=== PATIENT | female | born 1985 | race Caucasian/White ===

== ENCOUNTER 2022-07-11 16:09 | Observation (INO) | payer OTHER, SELFPAY ==
[2022-07-11] VITALS (20 sets, daily range): BP systolic 118–159; BP diastolic 71–94; PULSE 98–117; RESP 17–30; TEMP 36.3–37.6; O2SAT 96–100
--- NOTE | 2022-07-11 16:15 | ECG_ITS ---
Measurements Intervals [place] Rate: 101 P: 23 LA: 150 QRS: 24 QRSD: 86 T: 11 QT: 348 QTc: 451 Interpretive Statements SINUS TACHYCARDIA LOW QRS VOLTAGE IN PRECORDIAL LEADS BORDERLINE ECG NO PREVIOUS ECG AVAILABLE FOR COMPARISON Electronically Signed On 07-11-2022 16:28:40 STAVE PLANER TENDER by Marco Powell D.O.
--- NOTE | 2022-07-11 16:24 | ED.SYNCOPE ---
HPI - Syncope General Chief Complaint: Syncope Stated Complaint: near syncopy Time Seen by Provider: 07/11/22 16:11 Source: patient and EMS Mode of arrival: EMS Limitations: no limitations History of Present Illness HPI narrative: Isabel Lozano is a 36 y/o female who presents today for a near syncope episode. She reports she has been having irregular vaginal bleeding since October. She has been trying to get in to see her OCCUPATIONAL PHYSICIAN and could not get in, she decided to follow up with the OBGYN here at [facility] today. She reports while she was there she had a pelvic exam completed and was going to get started on a different medication to help with her vaginal bleeding and when she got up after the exam she felt like she was going to pass out and her helped her lower and sit on the floor. She did not acutally pass out completely, she denies chest pain/shortness of breath. Related Data Home Medications Medication Instructions Recorded Confirmed drospirenone 3 mg-ethinyl tablet 07/11/22 estradiol 0.03 mg tablet ferrous sulfate 325 mg (65 mg mg 07/11/22 07/11/22 iron) tablet Allergies Allergy/AdvReac Type Severity Reaction Status Date / Time Sulfa (Sulfonamide Allergy Unknown Rash Verified 07/11/22 17:02 Antibiotics) sulfamethoxazole Allergy Unknown Rash Verified 07/11/22 17:02 trimethoprim Allergy Unknown Rash Verified 07/11/22 17:02 Review of Systems Review of Systems: CONSTITUTIONAL: Denies fever, chills, or sweats. EYES: Denies visual changes, redness, or discharge. ENT: Denies rhinorrhea, congestion, sore throat, or otalgia. CARDIOVASCULAR: Denies chest pain, palpitations, or edema. RESPIRATORY: Denies cough or dyspnea. GASTROINTESTINAL: Denies abdominal pain, nausea, vomiting, or diarrhea. GENITOURINARY: Denies dysuria or hematuria. SKIN: Denies rash or itching. MUSCULOSKELETAL: Denies back pain, joint pain, or myalgia. NEUROLOGIC: Denies headache, numbness, dizziness, or weakness. PSYCHIATRIC: Denies anxiety or depression. Exam Narrative: GENERAL: Well-appearing, well-nourished, and in no acute distress. HEAD: Normocephalic, atraumatic. EYES: PERRLA and EOMI. ENT: Nares clear, no rhinorrhea or epistaxis. Mucous membranes moist. Oropharynx without tonsillar hypertrophy exudate or other lesions. NECK: Supple. No adenopathy or masses. No carotid bruits or JVD CHEST: Clear to auscultation. No respiratory distress. No wheezes rales or rhonchi HEART: Regular rate and rhythm. No murmur heard. Normal peripheral pulses. ABDOMEN: Soft, nontender, nondistended, normal active bowel sounds. EXTREMITIES: Normal range of motion. No edema. SKIN: Warm, dry, no rash. NEURO: No focal deficits. Alert and oriented x3. PSYCH: Normal mood and affect. Findings, Course Vital Signs Vital signs: Vital Signs Temperature 36.3 C L 07/11/22 16:10 Pulse Rate 112 H 07/11/22 16:10 Respiratory Rate 18 07/11/22 16:10 Blood Pressure 138/88 07/11/22 16:10 Pulse Oximetry 100 07/11/22 16:10 Temperature 36.3 C L 07/11/22 16:10 Pulse Rate 108 H 07/11/22 18:07 Respiratory Rate 19 07/11/22 18:07 Blood Pressure 136/74 07/11/22 18:07 Pulse Oximetry 98 07/11/22 18:07 MDM - Syncope MDM Narrative Medical decision making narrative: Patient presents after a near syncope today while at the OBGYN office. She was getting checked out for irregular vaginal bleeding that she says has been present since October. She reports she stopped bleeding in March but then it returned in Novebmber. She feels like the bleeding since April has become heavier with clots. She denies LOC/hitting head. She denies chest pain/ shortness of breath/fever/chills/extremity swelling Plan to check: labs/EKG/ Concern for: Anemia/ irregular uterine bleeding/ Cardiac Ischemia/PE Patient is anemic at 7.0 and still having active vaginal bleeding. Talked with Dr. Anderson who would like pt admitted for a blood transfusion a
[2022-07-11 16:25] LABS: Basophils Percent Auto 0.2 % (0.2-1.2); Eosinophils Absolute Auto 0.2 K/mm3 (0-0.3); Eosinophils Percent Auto 1.8 % (0-4.4); Hematocrit 24.4 % (37.0-47.0); Immature Granulocyte Absolute 0.08 K/mm3 (0.00-0.031); Immature Granulocyte Percent A 0.8 % (0-0.5); Lymphocytes Absolute Auto 1.33 K/mm3 (0.9-3.2); Lymphocytes Percent Auto 13.9 % (18.3-44.2); Mean Corpuscular HGB Conc 28.7 g/dl (32-36); Mean Corpuscular Hemoglobin 25.9 pg (26-34); Mean Corpuscular Volume 90.4 fl (80-100); Mean Platelet Volume 10.5 fl (7.4-10.4); Monocytes Absolute Auto 0.6 K/mm3 (0.1-0.6); Monocytes Percent Auto 6.3 % (2.6-8.5); Neutrophils Absolute Auto 7.4 K/mm3 (1.3-6.7); Platelet Count Result 256 k/mm3 (150-375); Red Cell Distribution Width 19.8 % (11.5-14.5); White Blood Count 9.6 K/mm3 (4.5-10.0)
[2022-07-11 16:37] LABS: Alanine Aminotransferase 39 U/L (6-35); Alkaline Phosphatase 70 U/L (38-126); Anion Gap 5 mmol/L (8-16); Aspartate Amino Transferase 29 U/L (14-36); Bilirubin,Total 0.3 mg/dL (0.2-1.3); Blood Urea Nitrogen 11 mg/dL (7-17); Calcium 8.5 mg/dL (8.4-10.2); Carbon Dioxide 23 mmol/L (22-30); Chloride 102 mmol/L (98-107); Estimated CRCL calculation 114 ml/min; Estimated Glomerular Filt Rate > 60; Glucose 116 mg/dL (65-110); Magnesium 2.1 mg/dL (1.6-2.3); Potassium 3.9 mmol/L (3.4-5.0); Sodium 130 mmol/L (137-145)
[2022-07-11 16:49] LABS: Troponin I < 0.012 ng/mL (0.000-0.034)
[2022-07-11 16:55] LABS: Hypochromasia 1+ (NORMAL); Platelet Estimate Adequate (Adequate); Schistocytes None Seen (NORMAL)
[2022-07-11 16:56] LABS: Anisocytosis 3+ (NORMAL); Polychromasia 1+ (NORMAL)
[2022-07-11 17:07] LABS: D Dimer 0.49 ug/mL (<0.48)
[2022-07-11] MEDS: ESTROGENS, CONJUGATED 25 MG/5 ML VIAL IM (18:13)
[2022-07-11] MEDS: SODIUM CHLORIDE 0.9% IV 250 ML 30 ML IV CONT (18:54)
--- NOTE | 2022-07-11 20:10 | PC.NURSE ---
11 cc clot noted on pad upon patients arrival to the unit.
--- NOTE | 2022-07-11 20:19 | OBPPTRN ---
Patient transferred to room #290 via stretcher. Support persons present. Oriented to unit, room, information board, rooming in, and security measures.
[2022-07-12] VITALS (7 sets, daily range): BP systolic 106–138; BP diastolic 55–90; PULSE 85–101; RESP 16–20; TEMP 36.8–37.3; O2SAT 96–100
[2022-07-12] MEDS: ESTROGENS, CONJUGATED 25 MG/5 ML VIAL IV PUSH (11:47)
[2022-07-12 12:47] LABS: Basophils Percent Auto 0.3 % (0.2-1.2); Eosinophils Absolute Auto 0.2 K/mm3 (0-0.3); Eosinophils Percent Auto 1.3 % (0-4.4); Hematocrit 29.8 % (37.0-47.0); Hemoglobin 9.1 g/dL (12.0-15.0); Immature Granulocyte Absolute 0.06 K/mm3 (0.00-0.031); Immature Granulocyte Percent A 0.5 % (0-0.5); Lymphocytes Absolute Auto 1.63 K/mm3 (0.9-3.2); Lymphocytes Percent Auto 13.7 % (18.3-44.2); Mean Corpuscular HGB Conc 30.5 g/dl (32-36); Mean Corpuscular Volume 88.4 fl (80-100); Mean Platelet Volume 10.3 fl (7.4-10.4); Monocytes Absolute Auto 0.7 K/mm3 (0.1-0.6); Monocytes Percent Auto 5.6 % (2.6-8.5); Neutrophils Absolute Auto 9.4 K/mm3 (1.3-6.7); Neutrophils Percent Auto 78.6 % (45.5-73.1); Platelet Count Result 257 k/mm3 (150-375); Red Blood Count 3.37 M/mm3 (4.2-5.4); Red Cell Distribution Width 18.8 % (11.5-14.5); White Blood Count 11.9 K/mm3 (4.5-10.0)
--- NOTE | 2022-07-12 14:51 | PC.NURSE ---
0600 In report it was stated that she is a hard stick so Lab was called to come and draw it @ 0530. 0945 Called the Community Association Manager to see if she was still coming to draw pts labs? she stated she is the only one working to day and she id drawing the whole hospital. She will come when she gets a chance. 1215 she arrived to draw the labs.
--- NOTE | 2022-07-12 17:28 | PM.IMHP ---
H&P: HPI History of Present Illness Date/Time: 07/12/22 17:28 Chief Complaint: Vaginal bleeding Narrative: this patient is a 36-year-old female with heavy vaginal bleeding. She was seen in the office where she had a near syncopal episode. She has had intermittent severely heavy bleeding over the past several months. She has been evaluated and is considered surgical treatment. She was taken by EMS from the office to the emergency department. She got fluid resuscitation and the ambulance. She was stable on arrival in the emergency department. She was admitted from the emergency to the floor for blood and observation. Currently she is stable. She denies any shortness of breath or any syncope. She denies any chest pain or shortness of breath. She denies any nausea, vomiting, fever, chills Review of Systems Review of Systems: All systems reviewed & are unremarkable except as noted in HPI and below Constitutional: Constitutional: Denies chills, Denies fatigue, Denies fever(s) and Denies weakness Eyes: Eyes: Denies blurry vision, Denies change in vision, Denies loss of peripheral vision, Denies loss of vision, Denies other visual disturbances and Denies eye pain ENT: Denies vertigo, Denies dizziness, Denies hearing loss, Denies mouth pain, Denies nasal obstruction, Denies neck mass and Denies neck pain Cardiovascular: Cardiovascular: Denies chest pain, Denies diaphoresis, Denies syncope, Denies leg edema and Denies dyspnea Respiratory: Respiratory: Denies chest congestion, Denies cough, Denies hemoptysis, Denies dyspnea and Denies wheezing Gastrointestinal: Gastrointestinal: Denies abdominal pain, Denies constipation, Denies diarrhea, Denies nausea and Denies vomiting Genitourinary: Genitourinary: Denies hematuria, Denies change in libido, Denies nocturia, Denies genital lesions, Denies flank pain and Denies urinary urgency Musculoskeletal: Musculoskeletal: Denies abnormal gait, Denies back pain, Denies myalgias, Denies arthralgias, Denies joint swelling, Denies muscle weakness and Denies neck pain Integumentary/Breasts: Skin/Breast: Denies swelling, Denies breast pain, Denies breast mass, Denies dry skin, Denies nipple discharge, Denies unusual bruising and Denies jaundice Neurologic: Denies Neuro-related abnormal movements, Denies Abnormal speech present, Denies abnormal gait, Denies behavioral changes, Denies confusion, Denies vertigo, Denies dizziness, Denies syncope, Denies loss of vision, Denies memory loss, Denies convulsions and Denies weakness Psychiatric: Psychiatric: Denies abnormal sleep pattern, Denies behavioral changes, Denies change in libido, Denies confusion, Denies depression, Denies anhedonia and Denies memory loss Endocrine: Endocrine: Reports no additional endocrine complaints, Denies change in libido and Denies fatigue Hematologic/Lymphatic: Hematologic/Lymphatic: Reports no additional hematologic/lymphatic complaints Allergic/Immunologic: Allergic/Immunologic: Reports no additional allergic/immunologic complaints and Denies wheezing Meds Home Medications and Allergies Home Medications Medication Instructions Recorded Confirmed Type drospirenone 3 mg-ethinyl tablet 07/11/22 History estradiol 0.03 mg tablet ferrous sulfate 325 mg (65 mg mg 07/11/22 07/11/22 History iron) tablet Allergies Allergy/AdvReac Type Severity Reaction Status Date / Time Sulfa (Sulfonamide Allergy Unknown Rash Verified 07/11/22 17:02 Antibiotics) sulfamethoxazole Allergy Unknown Rash Verified 07/11/22 17:02 trimethoprim Allergy Unknown Rash Verified 07/11/22 17:02 Vital Signs Vital Signs - 24 hr 07/11/22 17:36 07/11/22 18:07 07/11/22 18:46 Temperature 98.4 F Pulse Rate 110 H 108 H 98 Respiratory Rate 21 H 19 20 Blood Pressure 136/74 130/75 Pulse Oximetry 98 100 Oxygen Delivery 07/11/22 18:15 07/11/22 18:32 07/11/22 18:45 Temperature Pulse Rate 101 H 102 H 114 H Respiratory Rate 2
--- NOTE | 2022-07-12 17:39 | P.DS_ITS ---
DS: Admitting Diagnosis Discharge Date July 12, 2022 Admitting Diagnosis menorrhagia DS: Summary Hospital Course Hospital Course: 36-year-old female who was admitted for syncope and vaginal bleeding. Her bladder bleeding was treated with IV Premarin. She came to the emergency department and was admitted for observation and received 2 units of blood. She was discharged hospital day 1. With oral Prometrium to take until she has her surgery. Time Spent with Patient Time attestation: Total time spent providing and/or coordinating discharge services: DS: Data Data Completed and Pending Labs on day of discharge: Labs from last 24 hours 07/12/22 07/11/22 12:34 16:19 WBC 11.9 H RBC 3.37 L Hgb 9.1 L Hct 29.8 L MCV 88.4 MCH 27.0 MCHC 30.5 L RDW 18.8 H Plt Count 257 MPV 10.3 Immature Gran % (Auto) 0.5 Neut % (Auto) 78.6 H Lymph % (Auto) 13.7 L [place] % (Auto) 5.6 Eos % (Auto) 1.3 Baso % (Auto) 0.3 Lymph # (Auto) 1.63 [place] # (Auto) 0.7 H Eos # (Auto) 0.2 Baso # (Auto) 0.0 Abs Immat Gran (auto) 0.06 H Absolute Neuts (auto) 9.4 H Absolute Nucleated RBC 0.0 Nucleated RBC % 0.0 Blood Type A Positive Antibody Screen Negative Crossmatch See Detail Discharge Plan Discharge Discharging Clinician: Chaz Anderson Patient Disposition: Home, Self-Care Activity: pelvic rest Diet: regular Patient Instructions: Antibiotic Form Stand Alone Forms: General Discharge Information Follow-up/Referrals: Chaz Anderson MD [Physician] - Discharge Medications: New progesterone micronized [Prometrium] 200 mg capsule 200 mg PO HS 60 Days Qty: 30 1RF Continued ferrous sulfate 325 mg (65 mg iron) tablet Discontinued drospirenone-ethinyl estradiol 3-0.03 mg tablet Date of admission: 07/11/22 18:34 Primary Care Provider: UNKNOWN,DOCTOR Admitting Provider: Chaz Anderson Attending physician on admission: Chaz Anderson Condition: Stable
--- NOTE | 2022-08-09 10:32 | P.PNOB_ITS ---
OB - Triage/Final Diagnosis Visit Information Comments/Additional reasons for admission: I have assessed the risk for this patient, Isabel Lozano, and determined that she would benefit from observation care. Evaluation Laboratory results: Laboratory Tests 07/11/22 07/11/22 07/11/22 16:19 16:19 16:19 WBC 9.6 RBC 2.70 L Hgb 7.0 L Hct 24.4 L MCV 90.4 MCH 25.9 L MCHC 28.7 L RDW 19.8 H Plt Count 256 MPV 10.5 H Immature Gran % (Auto) 0.8 H Neut % (Auto) 77.0 H Lymph % (Auto) 13.9 L [place] % (Auto) 6.3 Eos % (Auto) 1.8 Baso % (Auto) 0.2 Lymph # (Auto) 1.33 [place] # (Auto) 0.6 Eos # (Auto) 0.2 Baso # (Auto) 0.0 Abs Immat Gran (auto) 0.08 H Absolute Neuts (auto) 7.4 H Absolute Nucleated RBC 0.0 Nucleated RBC % 0.0 Platelet Estimate Adequate Polychromasia 1+ Hypochromasia 1+ Anisocytosis 3+ Schistocytes None seen D-Dimer Sodium 130 L Potassium 3.9 Chloride 102 Carbon Dioxide 23 Anion Gap 5 L BUN 11 Creatinine 0.90 Estim Creat Clear Calc 114 Estimated GFR > 60 Glucose 116 H Calcium 8.5 Magnesium 2.1 Total Bilirubin 0.3 AST 29 ALT 39 H Alkaline Phosphatase 70 Troponin I < 0.012 Total Protein 7.0 Albumin 4.0 Blood Type A Positive Antibody Screen Negative Crossmatch See Detail 07/11/22 07/12/22 16:19 12:34 WBC 11.9 H RBC 3.37 L Hgb 9.1 L Hct 29.8 L MCV 88.4 MCH 27.0 MCHC 30.5 L RDW 18.8 H Plt Count 257 MPV 10.3 Immature Gran % (Auto) 0.5 Neut % (Auto) 78.6 H Lymph % (Auto) 13.7 L [place] % (Auto) 5.6 Eos % (Auto) 1.3 Baso % (Auto) 0.3 Lymph # (Auto) 1.63 [place] # (Auto) 0.7 H Eos # (Auto) 0.2 Baso # (Auto) 0.0 Abs Immat Gran (auto) 0.06 H Absolute Neuts (auto) 9.4 H Absolute Nucleated RBC 0.0 Nucleated RBC % 0.0 Platelet Estimate Polychromasia Hypochromasia Anisocytosis Schistocytes D-Dimer 0.49 H Sodium Potassium Chloride Carbon Dioxide Anion Gap BUN Creatinine Estim Creat Clear Calc Estimated GFR Glucose Calcium Magnesium Total Bilirubin AST ALT Alkaline Phosphatase Troponin I Total Protein Albumin Blood Type Antibody Screen Crossmatch Final Diagnosis (1) Dysfunctional uterine bleeding: Code(s): N93.8 - Other specified abnormal uterine and vaginal bleeding Status: Acute
== END 2022-07-12 18:38 | disposition home or self-care (01) ==
LOC: ANHED 17:49 → ANHOB2 19:03
PROVIDERS: Emergency Medicine; Admitting Provider Obstetrics & Gynecology; Emergency Provider Nurse Practitioner Family; Visit Provider Obstetrics & Gynecology
DX: N92.0 Excessive and frequent menstruation with regular cycle (principal); R55 Syncope and collapse; R00.0 Tachycardia, unspecified; Z79.3 Long term (current) use of hormonal contraceptives; Z79.899 Other long term (current) drug therapy
CPT/HCPCS: 36415; 36430; 80053; 83735; 84484; 85025; 85380; 86850; 86900; 86901; 86923; 93005; 96372; 96374; 99285; G0378; J1410; J7050; P9016

== ENCOUNTER 2023-05-30 17:15 | Outpatient (CLI) | payer OTHER, SELFPAY ==
--- NOTE | ~2023-05-30 | XR_ITS ---
EXAMINATION: XR chest 2V DATE: 05/30/2023 17:57 INDICATION: Shortness of breath, cough, midsternal and left lateral rib pain TECHNIQUE: PA and lateral views of the chest were obtained. COMPARISON: None FINDINGS: The lungs are clear with no focal airspace opacities, pulmonary edema, pleural effusion or pneumothor ax. The cardiomediastinal silhouette is normal. Mild thoracic spondylosis. IMPRESSION: 1. No acute cardiopulmonary disease. Reviewed, dictated and finalized at location [facility] [employer]
== END 2023-05-30 17:16 | disposition home or self-care (01) ==
DX: R05.9 Cough, unspecified (principal)
CPT/HCPCS: 71046

== ENCOUNTER 2023-09-17 16:01 | Emergency (ER) | payer OTHER, SELFPAY ==
[2023-09-17 16:02] VITALS: BP 119/86; PULSE 92; RESP 20; TEMP 36.6; O2SAT 98
--- NOTE | 2023-09-17 16:09 | ED.GIBLEED ---
HPI - GI Bleed General Chief complaint: GI Bleed Stated complaint: RECTAL BLEEDING Time Seen by Provider: 09/17/23 16:09 Source: patient Mode of arrival: ambulatory Limitations: no limitations History of Present Illness HPI Narrative: 38-year-old female with endometriosis, dysfunctional uterine bleeding, hemorrhoids presents to the ER with -- bright red blood per rectum. Blood is also present on the wipes. Blood is separate from well-formed stool. The amount of bleeding per rectum was more than usual which prompted her to come to the ER. No abdominal pain. No nausea/ vomiting. MD complaint: blood on toilet paper and blood streaked stool Onset (ago): day(s) ( One day) Pain Consistency: intermittent Relieving factors: none Exacerbating factors: none Context: hemorrhoids Treatments Prior to Arrival: none Related Data Allergies Allergy/AdvReac Type Severity Reaction Status Date / Time Sulfa (Sulfonamide Allergy Unknown Rash Verified 09/17/23 16:24 Antibiotics) sulfamethoxazole Allergy Unknown Rash Verified 09/17/23 16:24 trimethoprim Allergy Unknown Rash Verified 09/17/23 16:24 Review of Systems Review of Systems: All systems reviewed & are unremarkable except as noted in HPI and below Constitutional: Constitutional: Reports as per HPI and Reports no additional constitutional complaints Eyes: Eyes: Reports as per HPI and Reports no additional eye complaints ENT: Reports system reviewed and no additional complaints, except as documented and Reports as per HPI Cardiovascular: Cardiovascular: Reports as per HPI and Reports no additional cardiovascular complaints Respiratory: Respiratory: Reports as per HPI and Reports no additional respiratory complaints Gastrointestinal: Gastrointestinal: Reports as per HPI and Reports no additional gastrointestinal complaints Comments: bright red blood per rectum Genitourinary: Genitourinary: Reports no additional female genitourinary complaints Comments: patient is on continuous progesterone for her dysfunctional uterine bleeding. Musculoskeletal: Musculoskeletal: Reports no additional musculoskeletal complaints and Reports as per HPI Integumentary/Breasts: Skin/Breast: Reports system reviewed and no additional complaints, except as docu and Reports as per HPI Neurologic: Reports system reviewed and no additional complaints, except as documented and Reports as per HPI Psychiatric: Psychiatric: Reports no additional psychiatric complaints and Reports as per HPI Endocrine: Endocrine: Reports no additional endocrine complaints and Reports as per HPI Hematologic/Lymphatic: Hematologic/Lymphatic: Reports no additional hematologic/lymphatic complaints and Reports as per HPI Allergic/Immunologic: Allergic/Immunologic: Reports no additional allergic/immunologic complaints and Reports as per HPI [facility] Past Medical History Medical History (Updated 09/17/23 @ 17:58 by Jabier Cuevas MD) Hemorrhoids Exam Const: General: no acute distress Nutritional Appearance: obese Orientation/consciousness: patient oriented x3 Limitations: no limitations HENMT: Head: normal to inspection Ears: external ears normal Face/Nose/Sinus: Normal external nose present Face and sinus: normal facial exam Mouth: Yes Normal oral and palatal mucosa present Throat: posterior oropharynx normal Eyes: Conjunctivae: conjunctivae normal Pupils: Equal, round and reactive pupils present EOM: EOMs intact bilaterally Direct Ophthalmoscopy: no photophobia Neck: Neck: normal visual inspection, no lymphadenopathy and no meningeal signs Chest: Chest palpation & inspection: normal inspection of the chest Resp: Effort & Inspection: normal respiratory effort Auscultation: clear to auscultation bilaterally Cardio: Rate: regular rate Rhythm: regular rhythm GI: GI Palp: Yes Soft to palpation Auscultation: normal bowel sounds Other: no tenderness/ rigidity /rebound. Rectal examinatio
[2023-09-17 16:50] LABS: Appearance Urine Clear (Clear); Bilirubin Urine Negative (Negative); Blood Urine Negative (Negative); Color Urine Yellow (Yellow); Glucose Urine UA Negative (Negative); Ketones Urine Negative (Negative); Leukocyte Esterase Ur Negative LEU/UL (Negative); Nitrate Urine Negative (Negative); Protein Urine Negative (Negative); Specific Grav Ur >= 1.030 (1.010-1.020); Urobilinogen Urine 0.2 mg/dL (0.2-1.0); pH Urine 5.5 (5.0-8.0)
[2023-09-17 16:57] LABS: Add Urine Microscopic? NO
[2023-09-17 16:58] LABS: Pregnancy On Board Control Positive; Urine Pregnancy Test Negative
[2023-09-17 17:03] LABS: Basophils Absolute Auto 0.02 K/mm3 (0.00-0.10); Basophils Percent Auto 0.3 % (0.0-1.0); Eosinophils Absolute Auto 0.19 K/mm3 (0.02-0.50); Eosinophils Percent Auto 2.4 % (1.0-6.0); Hematocrit 40.2 % (35.0-49.0); Hemoglobin 13.4 g/dL (12.0-15.0); Immature Granulocyte Absolute 0.02 K/mm3 (0.00-0.00); Immature Granulocyte Percent A 0.3 % (0.0-0.0); Lymphocytes Percent Auto 27.9 % (18.0-42.0); Mean Corpuscular HGB Conc 33.3 g/dL (32-36); Mean Corpuscular Hemoglobin 29.2 pg (27.0-31.0); Mean Corpuscular Volume 87.6 fL (78.0-102.0); Mean Platelet Volume 10.2 fl (9.2-11.8); Monocytes Absolute Auto 0.53 K/mm3 (0.10-0.90); Monocytes Percent Auto 6.7 % (2.0-11.0); Neutrophils Absolute Auto 4.93 K/mm3 (1.70-7.20); Neutrophils Percent Auto 62.4 % (50.0-70.0); Platelet Count Result 211 K/mm3 (150-420); Red Blood Count 4.59 M/mm3 (4.20-5.40); Red Cell Distribution Width 13.6 % (11.6-14.4); White Blood Count 7.9 K/mm3 (4.8-10.8)
[2023-09-17 17:18] LABS: Partial Thromboplastin Time 25.4 Sec (23.9-30.70); Prothrombin Time 11.2 Seconds (9.50-12.1)
[2023-09-17 17:21] LABS: Alanine Aminotransferase 51 U/L (14-59); Albumin Level 3.6 g/dL (3.4-5.0); Alkaline Phosphatase 87 U/L (46-116); Anion Gap 10 mmol/L (8-16); Aspartate Amino Transferase 34 U/L (15-37); Bilirubin,Total 0.5 mg/dL (0.00-1.00); Blood Urea Nitrogen 10 mg/dL (7-18); Carbon Dioxide 27 mmol/L (21-32); Chloride 104 mmol/L (98-108); Estimated CRCL calculation 127 ml/min; Estimated Glomerular Filt Rate > 60; Glucose 87 mg/dL (70-99); Osmolality Calculated 290 mOsm/kg (285-295); Potassium 3.8 mmol/L (3.5-5.1); Sodium 141 mmol/L (136-145); Total Protein 7.3 g/dL (6.4-8.2)
[2023-09-17 18:10] VITALS: BP 120/82; PULSE 88; RESP 20; O2SAT 98
== END 2023-09-17 18:10 | disposition home or self-care (01) ==
PROVIDERS: Emergency Provider Internal Medicine Critical Care Medicine
DX: K62.5 Hemorrhage of anus and rectum (principal); K64.9 Unspecified hemorrhoids
CPT/HCPCS: 36415; 80053; 81003; 81025; 85025; 85610; 85730; 99283

== ENCOUNTER 2024-01-10 14:44 | Emergency (ER) | payer OTHER, SELFPAY ==
--- NOTE | ~2024-01-10 | XR_ITS ---
Portable chest x-ray Comparison: 05/30/2023 Clinical History: Shortness of breath Findings: Right-sided central venous line in satisfactory addition. Lungs are clear, without focal c onsolidation or pleural effusion. Cardiomediastinal silhouette is stable. Bones and soft tissues are unremarkable. Impression: Clear lungs. Support line, as above. Reviewed, dictated and finalized at location . Impression: Clear lungs. Support line, as above.
[2024-01-10 14:45] VITALS: BP 149/79; PULSE 86; RESP 20; TEMP 36.4; O2SAT 96
--- NOTE | 2024-01-10 14:52 | ED.ALLEREA ---
HPI - Allergic Reaction General Chief complaint: Neck Pain/Injury Stated complaint: allergic reaction Time Seen by Provider: 01/10/24 14:49 Source: patient Mode of arrival: ambulatory Limitations: no limitations History of Present Illness HPI narrative: 38-year-old female with a history of constipation, hemorrhoids, colon cancer status post radiation( which finished in end of November and is waiting for chemo) is noted to have -- dysuria for which she was prescribed as AZO. dysuria has improved -- submandibular swelling/ Neck pain. no difficulty breathing. No stridor. patient thinks that this could be an allergic reaction. No throat pain. No odynophagia. -- Postradiation abdominal discomfort. No nausea / vomiting. No diarrhea. -- No fever or chills, No skin rash noted. No pruritus. patient is not taking any new medication. Onset (ago): day(s) ( One day) Exposure: unknown Symptoms: other ( Submandibular swelling) Severity: mild Treatment prior to arrival: none Previous Allergic Reaction History: none Related Data Allergies Allergy/AdvReac Type Severity Reaction Status Date / Time Sulfa (Sulfonamide Allergy Unknown Rash Verified 09/17/23 16:24 Antibiotics) sulfamethoxazole Allergy Unknown Rash Verified 09/17/23 16:24 trimethoprim Allergy Unknown Rash Verified 09/17/23 16:24 Review of Systems Review of Systems: All systems reviewed & are unremarkable except as noted in HPI and below Constitutional: Constitutional: Reports as per HPI and Reports no additional constitutional complaints Eyes: Eyes: Reports as per HPI and Reports no additional eye complaints ENT: Reports system reviewed and no additional complaints, except as documented and Reports as per HPI Cardiovascular: Cardiovascular: Reports as per HPI and Reports no additional cardiovascular complaints Respiratory: Respiratory: Reports as per HPI and Reports no additional respiratory complaints Gastrointestinal: Gastrointestinal: Reports as per HPI and Reports no additional gastrointestinal complaints Genitourinary: Genitourinary: Reports no additional female genitourinary complaints and Reports as per HPI Musculoskeletal: Musculoskeletal: Reports no additional musculoskeletal complaints, Reports as per HPI and Reports myalgias Integumentary/Breasts: Skin/Breast: Reports system reviewed and no additional complaints, except as docu and Reports as per HPI Neurologic: Reports system reviewed and no additional complaints, except as documented and Reports as per HPI Psychiatric: Psychiatric: Reports no additional psychiatric complaints and Reports as per HPI Endocrine: Endocrine: Reports no additional endocrine complaints and Reports as per HPI Hematologic/Lymphatic: Hematologic/Lymphatic: Reports no additional hematologic/lymphatic complaints and Reports as per HPI Allergic/Immunologic: Allergic/Immunologic: Reports no additional allergic/immunologic complaints and Reports as per HPI [facility] Past Medical History Medical History (Updated 01/10/24 @ 16:45 by Jabier Cuevas MD) Colon cancer Hemorrhoids Exam Narrative: afebrile Const: General: no acute distress Orientation/consciousness: patient oriented x3 Limitations: no limitations HENMT: Head: normal to inspection Ears: external ears normal Face/Nose/Sinus: Normal external nose present Face and sinus: normal facial exam Mouth: Yes Normal oral and palatal mucosa present Throat: posterior oropharynx normal Eyes: Conjunctivae: conjunctivae normal Pupils: Equal, round and reactive pupils present EOM: EOMs intact bilaterally Direct Ophthalmoscopy: no photophobia Neck: Neck: normal visual inspection, no lymphadenopathy and no meningeal signs Other: increase of soft tissue swelling in the submandibular region. No tenderness noted. No stridor noted. Chest: Chest palpation & inspection: normal inspection of the chest Resp: Effort & Inspection: normal respiratory effort Au
--- NOTE | 2024-01-10 15:31 | PC.NURSE ---
pt. swabbed for covid, sent to lab
[2024-01-10 15:44] LABS: Appearance Urine Clear (Clear); Bilirubin Urine Negative (Negative); Blood Urine Negative (Negative); Color Urine Yellow (Yellow); Glucose Urine UA Negative (Negative); Ketones Urine Negative (Negative); Leukocyte Esterase Ur Negative LEU/UL (Negative); Nitrate Urine Negative (Negative); Protein Urine Negative (Negative); Urobilinogen Urine 0.2 mg/dL (0.2-1.0)
[2024-01-10 15:46] LABS: Add Urine Microscopic? NO
[2024-01-10 16:11] LABS: Strep Group A RT-PCR NOT DETECTED (Negative)
[2024-01-10 16:15] LABS: Basophils Absolute Auto 0.02 K/mm3 (0.00-0.10); Basophils Percent Auto 0.3 % (0.0-1.0); Eosinophils Absolute Auto 0.27 K/mm3 (0.02-0.50); Eosinophils Percent Auto 3.4 % (1.0-6.0); Hematocrit 39.4 % (35.0-49.0); Hemoglobin 13.2 g/dL (12.0-15.0); Immature Granulocyte Absolute 0.04 K/mm3 (0.00-0.00); Immature Granulocyte Percent A 0.5 % (0.0-0.0); Lymphocytes Absolute Auto 0.79 K/mm3 (1.10-4.50); Lymphocytes Percent Auto 9.9 % (18.0-42.0); Mean Corpuscular HGB Conc 33.5 g/dL (32-36); Mean Corpuscular Hemoglobin 29.8 pg (27.0-31.0); Mean Corpuscular Volume 88.9 fL (78.0-102.0); Mean Platelet Volume 10.5 fl (9.2-11.8); Monocytes Absolute Auto 0.48 K/mm3 (0.10-0.90); Neutrophils Absolute Auto 6.34 K/mm3 (1.70-7.20); Neutrophils Percent Auto 79.9 % (50.0-70.0); Platelet Count Result 122 K/mm3 (150-420); Red Blood Count 4.43 M/mm3 (4.20-5.40); Red Cell Distribution Width 14.2 % (11.6-14.4); White Blood Count 7.9 K/mm3 (4.8-10.8)
[2024-01-10 16:17] LABS: SARS-CoV-2 RNA PCR Negative (Negative)
[2024-01-10 16:18] LABS: Influenza A QL RT-PCR Negative (Negative); Influenza B QL RT-PCR Negative (Negative); RSV RNA, RT-PCR Negative (Negative)
[2024-01-10 16:30] LABS: Lactic Acid Reflex 0.9 mmol/L (0.4-2.0)
[2024-01-10 16:38] LABS: Alanine Aminotransferase 79 U/L (14-59); Albumin Level 3.1 g/dL (3.4-5.0); Alkaline Phosphatase 77 U/L (46-116); Anion Gap 9 mmol/L (4-12); Aspartate Amino Transferase 46 U/L (15-37); Bilirubin,Total 0.8 mg/dL (0.00-1.00); Blood Urea Nitrogen 15 mg/dL (7-18); Calcium 8.3 mg/dL (8.5-10.1); Carbon Dioxide 27 mmol/L (21-32); Chloride 102 mmol/L (98-108); Estimated CRCL calculation 116 ml/min; Estimated Glomerular Filt Rate > 60; Glucose 97 mg/dL (70-99); Lipase 36 U/L (16-77); Osmolality Calculated 286 mOsm/kg (285-295); Potassium 3.5 mmol/L (3.5-5.1); Sodium 138 mmol/L (136-145); Total Protein 6.1 g/dL (6.4-8.2)
[2024-01-10 16:39] LABS: Thyroid Stimulating Hormone 2.82 uIU/mL (0.36-3.74)
[2024-01-10 17:03] VITALS: BP 128/68; PULSE 76; RESP 20; TEMP 36.7; O2SAT 95
== END 2024-01-10 16:59 | disposition home or self-care (01) ==
PROVIDERS: Emergency Provider Internal Medicine Critical Care Medicine
DX: R22.0 Localized swelling, mass and lump, head (principal); R10.84 Generalized abdominal pain; D69.6 Thrombocytopenia, unspecified; Z85.038 Personal history of other malignant neoplasm of large intestine; Z20.822 Contact with and (suspected) exposure to COVID-19
CPT/HCPCS: 36415; 71045; 80053; 81003; 83605; 83690; 84443; 85025; 85055; 87637; 87651; 99283

== ENCOUNTER 2024-08-15 22:54 | Emergency (ER) | payer OTHER, SELFPAY ==
--- OUTSIDE RECORDS SUMMARY | 2024-08-15 22:56 | XMS_ITS | Clinical Summary ---
Author Organization [facility] Address [facility] [place] [address] Care Team Providers Care Solutions Architect Name Role Phone Ayah Almodovar MD Primary Care Provider [phone] Maximiliano Arndt MD Unavailable [phone] Allergies Active Allergy Reactions Criticality Noted Date Comments Sulfa (Sulfonamide Antibiotics) Shortness of breath,Swelling,Rash High 05/27/2022 Trimethoprim Rash Medium 03/13/[address] (NexIUM) 40 mg capsule Take 1 capsule (40 mg total) by mouth every evening 09/23/19 24 Active progesterone (PROMETRIUM) 200 mg capsule Take 1 capsule (200 mg total) by mouth every evening 10/27/19 24 Active multivit-mineral- iron-lutein tablet Take 1 tablet/capsule by mouth every evening Active cholecalciferol (VITAMIN D-3) 5,000 unit tablet Take 1 tablet (5,000 Units total) by mouth every evening Active L. acidophilus-dig enz cmb 5 5-250 mg capsule Take 1 tablet/capsule by mouth every evening Active TRESIBA 100 unit/mL (3 mL) pen for injection Inject 0.4 mL (40 Units total) under the skin with evening meal 05/09/20 24 Active insulin lispro (HumaLOG, ADMELOG) 100 unit/mL vial for injection Inject under the skin 3 (three) times a day before meals Sliding scale 15 units base Active cetirizine (ZyrTEC) 10 mg tablet Take 1 tablet (10 mg total) by mouth every evening Active acetaminophen 500 mg capsuleIndication s:Pain Take 2 capsules (1,000 mg total) by mouth every 6 (six) hours as needed for pain 08/12/19 25 Active cyclobenzaprine (FLEXERIL) 10 mg tablet Take 1 tablet (10 mg total) by mouth 3 (three) times a day as needed for muscle spasms for up to 10 days 30 tablet 08/12/19 25 025 Active enoxaparin (LOVENOX) 40 mg/0.4 mL syringeIndication s:Deep Vein Thrombosis Prevention Inject 0.4 mL (40 mg total) under the skin every 12 (twelve) hours for 21 days 16.8 mL 08/12/19 25 025 Active oxyCODONE (ROXICODONE) 5 mg immediate release tabletIndications :Pain Take 1 tablet (5 mg total) by mouth every 4 (four) hours as needed for pain 15 tablet 08/12/19 25 Active ondansetron (ZOFRAN) 8 mg tabletIndications :Rectal cancer (CMS/HCC) (HCC) Take 1 tablet (8 mg total) by mouth every 8 (eight) hours as needed for nausea or vomiting 20 tablet 3 01/13/20 24 025 Discontin ued(Stop Taking at Discharge ) prochlorperazine (COMPAZINE) 10 mg tabletIndications :Rectal cancer (CMS/HCC) (HCC) Take 1 tablet (10 mg total) by mouth 3 (three) times a day as needed for nausea 60 tablet 3 01/13/20 24 025 Discontin ued(Stop Taking at Discharge ) polyethylene glycol (MIRALAX) 17 gram/dose bulk powder Take 238 g by mouth once for 1 dose The day before surgery mix 238 grams Miralax with 64 ounces clear liquid. 11 AM begin drinking Miralax 8 ounces every 15 minutes until finished for bowel evacuation. 238 g 06/11/20 24 025 Discontin ued(Stop Taking at Discharge ) bisacodyL 5 mg tablet The day before surgery take 2 tabs at 10 am with 8 oz of clear liquid. At 12 pm, take 2 more tabs with 8 oz of clear liquid. 4 tablet 06/11/20 24 025 Discontin ued(Stop Taking at Discharge ) ondansetron ODT (ZOFRAN-ODT) 8 mg disintegrating tablet The day before surgery take one tablet (8 mg) at 11:00 am to prevent nausea. 1 tablet 06/11/20 24 025 Discontin ued(Stop Taking at Discharge ) neomycin (MYCIFRADIN) 500 mg tablet The day before surgery take neomycin 1000 mg (2 tablets) by mouth at 1 PM, 2 PM, and 10 PM. 6 tablet 06/11/20 24 025 Discontin ued(Stop Taking at Discharge ) metroNIDAZOLE (FLAGYL) 500 mg tablet The day before surgery take metronidazole (Flagyl) 500 mg by mouth at 1 PM, 2 PM, and 10 PM. 3 tablet 06/11/20 24 025 Discontin ued(Stop Taking at Discharge ) polyethylene glycol (MIRALAX) 17 gram packetIndications :constipation Take 1 packet (17 g total) by mouth as needed for constipation 025 Discontin ued(Stop Taking at Discharge ) Active Problems Problem Noted Date Diagnosed Date Heartburn 02/26/2024 Rectal cancer (CMS/HCC) 10/31/2023 Cancer Staging:Clinical stage from 11/13/2023:Stage I(cT2, cN0, cM0) - Signed by Cezar Rosario MD on 12/02/2023 Encounters Date Type Department Care Team Description 08/13/2024 Telephone [facility] Surgery [address] [facility] Floor 5 [place] [phone] Ghazala Adams RN 2024 Telephone [facility] Oncology [address] [place] [address] 08/09/2024 7:30 AM LEAF STICKER - 08/09/2024 2:55 PM LEAF STICKER Surgery [facility] [address] [place] [address] Carmen Szymanski MD XI ABDOMINAL PERINEAL RESECTION - LAPAROSCOPIC ROBOTIC ASSISTED 08/09/2024 7:29 AM LEAF STICKER Anesthesia Event [facility] [address] [place] [address] Jovanna Vargas MD Hearn, Alexandra Marie, NP 08/09/2024 5:05 AM LEAF STICKER - 08/12/2024 4:10 PM LEAF STICKER Hospital Encounter [facility] 1 [place] [address] Carmen Szymanski MD Rectal cancer (CMS/HCC) (HCC) Discharge Disposition: Discharge to home or self care 08/03/2024 Telephone [facility] Oncology [address] [place] [phone] Luis Miller 07/28/2024 Telephone [facility] Oncology [address] [place] [phone] Kellee Sandoval RN 07/09/2024 Telephone [facility] Surgery [address] [place] [address] Medical Office Building [address] [place] [address] Bonnie Clay Surgery 07/06/2024 Telephone [facility] Surgery [address] [facility] 2nd Floor [address] [place] [phone] Liliane Earl, CHELSEA 07/02/2024 Telephone [facility] Oncology [address] [place] [phone] 06/24/2024 2:30 PM LEAF STICKER Pre-Admission Testing [facility] Pre Anesthesia Testing [address] [place] [phone] Preoperative testing (Primary Dx) 06/24/2024 2:05 PM LEAF STICKER Lab [facility] [address] [facility] [address] [place] [address] Preoperative testing; Rectal cancer (CMS/HCC) (HCC) 06/21/2024 11:59 PM LEAF STICKER Anesthesia Event [facility] [address] [place] [address] Melany Mendez NP 06/16/2024 11:30 AM LEAF STICKER Office Visit [facility] Oncology [address] [place] [phone] Kimberly Velasquez MD Rectal cancer (CMS/HCC) (HCC) (Primary Dx) 06/16/2024 11:00 AM LEAF STICKER Clinical Support [facility] [address] [place] [address] Rectal cancer (CMS/HCC) (HCC) 06/10/2024 10:30 AM LEAF STICKER Office Visit [facility] Surgery [address] [place] [address] Carmen Szymanski MD Rectal cancer (CMS/HCC) (HCC) (Primary Dx) 06/10/2024 Orders Only [facility] Surgery [address] [place] [address] Medical Office Building [address] [place] [phone] Hailey Crystal RN 06/07/2024 9:04 AM LEAF STICKER Anesthesia Event [facility] [address] [place] [address] Luis Burgos MD Hanselman, Christina M. [facility] 06/07/2024 9:00 AM LEAF STICKER - 06/07/2024 9:45 AM LEAF STICKER Surgery [facility] [address] [place] [address] Kemar Seay MD SIGMOIDOSCOPY 06/07/2024 8:24 AM LEAF STICKER - 06/07/2024 10:22 AM LEAF STICKER Hospital Encounter [facility] [address] [place] [address] Kemar Seay MD Discharge Disposition: Discharge to home or self care 06/07/2024 Documentation [facility] Surgeon [address] [place] [address] Carmen Szymanski MD 06/07/2024 Telephone [facility] Surgery [address] [place] [address] Medical Office Building 4 [address] [place] [phone] Bonnie Clay 06/03/2024 Telephone [facility] Surgery [address] [facility] 2nd Floor [address] [place] [address] Anna Marie Abdul, RMA Colonoscopy 06/01/2024 10:30 AM LEAF STICKER Office Visit [facility] [place] [address] [place] [address] Dyana Goodson NP Rectal cancer (CMS/HCC) (HCC) (Primary Dx) 05/19/[address] [facility] [place] [address] [place] [address] Candida Martinez RN from Last 3 Months Surgical History Surgery Date Site/Laterality Comments SECTION 07/07/2012 DILATION AND CURETTAGE OF UTERUS 06/30/2014 - 06/29/2015 DILATION AND CURETTAGE OF UTERUS 06/30/2015 - 06/29/2016 PORT PLACEMENT CHEST >5 YEARS 12/11/2023 N/A COLONOSCOPY UPPER GASTROINTESTINAL ENDOSCOPY Medical History Medical History Date Comments Endometriosis Fibromyalgia PCOS (polycystic ovarian syndrome) Rectal cancer (CMS/HCC) (HCC) Sleep apnea GERD (gastroesophageal reflux disease) Anemia DM II (diabetes mellitus, type II), controlled ( HCC) Family History Medical History Relation Name Comments Colon polyps Cousin Lung disease Maternal Grandfather Skin cancer Maternal Grandfather Colon cancer Maternal Grandmother Uterine cancer Maternal Grandmother Skin cancer Mother Colon cancer Mother's Brother Liver cancer Mother's Brother Colonic polyp Mother's Sister Diabetes Paternal Grandfather Heart disease Paternal Grandfather Breast cancer Paternal Grandmother Heart failure Paternal Grandmother Relation Name Status Comments Cousin Alive Maternal Grandfather Maternal Grandmother Mother Alive Mother's Brother Mother's Sister Alive Paternal Grandfather Paternal Grandmother Social History Tobacco Use Types Packs/Day Years Used Date Smoking Tobacco: Never Smokeless Tobacco: Never Tobacco Cessation:Counseling Given: Not Answered AUDIT-C Answer Date Recorded Q1: How often do you have a drink containing alcohol? Never 06/24/2024 Q2: How many drinks containi ng alcohol do you have on a typical day when you are drinking? Patient does not drink Q3: How often do you have si x or more drinks on one occasion? Never 06/24/2024 Personal Safety Answer Date Recorded Have you ever been in or are you currently in a harmful physical or emotional relationship or is someone making you feel afraid or unsafe? Denies 08/09/2024 Comments No Sex and Gender Information Value Date Recorded Sex Assigned at Not on file Legal Sex Female 3:03 PM CDT Gender Identity Not on file Sexual Orientation Not on file Obstetrics History Last Filed Vital Signs Vital Sign Reading Time Taken Comments Blood Pressure 106/52 08/12/2024 12:30 PM LEAF STICKER Pulse 98 08/12/2024 12:30 PM LEAF STICKER Temperature 36.9 C (98.4 F) 08/12/2024 12:30 PM LEAF STICKER Respiratory Rate 20 08/12/2024 12:30 PM LEAF STICKER Oxygen Saturation 96% 08/12/2024 12:30 PM LEAF STICKER Inhaled Oxygen Concentration - - Weight 142.4 kg (314 lb) 08/09/2024 5:57 AM LEAF STICKER Height 170.2 cm (5' 7 ) 08/09/2024 5:57 AM LEAF STICKER Body Mass Index 49.18 08/09/2024 5:57 AM LEAF STICKER Plan of Treatment Health Maintenance Due Date Last Done Comments Cervical Cancer Screening 1985 Depression Screening 1985 Hepatitis C Screening 1985 Varicella Vaccines (1 of 2 - 13+ 2-dose series) 1998 Hepatitis B Screening 2003 Regular Well Visit/Exam 18-64 2003 Pneumococcal vaccine <65 (1 of 2 - PCV) 2004 Zoster Vaccine (1 of 2) 2004 Covid-19 Vaccine (2 - Jansse n risk series) 03/27/2021 02/27/2021 DTaP/Tdap/Td Vaccine (2 - Td or Tdap) 07/10/2022 07/10/2012 Influenza Vaccine (#1) 2024 07/10/2012 HPV Vaccines Aged Out No longer eligi ble based on patient's age to complete this topic Procedures Procedure Name Priority Date/Time Associated Diagnosis Comments POCT GLUCOSE DEVICE Routine 08/12/2024 1 1:53 AM LEAF STICKER POCT GLUCOSE DEVICE Routine 08/12/2024 7 :52 AM LEAF STICKER CBC WITHOUT DIFFERENTIAL Timed 08/11/2024 9:50 PM LEAF STICKER POCT GLUCOSE DEVICE Routine 08/11/2024 7 :26 PM LEAF STICKER POCT GLUCOSE DEVICE Routine 08/11/2024 4 :53 PM LEAF STICKER POCT GLUCOSE DEVICE Routine 08/11/2024 1 1:02 AM LEAF STICKER POCT GLUCOSE DEVICE Routine 08/11/2024 7 :40 AM LEAF STICKER EGFR Timed 08/11/2024 1:37 AM LEAF STICKER BASIC METABOLIC PANEL Timed 08/11/2024 1:37 AM LEAF STICKER CBC WITHOUT DIFFERENTIAL Timed 08/11/2024 1:37 AM LEAF STICKER POCT GLUCOSE DEVICE Routine 2024 8 :48 PM LEAF STICKER POCT GLUCOSE DEVICE Routine 2024 1 2:56 PM LEAF STICKER POCT GLUCOSE DEVICE Routine 2024 7 :49 AM LEAF STICKER HEMOGLOBIN A1C Timed 08/09/2024 9:20 PM LEAF STICKER LIPID PANEL Timed 08/09/2024 9:20 PM LEAF STICKER EGFR Timed 08/09/2024 9:20 PM LEAF STICKER BASIC METABOLIC PANEL Timed 08/09/2024 9:20 PM LEAF STICKER CBC WITHOUT DIFFERENTIAL Timed 08/09/2024 9:20 PM LEAF STICKER POC BLOOD GAS AND CHEMISTRIES, ARTERIAL Routine 08/09/2024 3:23 PM LEAF STICKER POC BLOOD GAS AND CHEMISTRIES, ARTERIAL Routine 08/09/2024 1:23 PM LEAF STICKER POCT GLUCOSE DEVICE Routine 08/09/2024 1 0:59 AM LEAF STICKER SC AN PROCEDURE PLACEHOLDER Routine 08/09/2024 9:21 AM LEAF STICKER SC AN PROCEDURE PLACEHOLDER Routine 08/09/2024 9:20 AM LEAF STICKER SC AN PROCEDURE PLACEHOLDER Routine 08/09/2024 9:17 AM LEAF STICKER SC AN ELECTIVE ENDOTRACHEAL AIRWAY Routine 08/09/2024 9:17 AM LEAF STICKER POC BLOOD GAS AND CHEMISTRIES, ARTERIAL Routine 08/09/2024 8:43 AM LEAF STICKER SIGMOIDOSCOPY 08/09/2024 7:33 AM LEAF STICKER Rectal cancer (CMS/HCC) (HCC) XI ABDOMINAL PERINEAL RESECTION - LAPAROSCOPIC ROBOTIC ASSISTED 08/09/2024 7:33 AM LEAF STICKER Rectal cancer (CMS/HCC) (HCC) POCT GLUCOSE DEVICE Routine 08/09/2024 5 :55 AM LEAF STICKER TYPE AND SCREEN STAT 08/09/2024 5:55 AM LEAF STICKER POCT HCG, URINE Routine 08/09/2024 5:45 AM LEAF STICKER TYPE AND SCREEN 14 DAY Routine 4 3:30 PM LEAF STICKER Preoperative testing EGFR STAT 06/16/2024 11:00 AM LEAF STICKER Rectal cancer (CMS/HCC) (HCC) DIFFERENTIAL AUTO STAT 06/16/2024 11: 00 AM LEAF STICKER Rectal cancer (CMS/HCC) (HCC) CBC WITH AUTO DIFFERENTIAL STAT 06/16/2024 11:00 AM LEAF STICKER Rectal cancer (CMS/HCC) (HCC) CEA Routine 06/16/2024 11:00 AM LEAF STICKER Rectal cancer (CMS/HCC) (HCC) COMPREHENSIVE METABOLIC PANEL STAT 06/16/2024 11:00 AM LEAF STICKER Rectal cancer (CMS/HCC) (HCC) POCT GLUCOSE DEVICE Routine 06/07/2024 1 0:02 AM LEAF STICKER SIGMOIDOSCOPY 06/07/2024 9:04 AM LEAF STICKER Rectal cancer (CMS/HCC) (HCC) FLEXIBLE SIGMOIDOSCOPY 9:03 AM LEAF STICKER POCT GLUCOSE DEVICE Routine 06/07/2024 8 :51 AM LEAF STICKER POCT HCG, URINE Routine 06/07/2024 from Last 3 Months Results * POCT glucose (08/12/2024 11:53 AM LEAF STICKER) Glucose, POC 124 70 - 199 mg/dL Blood 08/12/2024 11:5 3 AM LEAF STICKER 08/12/2024 11:53 AM LEAF STICKER us Carmen Szymanski MD LAB POCT ORDERABLES - ÁNGELA CE Final Result Performing Organization Address [facility] Co de Phone Number [facility] Department [place] [address] * POCT glucose (08/12/2024 7:52 AM LEAF STICKER) [facility] Glucose, POC 129 70 - 199 mg/dL Blood 08/12/2024 7:52 AM LEAF STICKER 08/12/2024 7:52 AM LEAF STICKER Carmen Szymanski MD LAB POCT ORDERABLES - ÁNGELA CE Final Result Performing Organization Address City/[facility] Co de Phone Number [facility] Department [place] [address] * (ABNORMAL) CBC without differential (08/11/2024 9:50 PM LEAF STICKER) [facility] WBC 6.3 3.8 - 9.9 K/cumm Hgb 8.5(L) 11.9 - 15.5 g/dL [facility] Hct 26.5(L) 35.6 - 45.5 % [facility] Plt 82(L) 150 - 400 K/cumm [facility] MPV 10.9 9.1 - 12.3 fL [facility] RBC 2.89(L) 3.90 - 5.20 M/cumm [facility] MCV 91.7 81.3 - 96.4 fL [facility] MCH 29.4 27.1 - 33.3 pg [facility] MCHC 32.1(L) 32.3 - 35.7 g/dL [facility] RDW CV 15.6(H) 11.1 - 14.9 % [facility] RDW SD 51.8(H) 35.7 - 48.1 fL [facility] NRBC abs 0.00 0.00 - 0.01 K/cumm [facility] Blood 08/11/2024 9:50 PM LEAF STICKER 08/11/2024 11:11 PM LEAF STICKER Tasia Patel NP LAB BLOOD ORDERABLES Cecille l Result Performing Organization Address City/[facility]/ZIP Co de Phone Number [facility] Department [place] [address] * POCT glucose (08/11/2024 7:26 PM LEAF STICKER) Glucose, POC 143 70 - 199 mg/dL Blood 08/11/2024 7:26 PM LEAF STICKER 08/11/2024 7:26 PM LEAF STICKER Carmen Szymanski MD LAB POCT ORDERABLES - ÁNGELA CE Final Result [facility] [place] [address] * POCT glucose (08/11/2024 4:53 PM LEAF STICKER) Glucose, POC 129 70 - 199 mg/dL Blood 08/11/2024 4:53 PM LEAF STICKER 08/11/2024 4:53 PM LEAF STICKER us Carmen Szymanski MD LAB POCT ORDERABLES - ÁNGELA CE Final Result Performing Organization Address City/[facility]/ZIP Co de Phone Number [facility] [place] [address] * POCT glucose (08/11/2024 11:02 AM LEAF STICKER) Glucose, POC 157 70 - 199 mg/dL Blood 08/11/2024 11:0 2 AM LEAF STICKER 08/11/2024 11:02 AM LEAF STICKER us Carmen Szymanski MD LAB POCT ORDERABLES - ÁNGELA CE Final Result Performing Organization Address [facility] Co de Phone Number [facility] Department [place] [address] * POCT glucose (08/11/2024 7:40 AM LEAF STICKER) Glucose, POC 135 70 - 199 mg/dL Blood 08/11/2024 7:40 AM LEAF STICKER 08/11/2024 7:40 AM LEAF STICKER us Carmen Szymanski MD LAB POCT ORDERABLES - ÁNGELA CE Final Result Performing Organization Address [facility] Co de Phone Number [facility] Department [place] [address] * eGFR (08/11/2024 1:37 AM LEAF STICKER) eGFR >90 >=60 mL/min/1. 73 m2 Comment: Interpretive Data Reference Interval Normal >/= 90 mL/min/1.73m2 Mildly decreased* 60 - 89 mL/min/1.73m2 Mildly to moderately decreased 45 - 59 mL/min/1.73m2 Moderately to severely decreased 30 - 44 mL/min/1.73m2 Severely decreased 15 - 29 mL/min/1.73m2 Kidney Failure < 15 mL/min/1.73m2 *Relative to young adult level Estimated glomerular filtration rate is determined by the 2020 CKD-EPI equation recommended by the National Kidney Foundation (A Unifying Approach to GFR Estimation: Recommendations of the NKF-ASK Task Force on Reassessing the Inclusion of Race in Diagnosing Kidney Disease, JASN 202). The CKD-EPI equation should not be used for patients with unstable renal function and has not been validated in children and those over 70. Current interpretive data was last reviewed 2021. Blood 08/11/2024 1:37 AM LEAF STICKER 08/11/2024 2:36 AM LEAF STICKER us Carmen Szymanski MD LAB BLOOD ORDERABLES Final Result [facility] Department [place] [address] * (ABNORMAL) CBC without differential (08/11/2024 1:37 AM LEAF STICKER) WBC 7.2 3.8 - 9.9 K/cumm Hgb 8.0(L) 11.9 - 15.5 g/dL [facility] Hct 24.4(L) 35.6 - 45.5 % [facility] Plt 80(L) 150 - 400 K/cumm [facility] MPV 10.8 9.1 - 12.3 fL [facility] RBC 2.70(L) 3.90 - 5.20 M/cumm [facility] MCV 90.4 81.3 - 96.4 fL [facility] MCH 29.6 27.1 - 33.3 pg [facility] MCHC 32.8 32.3 - 35.7 g/dL [facility] RDW CV 15.6(H) 11.1 - 14.9 % [facility] RDW SD 50.5(H) 35.7 - 48.1 fL [facility] NRBC abs 0.00 0.00 - 0.01 K/cumm [facility] Blood 08/11/2024 1:37 AM LEAF STICKER 08/11/2024 2:37 AM LEAF STICKER Narrative [facility] - 08/11/2024 2:49 AM LEAF STICKER Obtain POD 1 at 2200. us Carmen Szymanski MD LAB BLOOD ORDERABLES Final Result [facility] Department [place] [address] * (ABNORMAL) Basic metabolic panel (08/11/2024 1:37 AM LEAF STICKER) Pathologist [facility] Sodium 141 135 - 145 mmol/L Potassium, pl 3.3 3.3 - 4.9 mmol/L [facility] Chloride 104 97 - 110 mmol/L [facility] CO2 28 22 - 32 mmol/L [facility] Anion gap 9 2 - 15 mmol/L [facility] BUN 7 6 - 25 mg/dL [facility] Creatinine 0.83 0.60 - 1.10 mg/dL [facility] Glucose 117 70 - 199 mg/dL [facility] Comment: Interpretive Data Fasting glucose >/= 126 mg/dl is diagnostic for diabetes. Fasting is defined as no caloric intake for at least 8 hours. Fasting glucose between 100 mg/dl to 125 mg/dl is diagnostic of prediabetes. In a patient with classic symptoms of hyperglycemia or hyperglycemic crisis, a random glucose >/= 200 mg/dl is diagnostic for diabetes. In the absence of unequivocal hyperglycemia, results should be confirmed by repeat testing. The classification and Diagnosis of Diabetes Diabetes Care 2021; 46: S19-S40. Current interpretive data was last revised 2022. Calcium 8.0(L) 8.5 - 10.3 mg/dL [facility] Blood 08/11/2024 1:37 AM LEAF STICKER 08/11/2024 2:36 AM LEAF STICKER Narrative [facility] - 08/11/2024 3:06 AM LEAF STICKER Obtain POD 1 at 2200. Carmen Szymanski MD LAB BLOOD ORDERABLES Final Result Performing Organization Address City/[facility]/ZIP Co de Phone Number [facility] Department [place] [address] * POCT glucose (2024 8:48 PM LEAF STICKER) Glucose, POC 139 70 - 199 mg/dL Blood 2024 8:48 PM LEAF STICKER 2024 8:48 PM LEAF STICKER Carmen Szymanski MD LAB POCT ORDERABLES - ÁNGELA CE Final Result Performing Organization Address [facility] de Phone Number [facility] [place] [address] * POCT glucose (2024 12:56 PM LEAF STICKER) [facility] Glucose, POC 199 70 - 199 mg/dL Blood 2024 12:5 6 PM LEAF STICKER 2024 12:56 PM LEAF STICKER Carmen Szymanski MD LAB POCT ORDERABLES - ÁNGELA CE Final Result Performing Organization Address [facility] de Phone Number [facility] Department [place] [employer] [place] [address] * POCT glucose (2024 7:49 AM LEAF STICKER) [facility] Glucose, POC 139 70 - 199 mg/dL Blood 2024 7:49 AM LEAF STICKER 2024 7:49 AM LEAF STICKER Carmen Szymanski MD LAB POCT ORDERABLES - ÁNGELA CE Final Result Performing Organization Address [facility] de Phone Number [facility] [employer] [place] [address] * eGFR (08/09/2024 9:20 PM LEAF STICKER) [facility] eGFR >90 >=60 mL/min/1. 73 m2 Comment: Interpretive Data Reference Interval Normal >/= 90 mL/min/1.73m2 Mildly decreased* 60 - 89 mL/min/1.73m2 Mildly to moderately decreased 45 - 59 mL/min/1.73m2 Moderately to severely decreased 30 - 44 mL/min/1.73m2 Severely decreased 15 - 29 mL/min/1.73m2 Kidney Failure < 15 mL/min/1.73m2 *Relative to young adult level Estimated glomerular filtration rate is determined by the 2020 CKD-EPI equation recommended by the National Kidney Foundation (A Unifying Approach to GFR Estimation: Recommendations of the NKF-ASK Task Force on Reassessing the Inclusion of Race in Diagnosing Kidney Disease, JASN 202). The CKD-EPI equation should not be used for patients with unstable renal function and has not been validated in children and those over 70. Current interpretive data was last reviewed 2021. Blood 08/09/2024 9:20 PM LEAF STICKER 08/09/2024 10:19 PM LEAF STICKER us Carmen Szymanski MD LAB BLOOD ORDERABLES Final Result [facility] Department [place] [address] * (ABNORMAL) CBC without differential (08/09/2024 9:20 PM LEAF STICKER) WBC 6.4 3.8 - 9.9 K/cumm Hgb 9.1(L) 11.9 - 15.5 g/dL [facility] Hct 27.6(L) 35.6 - 45.5 % [facility] Plt 97(L) 150 - 400 K/cumm [facility] MPV 11.0 9.1 - 12.3 fL [facility] RBC 3.07(L) 3.90 - 5.20 M/cumm [facility] MCV 89.9 81.3 - 96.4 fL [facility] MCH 29.6 27.1 - 33.3 pg [facility] MCHC 33.0 32.3 - 35.7 g/dL [facility] RDW CV 15.1(H) 11.1 - 14.9 % [facility] RDW SD 49.6(H) 35.7 - 48.1 fL [facility] NRBC abs 0.00 0.00 - 0.01 K/cumm [facility] Blood 08/09/2024 9:20 PM LEAF STICKER 08/09/2024 10:19 PM LEAF STICKER Narrative [facility] - 08/09/2024 10:30 PM LEAF STICKER Obtain POD 0 at 2200. Carmen Szymanski MD LAB BLOOD ORDERABLES Final Result Performing Organization Address [facility] de Phone Number [facility] [place] [address] * Hemoglobin A1c (08/09/2024 9:20 PM LEAF STICKER) Hgb A1C 4.9 4.0 - 5.6 % Estimated Average Glucose 94 mg/dL [facility] Comment: The ADA recommends reporting an estimated Average Glucose (eAG) with all Hemoglobin A1c results using the equation derived from a study of 507 normal and diabetic adults. Minority populations were underrepresented and children were not included. (Diabetes Care 2020; 43(S1): S66-S76). The eAG is not equivalent to a fasting glucose. Blood 08/09/2024 9:20 PM LEAF STICKER 08/09/2024 10:24 PM LEAF STICKER Carmen Szymanski MD LAB BLOOD ORDERABLES Final Result Performing Organization Address City/[facility] Co de Phone Number [facility] [place] [address] * (ABNORMAL) Lipid panel (08/09/2024 9:20 PM LEAF STICKER) Cholesterol 104 30 - 199 mg/dL Comment: Interpretive Data Ages < or = 19 years Acceptable: <170 mg/dL Borderline high: 170-199 mg/dL High: >or= 200 mg/dL Ages > or = 20 years Desirable: <200 mg/dL Borderline high: 200-239 mg/dL High: >or= 240 mg/dL Literature References: 1. Expert Panel on Integrated Guidelines for Cardiovascular Health and Risk Reduction in Children and Adolescents. Pediatrics 2011;128:S213 2. NCEP Expert Panel. Circulation 2004;110:227 Current Interpretive Data was last revised on 2018. Triglycerides 72 <=149 mg/dL [facility] Comment: Interpretive Data Ages < or = 9 years Acceptable: <75 mg/dL Borderline high: 75-99 mg/dL High: >or= 100 mg/dL Ages 10 to 20 years Acceptable: <90 mg/dL Borderline high: 90-129 mg/dL High: >or= 130 mg/dL Ages > or = 20 years Desirable: <150 mg/dL Borderline high: 150-199 mg/dL High: 200-499 mg/dL Very high: >or= 499 mg/dL Literature References: 1. Expert Panel on Integrated Guidelines for Cardiovascular Health and Risk Reduction in Children and Adolescents. Pediatrics 2011;128:S213 2. NCEP Expert Panel. Circulation 2004;110:227 Current Interpretive Data was last revised on 2018. HDL 31(L) >=40 mg/dL [facility] Comment: Interpretive Data Ages < or = 19 years Acceptable: >45 mg/dL Borderline low: 40-45 mg/dL Low: <40 mg/dL Ages > or = 20 years Desirable: >or= 60 mg/dL Low: <40 mg/dL Literature References: 1. Expert Panel on Integrated Guidelines for Cardiovascular Health and Risk Reduction in Children and Adolescents. Pediatrics 2011;128:S213 2. NCEP Expert Panel. Circulation 2004;110:227 Current Interpretive Data was last revised on 2018. LDL, calculated 58 <=129 mg/dL [facility] Comment: Interpretive Data Ages < or = 19 years Acceptable: <110 mg/dL Borderline high: 110-129 mg/dL High: >or= 130 mg/dL Ages > or = 20 years Optimal: <100 mg/dL Near optimal: 100-129 mg/dL Borderline high: 130-159 mg/dL High: >160 mg/dL Calculated using the Jovon LDL-C estimating equation. This equation was implemented on 2024. Prior to this date LDL-C was estimated using the Friedewald equation. Literature References: 1. Expert Panel on Integrated Guidelines for Cardiovascular Health and Risk Reduction in Children and Adolescents. Pediatrics 2011;128:S213 2. NCEP Expert Panel. Circulation 2004;110:227 3. Jovon Hampton et al. TATO Cardiol. 2020 October 28;5(5):540-548. doi: 10.1001/[email or web address] Current Interpretive Data was last revised on 2024. Non-HDL Cholesterol 73 mg/dL [facility] Comment: Interpretive Data Ages < or = 19 years Acceptable: <120 mg/dL Borderline high: 120-144 mg/dL High: >145 mg/dL Ages > or = 20 years When triglycerides are >200 mg/dL, Non-HDL cholesterol is a secondary target of therapy with treatment goals that are 30 mg/dL greater than the LDL cholesterol target. Literature References: 1. Expert Panel on Integrated Guidelines for Cardiovascular Health and Risk Reduction in Children and Adolescents. Pediatrics 2011;128:S213 2. NCEP Expert Panel. Circulation 2004;110:227 Current Interpretive Data was last revised on 2018. Chol/HDL ratio 3 [facility] Blood 08/09/2024 9:20 PM LEAF STICKER 08/09/2024 10:19 PM LEAF STICKER Carmen Szymanski MD LAB BLOOD ORDERABLES Final Result [facility] Department [place] [address] * (ABNORMAL) Basic metabolic panel (08/09/2024 9:20 PM LEAF STICKER) Sodium 141 135 - 145 mmol/L Potassium, pl 4.0 3.3 - 4.9 mmol/L [facility] Chloride 107 97 - 110 mmol/L [facility] CO2 25 22 - 32 mmol/L [facility] Anion gap 9 2 - 15 mmol/L [facility] BUN 8 6 - 25 mg/dL [facility] Creatinine 0.84 0.60 - 1.10 mg/dL [facility] Glucose 158 70 - 199 mg/dL [facility] Comment: Interpretive Data Fasting glucose >/= 126 mg/dl is diagnostic for diabetes. Fasting is defined as no caloric intake for at least 8 hours. Fasting glucose between 100 mg/dl to 125 mg/dl is diagnostic of prediabetes. In a patient with classic symptoms of hyperglycemia or hyperglycemic crisis, a random glucose >/= 200 mg/dl is diagnostic for diabetes. In the absence of unequivocal hyperglycemia, results should be confirmed by repeat testing. The classification and Diagnosis of Diabetes Diabetes Care 2021; 46: S19-S40. Current interpretive data was last revised 2022. Calcium 8.3(L) 8.5 - 10.3 mg/dL [facility] Blood 08/09/2024 9:20 PM LEAF STICKER 08/09/2024 10:19 PM LEAF STICKER Narrative [facility] - 08/09/2024 10:53 PM LEAF STICKER Obtain POD 0 at 2200. us Carmen Szymanski MD LAB BLOOD ORDERABLES Final Result [facility] Department [place] [address] * (ABNORMAL) POC Blood Gas and Chemistries, Arterial - (08/09/2024 3:23 PM LEAF STICKER) pH, Art POC 7.33(L) 7.35 - 7.45 pCO2, Art POC 48(H) 35 - 45 mmHg [facility] pO2, Art POC 105 83 - 108 mmHg [facility] Na, POC 138 135 - 145 mmol/L [facility] K POC 4.5 3.3 - 4.9 mmol/L [facility] Comment: Interpretive Data Not all point of care methods assess for hemolysis. Confirm with instrument and retest K+ if not consistent with clinical signs and symptoms. Current Interpretive Data was last revised on 2023. Cl, POC 110 97 - 110 mmol/L [facility] Ionized Ca, POC 4.91 4.50 - 5.10 mg/dL [facility] Glucose, POC 155 70 - 199 mg/dL [facility] Lactate, POC 1.8 0.7 - 2.0 mmol/L [facility] SO2 (sheri) arterial 97(H) 90 - 95 % [facility] Base excess, POC -0.9 mmol/L [facility] HCO3, Art POC 25 20 - 30 mmol/L [facility] Hct, POC 31.0(L) 36.3 - 45.3 % [facility] Total Hb, POC 10.3(L) 11.9 - 15.5 g/dL [facility] Blood 08/09/2024 3:23 PM LEAF STICKER 08/09/2024 3:23 PM LEAF STICKER us Carmen Szymanski MD LAB POCT ORDERABLES - ÁNGELA CE Final Result [facility] Department [place] [address] * (ABNORMAL) POC Blood Gas and Chemistries, Arterial - (08/09/2024 1:23 PM LEAF STICKER) pH, Art POC 7.43 7.35 - 7.45 pCO2, Art POC 38 35 - 45 mmHg [facility] pO2, Art POC 99 83 - 108 mmHg [facility] Na, POC 137 135 - 145 mmol/L [facility] K POC 4.4 3.3 - 4.9 mmol/L [facility] Comment: Interpretive Data Not all point of care methods assess for hemolysis. Confirm with instrument and retest K+ if not consistent with clinical signs and symptoms. Current Interpretive Data was last revised on 2023. Cl, POC 109 97 - 110 mmol/L [facility] Ionized Ca, POC 4.49(L) 4.50 - 5.10 mg/dL [facility] Glucose, POC 175 70 - 199 mg/dL [facility] Lactate, POC 1.4 0.7 - 2.0 mmol/L [facility] SO2 (sheri) arterial 97(H) 90 - 95 % [facility] Base excess, POC 0.9 mmol/L [facility] HCO3, Art POC 25 20 - 30 mmol/L [facility] Hct, POC 35.0(L) 36.3 - 45.3 % [facility] Total Hb, POC 11.5(L) 11.9 - 15.5 g/dL [facility] Blood 08/09/2024 1:23 PM LEAF STICKER 08/09/2024 1:23 PM LEAF STICKER Carmen Szymanski MD LAB POCT ORDERABLES - ÁNGELA CE Final Result Performing Organization Address City/[facility] Co de Phone Number [facility] [place] [address] * POCT glucose (08/09/2024 10:59 AM LEAF STICKER) Glucose, POC 159 70 - 199 mg/dL Blood 08/09/2024 10:5 9 AM LEAF STICKER 08/09/2024 10:59 AM LEAF STICKER us Carmen Szymanski MD LAB POCT ORDERABLES - ÁNGELA CE Final Result Performing Organization Address [facility] de Phone Number [facility] [place] [address] * SC AN PROCEDURE PLACEHOLDER (08/09/2024 9:21 AM LEAF STICKER) Raghavendra Lawler CRNA - 08/09/2024 9:21 AM LEAF STICKER Raghavendra Pena CRNA 08/09/2024 9:21 AM Arterial Line Patient location: OR Indication: continuous blood pressure monitoring Staff: Placed by: Anesthesiologist: Jovanna Vargas MD Procedure prep: Prep solution: chlorhexadine/alcohol Prep: provider hat/mask and sterile gloves Arterial line: Catheter size: 20 gauge Catheter length: 1 and 3/4 inch Catheter type: wire-guided catheter Seldinger technique: no Laterality: right Site: radial artery Line secured: Tegaderm Results: good waveform and good blood return Number of attempts: 1 Assessment: Events: patient tolerated procedure well with no complications us Jovanna Vargas MD ANESTHESIA ORDERABLES Final Result * SC AN PROCEDURE PLACEHOLDER (08/09/2024 9:20 AM LEAF STICKER) Raghavendra Lawler CRNA - 08/09/2024 9:20 AM LEAF STICKER Raghavendra Pena CRNA 08/09/2024 9:21 AM Peripheral IV Catheter Patient location: OR Staff: Placed by: Anesthesiologist: Jovanna Vargas MD Preprocedure prep: Prep solution: chlorhexadine PPE: gloves and provider hat/mask PIV line: Laterality: right Site: hand Catheter size: 18 g Technique: direct visualization and palpatation Procedure details: good blood return and occlusive dressing applied Number of attempts: 1 Assessment: Events: patient tolerated procedure well with no complications Jovanna Vargas MD ANESTHESIA ORDERABLES Final Result * SC AN ELECTIVE ENDOTRACHEAL AIRWAY, SC AN PROCEDURE PLACEHOLDER (08/09/2024 9:17 AM LEAF STICKER) Narrative Raghavendra Pena CRNA - 08/09/2024 9:17 AM LEAF STICKER Raghavendra Pena CRNA 08/09/2024 9:20 AM Airway Patient location: OR Urgency: elective Indications for airway management: anesthesia Difficult airway: no Staff: Supervising provider: Jovanna Vargas MD Placed by: NATURAL RESOURCE TECHNICIAN: Raghavendra Pena CRNA Emergent airway documentation: Risks and benefits discussed: yes Consent obtained: yes Consent given by: patient Airway prep: Preoxygenated: yes Patient position: sniffing Mask difficulty assessment: 0 - not attempted Spontaneous ventilation during airway: absent Sedation level during airway: GA Final airway details: Final airway type: endotracheal airway Tube type: ETT ETT size: 7.0 mm Cuffed: yes Technique used for successful ETT placement: video laryngoscopy Devices/Methods used in placement: stylet Insertion site: oral Blade type: Alexys Video blade type: Luna Blade size: 3 Cormack-Lehane (video): grade I - full view of glottis Cuff volume: 7 mL Cuff inflated with: air ETT to teeth: 22 cm Placement verified by: auscultation and CO2 detection Airway secured with: silk tape Number of attempts: 1no Jovanna Vargas MD ANESTHESIA ORDERABLES Final Result * (ABNORMAL) POC Blood Gas and Chemistries, Arterial - (08/09/2024 8:43 AM LEAF STICKER) pH, Art POC 7.37 7.35 - 7.45 pCO2, Art POC 47(H) 35 - 45 mmHg [facility] pO2, Art POC 93 83 - 108 mmHg [facility] Na, POC 140 135 - 145 mmol/L [facility] K POC 3.6 3.3 - 4.9 mmol/L [facility] Comment: Interpretive Data Not all point of care methods assess for hemolysis. Confirm with instrument and retest K+ if not consistent with clinical signs and symptoms. Current Interpretive Data was last revised on 2023. Cl, POC 109 97 - 110 mmol/L [facility] Ionized Ca, POC 4.74 4.50 - 5.10 mg/dL [facility] Glucose, POC 115 70 - 199 mg/dL [facility] Lactate, POC 1.2 0.7 - 2.0 mmol/L [facility] SO2 (sheri) arterial 99(H) 90 - 95 % [facility] Base excess, POC 1.4 mmol/L [facility] HCO3, Art POC 27 20 - 30 mmol/L [facility] Hct, POC 33.0(L) 36.3 - 45.3 % [facility] Total Hb, POC 11.0(L) 11.9 - 15.5 g/dL [facility] Blood 08/09/2024 8:4 3 AM LEAF STICKER 08/09/2024 8:43 AM LEAF STICKER us Carmen Szymanski MD LAB POCT ORDERABLES - ÁNGELA CE Final Result Performing Organization Address City/[facility] Co de Phone Number [facility] Department [place] [employer] [place] [address] * POCT glucose (08/09/2024 5:55 AM LEAF STICKER) Glucose, POC 88 70 - 199 mg/dL Blood 08/09/2024 5:55 AM LEAF STICKER 08/09/2024 5:55 AM LEAF STICKER us Carmen Szymanski MD LAB POCT ORDERABLES - ÁNGELA CE Final Result Performing Organization Address [facility] Co de Phone Number [facility] [place] [address] * Type and screen (08/09/2024 5:55 AM LEAF STICKER) ABO Rh A Positive Thompson, indirect Negative [facility] Blood 08/09/2024 5:55 AM LEAF STICKER 08/09/2024 6:00 AM LEAF STICKER Narrative [facility] - 08/09/2024 6:44 AM LEAF STICKER Has the patient had Daratumumab or Isatuximab in the past 6 months?->Unknown Melany Mendez NP LAB BLOOD BANK TEST ORDER BRIANNA Final Result Performing Organization Address City/[facility]/ZIP Co de Phone Number [facility] Department [place] [address] * POCT hCG, urine (08/09/2024 5:45 AM LEAF STICKER) HCG, ur, POC Negative Negative Lot Number [id number] QC Backgroud Clear Acceptable QC Control Line Acceptable Urine 08/09/2024 5:45 AM LEAF STICKER Melany Mendez NP POINT OF CARE TEST ORDERA BLES Final Result * TYPE AND SCREEN 14 DAY (06/24/2024 3:30 PM LEAF STICKER) Thompson, indirect Negative ABO Rh A Positive [facility] Blood 06/24/2024 3:30 PM LEAF STICKER 06/24/2024 6:19 PM LEAF STICKER Narrative [facility] - 06/24/2024 7:12 PM LEAF STICKER Has the patient had Daratumumab or Isatuximab in the past 6 months?->Unknown Is this test being ordered in advance for a procedure?->Yes Expected date of procedure:->07/01/24 Has the patient been transfused in the past 3 months?->No Has the patient been in the past 3 months?->No Melany Mendez NP LAB BLOOD BANK TEST ORDER BRIANNA Final Result Performing Organization Address City/[facility]/ZIP Co de Phone Number [facility] Department [place] [address] * eGFR (06/16/2024 11:00 AM LEAF STICKER) Pathologist [facility] eGFR >90 >=60 mL/min/1. 73 m2 Comment: Interpretive Data Reference Interval Normal >/= 90 mL/min/1.73m2 Mildly decreased* 60 - 89 mL/min/1.73m2 Mildly to moderately decreased 45 - 59 mL/min/1.73m2 Moderately to severely decreased 30 - 44 mL/min/1.73m2 Severely decreased 15 - 29 mL/min/1.73m2 Kidney Failure < 15 mL/min/1.73m2 *Relative to young adult level Estimated glomerular filtration rate is determined by the 2020 CKD-EPI equation recommended by the National Kidney Foundation (A Unifying Approach to GFR Estimation: Recommendations of the NKF-ASK Task Force on Reassessing the Inclusion of Race in Diagnosing Kidney Disease, JASN 2020). The CKD-EPI equation should not be used for patients with unstable renal function and has not been validated in children and those over 70. Current interpretive data was last reviewed 2021. Blood 06/16/2024 11:0 0 AM LEAF STICKER 06/16/2024 11:03 AM LEAF STICKER us Kimberly Velasquez MD LAB BLOOD ORDERABLES Final Resul t [facility] Department [place] [address] * (ABNORMAL) Differential, auto (06/16/2024 11:00 AM LEAF STICKER) Pathologist [facility] Neutrophil abs 3.0 1.5 - 6.5 K/cumm Comment:Testing performed by : [facility], [address] [place] [id number] Imm gran abs 0.0 0.0 - 0.1 K/cumm [facility] Lymphocyte abs 0.6(L) 0.8 - 3.3 K/cumm [facility] Monocyte abs 0.3 0.2 - 0.8 K/cumm [facility] Eosinophil abs 0.1 0.0 - 0.5 K/cumm [facility] Basophil abs 0.0 0.0 - 0.1 K/cumm [facility] Neutrophil pct 74.2 % [facility] Comment: Interpretive Data Percent cell count reference ranges are not reported, since discordance with absolute values may lead to misinterpretation of CBC data. Current Interpretive Data was last revised on 2017. Imm gran pct 0.5 % [facility] Comment: Interpretive Data Percent cell count reference ranges are not reported, since discordance with absolute values may lead to misinterpretation of CBC data. Current Interpretive Data was last revised on 2017. Lymphocyte pct 13.9 % [facility] Comment: Interpretive Data Percent cell count reference ranges are not reported, since discordance with absolute values may lead to misinterpretation of CBC data. Current Interpretive Data was last revised on 2017. Monocyte pct 8.3 % [facility] Comment: Interpretive Data Percent cell count reference ranges are not reported, since discordance with absolute values may lead to misinterpretation of CBC data. Current Interpretive Data was last revised on 2017. Eosinophil pct 2.8 % [facility] Comment: Interpretive Data Percent cell count reference ranges are not reported, since discordance with absolute values may lead to misinterpretation of CBC data. Current Interpretive Data was last revised on 2017. Basophil pct 0.3 % [facility] Comment: Interpretive Data Percent cell count reference ranges are not reported, since discordance with absolute values may lead to misinterpretation of CBC data. Current Interpretive Data was last revised on 2017. Blood 06/16/2024 11:0 0 AM LEAF STICKER 06/16/2024 11:03 AM LEAF STICKER us Kimberly Velasquez MD LAB BLOOD ORDERABLES Final Resul t [facility] Department [place] [address] * (ABNORMAL) CBC with auto differential (06/16/2024 11:00 AM LEAF STICKER) WBC 4.0 3.8 - 9.9 K/cumm Comment:Testing performed by : [facility], [address] [place] [id number] Hgb 11.5(L) 11.9 - 15.5 g/dL [facility] Comment:Testing performed by : [facility], [address] [place] [address] Hct 34.6(L) 35.6 - 45.5 % [facility] Comment:Testing performed by : [facility], [address] [place] [id number] Plt 93(L) 150 - 400 K/cumm [facility] Comment:Testing performed by : [facility], [address] [place] [id number] MPV 9.9 9.1 - 12.3 fL [facility] RBC 3.70(L) 3.90 - 5.20 M/cumm [facility] MCV 93.5 81.3 - 96.4 fL [facility] MCH 31.1 27.1 - 33.3 pg [facility] MCHC 33.2 32.3 - 35.7 g/dL [facility] RDW CV 14.6 11.1 - 14.9 % [facility] RDW SD 49.0(H) 35.7 - 48.1 fL [facility] NRBC abs 0.00 0.00 - 0.01 K/cumm [facility] Blood 06/16/2024 11:0 0 AM LEAF STICKER 06/16/2024 11:03 AM LEAF STICKER us Kimberly Velasquez MD LAB BLOOD ORDERABLES Final Resul t [facility] Department [place] [address] * CEA (06/16/2024 11:00 AM LEAF STICKER) Pathologist [facility] CEA 1.0 <=5.0 ng/mL Comment: Interpretive Data: Reference Range: Non-Smokers: 0.0 5.0 ng/mL Smokers: 0.0 6.5 ng/mL The Just[employer] CEA assay procedure was used. Results from different manufacturers or methods may not be comparable. Serial testing should be performed using the same method. Current interpretive data was last revised 2021. Blood 06/16/2024 11:0 0 AM LEAF STICKER 06/16/2024 1:22 PM LEAF STICKER us Kimberly Velasquez MD LAB BLOOD ORDERABLES Final Resul t [facility] Department [place] [address] * Comprehensive metabolic panel (06/16/2024 11:00 AM LEAF STICKER) Pathologist [facility] Sodium 141 135 - 145 mmol/L Comment:Testing performed by : [facility], [address] [place] [id number] Potassium, pl 3.8 3.3 - 4.9 mmol/L [facility] Chloride 108 97 - 110 mmol/L [facility] CO2 26 22 - 32 mmol/L [facility] Anion gap 7 2 - 15 mmol/L [facility] BUN 7 6 - 25 mg/dL [facility] Creatinine 0.69 0.60 - 1.10 mg/dL [facility] Glucose 107 70 - 199 mg/dL [facility] Comment: Interpretive Data Fasting glucose >/= 126 mg/dl is diagnostic for diabetes. Fasting is defined as no caloric intake for at least 8 hours. Fasting glucose between 100 mg/dl to 125 mg/dl is diagnostic of prediabetes. In a patient with classic symptoms of hyperglycemia or hyperglycemic crisis, a random glucose >/= 200 mg/dl is diagnostic for diabetes. In the absence of unequivocal hyperglycemia, results should be confirmed by repeat testing. The classification and Diagnosis of Diabetes Diabetes Care 2021; 46: S19-S40. Current interpretive data was last revised 2022. Calcium 9.2 8.5 - 10.3 mg/dL [facility] Bilirubin, total 0.5 0.1 - 1.2 mg/dL [facility] Protein, pl 6.5 6.5 - 8.5 g/dL [facility] Albumin 3.9 3.5 - 5.0 g/dL [facility] Alk phos 107 40 - 130 Units/L [facility] ALT 30 7 - 45 Units/L [facility] AST 40 10 - 45 Units/L [facility] Blood 06/16/2024 11:0 0 AM LEAF STICKER 06/16/2024 11:03 AM LEAF STICKER us Kimberly Velasquez MD LAB BLOOD ORDERABLES Final Resul t Performing Organization Address [facility] Co de Phone Number [facility] Department [place] [address] * POCT glucose (06/07/2024 10:02 AM LEAF STICKER) Glucose, POC 104 70 - 199 mg/dL Comment: Interpretive Data Glucose is assumed to be non-fasting. Fasting Glucose reference ranges are: 0 - 150 years: 70 mg/dL - 99 mg/dL Current interpretive data was last revised on 2014. POC Performer [id number] [facility] P[facility] Device Number [id number] [facility] Blood 06/07/2024 10:0 2 AM LEAF STICKER 06/07/2024 10:02 AM LEAF STICKER us Kemar Seay MD LAB POCT ORDERABLES - D EVICE Final Result Performing Organization Address [facility] Co de Phone Number [facility] [address] [facility] Department [place] [address] * Flexible Sigmoidoscopy (06/07/2024 9:03 AM LEAF STICKER) Anatomical Region Laterality Modality Other Narrative Procedure Note Kemar Seay MD - 06/07/2024 9:03 AM CST ENDOSCOPY LAB Patient Name: Isabel Lozano Procedure Date: 06/07/2024 9:03 AM Date of : 1985 Admit Type: Outpatient Age: 38 Gender: Female Attending MD: Kemar Seay M.D. Room: [facility] ENDOSCOPY ROOM 02 Note Status: Finalized Procedure: Flexible Sigmoidoscopy Indications: High risk colon cancer surveillance: Personalhistory of distal rectal cancer s/p ELVIS (COT 03/2024). Evaluate response to therapy. Providers: Kemar Seay M.D., Carmen Szymanski M.D. Referring MD: Ayah Almodovar MD Medicines: Monitored Anesthesia Care Complications: No immediate complications. Estimated Blood Loss: Estimated blood loss: none. Procedure: Pre-Anesthesia Assessment: - Immediately prior to administration ofmedications, the patient was re-assessed for adequacy to receive sedatives. The benefits, risks, and alternatives to theprocedure and sedation were discussed and informed consentwas obtained. The scope was passed under direct vision. The [id number] was introduced through theanus and advanced to the sigmoid colon. The flexible sigmoidoscopy was accomplished without difficulty.The patient tolerated the procedure well. The qualityof the bowel preparation was good. Findings: The digital rectal exam revealed a residual mobile distal rectalmass. The mass was non-circumferential and located predominantly at the left-posterolateral bowel wall at the top of the anorectal ring. A residual polypoid lesion/mass was found in the distal rectum. The lesion was infiltrative and concerning for residual tumor. Impression: - Rectal mass. - Likely residual malignant polypoid lesion/mass in the distal rectum. - No specimens collected. Recommendation: - f/u in office with Dr. Szymanski to discuss surgical resection. Kemar Seay MD Kemar Seay M.D. 06/07/2024 9:27:18 AM Carmen Szymanski M.D. Number of Addenda: 0 Note Initiated On: 06/07/2024 9:03 AM Kemar Seay MD ENDOSCOPY PROCEDURES Fi nal Result * POCT glucose (06/07/2024 8:51 AM LEAF STICKER) Pathologist [facility] Glucose, POC 94 70 - 199 mg/dL Comment: Interpretive Data Glucose is assumed to be non-fasting. Fasting Glucose reference ranges are: 0 - 150 years: 70 mg/dL - 99 mg/dL Current interpretive data was last revised on 2014. POC Performer [id number] [facility] P[facility] Device Number [id number] [facility] Blood 06/07/2024 8:51 AM LEAF STICKER 06/07/2024 8:51 AM LEAF STICKER Kemar Seay MD LAB POCT ORDERABLES - D EVICE Final Result [facility] [address] [facility] Department [place] [address] * POCT hCG, urine (06/07/2024) HCG, ur, POC Negative Negative Lot Number [id number] QC Backgroud Clear Acceptable QC Control Line Acceptable Urine 06/07/2024 Historical Provider POINT OF CARE TEST ORDERA BLES Final Result from Last 3 Months Insurance Advance Directives For more information, please contact: [phone] * Full Code (Latest Code Status on File) Date Activated Date Inactivated Comments 08/09/2024 7:51 PM 08/12/2024 10:02 PM * Full Code Date Activated Date Inactivated Comments 06/07/2024 8:28 AM 06/07/2024 2:22 PM * Full Code Date Activated Date Inactivated Comments 11/13/2023 3:31 PM 11/13/2023 8:15 PM * Full Code Date Activated Date Inactivated Comments 11/13/2023 12:40 PM 11/13/2023 3:31 PM Care Teams Solutions Architect Relationship Specialty Start Date End Date Ayah Almodovar MD [address] [place] [address] PCP - General Family Medicine 10/22/23 Maximiliano Arndt MD [address] [place] [address] Referring Physician Gastroenterology 10/22/23
--- OUTSIDE RECORDS SUMMARY | 2024-08-15 22:56 | XMS_ITS | Encounter Summary ---
Author Organization [facility] Healthcare Address [address] [place] [address] Care Team Providers Care Lead Refiner Name Role Phone Ayah Almodovar MD Primary Care Provider [phone] Maximiliano Arndt MD Unavailable [phone] Encounter Details Date Type Department Care Team (Late st Contact Info) Description 12/26/2023 Completion of Therapy [facility] Advanced Medicine Radiation Oncology Formerly [facility] [place] [address] Cezar Rosario MD [address] [facility] [id number] [place] [address] Social History Tobacco Use Types Packs/Day Years Used Date Smoking Tobacco: Never Smokeless Tobacco: Never AUDIT-C Answer Date Recorded Frequency of Alcohol Consumption Not on file 12/02/2023 Q2: How many drinks containi ng alcohol do you have on a typical day when you are drinking? Patient does not drink Frequency of Binge Drinking Not on file 09/2023 Personal Safety Answer Date Recorded Getting School Help Needed Not on file 10/19 Comments No Sex and Gender Information Value Date Recorded Sex Assigned at Not on file Legal Sex Female 3:03 PM CDT Gender Identity Not on file Sexual Orientation Not on file documented as of this encounter Plan of Treatment Not on file documented as of this encounter Visit Diagnoses Not on filedocumented in this encounter Care Teams Lead Refiner Relationship Specialty [place] [address] [place] [address] [place] [address] PCP - General Family Medicine 10/22/23 [place] [address] [place] [address] [place] [address] Referring Physician Gastroenterology 10/22/23 documented as of this encounter
--- OUTSIDE RECORDS SUMMARY | 2024-08-15 22:57 | XMS_ITS ---
Author Organization [facility] Address [address] [place] [address] Care Team Providers Care Hris Specialist Name Role Phone Ayah Almodovar MD Primary Care Provider [phone] Maximiliano Arndt MD Unavailable [phone] Active Problems Problem Noted Date Diagnosed Date Heartburn 02/26/2024 Rectal cancer (CMS/HCC) 10/31/2023 Cancer Staging:Clinical stage from 11/13/2023:Stage I(cT2, cN0, cM0) - Signed by Cezar Rosario MD on 12/02/2023 Current Treatment and Therapy Plans IV Maintenance Therapy Plan* Plan Start Date:01/29/2024 Plan Provider:Kimberly Velasquez MD Linked Problems Rectal cancer (CMS/HCC) (HCC ) Treatment Medications No medications scheduled. mFOLFOX6: (Fluorouracil / Leucovorin / Oxaliplatin) 14 Day Cycles - GI* Plan Start Date:01/05/2024 Plan Provider:Kimberly Velasquez MD Linked Problems Rectal cancer (CMS/HCC) (HCC )Heartburn Treatment Medications Current Day (Day 1 , Cycle 9 - Planned for 05/13/2024) Next Day (Day 1, Cycle 10 - Planned for 05/26/2024) dexAMETHasone (DECADRON)fluorouracil (ADRUCIL)fluorouracil (ADRUCIL) infusion - for home infusion (ADRUCIL)leucovorinleuco vorin IVPB in 250 mLoxaliplatin (ELOXATIN)oxaliplatin (ELOXATIN) IVPB fluorouraciL (ADRUCIL) 6,500 mg in cadd cassette 130 mL infusion - for home infusionfluorouracil (ADRUCIL) IV syringe 1,075 mg 21.5 mLleucovorin 1,075 mg in dextrose 5% 250 mL IVPBoxaliplatin (ELOXATIN) 230 mg in dextrose 5% 250 mL IVPB fluorouraciL (ADRUCIL) 6,500 mg in cadd cassette 130 mL infusion - for home infusionfluorouracil (ADRUCIL) IV syringe 1,075 mg 21.5 mLleucovorin 1,075 mg in dextrose 5% 250 mL IVPBoxaliplatin (ELOXATIN) 230 mg in dextrose 5% 250 mL IVPB Past Treatment and Therapy Plans No past plan information found. Radiation Treatments * Course C1_Rectum_202312/22/2023 - 12/26/2023 Treatment Period Energy Fraction Dose Fractions Total Dose Plans Planned RECTUM 12/22/2023 - 12/26/2023 500 5 / 2,500 Reference Points Delivered [id number]_2500 12/22/2023 - 12/26/2023 2,500 Lifetime Dose Tracking * Chemical Lifetime Dose Automatic Entry Manual Entr y Fluoro Time 0.3 minutes 0.3 minutes 0 minutes Air kerma at the reference point (Ka,r) 3 mGy 3 mGy 0 mGy
--- OUTSIDE RECORDS SUMMARY | 2024-08-15 22:57 | XMS_ITS | Clinical Summary ---
Author Organization [facility] Address [address] [place] [address] Care Team Providers Care Shoemaker Custom Name Role Phone Ayah Almodovar MD Primary Care Provider [phone] Allergies Active Allergy Reactions Criticality Noted Date Comments Sulfa Antibiotics Rash Medium 05/27/2022 Swelling and can't breath Medications medroxyPROGESTER one (PROVERA) 10 MG tablet Take 10 mg by mouth daily. 05/21/2022 Active Pediatric Multiple Vitamins (CHILDREN'S MULTIVITAMIN) chewable tablet Acti ve Esomeprazole Magnesium (NEXIUM) 2.5 MG Pack Active Vitamin D3 125 mcg Tab Active cetirizine (ZYRTEC) 10 MG tablet Take 1 tablet (10 mg total) by mouth daily. Active filgrastim-sndz (ZARXIO) 480 MCG/0.8ML injection Inject 0.8 mLs (480 mcg total) into the skin daily. 03/29/2024 Active ondansetron (ZOFRAN) 8 MG tablet Take 1 tablet (8 mg total) by mouth. 01/13/2024 Active Active Problems Problem Noted Date Diagnosed Date Rectal cancer ([facility]/HCC [facility]) 04/01/2024 Social History Tobacco Use Types Packs/Day Years Used Date Smoking Tobacco: Never Smokeless Tobacco: Never Tobacco Cessation:Counseling Given: Not Answered Alcohol Use Standard Drinks/Week Comments Never 0 (1 standard drink = 0.6 oz pur e alcohol) Comments No Sex and Gender Information Value Date Recorded Sex Assigned at Not on file Legal Sex Female 4:36 PM CDT Gender Identity Not on file Sexual Orientation Not on file Last Filed Vital Signs Vital Sign Reading Time Taken Comments Blood Pressure 139/82 04/21/2024 3:57 PM CDT Pulse 110 04/21/2024 3:57 PM CDT Temperature 36.3 C (97.3 F) 04/21/2024 3:57 PM CDT Respiratory Rate 18 04/21/2024 3:57 PM CDT Oxygen Saturation 96% 04/21/2024 3:57 PM CDT Inhaled Oxygen Concentration - - Weight 152.7 kg (336 lb 9.6 oz) 04/21/2024 3:57 PM CDT Height 170.2 cm (5' 7 ) 05/27/2022 2:42 PM 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 Body Mass Index 52.72 05/27/2022 2:42 PM 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 Plan of Treatment Health Maintenance Due Date Last Done Comments Annual Physical 1988 Hepatitis C 2003 Hepatitis B Vaccines (1 of 3 - 19+ 3-dose series) 2004 Cervical Cancer Screening Pa p with HPV Testing (Age 30 to 64) Every 5 Years 2015 DTaP, Tdap and Td Vaccines ( 2 - Td or Tdap) 07/10/2022 07/10/2012 COVID-19 Vaccine ( - 2023-2 5 season) 2024 Influenza Adult (#1) 2024 07/10/2012 Cervical Cancer Screening Pa p Smear (Age 30 to 64) Every 3 Years 10/26/2026 10/27/2023 Cervical Cancer Screening with HPV 10/26/2026 HPV Vaccines Aged Out No longer eligi ble based on patient's age to complete this topic Meningococcal B Vaccine Aged Out No l onger eligible based on patient's age to complete this topic Meningococcal Vaccine Aged Out No makenzie trevor eligible based on patient's age to complete this topic Pneumococcal Vaccine: Pediat rics (0 to 5 Years) and At-Risk Patients (6 to 64 Years) Aged Out No longer eligi ble based on patient's age to complete this topic RSV Immunizations Under 20 Months Aged Out No longer eligible based on patient's age to complete this topic Insurance [employer] Care Teams Shoemaker Custom Relationship Specialty Start Date End Date Ayah Almodovar MD [address] [place] [address] PCP - General FAMILY PRACTICE 05/02/21
--- OUTSIDE RECORDS SUMMARY | 2024-08-15 22:57 | XMS_ITS | Referral Summary ---
Author Organization [facility] Address [address] [place] [address] Care Team Providers Care Appeals Representative Name Role Phone Ayah Almodovar MD Primary Care Provider Maximiliano Arndt MD Unavailable Encounters Date Type Department Care Team Description 08/13/2024 Telephone [facility] Surgery [facility]0 [facility] 5 [place] [phone] Ghazala Adams RN 08/09/2024 5:05 AM LEAD POURER - 08/12/2024 4:10 PM LEAD POURER Hospital Encounter [address] [phone] Carmen Szymanski MD Rectal cancer (CMS/HCC) (HCC) Discharge Disposition: Discharge to home or self care 2024 Telephone [facility] Oncology [address] [place] [phone] 08/09/2024 7:30 AM LEAD POURER - 08/09/2024 2:55 PM LEAD POURER Surgery [facility] Operating Room 1 [place] [phone] Carmen Szymanski MD XI ABDOMINAL PERINEAL RESECTION - LAPAROSCOPIC ROBOTIC ASSISTED 08/09/2024 7:29 AM LEAD POURER Anesthesia Event [facility] Operating Room 1 [place] [address] Jovanna Vargas MD Hearn, Alexandra Marie, NP 08/03/2024 Telephone [facility] [address] [place] [address] Luis Miller 07/28/2024 Telephone [facility] [address] [place] [phone] Kellee Sandoval, CHELSEA 06/21/2024 11:59 PM LEAD POURER Anesthesia Event [facility] Operating Room 1 [place] [address] Melany Mendez NP 07/09/2024 Telephone [facility] Surgery [address] [facility] Medical Office Building 4 [address] [place] [address] Bonnie Clay Surgery 07/06/2024 Telephone [facility] Surgery [address] [facility] 2nd Floor [address] [place] [address] Liliane Earl RN 07/02/2024 Telephone [facility] [address] [place] [phone] 06/24/2024 2:05 PM LEAD POURER Lab [facility] [address] [facility] [address] [place] [address] Preoperative testing; Rectal cancer (CMS/HCC) (HCC) 06/24/2024 2:30 PM LEAD POURER Pre-Admission Testing [facility] CAM Pre Anesthesia Testing [address] [place] [address] Preoperative testing (Primary Dx) 06/16/2024 11:00 AM LEAD POURER Clinical Support [facility] [address] [place] [address] Rectal cancer (CMS/HCC) (HCC) 06/16/2024 11:30 AM LEAD POURER Office Visit [facility] [address] [place] [phone] Kimberly Velasquez MD Rectal cancer (CMS/HCC) (HCC) (Primary Dx) 06/10/2024 Orders Only [facility] Surgery [address] [facility] Medical Office Building [address] [place] [address] Hailey Crystal, CHELSEA 06/10/2024 10:30 AM LEAD POURER Office Visit [facility] Surgery [address] [place] [address] Carmen Szymanski MD Rectal cancer (CMS/HCC) (HCC) (Primary Dx) 06/07/[address] [facility] Surgeon 1 [place] [address] Carmen Szymanski MD 06/07/2024 Telephone [facility] Surgery [facility]4 [facility] Medical Office Building 4 [address] [place] [phone] Scottie Claybrayan 06/07/2024 9:04 AM LEAD POURER Anesthesia Event [facility] Endoscopy [address] [place] [address] Luis Burgos MD Hanselman, Christina M., [facility] 06/07/2024 9:00 AM LEAD POURER - 06/07/2024 9:45 AM LEAD POURER Surgery [facility] Endoscopy [address] [place] [address] Kemar Seay MD SIGMOIDOSCOPY 06/07/2024 8:24 AM LEAD POURER - 06/07/2024 10:22 AM LEAD POURER Hospital Encounter [facility] Endoscopy [address] [place] [address] Kemar Seay MD Discharge Disposition: Discharge to home or self care 06/03/2024 Telephone [facility] Surgery [address] [facility] 2nd Floor [address] [place] [address] Anna Marie Abdul RMA Colonoscopy 06/01/2024 10:30 AM LEAD POURER Office Visit [facility] Radiation Oncology at [facility] Cancer [facility] [address] [place] [address] Dyana Goodson NP Rectal cancer (CMS/HCC) (HCC) (Primary Dx) 05/19/2024 Telephone [facility] Radiation Oncology at [facility] [address] [place] [address] Candida Martinez RN from Last 3 Months Allergies Active Allergy Reactions Criticality Noted Date [...] Signed by Cezar Rosario MD on 12/02/2023 Social History Tobacco Use Types Packs/Day Years [...] Comments Blood Pressure 106/52 08/12/2024 12:30 PM LEAD POURER Pulse 98 08/12/2024 12:30 PM LEAD POURER Temperature 36.9 C (98.4 F) 08/12/2024 12:30 PM LEAD POURER Respiratory Rate 20 08/12/2024 12:30 PM LEAD POURER Oxygen Saturation 96% 08/12/2024 12:30 PM LEAD POURER Inhaled Oxygen Concentration - - Weight 142.4 kg (314 lb) 08/09/2024 5:57 AM LEAD POURER Height 170.2 cm (5' 7 ) 08/09/2024 5:57 AM LEAD POURER Body Mass Index 49.18 08/09/2024 5:57 AM LEAD POURER Plan of Treatment Not on file Procedures Procedure Name Priority Date/Time Associated Diagnosis Comments POCT GLUCOSE DEVICE Routine 08/12/2024 1 1:53 AM LEAD POURER POCT GLUCOSE DEVICE Routine 08/12/2024 7 :52 AM LEAD POURER CBC WITHOUT DIFFERENTIAL Timed 08/11/2024 9:50 PM LEAD POURER POCT GLUCOSE DEVICE Routine 08/11/2024 7 :26 PM LEAD POURER POCT GLUCOSE DEVICE Routine 08/11/2024 4 :53 PM LEAD POURER POCT GLUCOSE DEVICE Routine 08/11/2024 1 1:02 AM LEAD POURER POCT GLUCOSE DEVICE Routine 08/11/2024 7 :40 AM LEAD POURER EGFR Timed 08/11/2024 1:37 AM LEAD POURER BASIC METABOLIC PANEL Timed 08/11/2024 1:37 AM LEAD POURER CBC WITHOUT DIFFERENTIAL Timed 08/11/2024 1:37 AM LEAD POURER POCT GLUCOSE DEVICE Routine 2024 8 :48 PM LEAD POURER POCT GLUCOSE DEVICE Routine 2024 1 2:56 PM LEAD POURER POCT GLUCOSE DEVICE Routine 2024 7 :49 AM LEAD POURER HEMOGLOBIN A1C Timed 08/09/2024 9:20 PM LEAD POURER LIPID PANEL Timed 08/09/2024 9:20 PM LEAD POURER EGFR Timed 08/09/2024 9:20 PM LEAD POURER BASIC METABOLIC PANEL Timed 08/09/2024 9:20 PM LEAD POURER CBC WITHOUT DIFFERENTIAL Timed 08/09/2024 9:20 PM LEAD POURER POC BLOOD GAS AND CHEMISTRIES, ARTERIAL Routine 08/09/2024 3:23 PM LEAD POURER POC BLOOD GAS AND CHEMISTRIES, ARTERIAL Routine 08/09/2024 1:23 PM LEAD POURER POCT GLUCOSE DEVICE Routine 08/09/2024 1 0:[address] AN PROCEDURE PLACEHOLDER Routine 08/09/2024 9:[address] AN PROCEDURE PLACEHOLDER Routine 08/09/2024 9:[address] AN PROCEDURE PLACEHOLDER Routine 08/09/2024 9:[address] AN ELECTIVE ENDOTRACHEAL AIRWAY Routine 08/09/2024 9:17 AM LEAD POURER POC BLOOD GAS AND CHEMISTRIES, ARTERIAL Routine 08/09/2024 8:43 AM LEAD POURER SIGMOIDOSCOPY 08/09/2024 7:33 AM LEAD POURER Rectal cancer (CMS/HCC) (HCC) XI ABDOMINAL PERINEAL RESECTION - LAPAROSCOPIC ROBOTIC ASSISTED 08/09/2024 7:33 AM LEAD POURER Rectal cancer (CMS/HCC) (HCC) POCT GLUCOSE DEVICE Routine 08/09/2024 5 :55 AM LEAD POURER TYPE AND SCREEN STAT 08/09/2024 5:55 AM LEAD POURER POCT HCG, URINE Routine 08/09/2024 5:45 AM LEAD POURER TYPE AND SCREEN 14 DAY Routine 3:30 PM LEAD POURER Preoperative testing EGFR STAT 06/16/2024 11:00 AM LEAD POURER Rectal cancer (CMS/HCC) (HCC) DIFFERENTIAL AUTO STAT 06/16/2024 11: 00 AM LEAD POURER Rectal cancer (CMS/HCC) (HCC) CBC WITH AUTO DIFFERENTIAL STAT 06/16/2024 11:00 AM LEAD POURER Rectal cancer (CMS/HCC) (HCC) CEA Routine 06/16/2024 11:00 AM LEAD POURER Rectal cancer (CMS/HCC) (HCC) COMPREHENSIVE METABOLIC PANEL STAT 06/16/2024 11:00 AM LEAD POURER Rectal cancer (CMS/HCC) (HCC) POCT GLUCOSE DEVICE Routine 06/07/2024 1 0:02 AM LEAD POURER SIGMOIDOSCOPY 06/07/2024 9:04 AM LEAD POURER Rectal cancer (CMS/HCC) (HCC) FLEXIBLE SIGMOIDOSCOPY 9:03 AM LEAD POURER POCT GLUCOSE DEVICE Routine 06/07/2024 8 :51 AM LEAD POURER POCT HCG, URINE Routine 06/07/2024 from Last 3 Months Results * POCT glucose (08/12/2024 11:53 AM LEAD POURER) Glucose, POC 124 70 - 199 mg/dL Blood 08/12/2024 11:5 3 AM LEAD POURER 08/12/2024 11:53 AM LEAD POURER us Carmen Szymanski MD LAB POCT ORDERABLES - ÁNGELA CE Final Result Performing Organization Address City/[facility] Co de Phone Number [facility] Department [place] [address] * POCT glucose (08/12/2024 7:52 AM LEAD POURER) Glucose, POC 129 70 - 199 mg/dL Blood 08/12/2024 7:52 AM LEAD POURER 08/12/2024 7:52 AM LEAD POURER us Carmen Szymanski MD LAB POCT ORDERABLES - ÁNGELA CE Final Result Performing Organization Address [facility] Co de Phone Number [facility] Department [place] [address] * (ABNORMAL) CBC without differential (08/11/2024 9:50 PM LEAD POURER) [facility] WBC 6.3 3.8 - 9.9 K/cumm Hgb 8.5(L) 11.9 - 15.5 g/dL [facility] Hct 26.5(L) 35.6 - 45.5 % [facility] Plt 82(L) 150 - 400 K/cumm [facility] MPV 10.9 9.1 - 12.3 fL [facility] RBC 2.89(L) 3.90 - 5.20 M/cumm [facility] MCV 91.7 81.3 - 96.4 fL [facility] MCH 29.4 27.1 - 33.3 pg [facility] MCHC 32.1(L) 32.3 - 35.7 g/dL [facility] RDW CV 15.6(H) 11.1 - 14.9 % [facility] RDW SD 51.8(H) 35.7 - 48.1 fL [facility] NRBC abs 0.00 0.00 - 0.01 K/cumm [facility] Blood 08/11/2024 9:50 PM LEAD POURER 08/11/2024 11:11 PM LEAD POURER us Tasia Patel NP LAB BLOOD ORDERABLES Cecille l Result [facility] Department [place] [address] * POCT glucose (08/11/2024 7:26 PM LEAD POURER) [facility] Glucose, POC 143 70 - 199 mg/dL Blood 08/11/2024 7:26 PM LEAD POURER 08/11/2024 7:26 PM LEAD POURER us Carmen Szymanski MD LAB POCT ORDERABLES - ÁNGELA CE Final Result Performing Organization Address [facility]/ZIP Co de Phone Number [facility] Department [place] [address] * POCT glucose (08/11/2024 4:53 PM LEAD POURER) Glucose, POC 129 70 - 199 mg/dL Blood 08/11/2024 4:53 PM LEAD POURER 08/11/2024 4:53 PM LEAD POURER Carmen Szymanski MD LAB POCT ORDERABLES - ÁNGELA CE Final Result Performing Organization Address [facility] Co de Phone Number [facility] [place] [address] * POCT glucose (08/11/2024 11:02 AM LEAD POURER) Glucose, POC 157 70 - 199 mg/dL Blood 08/11/2024 11:0 2 AM LEAD POURER 08/11/2024 11:02 AM LEAD POURER us Carmen Szymanski MD LAB POCT ORDERABLES - ÁNGELA CE Final Result Performing Organization Address [facility] de Phone Number [facility] [place] [address] * POCT glucose (08/11/2024 7:40 AM LEAD POURER) Pathologist [facility] Glucose, POC 135 70 - 199 mg/dL Blood 08/11/2024 7:40 AM LEAD POURER 08/11/2024 7:40 AM LEAD POURER Carmen Szymanski MD LAB POCT ORDERABLES - ÁNGELA CE Final Result Performing Organization Address [facility] de Phone Number [facility] [place] [address] * eGFR (08/11/2024 1:37 AM LEAD POURER) [facility] eGFR >90 >=60 mL/min/1. 73 m2 Comment: [...] last reviewed 2021. Blood 08/11/2024 1:37 AM LEAD POURER 08/11/2024 2:36 AM LEAD POURER us Carmen Szymanski MD LAB BLOOD ORDERABLES Final Result [facility] Department [place] [address] * (ABNORMAL) CBC without differential (08/11/2024 1:37 AM LEAD POURER) WBC 7.2 3.8 - 9.9 K/cumm Hgb 8.0(L) 11.9 - 15.5 g/dL [facility] Hct 24.4(L) 35.6 - 45.5 % [facility] Plt 80(L) 150 - 400 K/cumm [facility] MPV 10.8 9.1 - 12.3 fL [facility] RBC 2.70(L) 3.90 - 5.20 M/cumm [facility] MCV 90.4 81.3 - 96.4 fL [facility] MCH 29.6 27.1 - 33.3 pg [facility] MCHC 32.8 32.3 - 35.7 g/dL [facility] RDW CV 15.6(H) 11.1 - 14.9 % [facility] RDW SD 50.5(H) 35.7 - 48.1 fL [facility] NRBC abs 0.00 0.00 - 0.01 K/cumm [facility] Blood 08/11/2024 1:37 AM LEAD POURER 08/11/2024 2:37 AM LEAD POURER Narrative [facility] - 08/11/2024 2:49 AM LEAD POURER Obtain POD 1 at 2200. us Carmen Szymanski MD LAB BLOOD ORDERABLES Final Result [facility] Department [place] [address] * (ABNORMAL) Basic metabolic panel (08/11/2024 1:37 AM LEAD POURER) Sodium 141 135 - 145 mmol/L Potassium, pl 3.3 3.3 - 4.9 mmol/L [facility] Chloride 104 97 - 110 mmol/L [facility] CO2 28 22 - 32 mmol/L [facility] Anion gap 9 2 - 15 mmol/L [facility] BUN 7 6 - 25 mg/dL [facility] Creatinine 0.83 0.60 - 1.10 mg/dL [facility] Glucose 117 70 - 199 mg/dL [facility] Comment: Interpretive Data Fasting glucose >/= 126 [...] 2022. Calcium 8.0(L) 8.5 - 10.3 mg/dL [facility] Blood 08/11/2024 1:37 AM LEAD POURER 08/11/2024 2:36 AM LEAD POURER Narrative [facility] - 08/11/2024 3:06 AM LEAD POURER Obtain POD 1 at 2200. Carmen Szymanski MD LAB BLOOD ORDERABLES Final Result [facility] [place] [address] * POCT glucose (2024 8:48 PM LEAD POURER) Glucose, POC 139 70 - 199 mg/dL Blood 2024 8:48 PM LEAD POURER 2024 8:48 PM LEAD POURER us Carmen Szymanski MD LAB POCT ORDERABLES - ÁNGELA CE Final Result Performing Organization Address City/[facility]/ZIP Co de Phone Number [facility] [place] [address] * POCT glucose (2024 12:56 PM LEAD POURER) Glucose, POC 199 70 - 199 mg/dL Blood 2024 12:5 6 PM LEAD POURER 2024 12:56 PM LEAD POURER us Carmen Szymanski MD LAB POCT ORDERABLES - ÁNGELA CE Final Result Performing Organization Address City/[facility]/ZIP Co de Phone Number [facility] Department [place] [address] * POCT glucose (2024 7:49 AM LEAD POURER) Glucose, POC 139 70 - 199 mg/dL Blood 2024 7:49 AM LEAD POURER 2024 7:49 AM LEAD POURER us Carmen Szymanski MD LAB POCT ORDERABLES - ÁNGELA CE Final Result [facility] Department [place] [address] * eGFR (08/09/2024 9:20 PM LEAD POURER) eGFR >90 >=60 mL/min/1. 73 m2 Comment: [...] last reviewed 2021. Blood 08/09/2024 9:20 PM LEAD POURER 08/09/2024 10:19 PM LEAD POURER us Carmen Szymanski MD LAB BLOOD ORDERABLES Final Result [facility] Department [place] [address] * (ABNORMAL) CBC without differential (08/09/2024 9:20 PM LEAD POURER) [facility] WBC 6.4 3.8 - 9.9 K/cumm Hgb 9.1(L) 11.9 - 15.5 g/dL [facility] Hct 27.6(L) 35.6 - 45.5 % [facility] Plt 97(L) 150 - 400 K/cumm [facility] MPV 11.0 9.1 - 12.3 fL [facility] RBC 3.07(L) 3.90 - 5.20 M/cumm [facility] MCV 89.9 81.3 - 96.4 fL [facility] MCH 29.6 27.1 - 33.3 pg [facility] MCHC 33.0 32.3 - 35.7 g/dL [facility] RDW CV 15.1(H) 11.1 - 14.9 % [facility] RDW SD 49.6(H) 35.7 - 48.1 fL [facility] NRBC abs 0.00 0.00 - 0.01 K/cumm [facility] Blood 08/09/2024 9:20 PM LEAD POURER 08/09/2024 10:19 PM LEAD POURER Narrative [facility] - 08/09/2024 10:30 PM LEAD POURER Obtain POD 0 at 2200. Carmen Szymanski MD LAB BLOOD ORDERABLES Final Result Performing Organization Address [facility] de Phone Number [facility] Department [place] [address] * Hemoglobin A1c (08/09/2024 9:20 PM LEAD POURER) Pathologist [facility] Hgb A1C 4.9 4.0 - 5.6 % Estimated Average Glucose 94 mg/dL [facility] Comment: The ADA recommends reporting an estimated Average Glucose (eAG) with all Hemoglobin A1c results using the equation derived from a study of 507 normal and diabetic adults. Minority populations were underrepresented and children were not included. (Diabetes Care 2020; 43(S1): S66-S76). The eAG is not equivalent to a fasting glucose. Blood 08/09/2024 9:20 PM LEAD POURER 08/09/2024 10:24 PM LEAD POURER Carmen Szymanski MD LAB BLOOD ORDERABLES Final Result Performing Organization Address [facility] Co de Phone Number [facility] Department [place] [address] * (ABNORMAL) Lipid panel (08/09/2024 9:20 PM LEAD POURER) Pathologist [facility] Cholesterol 104 30 - 199 mg/dL Comment: [...] revised on 2018. Triglycerides 72 <=149 mg/dL [facility] Comment: Interpretive Data Ages < or = [...] revised on 2018. HDL 31(L) >=40 mg/dL [facility] Comment: Interpretive Data Ages < or = [...] on 2018. LDL, calculated 58 <=129 mg/dL [facility] Comment: Interpretive Data Ages < or = 19 years Acceptable: <110 mg/dL Borderline high: 110-129 mg/dL High: >or= 130 mg/dL Ages > or = 20 years Optimal: <100 mg/dL Near optimal: 100-129 mg/dL Borderline high: 130-159 mg/dL High: >160 mg/dL Calculated using the Sigala LDL-C estimating equation. This equation was implemented [...] revised on 2024. Non-HDL Cholesterol 73 mg/dL [facility] Comment: Interpretive Data Ages < or = [...] last revised on 2018. Chol/HDL ratio 3 [facility] Blood 08/09/2024 9:20 PM LEAD POURER 08/09/2024 10:19 PM LEAD POURER us Carmen Szymanski MD LAB BLOOD ORDERABLES Final Result [facility] Department [place] [address] * (ABNORMAL) Basic metabolic panel (08/09/2024 9:20 PM LEAD POURER) Sodium 141 135 - 145 mmol/L Potassium, pl 4.0 3.3 - 4.9 mmol/L [facility] Chloride 107 97 - 110 mmol/L [facility] CO2 25 22 - 32 mmol/L [facility] Anion gap 9 2 - 15 mmol/L [facility] BUN 8 6 - 25 mg/dL [facility] Creatinine 0.84 0.60 - 1.10 mg/dL [facility] Glucose 158 70 - 199 mg/dL [facility] Comment: Interpretive Data Fasting glucose >/= 126 [...] 2022. Calcium 8.3(L) 8.5 - 10.3 mg/dL [facility] Blood 08/09/2024 9:20 PM LEAD POURER 08/09/2024 10:19 PM LEAD POURER Narrative [facility] - 08/09/2024 10:53 PM LEAD POURER Obtain POD 0 at 2200. us Carmen Szymanski MD LAB BLOOD ORDERABLES Final Result [facility] Department [place] [address] * (ABNORMAL) POC Blood Gas and Chemistries, Arterial - (08/09/2024 3:23 PM LEAD POURER) pH, Art POC 7.33(L) 7.35 - 7.45 pCO2, Art POC 48(H) 35 - 45 mmHg [facility] pO2, Art POC 105 83 - 108 mmHg [facility] Na, POC 138 135 - 145 mmol/L [facility] K POC 4.5 3.3 - 4.9 mmol/L [facility] Comment: Interpretive Data Not all point of care methods assess for hemolysis. Confirm with instrument and retest K+ if not consistent with clinical signs and symptoms. Current Interpretive Data was last revised on 2023. Cl, POC 110 97 - 110 mmol/L [facility] Ionized Ca, POC 4.91 4.50 - 5.10 mg/dL [facility] Glucose, POC 155 70 - 199 mg/dL [facility] Lactate, POC 1.8 0.7 - 2.0 mmol/L [facility] SO2 (sheri) arterial 97(H) 90 - 95 % [facility] Base excess, POC -0.9 mmol/L [facility] HCO3, Art POC 25 20 - 30 mmol/L [facility] Hct, POC 31.0(L) 36.3 - 45.3 % [facility] Total Hb, POC 10.3(L) 11.9 - 15.5 g/dL [facility] Blood 08/09/2024 3:2 3 PM LEAD POURER 08/09/2024 3:23 PM LEAD POURER us Carmen Szymanski MD LAB POCT ORDERABLES - ÁNGELA CE Final Result [facility] Department [place] [address] * (ABNORMAL) POC Blood Gas and Chemistries, Arterial - (08/09/2024 1:23 PM LEAD POURER) pH, Art POC 7.43 7.35 - 7.45 pCO2, Art POC 38 35 - 45 mmHg [facility] pO2, Art POC 99 83 - [address] [facility] Na, POC 137 135 - 145 mmol/L [facility] K POC 4.4 3.3 - 4.9 mmol/L [facility] Comment: Interpretive Data Not all point of care methods assess for hemolysis. Confirm with instrument and retest K+ if not consistent with clinical signs and symptoms. Current Interpretive Data was last revised on 2023. Cl, POC 109 97 - 110 mmol/L [facility] Ionized Ca, POC 4.49(L) 4.50 - 5.10 mg/dL [facility] Glucose, POC 175 70 - 199 mg/dL [facility] Lactate, POC 1.4 0.7 - 2.0 mmol/L [facility] SO2 (sheri) arterial 97(H) 90 - 95 % [facility] Base excess, POC 0.9 mmol/L [facility] HCO3, Art POC 25 20 - 30 mmol/L [facility] Hct, POC 35.0(L) 36.3 - 45.3 % [facility] Total Hb, POC 11.5(L) 11.9 - 15.5 g/dL [facility] Blood 08/09/2024 1:23 PM LEAD POURER 08/09/2024 1:23 PM LEAD POURER Carmen Szymanski MD LAB POCT ORDERABLES - ÁNGELA CE Final Result Performing Organization Address [facility] Co de Phone Number [facility] Department [place] [address] * POCT glucose (08/09/2024 10:59 AM LEAD POURER) [facility] Glucose, POC 159 70 - 199 mg/dL Blood 08/09/2024 10:5 9 AM LEAD POURER 08/09/2024 10:59 AM LEAD POURER Carmen Szymanski MD LAB POCT ORDERABLES - ÁNGELA CE Final Result Performing Organization Address [facility] de Phone Number [facility] [place] [address] * CT AN PROCEDURE PLACEHOLDER (08/09/2024 9:21 AM LEAD POURER) Raghavendra Lawler CRNA - 08/09/2024 9:21 AM LEAD POURER Raghavendra Pena CRNA 08/09/2024 9:21 AM Arterial [...] Vargas MD ANESTHESIA ORDERABLES Final Result * CT AN PROCEDURE PLACEHOLDER (08/09/2024 9:20 AM LEAD POURER) Raghavendra Lawler CRNA - 08/09/2024 9:20 AM LEAD POURER Raghavendra Pena CRNA 08/09/2024 9:21 AM Peripheral [...] Vargas MD ANESTHESIA ORDERABLES Final Result * CT AN ELECTIVE ENDOTRACHEAL AIRWAY, CT AN PROCEDURE PLACEHOLDER (08/09/2024 9:17 AM LEAD POURER) Narrative Raghavendra Pena CRNA - 08/09/2024 9:17 AM LEAD POURER Raghavendra Pena CRNA 08/09/2024 9:20 AM Airway Patient location: OR Urgency: elective Indications for airway management: anesthesia Difficult airway: no Staff: Supervising provider: Jovanna Vargas MD Placed by: UNDER CUTTING MACHINE OPERATOR: Raghavendra Pena CRNA Emergent airway documentation: Risks [...] with: silk tape Number of attempts: 1no us Jovanna Vargas MD ANESTHESIA ORDERABLES Final Result * (ABNORMAL) POC Blood Gas and Chemistries, Arterial - (08/09/2024 8:43 AM LEAD POURER) pH, Art POC 7.37 7.35 - 7.45 pCO2, Art POC 47(H) 35 - 45 mmHg [facility] pO2, Art POC 93 83 - 108 mmHg [facility] Na, POC 140 135 - 145 mmol/L [facility] K POC 3.6 3.3 - 4.9 mmol/L [facility] Comment: Interpretive Data Not all point of care methods assess for hemolysis. Confirm with instrument and retest K+ if not consistent with clinical signs and symptoms. Current Interpretive Data was last revised on 2023. Cl, POC 109 97 - 110 mmol/L [facility] Ionized Ca, POC 4.74 4.50 - 5.10 mg/dL [facility] [facility] [place] Glucose, POC 115 70 - 199 mg/dL [facility] Lactate, POC 1.2 0.7 - 2.0 mmol/L [facility] SO2 (sheri) arterial 99(H) 90 - 95 % [facility] Base excess, POC 1.4 mmol/L [facility] HCO3, Art POC 27 20 - 30 mmol/L [facility] Hct, POC 33.0(L) 36.3 - 45.3 % [facility] Total Hb, POC 11.0(L) 11.9 - 15.5 g/dL [facility] Blood 08/09/2024 8:43 AM LEAD POURER 08/09/2024 8:43 AM LEAD POURER us Carmen Szymanski MD LAB POCT ORDERABLES - ÁNGELA CE Final Result [facility] Department [place] [address] * POCT glucose (08/09/2024 5:55 AM LEAD POURER) Glucose, POC 88 70 - 199 mg/dL Blood 08/09/2024 5:55 AM LEAD POURER 08/09/2024 5:55 AM LEAD POURER us Carmen Szymanski MD LAB POCT ORDERABLES - ÁNGLEA CE Final Result [facility] [place] [address] * Type and screen (08/09/2024 5:55 AM LEAD POURER) ABO Rh A Positive Thompson, indirect Negative [facility] Blood 08/09/2024 5:55 AM LEAD POURER 08/09/2024 6:00 AM LEAD POURER Narrative [facility] - 08/09/2024 6:44 AM LEAD POURER Has the patient had Daratumumab or Isatuximab in the past 6 months?->Unknown us Melany Mendez NP LAB BLOOD BANK TEST ORDER BRIANNA Final Result Performing Organization Address [facility] de Phone Number [facility] [place] [address] * POCT hCG, urine (08/09/2024 5:45 AM LEAD POURER) HCG, ur, POC Negative Negative Lot Number [id number] QC Backgroud Clear Acceptable QC Control Line Acceptable Urine 08/09/2024 5:45 AM LEAD POURER us Melany Mendez NP POINT OF CARE TEST ORDERA BLES Final Result * TYPE AND SCREEN 14 DAY (06/24/2024 3:30 PM LEAD POURER) Thompson, indirect Negative ABO Rh A Positive [facility] Blood 06/24/2024 3:30 PM LEAD POURER 06/24/2024 6:19 PM LEAD POURER Narrative [facility] - 06/24/2024 7:12 PM LEAD POURER Has the patient had Daratumumab or Isatuximab in the past 6 months?->Unknown Is this test being ordered in advance for a procedure?->Yes Expected date of procedure:->07/01/24 Has the patient been transfused in the past 3 months?->No Has the patient been in the past 3 months?->No us Melany Mendez NP LAB BLOOD BANK TEST ORDER BRIANNA Final Result Performing Organization Address City/[facility] Co de Phone Number [facility] [place] [address] * eGFR (06/16/2024 11:00 AM LEAD POURER) Pathologist [facility] eGFR >90 >=60 mL/min/1. 73 m2 Comment: [...] reviewed 2021. Blood 06/16/2024 11:0 0 AM LEAD POURER 06/16/2024 11:03 AM LEAD POURER us Kimberly Velasquez MD LAB BLOOD ORDERABLES Final Resul t Performing Organization Address City/[facility]/ZIP Co de Phone Number [facility] Department [place] [address] * (ABNORMAL) Differential, auto (06/16/2024 11:00 AM LEAD POURER) Neutrophil abs 3.0 1.5 - 6.5 K/cumm Comment:Testing performed by : [facility], [address] [place] [address] Imm gran abs 0.0 0.0 - 0.1 K/cumm [facility] Lymphocyte abs 0.6(L) 0.8 - 3.3 K/cumm [facility] Monocyte abs 0.3 0.2 - 0.8 K/cumm [facility] Eosinophil abs 0.1 0.0 - 0.5 K/cumm [facility] Basophil abs 0.0 0.0 - 0.1 K/cumm [facility] Neutrophil pct 74.2 % [facility] Comment: Interpretive Data Percent cell count reference ranges are not reported, since discordance with absolute values may lead to misinterpretation of CBC data. Current Interpretive Data was last revised on 2017. Imm gran pct 0.5 % [facility] Comment: Interpretive Data Percent cell count reference ranges are not reported, since discordance with absolute values may lead to misinterpretation of CBC data. Current Interpretive Data was last revised on 2017. Lymphocyte pct 13.9 % [facility] Comment: Interpretive Data Percent cell count reference ranges are not reported, since discordance with absolute values may lead to misinterpretation of CBC data. Current Interpretive Data was last revised on 2017. Monocyte pct 8.3 % [facility] Comment: Interpretive Data Percent cell count reference ranges are not reported, since discordance with absolute values may lead to misinterpretation of CBC data. Current Interpretive Data was last revised on 2017. Eosinophil pct 2.8 % [facility] Comment: Interpretive Data Percent cell count reference ranges are not reported, since discordance with absolute values may lead to misinterpretation of CBC data. Current Interpretive Data was last revised on 2017. Basophil pct 0.3 % [facility] Comment: Interpretive Data Percent cell count reference ranges are not reported, since discordance with absolute values may lead to misinterpretation of CBC data. Current Interpretive Data was last revised on 2017. Blood 06/16/2024 11:0 0 AM LEAD POURER 06/16/2024 11:03 AM LEAD POURER us Kimberly Velasquez MD LAB BLOOD ORDERABLES Final Resul t [facility] Department [place] [address] * (ABNORMAL) CBC with auto differential (06/16/2024 11:00 AM LEAD POURER) [facility] WBC 4.0 3.8 - 9.9 K/cumm Comment:Testing performed by : [facility], [address] [place] [address] Hgb 11.5(L) 11.9 - 15.5 g/dL [facility] Comment:Testing performed by : [facility], [address] [place] [address] Hct 34.6(L) 35.6 - 45.5 % [facility] Comment:Testing performed by : [address] [address] Plt 93(L) 150 - 400 K/cumm [facility] Comment:Testing performed by : [facility], [address] [place] [address] MPV 9.9 9.1 - 12.3 fL [facility] RBC 3.70(L) 3.90 - 5.20 M/cumm [facility] MCV 93.5 81.3 - 96.4 fL [facility] MCH 31.1 27.1 - 33.3 pg [facility] MCHC 33.2 32.3 - 35.7 g/dL [facility] RDW CV 14.6 11.1 - 14.9 % [facility] RDW SD 49.0(H) 35.7 - 48.1 fL [facility] NRBC abs 0.00 0.00 - 0.01 K/cumm [facility] Blood 06/16/2024 11:0 0 AM LEAD POURER 06/16/2024 11:03 AM LEAD POURER us Kimberly Velasquez MD LAB BLOOD ORDERABLES Final Resul t [facility] Department [place] [address] * CEA (06/16/2024 11:00 AM LEAD POURER) [facility] CEA 1.0 <=5.0 ng/mL Comment: Interpretive Data: Reference Range: Non-Smokers: 0.0 5.0 ng/mL Smokers: 0.0 6.5 ng/mL The Justina CEA assay procedure was used. Results from different manufacturers or methods may not be comparable. Serial testing should be performed using the same method. Current interpretive data was last revised 2021. Blood 06/16/2024 11:0 0 AM LEAD POURER 06/16/2024 1:22 PM LEAD POURER us Kimberly Velasquez MD LAB BLOOD ORDERABLES Final Resul t [facility] Department [place] [address] * Comprehensive metabolic panel (06/16/2024 11:00 AM LEAD POURER) Sodium 141 135 - 145 mmol/L Comment:Testing performed by : [facility], [address] [place] [address] Potassium, pl 3.8 3.3 - 4.9 mmol/L [facility] Chloride 108 97 - 110 mmol/L [facility] CO2 26 22 - 32 mmol/L [facility] Anion gap 7 2 - 15 mmol/L [facility] BUN 7 6 - 25 mg/dL [facility] Creatinine 0.69 0.60 - 1.10 mg/dL [facility] Glucose 107 70 - 199 mg/dL [facility] Comment: Interpretive Data Fasting glucose >/= 126 [...] classification and Diagnosis of Diabetes Diabetes Care 202; 46: S19-S40. Current interpretive data was last revised 2022. Calcium 9.2 8.5 - 10.3 mg/dL [facility] Bilirubin, total 0.5 0.1 - 1.2 mg/dL [facility] Protein, pl 6.5 6.5 - 8.5 g/dL [facility] Albumin 3.9 3.5 - 5.0 g/dL [facility] Alk phos 107 40 - 130 Units/L [facility] ALT 30 7 - 45 Units/L [facility] AST 40 10 - 45 Units/L [facility] Blood 06/16/2024 11:0 0 AM LEAD POURER 06/16/2024 11:03 AM LEAD POURER us Kimberly Velasquez MD LAB BLOOD ORDERABLES Final Resul t Performing Organization Address City/[facility]/ZIP Co de Phone Number [facility] Department [place] [address] * POCT glucose (06/07/2024 10:02 AM LEAD POURER) [facility] Glucose, POC 104 70 - 199 mg/dL Comment: Interpretive Data Glucose is assumed to be non-fasting. Fasting Glucose reference ranges are: 0 - 150 years: 70 mg/dL - 99 mg/dL Current interpretive data was last revised on 2014. POC Performer [id number] [facility] POC Device Number [id number] [facility] Blood 06/07/2024 10:0 2 AM LEAD POURER 06/07/2024 10:02 AM LEAD POURER us Kemar Seay MD LAB POCT ORDERABLES - D EVICE Final Result Performing Organization Address City/[facility]/ZIP Co de Phone Number [facility] [address] [facility] Department [place] [address] * Flexible Sigmoidoscopy (06/07/2024 9:03 AM LEAD POURER) Anatomical Region Laterality Modality Other Narrative Procedure Note Kemar Seay MD - 06/07/2024 9:03 AM CST ENDOSCOPY LAB Patient Name: Isabel Lozano Procedure Date: 06/07/2024 9:03 AM Date of : 1985 Admit Type: Outpatient Age: 38 Gender: Female Attending MD: Kemar Seay M.D. Room: [facility] ENDOSCOPY ROOM 02 Note Status: Finalized [...] scope was passed under direct vision. The [id number] was introduced through theanus and advanced to [...] Result * POCT glucose (06/07/2024 8:51 AM LEAD POURER) Pathologist [facility] Glucose, POC 94 70 - 199 mg/dL Comment: Interpretive Data Glucose is assumed to be non-fasting. Fasting Glucose reference ranges are: 0 - 150 years: 70 mg/dL - 99 mg/dL Current interpretive data was last revised on 2014. POC Performer [id number] [facility] POC Device Number [id number] [facility] Blood 06/07/2024 8:51 AM LEAD POURER 06/07/2024 8:51 AM LEAD POURER Kemar Seay MD LAB POCT ORDERABLES - D EVICE Final Result [facility] [address] [facility] Department [place] [address] * POCT hCG, urine (06/07/2024) Pathologist [facility] HCG, ur, POC Negative Negative Lot Number [id number] QC Backgroud Clear Acceptable QC Control Line Acceptable Urine 06/07/2024 Historical Provider POINT OF CARE TEST ORDERA BLES Final Result from Last 3 Months Insurance Advance Directives For more information, please contact: [phone] * Full Code (Latest Code Status on File) Date Activated Date Inactivated Comments 08/09/2024 7:51 PM 08/12/2024 10:02 PM * Full Code Date Activated Date Inactivated Comments 06/07/2024 8:28 AM 06/07/2024 2:22 PM * Full Code Date Activated Date Inactivated Comments 11/13/2023 3:31 PM 11/13/2023 8:15 PM * Full Code Date Activated Date Inactivated Comments 11/13/2023 12:40 PM 11/13/2023 3:31 PM Care Teams Appeals Representative Relationship Specialty Start Date End Date Ayah Almodovar MD [address] [place] [address] PCP - General Family Medicine 10/22/23 Maximiliano Arndt MD [address] [place] [address] [address] Referring Physician Gastroenterology 10/22/23
--- OUTSIDE RECORDS SUMMARY | 2024-08-15 22:57 | XMS_ITS | Clinical Summary ---
Author Organization [facility] Address [address] [place] [address] Phone Care Team Providers Care Basket Braider Name Role Phone Ayah Almodovar MD Primary Care Provider [phone] Encounters Date Type Department Care Team Description 08/15[facility] [address] [place], [place] [id number] Madison Schumacher RN CASE COMMUNICATION from Last 3 Months Social History Tobacco Use Types Packs/Day Years Used Date Smoking Tobacco: Never Assessed Comments Unknown Sex and Gender Information Value Date Recorded Sex Assigned at Not on file Legal Sex Female 10:15 PM CDT Gender Identity Not on file Sexual Orientation Not on file Plan of Treatment Health Maintenance Due Date Last Done Comments Hepatitis C Virus (HCV) Screening 1985 Hepatitis B Immunization (1 of 3 - 19+ 3-dose series) 2004 Pap Smear 2006 Cervical Cancer Screening (CCS) 2015 HPV/Cotest 2015 Influenza Immunization (#1) 2024 SARS-COV-2 Immunization ( season) 2024 02/27/2021 Respiratory Syncytial Virus (RSV) Immunization (Adult) (1 - 1-dose 75+ series) 2060 TdaP Immunization Completed 07/10/2012 Meningococcal Immunization (ACWY) Aged Out No longer eligible based on patient's age to complete this topic Pneumococcal Immunization Combined Aged Out No longer eligible based on patient's age to complete this topic Rotavirus Immunization Aged Out No lo nger eligible based on patient's age to complete this topic Care Teams Basket Braider Relationship Specialty Start Date End Date Ayah Almodovar MD [address] [facility] [place] [address] PCP - General Family Medicine 08/10/24
--- OUTSIDE RECORDS SUMMARY | 2024-08-15 22:57 | XMS_ITS | Encounter Summary ---
Author Organization [facility] Address [address] [place] [address] Phone Care Team Providers Care Animal Shelter Worker Name Role Phone Ayah Almodovar MD Primary Care Provider [phone] Encounter Details Date Type Department Care Team (Late st Contact Info) Description 08/15/2024 Home Care Visit [facility] [address] [place] [address] Madison Schumacher RN [place] CASE COMMUNICATION Social History Tobacco Use Types Packs/Day Years [...] on filedocumented in this encounter Care Teams Animal Shelter Worker Relationship Specialty Start Date End Date Ayah Almodovar MD [address] [place] [address] PCP - General Family Medicine 08/10/24 documented as of this encounter
--- OUTSIDE RECORDS SUMMARY | 2024-08-15 22:57 | XMS_ITS ---
Author Organization [facility] Address [address] [place] [address] Care Team Providers Care Education Professional Name Role Phone Ayah Almodovar MD Primary Care Provider [phone] Active Problems Problem Noted Date Diagnosed Date Rectal cancer ([facility]) 04/01/2024 Current Oncology Plans injection friday thru friday after chemo treatment-13 inj approved* Plan Start Date:04/01/2024 Plan Provider:Ayah Almodovar MD Linked Problems Rectal cancer ([facility] HHS/H CC) Treatment Medications Current Day (Day 1 , Cycle 7 - Planned for 04/23/2024) Next Day (Day 1, Cycle 8 - Planned for 04/24/2024) No medications scheduled. No medications schedul ed. No medications scheduled. Past Plans No past plan information found. Radiation Treatments * No radiation treatments are documented for this patient in [facility]. Treatments may have been administered in another system.
--- OUTSIDE RECORDS SUMMARY | 2024-08-15 22:57 | XMS_ITS | Encounter Summary ---
Author Organization [facility] Address [address] [place] [address] Phone Care Team Providers Care Warehouse Shipping Receiving Clerk Name Role Phone Ayah Almodovar MD Primary Care Provider Maximiliano Arndt MD Unavailable [phone] Encounter Details Date Type Department Care Team (Late st Contact Info) Description 11/12/2023 Telephone [facility] 7th Floor, [place] [phone] Do Chun Social History Tobacco Use Types Packs/Day Years Used Date Smoking Tobacco: Never AUDIT-C Answer Date Recorded Frequency of Alcohol Consumption Not on file 11/13/2023 Q2: How many drinks containi ng alcohol do you have on a typical day when you are drinking? Patient does not drink Frequency of Binge Drinking Not on file 10/28 Personal Safety Answer Date Recorded Getting School Help Needed Not on file 10/19 Comments Unknown Sex and Gender Information Value Date Recorded Sex Assigned at Not on file Legal Sex Female 3:03 PM CDT Gender Identity Not on file Sexual Orientation Not on file documented as of this encounter Functional Status documented as of this encounter Plan of Treatment Not on file documented as of this encounter Visit Diagnoses Not on filedocumented in this encounter Care Teams Warehouse Shipping Receiving Clerk Relationship Specialty Start Date End Date Ayah Almodovar MD [address] [place] [address] PCP - General Family Medicine 10/22/23 Maximiliano Arndt MD [address] [place] [address] Referring Physician Gastroenterology 10/22/23 documented as of this encounter
--- OUTSIDE RECORDS SUMMARY | 2024-08-15 22:57 | XMS_ITS | Encounter Summary ---
Author Organization [facility] Address [address] [place] [address] Phone Care Team Providers Care Tax Senior Associate Name Role Phone Ayah Almodovar MD Primary Care Provider Maximiliano Arndt MD Unavailable [phone] Encounter Details Date Type Department Care Team (Late st Contact Info) Description 11/27/2023 Telephone [facility] On[facility] [address]th [place] [address] [place] [phone] Adelso Heard Social History Tobacco Use Types Packs/Day Years [...] on filedocumented in this encounter Care Teams Tax Senior Associate Relationship Specialty Start Date End Date Ayah Almodovar MD [address] [place] [address] PCP - General Family Medicine 10/22/23 Maximiliano Arndt MD [address] [place] [address] Referring Physician Gastroenterology 10/22/23 documented as of this encounter
[2024-08-15 23:00] VITALS: BP 113/86; PULSE 116; RESP 21; TEMP 36.4; O2SAT 97
--- NOTE | 2024-08-15 23:08 | ED_ITS ---
HPI - General Adult General Chief complaint: Urogenital-Female Stated complaint: urogenital female Time Seen by Provider: 08/15/24 23:07 Source: patient and family Mode of arrival: ambulatory Limitations: no limitations History of Present Illness HPI narrative: 39 years old white female came from home with her family by private car complaining of no urine output for the last 9 hours. Patient is status post colorectal surgery patient was discharged home 4 days ago. Patient short course of oxycodone, currently Lovenox and a muscle relaxant and extra-strength Tylenol. Patient denies any fever or chills or nausea or vomiting. Related Data Home Medications ?Medication ?Instructions ?Recorded ?Confirmed ?Last Taken ?Type bisacodyl 5 mg tablet,delayed 5 mg PO .COMPLEX 08/16/24 08/16/24 Unknown History release cyclobenzaprine 10 mg tablet 10 mg PO DAILY 08/16/24 08/16/24 Unknown History enoxaparin 40 mg/0.4 mL 40 mg subcut DAILY 08/16/24 08/16/24 Unknown History subcutaneous syringe Allergies Allergy/AdvReac Type Severity Reaction Status Date / Time Sulfa (Sulfonamide Allergy Unknown Rash Verified 08/16/24 00:01 Antibiotics) sulfamethoxazole Allergy Unknown Rash Verified 08/16/24 00:01 trimethoprim Allergy Unknown Rash Verified 08/16/24 00:01 Review of Systems Review of Systems: All systems reviewed & are unremarkable except as noted in HPI and below PMFSH Past Medical History Medical History Colon cancer Hemorrhoids Exam Narrative: General appearance: Well-developed, well-nourished Skin: Normal color Head: Normocephalic, nontraumatic Eyes: Clear conjunctiva ENT: Oropharynx normal, ears normal, nose normal Neck: Supple, nontender Chest and respiratory: Airway patent, no respiratory distress, no accessory muscle use Heart: Tachycardia, regular heart rate Abdomen: Soft, diffuse tenderness, colostomy bag in place, drain tube and drain bagin place Vascular: Normal peripheral pulses, normal capillary refill. Neurologic: Alert and oriented ?3, ENVELOPE PATTERNMAKER is normal as tested, no gross motor deficit Course Vital Signs Vital signs: Vital Signs Temperature 36.4 C 08/15/24 23:00 Pulse Rate 116 H 08/15/24 23:00 Respiratory Rate 21 H 08/15/24 23:00 Blood Pressure 113/86 08/15/24 23:00 Pulse Oximetry 97 08/15/24 23:00 Oxygen Delivery Room Air 08/15/24 23:00 Temperature 36.4 C 08/15/24 23:00 Pulse Rate 116 H 08/15/24 23:00 Respiratory Rate 21 H 08/15/24 23:00 Blood Pressure 113/86 08/15/24 23:00 Pulse Oximetry 97 08/15/24 23:00 Oxygen Delivery Room Air 08/15/24 23:00 Medical Decision Making MDM Narrative Medical decision making narrative: differential diagnosis include acute urinary tract infection secondary to recent colorectal surgery Urinary tract infection Persaud catheter placed, yield 1100 cc urine, Urinalysis showed no evidence of infection. Patient was advised to call her surgeon tomorrow morning for appointment to remove the Persaud catheter in 3-5 days Vital Signs Vital Signs: Vital Signs Temperature 36.4 C 08/15/24 23:00 Pulse Rate 116 H 08/15/24 23:00 Respiratory Rate 21 H 08/15/24 23:00 Blood Pressure 113/86 08/15/24 23:00 Pulse Oximetry 97 08/15/24 23:00 Oxygen Delivery Room Air 08/15/24 23:00 Temperature 36.4 C 08/15/24 23:00 Pulse Rate 116 H 08/15/24 23:00 Respiratory Rate 21 H 08/15/24 23:00 Blood Pressure 113/86 08/15/24 23:00 Pulse Oximetry 97 08/15/24 23:00 Oxygen Delivery Room Air 08/15/24 23:00 Critical Care Time Critical Care Time Critical Care Time: No Discharge Plan Discharge Clinical Impression: Acute urinary retention Patient Disposition: Home, Self-Care Condition: Improved Instructions: Persaud Catheter Placement and Care (ED), Acute Urinary Retention in Women (ED), How to Change a Catheter Drainage Bag (DC) Additional Instructions: Return if symptoms are worsening , call your surgeon tomorrow for appointment to remove the Persaud catheter in 3-5 days, take Tylenol as as needed for aches and pain, continue home medications. Patient Language: Indonesian Prescriptions: New clonazepam 0.25 mg tablet,disintegrating 0.25 mg PO BID Qty: 10 0RF No Action polyethylene glycol 3350 [Miralax] 17 gram/dose powder 17 g PO DAILY Qty: 238 0RF Hemorrhoidal(PE-min oil-hemal) 0.25-14-74.9 % ointment 1 applic RECTAL QAM AND QHS MDD 3 doses PRN (Reason: hemorrhoids) Qty: 56 0RF cyclobenzaprine 10 mg tablet 10 mg PO DAILY bisacodyl 5 mg tablet,delayed release (DR/EC) 5 mg PO .COMPLEX Rx Instructions: 5 mg orally; TAKE 2 TABLETS BY MOUTH AT 10 AM WITH 8 OZ OF CLEAR LIQUID AND AT 12 PM enoxaparin 40 mg/0.4 mL syringe 40 mg subcut DAILY progesterone micronized [Prometrium] 200 mg capsule 200 mg PO HS 60 Days Qty: 30 1RF Follow-up/Referrals: UNKNOWN,DOCTOR [Primary Care Provider] -
--- OUTSIDE RECORDS SUMMARY | 2024-08-15 23:32 | XMS_ITS | Encounter Summary ---
Author Organization [facility] Address [address] [place] [address] Care Team Providers Care Cognos Report Developer Name Role Phone Ayah Almodovar MD Primary Care Provider [phone] Maximiliano Arndt MD Unavailable [phone] Encounter Details Date Type Department Care Team (Late st Contact Info) Description 12/26/2023 Completion of Therapy [facility] Advanced Medicine Radiation Oncology [facility] [place] [address] Cezar Rosario MD [address] [facility] [phone] [place] [address] Social History Tobacco Use Types Packs/Day Years [...] on filedocumented in this encounter Care Teams Cognos Report Developer Relationship Specialty [place] [address] [place] [address] [place] [address] PCP - General Family Medicine 10/22/23 [place] [address] [place] [address] [place] [address] Referring Physician Gastroenterology 10/22/23 documented as of this encounter
--- OUTSIDE RECORDS SUMMARY | 2024-08-15 23:33 | XMS_ITS | Encounter Summary ---
Author Organization [facility] Address [address] [place] [address] Phone Care Team Providers Care Dredge Master Name Role Phone Ayah Almodovar MD Primary Care Provider [phone] Encounter Details Date Type Department Care Team (Late st Contact Info) Description 08/15/2024 Home Care Visit [facility] [address] [place] [address] [place] Schumacher RN [place] CASE COMMUNICATION Social [...] on filedocumented in this encounter Care Teams Dredge Master Relationship Specialty Start Date End Date Ayah Almodovar MD [address] [place] [address] PCP - General Family Medicine 08/10/24 documented as of this encounter
--- OUTSIDE RECORDS SUMMARY | 2024-08-15 23:33 | XMS_ITS | Encounter Summary ---
Author Organization [facility] Address [address] [place] [address] Phone Care Team Providers Care Power Sewing Machine Operator Name Role Phone Ayah Almodovar MD Primary Care Provider Maximiliano Arndt MD Unavailable [phone] Encounter Details Date Type Department Care Team (Late st Contact Info) Description 11/27/2023 Telephone [facility] On[facility] 7th [place] [address] [place] [id number] Adelso Heard Social History Tobacco Use Types [...] on filedocumented in this encounter Care Teams Power Sewing Machine Operator Relationship Specialty Start Date End Date Ayah Almodovar MD [address] [place] [address] PCP - General Family Medicine 10/22/23 Maximiliano Arndt MD [address] [place] [address] Referring Physician Gastroenterology 10/22/23 documented as of this encounter
--- OUTSIDE RECORDS SUMMARY | 2024-08-15 23:33 | XMS_ITS | Clinical Summary ---
Author Organization [facility] Address [address] [place] [address] Phone Care Team Providers Care Drying Machine Back Tender Name Role Phone Ayah Almodovar MD Primary Care Provider [phone] Encounters Date Type Department Care Team Description 08/15/2024 [facility] Visit [facility] [address] [place], [place] [id number] [place] Schumacher RN CASE COMMUNICATION from Last [...] age to complete this topic Care Teams Drying Machine Back Tender Relationship Specialty Start Date End Date Ayah Almodovar MD [address] [place] [place] [address] PCP - General Family Medicine 08/10/24
--- OUTSIDE RECORDS SUMMARY | 2024-08-15 23:33 | XMS_ITS | Encounter Summary ---
Author Organization [facility] Address [address] [place] [address] Phone Care Team Providers Care Canal Tender Name Role Phone Ayah Almodovar MD Primary Care Provider Maximiliano Arndt MD Unavailable [phone] Encounter Details Date Type Department Care Team (Late st Contact Info) Description 11/12/2023 Telephone [facility] On[facility] [address]th [address], [place] [id number] Do Chun Social History Tobacco Use Types [...] on filedocumented in this encounter Care Teams Canal Tender Relationship Specialty Start Date End Date Ayah Almodovar MD [address] [place] [address] PCP - General Family Medicine 10/22/23 Maximiliano Arndt MD [address] [facility] [address] [address] Referring Physician Gastroenterology 10/22/23 documented as of this encounter
--- OUTSIDE RECORDS SUMMARY | 2024-08-15 23:33 | XMS_ITS | Referral Summary ---
Author Organization [facility] Address [address] [place] [address] Care Team Providers Care Telephone Advice Nurse Name Role Phone Ayah Almodovar MD Primary Care Provider Maximiliano Arndt MD Unavailable [phone] Encounters Date Type Department Care Team Description 08/13/2024 Telephone [facility] Surgery [facility]0 [facility] [address] [place] [phone] Ghazala Adams RN 08/09/2024 5:05 AM CLUB WAITER/WAITRESS - 08/12/2024 4:10 PM CLUB WAITER/WAITRESS Hospital Encounter [address] [address] Carmen Szymanski MD Rectal cancer (CMS/HCC) (HCC) Discharge Disposition: Discharge to home or self care 2024 Telephone [facility] Oncology [address] [place] [phone] 08/09/2024 7:30 AM CLUB WAITER/WAITRESS - 08/09/2024 2:55 PM CLUB WAITER/WAITRESS Surgery [facility] Operating Room 1 [place] [id number] Carmen Szymanski MD XI ABDOMINAL PERINEAL RESECTION - LAPAROSCOPIC ROBOTIC ASSISTED 08/09/2024 7:29 AM CLUB WAITER/WAITRESS Anesthesia Event [facility] Operating Room 1 [place] [address] Jovanna Vargas MD Hearn, Alexandra Marie, NP 08/03/2024 Telephone [facility] Oncology [address] [place] [address] Luis Miller 07/28/2024 Telephone [facility] Oncology [address] [place] [phone] Kellee Sandoval, [place] 06/21/2024 11:59 PM CLUB WAITER/WAITRESS Anesthesia Event [facility] Operating Room 1 [place] [address] Melany Mendez NP 07/09/2024 Telephone [facility] Surgery [address] [facility] Medical Office Building 4 [address] [place] [address] Bonnie Clay Surgery 07/06/2024 Telephone [facility] Surgery [address] [facility] 2nd Floor [address] [place] [address] Liliane Earl RN 07/02/2024 Telephone [facility] Oncology [address] [place] [phone] 06/24/2024 2:05 PM CLUB WAITER/WAITRESS Lab [facility] [address] [facility] [address] [place] [address] Preoperative testing; Rectal cancer (CMS/HCC) (HCC) 06/24/2024 2:30 PM CLUB WAITER/WAITRESS Pre-Admission Testing [facility] CAM Pre Anesthesia Testing [address] [place] [address] Preoperative testing (Primary Dx) 06/16/2024 11:00 AM CLUB WAITER/WAITRESS Clinical Support [facility] [address] [place] [address] Rectal cancer (CMS/HCC) (HCC) 06/16/2024 11:30 AM CLUB WAITER/WAITRESS Office Visit [facility] Oncology [address] [place] [phone] Kimberly Velasquez MD Rectal cancer (CMS/HCC) (HCC) (Primary Dx) 06/10/2024 Orders Only [facility] Surgery [address] [facility] Medical Office Building 4 [address] [place] [address] Hailey Crystal, [place] 06/10/2024 10:30 AM CLUB WAITER/WAITRESS Office Visit [facility] Surgery [address] [place] [address] Carmen Szymanski MD Rectal cancer (CMS/HCC) (HCC) (Primary Dx) 06/07/2024 Documentation [facility] Surgeon [address] [place] [address] Carmen Szymanski MD 06/07/2024 Telephone [facility] Surgery [facility]4 [facility] Medical Office Building 4 [address] [place] [address] Scottie Claybrayan 06/07/2024 9:04 AM CLUB WAITER/WAITRESS Anesthesia Event [facility] Endoscopy [address] [place] [address] Luis Burgos MD Hanselman, Christina M., [facility] 06/07/2024 9:00 AM CLUB WAITER/WAITRESS - 06/07/2024 9:45 AM CLUB WAITER/WAITRESS Surgery [facility] Endoscopy [address] [place] [address] Kemar Seay MD SIGMOIDOSCOPY 06/07/2024 8:24 AM CLUB WAITER/WAITRESS - 06/07/2024 10:22 AM CLUB WAITER/WAITRESS Hospital Encounter [facility] Endoscopy [address] [place] [address] Kemar Seay MD Discharge Disposition: Discharge to home or self care 06/03/2024 Telephone [facility] Surgery [address] [facility] 2nd Floor [address] [place] [address] Anna Marie Abdul RMA Colonoscopy 06/01/2024 10:30 AM CLUB WAITER/WAITRESS Office Visit [facility] Radiation Oncology at [facility] Cancer [facility] [address] [place] [address] Dyana Goodson NP Rectal cancer (CMS/HCC) (HCC) (Primary Dx) 05/19/2024 Telephone [facility] Radiation Oncology at [facility] [address] [place] [address] Candida Martinez RN from Last 3 Months [...] Comments Blood Pressure 106/52 08/12/2024 12:30 PM CLUB WAITER/WAITRESS Pulse 98 08/12/2024 12:30 PM CLUB WAITER/WAITRESS Temperature 36.9 C (98.4 F) 08/12/2024 12:30 PM CLUB WAITER/WAITRESS Respiratory Rate 20 08/12/2024 12:30 PM CLUB WAITER/WAITRESS Oxygen Saturation 96% 08/12/2024 12:30 PM CLUB WAITER/WAITRESS Inhaled Oxygen Concentration - - Weight 142.4 kg (314 lb) 08/09/2024 5:57 AM CLUB WAITER/WAITRESS Height 170.2 cm (5' 7 ) 08/09/2024 5:57 AM CLUB WAITER/WAITRESS Body Mass Index 49.18 08/09/2024 5:57 AM CLUB WAITER/WAITRESS Plan of Treatment Not on file Procedures Procedure Name Priority Date/Time Associated Diagnosis Comments POCT GLUCOSE DEVICE Routine 08/12/2024 1 1:53 AM CLUB WAITER/WAITRESS POCT GLUCOSE DEVICE Routine 08/12/2024 7 :52 AM CLUB WAITER/WAITRESS CBC WITHOUT DIFFERENTIAL Timed 08/11/2024 9:50 PM CLUB WAITER/WAITRESS POCT GLUCOSE DEVICE Routine 08/11/2024 7 :26 PM CLUB WAITER/WAITRESS POCT GLUCOSE DEVICE Routine 08/11/2024 4 :53 PM CLUB WAITER/WAITRESS POCT GLUCOSE DEVICE Routine 08/11/2024 1 1:02 AM CLUB WAITER/WAITRESS POCT GLUCOSE DEVICE Routine 08/11/2024 7 :40 AM CLUB WAITER/WAITRESS EGFR Timed 08/11/2024 1:37 AM CLUB WAITER/WAITRESS BASIC METABOLIC PANEL Timed 08/11/2024 1:37 AM CLUB WAITER/WAITRESS CBC WITHOUT DIFFERENTIAL Timed 08/11/2024 1:37 AM CLUB WAITER/WAITRESS POCT GLUCOSE DEVICE Routine 2024 8 :48 PM CLUB WAITER/WAITRESS POCT GLUCOSE DEVICE Routine 2024 1 2:56 PM CLUB WAITER/WAITRESS POCT GLUCOSE DEVICE Routine 2024 7 :49 AM CLUB WAITER/WAITRESS HEMOGLOBIN A1C Timed 08/09/2024 9:20 PM CLUB WAITER/WAITRESS LIPID PANEL Timed 08/09/2024 9:20 PM CLUB WAITER/WAITRESS EGFR Timed 08/09/2024 9:20 PM CLUB WAITER/WAITRESS BASIC METABOLIC PANEL Timed 08/09/2024 9:20 PM CLUB WAITER/WAITRESS CBC WITHOUT DIFFERENTIAL Timed 08/09/2024 9:20 PM CLUB WAITER/WAITRESS POC BLOOD GAS AND CHEMISTRIES, ARTERIAL Routine 08/09/2024 3:23 PM CLUB WAITER/WAITRESS POC BLOOD GAS AND CHEMISTRIES, ARTERIAL Routine 08/09/2024 1:23 PM CLUB WAITER/WAITRESS POCT GLUCOSE DEVICE Routine 08/09/2024 1 0:59 AM CLUB WAITER/WAITRESS SD AN PROCEDURE PLACEHOLDER Routine 08/09/2024 9:21 AM CLUB WAITER/WAITRESS SD AN PROCEDURE PLACEHOLDER Routine 08/09/2024 9:20 AM CLUB WAITER/WAITRESS SD AN PROCEDURE PLACEHOLDER Routine 08/09/2024 9:17 AM CLUB WAITER/WAITRESS SD AN ELECTIVE ENDOTRACHEAL AIRWAY Routine 08/09/2024 9:17 AM CLUB WAITER/WAITRESS POC BLOOD GAS AND CHEMISTRIES, ARTERIAL Routine 08/09/2024 8:43 AM CLUB WAITER/WAITRESS SIGMOIDOSCOPY 08/09/2024 7:33 AM CLUB WAITER/WAITRESS Rectal cancer (CMS/HCC) (HCC) XI ABDOMINAL PERINEAL RESECTION - LAPAROSCOPIC ROBOTIC ASSISTED 08/09/2024 7:33 AM CLUB WAITER/WAITRESS Rectal cancer (CMS/HCC) (HCC) POCT GLUCOSE DEVICE Routine 08/09/2024 5 :55 AM CLUB WAITER/WAITRESS TYPE AND SCREEN STAT 08/09/2024 5:55 AM CLUB WAITER/WAITRESS POCT HCG, URINE Routine 08/09/2024 5:45 AM CLUB WAITER/WAITRESS TYPE AND SCREEN 14 DAY Routine 3:30 PM CLUB WAITER/WAITRESS Preoperative testing EGFR STAT 06/16/2024 11:00 AM CLUB WAITER/WAITRESS Rectal cancer (CMS/HCC) (HCC) DIFFERENTIAL AUTO STAT 06/16/2024 11: 00 AM CLUB WAITER/WAITRESS Rectal cancer (CMS/HCC) (HCC) CBC WITH AUTO DIFFERENTIAL STAT 06/16/2024 11:00 AM CLUB WAITER/WAITRESS Rectal cancer (CMS/HCC) (HCC) CEA Routine 06/16/2024 11:00 AM CLUB WAITER/WAITRESS Rectal cancer (CMS/HCC) (HCC) COMPREHENSIVE METABOLIC PANEL STAT 06/16/2024 11:00 AM CLUB WAITER/WAITRESS Rectal cancer (CMS/HCC) (HCC) POCT GLUCOSE DEVICE Routine 06/07/2024 1 0:02 AM CLUB WAITER/WAITRESS SIGMOIDOSCOPY 06/07/2024 9:04 AM CLUB WAITER/WAITRESS Rectal cancer (CMS/HCC) (HCC) FLEXIBLE SIGMOIDOSCOPY 9:03 AM CLUB WAITER/WAITRESS POCT GLUCOSE DEVICE Routine 06/07/2024 8 :51 AM CLUB WAITER/WAITRESS POCT HCG, URINE Routine 06/07/2024 from Last 3 Months Results * POCT glucose (08/12/2024 11:53 AM CLUB WAITER/WAITRESS) Glucose, POC 124 70 - 199 mg/dL Blood 08/12/2024 11:5 3 AM CLUB WAITER/WAITRESS 08/12/2024 11:53 AM CLUB WAITER/WAITRESS us Carmen Szymanski MD LAB POCT ORDERABLES - ÁNGELA CE Final Result Performing Organization Address City/[facility] Co de Phone Number [facility] Department [place] [address] * POCT glucose (08/12/2024 7:52 AM CLUB WAITER/WAITRESS) Glucose, POC 129 70 - 199 mg/dL Blood 08/12/2024 7:52 AM CLUB WAITER/WAITRESS 08/12/2024 7:52 AM CLUB WAITER/WAITRESS us Carmen Szymanski MD LAB POCT ORDERABLES - ÁNGELA CE Final Result Performing Organization Address [facility] Co de Phone Number [facility] Department [place] [address] * (ABNORMAL) CBC without differential (08/11/2024 9:50 PM CLUB WAITER/WAITRESS) [facility] WBC 6.3 3.8 - 9.9 K/cumm Hgb 8.5(L) 11.9 - 15.5 g/dL [facility] Hct 26.5(L) 35.6 - 45.5 % [facility] Plt 82(L) 150 - 400 K/cumm [facility] MPV 10.9 9.1 - 12.3 fL [facility] RBC 2.89(L) 3.90 - 5.20 M/cumm [facility] MCV 91.7 81.3 - 96.4 fL [facility] MCH 29.4 27.1 - 33.3 pg [facility] MCHC 32.1(L) 32.3 - 35.7 g/dL [facility] RDW CV 15.6(H) 11.1 - 14.9 % [facility] RDW SD 51.8(H) 35.7 - 48.1 fL [facility] NRBC abs 0.00 0.00 - 0.01 K/cumm [facility] Blood 08/11/2024 9:50 PM CLUB WAITER/WAITRESS 08/11/2024 11:11 PM CLUB WAITER/WAITRESS us Tasia Patel NP LAB BLOOD ORDERABLES Cecille l Result [facility] Department [place] [address] * POCT glucose (08/11/2024 7:26 PM CLUB WAITER/WAITRESS) [facility] Glucose, POC 143 70 - 199 mg/dL Blood 08/11/2024 7:26 PM CLUB WAITER/WAITRESS 08/11/2024 7:26 PM CLUB WAITER/WAITRESS us Carmen Szymanski MD LAB POCT ORDERABLES - ÁNGELA CE Final Result Performing Organization Address [facility]/ZIP Co de Phone Number [facility] Department [place] [address] * POCT glucose (08/11/2024 4:53 PM CLUB WAITER/WAITRESS) Glucose, POC 129 70 - 199 mg/dL Blood 08/11/2024 4:53 PM CLUB WAITER/WAITRESS 08/11/2024 4:53 PM CLUB WAITER/WAITRESS Carmen Szymanski MD LAB POCT ORDERABLES - ÁNGELA CE Final Result Performing Organization Address [facility] Co de Phone Number [facility] [place] [address] * POCT glucose (08/11/2024 11:02 AM CLUB WAITER/WAITRESS) Glucose, POC 157 70 - 199 mg/dL Blood 08/11/2024 11:0 2 AM CLUB WAITER/WAITRESS 08/11/2024 11:02 AM CLUB WAITER/WAITRESS us Carmen Szymanski MD LAB POCT ORDERABLES - ÁNGELA CE Final Result Performing Organization Address [facility] de Phone Number [facility] [place] [address] * POCT glucose (08/11/2024 7:40 AM CLUB WAITER/WAITRESS) Pathologist [facility] Glucose, POC 135 70 - 199 mg/dL Blood 08/11/2024 7:40 AM CLUB WAITER/WAITRESS 08/11/2024 7:40 AM CLUB WAITER/WAITRESS Carmen Szymanski MD LAB POCT ORDERABLES - ÁNGELA CE Final Result Performing Organization Address [facility] de Phone Number [facility] [place] [address] * eGFR (08/11/2024 1:37 AM CLUB WAITER/WAITRESS) [facility] eGFR >90 >=60 mL/min/1. 73 m2 Comment: [...] last reviewed 2021. Blood 08/11/2024 1:37 AM CLUB WAITER/WAITRESS 08/11/2024 2:36 AM CLUB WAITER/WAITRESS us Carmen Szymanski MD LAB BLOOD ORDERABLES Final Result [facility] [address] [facility] Department [place] [address] * (ABNORMAL) CBC without differential (08/11/2024 1:37 AM CLUB WAITER/WAITRESS) WBC 7.2 3.8 - 9.9 K/cumm Hgb 8.0(L) 11.9 - 15.5 g/dL [facility] Hct 24.4(L) 35.6 - 45.5 % [facility] Plt 80(L) 150 - 400 K/cumm [facility] MPV 10.8 9.1 - 12.3 fL [facility] RBC 2.70(L) 3.90 - 5.20 M/cumm [facility] MCV 90.4 81.3 - 96.4 fL [facility] MCH 29.6 27.1 - 33.3 pg [facility] MCHC 32.8 32.3 - 35.7 g/dL [facility] RDW CV 15.6(H) 11.1 - 14.9 % [facility] RDW SD 50.5(H) 35.7 - 48.1 fL [facility] NRBC abs 0.00 0.00 - 0.01 K/cumm [facility] Blood 08/11/2024 1:37 AM CLUB WAITER/WAITRESS 08/11/2024 2:37 AM CLUB WAITER/WAITRESS Narrative [facility] - 08/11/2024 2:49 AM CLUB WAITER/WAITRESS Obtain POD 1 at 2200. us Carmen Szymanski MD LAB BLOOD ORDERABLES Final Result [facility] [address] [facility] Department [place] [address] * (ABNORMAL) Basic metabolic panel (08/11/2024 1:37 AM CLUB WAITER/WAITRESS) Sodium 141 135 - 145 mmol/L Potassium, pl 3.3 3.3 - 4.9 mmol/L [facility] Chloride 104 97 - 110 mmol/L [facility] CO2 28 22 - 32 mmol/L [facility] Anion gap 9 2 - 15 mmol/L [facility] BUN 7 6 - 25 mg/dL [facility] Creatinine 0.83 0.60 - 1.10 mg/dL [facility] Glucose 117 70 - 199 mg/dL [facility] Comment: Interpretive Data Fasting glucose >/= [...] 2022. Calcium 8.0(L) 8.5 - 10.3 mg/dL [facility] Blood 08/11/2024 1:37 AM CLUB WAITER/WAITRESS 08/11/2024 2:36 AM CLUB WAITER/WAITRESS Narrative [facility] - 08/11/2024 3:06 AM CLUB WAITER/WAITRESS Obtain POD 1 at 2200. Carmen Szymanski MD LAB BLOOD ORDERABLES Final Result [facility] [place] [address] * POCT glucose (2024 8:48 PM CLUB WAITER/WAITRESS) Glucose, POC 139 70 - 199 mg/dL Blood 2024 8:48 PM CLUB WAITER/WAITRESS 2024 8:48 PM CLUB WAITER/WAITRESS us Carmen Szymanski MD LAB POCT ORDERABLES - ÁNGELA CE Final Result Performing Organization Address City/[facility]/ZIP Co de Phone Number [facility] [place] [address] * POCT glucose (2024 12:56 PM CLUB WAITER/WAITRESS) Glucose, POC 199 70 - 199 mg/dL Blood 2024 12:5 6 PM CLUB WAITER/WAITRESS 2024 12:56 PM CLUB WAITER/WAITRESS us Carmen Szymanski MD LAB POCT ORDERABLES - ÁNGELA CE Final Result Performing Organization Address City/[facility]/ZIP Co de Phone Number [facility] Department [place] [address] * POCT glucose (2024 7:49 AM CLUB WAITER/WAITRESS) Glucose, POC 139 70 - 199 mg/dL Blood 2024 7:49 AM CLUB WAITER/WAITRESS 2024 7:49 AM CLUB WAITER/WAITRESS us Carmen Szymanski MD LAB POCT ORDERABLES - ÁNGELA CE Final Result [facility] Department [place] [address] * eGFR (08/09/2024 9:20 PM CLUB WAITER/WAITRESS) eGFR >90 >=60 mL/min/1. 73 m2 Comment: [...] last reviewed 2021. Blood 08/09/2024 9:20 PM CLUB WAITER/WAITRESS 08/09/2024 10:19 PM CLUB WAITER/WAITRESS us Carmen Szymanski MD LAB BLOOD ORDERABLES Final Result [facility] [address] [facility] Department [place] [address] * (ABNORMAL) CBC without differential (08/09/2024 9:20 PM CLUB WAITER/WAITRESS) [facility] WBC 6.4 3.8 - 9.9 K/cumm Hgb 9.1(L) 11.9 - 15.5 g/dL [facility] Hct 27.6(L) 35.6 - 45.5 % [facility] Plt 97(L) 150 - 400 K/cumm [facility] MPV 11.0 9.1 - 12.3 fL [facility] RBC 3.07(L) 3.90 - 5.20 M/cumm [facility] MCV 89.9 81.3 - 96.4 fL [facility] MCH 29.6 27.1 - 33.3 pg [facility] MCHC 33.0 32.3 - 35.7 g/dL [facility] RDW CV 15.1(H) 11.1 - 14.9 % [facility] RDW SD 49.6(H) 35.7 - 48.1 fL [facility] NRBC abs 0.00 0.00 - 0.01 K/cumm [facility] Blood 08/09/2024 9:20 PM CLUB WAITER/WAITRESS 08/09/2024 10:19 PM CLUB WAITER/WAITRESS Narrative [facility] - 08/09/2024 10:30 PM CLUB WAITER/WAITRESS Obtain POD 0 at 2200. Carmen Szymanski MD LAB BLOOD ORDERABLES Final Result Performing Organization Address [facility] de Phone Number [facility] Department [place] [address] * Hemoglobin A1c (08/09/2024 9:20 PM CLUB WAITER/WAITRESS) Pathologist [facility] Hgb A1C 4.9 4.0 - 5.6 % Estimated Average Glucose 94 mg/dL [facility] Comment: The ADA recommends reporting an estimated Average Glucose (eAG) with all Hemoglobin A1c results using the equation derived from a study of 507 normal and diabetic adults. Minority populations were underrepresented and children were not included. (Diabetes Care 2020; 43(S1): S66-S76). The eAG is not equivalent to a fasting glucose. Blood 08/09/2024 9:20 PM CLUB WAITER/WAITRESS 08/09/2024 10:24 PM CLUB WAITER/WAITRESS Carmen Szymanski MD LAB BLOOD ORDERABLES Final Result Performing Organization Address [facility] Co de Phone Number [facility] Department [place] [address] * (ABNORMAL) Lipid panel (08/09/2024 9:20 PM CLUB WAITER/WAITRESS) Pathologist [facility] Cholesterol 104 30 - 199 mg/dL Comment: [...] revised on 2018. Triglycerides 72 <=149 mg/dL [facility] Comment: Interpretive Data Ages < or [...] revised on 2018. HDL 31(L) >=40 mg/dL [facility] Comment: Interpretive Data Ages < or [...] on 2018. LDL, calculated 58 <=129 mg/dL [facility] Comment: Interpretive Data Ages < or [...] revised on 2024. Non-HDL Cholesterol 73 mg/dL [facility] Comment: Interpretive Data Ages < or [...] last revised on 2018. Chol/HDL ratio 3 [facility] Blood 08/09/2024 9:20 PM CLUB WAITER/WAITRESS 08/09/2024 10:19 PM CLUB WAITER/WAITRESS us Carmen Szymanski MD LAB BLOOD ORDERABLES Final Result [facility] Department [place] [address] * (ABNORMAL) Basic metabolic panel (08/09/2024 9:20 PM CLUB WAITER/WAITRESS) Sodium 141 135 - 145 mmol/L Potassium, pl 4.0 3.3 - 4.9 mmol/L [facility] Chloride 107 97 - 110 mmol/L [facility] CO2 25 22 - 32 mmol/L [facility] Anion gap 9 2 - 15 mmol/L [facility] BUN 8 6 - 25 mg/dL [facility] Creatinine 0.84 0.60 - 1.10 mg/dL [facility] Glucose 158 70 - 199 mg/dL [facility] Comment: Interpretive Data Fasting glucose >/= [...] 2022. Calcium 8.3(L) 8.5 - 10.3 mg/dL [facility] Blood 08/09/2024 9:20 PM CLUB WAITER/WAITRESS 08/09/2024 10:19 PM CLUB WAITER/WAITRESS Narrative [facility] - 08/09/2024 10:53 PM CLUB WAITER/WAITRESS Obtain POD 0 at 2200. us Carmen Szymanski MD LAB BLOOD ORDERABLES Final Result [facility] Department [place] [address] * (ABNORMAL) POC Blood Gas and Chemistries, Arterial - (08/09/2024 3:23 PM CLUB WAITER/WAITRESS) pH, Art POC 7.33(L) 7.35 - 7.45 pCO2, Art POC 48(H) 35 - 45 mmHg [facility] pO2, Art POC 105 83 - 108 mmHg [facility] Na, POC 138 135 - 145 mmol/L [facility] K POC 4.5 3.3 - 4.9 mmol/L [facility] Comment: Interpretive Data Not all point of care methods assess for hemolysis. Confirm with instrument and retest K+ if not consistent with clinical signs and symptoms. Current Interpretive Data was last revised on 2023. Cl, POC 110 97 - 110 mmol/L [facility] Ionized Ca, POC 4.91 4.50 - 5.10 mg/dL [facility] Glucose, POC 155 70 - 199 mg/dL [facility] Lactate, POC 1.8 0.7 - 2.0 mmol/L [facility] SO2 (sheri) arterial 97(H) 90 - 95 % [facility] Base excess, POC -0.9 mmol/L [facility] HCO3, Art POC 25 20 - 30 mmol/L [facility] Hct, POC 31.0(L) 36.3 - 45.3 % [facility] Total Hb, POC 10.3(L) 11.9 - 15.5 g/dL [facility] Blood 08/09/2024 3:2 3 PM CLUB WAITER/WAITRESS 08/09/2024 3:23 PM CLUB WAITER/WAITRESS us Carmen Szymanski MD LAB POCT ORDERABLES - ÁNGELA CE Final Result [facility] Department [place] [address] * (ABNORMAL) POC Blood Gas and Chemistries, Arterial - (08/09/2024 1:23 PM CLUB WAITER/WAITRESS) pH, Art POC 7.43 7.35 - 7.45 pCO2, Art POC 38 35 - 45 mmHg [facility] pO2, Art POC 99 83 - 108 mmHg [facility] Na, POC 137 135 - 145 mmol/L [facility] K POC 4.4 3.3 - 4.9 mmol/L [facility] Comment: Interpretive Data Not all point of care methods assess for hemolysis. Confirm with instrument and retest K+ if not consistent with clinical signs and symptoms. Current Interpretive Data was last revised on 2023. Cl, POC 109 97 - 110 mmol/L [facility] Ionized Ca, POC 4.49(L) 4.50 - 5.10 mg/dL [facility] Glucose, POC 175 70 - 199 mg/dL [facility] Lactate, POC 1.4 0.7 - 2.0 mmol/L [facility] SO2 (sheri) arterial 97(H) 90 - 95 % [facility] Base excess, POC 0.9 mmol/L [facility] HCO3, Art POC 25 20 - 30 mmol/L [facility] Hct, POC 35.0(L) 36.3 - 45.3 % [facility] Total Hb, POC 11.5(L) 11.9 - 15.5 g/dL [facility] Blood 08/09/2024 1:23 PM CLUB WAITER/WAITRESS 08/09/2024 1:23 PM CLUB WAITER/WAITRESS Carmen Szymanski MD LAB POCT ORDERABLES - ÁNGELA CE Final Result Performing Organization Address [facility] Co de Phone Number [facility] Department [place] [address] * POCT glucose (08/09/2024 10:59 AM CLUB WAITER/WAITRESS) [facility] Glucose, POC 159 70 - 199 mg/dL Blood 08/09/2024 10:5 9 AM CLUB WAITER/WAITRESS 08/09/2024 10:59 AM CLUB WAITER/WAITRESS Carmen Szymanski MD LAB POCT ORDERABLES - ÁNGELA CE Final Result Performing Organization Address [facility] de Phone Number [facility] [place] [address] * SD AN PROCEDURE PLACEHOLDER (08/09/2024 9:21 AM CLUB WAITER/WAITRESS) Raghavendra Lawler CRNA - 08/09/2024 9:21 AM CLUB WAITER/WAITRESS Raghavendra Pena CRNA 08/09/2024 9:21 AM Arterial [...] Vargas MD ANESTHESIA ORDERABLES Final Result * SD AN PROCEDURE PLACEHOLDER (08/09/2024 9:20 AM CLUB WAITER/WAITRESS) Raghavendra Lawler CRNA - 08/09/2024 9:20 AM CLUB WAITER/WAITRESS Raghavendra Pena CRNA 08/09/2024 9:21 AM Peripheral [...] Vargas MD ANESTHESIA ORDERABLES Final Result * SD AN ELECTIVE ENDOTRACHEAL AIRWAY, SD AN PROCEDURE PLACEHOLDER (08/09/2024 9:17 AM CLUB WAITER/WAITRESS) Narrative Raghavendra Pena CRNA - 08/09/2024 9:17 AM CLUB WAITER/WAITRESS Raghavendra Pena CRNA 08/09/2024 9:20 AM Airway Patient location: OR Urgency: elective Indications for airway management: anesthesia Difficult airway: no Staff: Supervising provider: Jovanna Vargas MD Placed by: INTERFACE DESIGNER: Raghavendra Pena CRNA Emergent airway documentation: Risks [...] and Chemistries, Arterial - (08/09/2024 8:43 AM CLUB WAITER/WAITRESS) pH, Art POC 7.37 7.35 - 7.45 pCO2, Art POC 47(H) 35 - 45 mmHg [facility] pO2, Art POC 93 83 - 108 mmHg [facility] Na, POC 140 135 - 145 mmol/L [facility] K POC 3.6 3.3 - 4.9 mmol/L [facility] Comment: Interpretive Data Not all point of care methods assess for hemolysis. Confirm with instrument and retest K+ if not consistent with clinical signs and symptoms. Current Interpretive Data was last revised on 2023. Cl, POC 109 97 - 110 mmol/L [facility] Ionized Ca, POC 4.74 4.50 - 5.10 mg/dL [facility] Glucose, POC 115 70 - 199 mg/dL [facility] Lactate, POC 1.2 0.7 - 2.0 mmol/L [facility] SO2 (sheri) arterial 99(H) 90 - 95 % [facility] Base excess, POC 1.4 mmol/L [facility] HCO3, Art POC 27 20 - 30 mmol/L [facility] Hct, POC 33.0(L) 36.3 - 45.3 % [facility] Total Hb, POC 11.0(L) 11.9 - 15.5 g/dL [facility] Blood 08/09/2024 8:43 AM CLUB WAITER/WAITRESS 08/09/2024 8:43 AM CLUB WAITER/WAITRESS us Carmen Szymanski MD LAB POCT ORDERABLES - ÁNGELA CE Final Result [facility] Department [place] [address] * POCT glucose (08/09/2024 5:55 AM CLUB WAITER/WAITRESS) Glucose, POC 88 70 - 199 mg/dL Blood 08/09/2024 5:55 AM CLUB WAITER/WAITRESS 08/09/2024 5:55 AM CLUB WAITER/WAITRESS us Carmen Szymanski MD LAB POCT ORDERABLES - ÁNGELA CE Final Result [facility] [place] [address] * Type and screen (08/09/2024 5:55 AM CLUB WAITER/WAITRESS) ABO Rh A Positive Thompson, indirect Negative [facility] Blood 08/09/2024 5:55 AM CLUB WAITER/WAITRESS 08/09/2024 6:00 AM CLUB WAITER/WAITRESS Narrative [facility] - 08/09/2024 6:44 AM CLUB WAITER/WAITRESS Has the patient had Daratumumab or Isatuximab in the past 6 months?->Unknown us Melany Mendez NP LAB BLOOD BANK TEST ORDER BRIANNA Final Result Performing Organization Address [facility] de Phone Number [facility] [place] [address] * POCT hCG, urine (08/09/2024 5:45 AM CLUB WAITER/WAITRESS) HCG, ur, POC Negative Negative Lot Number [id number] QC Backgroud Clear Acceptable QC Control Line Acceptable Urine 08/09/2024 5:45 AM CLUB WAITER/WAITRESS us Melany Mendez NP POINT OF CARE TEST ORDERA BLES Final Result * TYPE AND SCREEN 14 DAY (06/24/2024 3:30 PM CLUB WAITER/WAITRESS) Thompson, indirect Negative ABO Rh A Positive [facility] Blood 06/24/2024 3:30 PM CLUB WAITER/WAITRESS 06/24/2024 6:19 PM CLUB WAITER/WAITRESS Narrative [facility] - 06/24/2024 7:12 PM CLUB WAITER/WAITRESS Has the patient had Daratumumab or Isatuximab in the past 6 months?->Unknown Is this test being ordered in advance for a procedure?->Yes Expected date of procedure:->07/01/24 Has the patient been transfused in the past 3 months?->No Has the patient been in the past 3 months?->No us Melany Mendez NP LAB BLOOD BANK TEST ORDER BRIANNA Final Result Performing Organization Address City/[facility] Co de Phone Number [facility] [place] [address] * eGFR (06/16/2024 11:00 AM CLUB WAITER/WAITRESS) Pathologist [facility] eGFR >90 >=60 mL/min/1. 73 m2 Comment: [...] reviewed 2021. Blood 06/16/2024 11:0 0 AM CLUB WAITER/WAITRESS 06/16/2024 11:03 AM CLUB WAITER/WAITRESS us Kimberly Velasquez MD LAB BLOOD ORDERABLES Final Resul t Performing Organization Address City/[facility]/ZIP Co de Phone Number [facility] Department [place] [address] * (ABNORMAL) Differential, auto (06/16/2024 11:00 AM CLUB WAITER/WAITRESS) Neutrophil abs 3.0 1.5 - 6.5 K/cumm Comment:Testing performed by : [facility], [address] [place] [id number] Imm gran abs 0.0 0.0 - 0.1 K/cumm [facility] Lymphocyte abs 0.6(L) 0.8 - 3.3 K/cumm [facility] Monocyte abs 0.3 0.2 - 0.8 K/cumm [facility] Eosinophil abs 0.1 0.0 - 0.5 K/cumm [facility] Basophil abs 0.0 0.0 - 0.1 K/cumm [facility] Neutrophil pct 74.2 % [facility] Comment: Interpretive Data Percent cell count reference ranges are not reported, since discordance with absolute values may lead to misinterpretation of CBC data. Current Interpretive Data was last revised on 2017. Imm gran pct 0.5 % [facility] Comment: Interpretive Data Percent cell count reference ranges are not reported, since discordance with absolute values may lead to misinterpretation of CBC data. Current Interpretive Data was last revised on 2017. Lymphocyte pct 13.9 % [facility] Comment: Interpretive Data Percent cell count reference ranges are not reported, since discordance with absolute values may lead to misinterpretation of CBC data. Current Interpretive Data was last revised on 2017. Monocyte pct 8.3 % [facility] Comment: Interpretive Data Percent cell count reference ranges are not reported, since discordance with absolute values may lead to misinterpretation of CBC data. Current Interpretive Data was last revised on 2017. Eosinophil pct 2.8 % [facility] Comment: Interpretive Data Percent cell count reference ranges are not reported, since discordance with absolute values may lead to misinterpretation of CBC data. Current Interpretive Data was last revised on 2017. Basophil pct 0.3 % [facility] Comment: Interpretive Data Percent cell count reference ranges are not reported, since discordance with absolute values may lead to misinterpretation of CBC data. Current Interpretive Data was last revised on 2017. Blood 06/16/2024 11:0 0 AM CLUB WAITER/WAITRESS 06/16/2024 11:03 AM CLUB WAITER/WAITRESS us Kimberly Velasquez MD LAB BLOOD ORDERABLES Final Resul t [facility] Department [place] [address] * (ABNORMAL) CBC with auto differential (06/16/2024 11:00 AM CLUB WAITER/WAITRESS) [facility] WBC 4.0 3.8 - 9.9 K/cumm Comment:Testing performed by : [facility], [address] [place] [address] Hgb 11.5(L) 11.9 - 15.5 g/dL [facility] Comment:Testing performed by : [facility], [address] [place] [address] Hct 34.6(L) 35.6 - 45.5 % [facility] Comment:Testing performed by : [address] [address] Plt 93(L) 150 - 400 K/cumm [facility] Comment:Testing performed by : [facility], [address] [place] [address] MPV 9.9 9.1 - 12.3 fL [facility] RBC 3.70(L) 3.90 - 5.20 M/cumm [facility] MCV 93.5 81.3 - 96.4 fL [facility] MCH 31.1 27.1 - 33.3 pg [facility] MCHC 33.2 32.3 - 35.7 g/dL [facility] RDW CV 14.6 11.1 - 14.9 % [facility] RDW SD 49.0(H) 35.7 - 48.1 fL [facility] NRBC abs 0.00 0.00 - 0.01 K/cumm [facility] Blood 06/16/2024 11:0 0 AM CLUB WAITER/WAITRESS 06/16/2024 11:03 AM CLUB WAITER/WAITRESS us Kimberly Velasquez MD LAB BLOOD ORDERABLES Final Resul t [facility] Department [place] [address] * CEA (06/16/2024 11:00 AM CLUB WAITER/WAITRESS) [facility] CEA 1.0 <=5.0 ng/mL Comment: Interpretive Data: Reference Range: Non-Smokers: 0.0 5.0 ng/mL Smokers: 0.0 6.5 ng/mL The [employer] CEA assay procedure was used. Results from different manufacturers or methods may not be comparable. Serial testing should be performed using the same method. Current interpretive data was last revised 2021. Blood 06/16/2024 11:0 0 AM CLUB WAITER/WAITRESS 06/16/2024 1:22 PM CLUB WAITER/WAITRESS us Kimberly Velasquez MD LAB BLOOD ORDERABLES Final Resul t [facility] Department [place] [address] * Comprehensive metabolic panel (06/16/2024 11:00 AM CLUB WAITER/WAITRESS) Sodium 141 135 - 145 mmol/L Comment:Testing performed by : [facility], [address] [place] [address] Potassium, pl 3.8 3.3 - 4.9 mmol/L [facility] Chloride 108 97 - 110 mmol/L [facility] CO2 26 22 - 32 mmol/L [facility] Anion gap 7 2 - 15 mmol/L [facility] BUN 7 6 - 25 mg/dL [facility] Creatinine 0.69 0.60 - 1.10 mg/dL [facility] Glucose 107 70 - 199 mg/dL [facility] Comment: Interpretive Data Fasting glucose >/= [...] 2022. Calcium 9.2 8.5 - 10.3 mg/dL [facility] Bilirubin, total 0.5 0.1 - 1.2 mg/dL [facility] Protein, pl 6.5 6.5 - 8.5 g/dL [facility] Albumin 3.9 3.5 - 5.0 g/dL [facility] Alk phos 107 40 - 130 Units/L [facility] ALT 30 7 - 45 Units/L [facility] AST 40 10 - 45 Units/L [facility] Blood 06/16/2024 11:0 0 AM CLUB WAITER/WAITRESS 06/16/2024 11:03 AM CLUB WAITER/WAITRESS us Kimberly Velasquez MD LAB BLOOD ORDERABLES Final Resul t Performing Organization Address City/[facility]/ZIP Co de Phone Number [facility] Department [place] [address] * POCT glucose (06/07/2024 10:02 AM CLUB WAITER/WAITRESS) [facility] Glucose, POC 104 70 - 199 mg/dL Comment: Interpretive Data Glucose is assumed to be non-fasting. Fasting Glucose reference ranges are: 0 - 150 years: 70 mg/dL - 99 mg/dL Current interpretive data was last revised on 2014. POC Performer [id number] [facility] POC Device Number [id number] [facility] Blood 06/07/2024 10:0 2 AM CLUB WAITER/WAITRESS 06/07/2024 10:02 AM CLUB WAITER/WAITRESS us Kemar Seay MD LAB POCT ORDERABLES - D EVICE Final Result Performing Organization Address City/[facility]/ZIP Co de Phone Number [facility] [address] [facility] Department [place] [address] * Flexible Sigmoidoscopy (06/07/2024 9:03 AM CLUB WAITER/WAITRESS) Anatomical Region Laterality Modality Other Narrative Procedure Note Kemar Seay MD - 06/07/2024 9:03 AM CST ENDOSCOPY LAB Patient Name: Isabel Lozano Procedure Date: 06/07/2024 9:03 AM Date of : 1985 Admit Type: Outpatient Age: 38 Gender: Female Attending MD: Kemar Seay M.D. Room: [facility] ENDOSCOPY ROOM 02 Note Status: Finalized [...] scope was passed under direct vision. The [id number] was introduced through theanus and advanced to [...] Result * POCT glucose (06/07/2024 8:51 AM CLUB WAITER/WAITRESS) Pathologist [facility] Glucose, POC 94 70 - 199 mg/dL Comment: Interpretive Data Glucose is assumed to be non-fasting. Fasting Glucose reference ranges are: 0 - 150 years: 70 mg/dL - 99 mg/dL Current interpretive data was last revised on 2014. POC Performer [id number] [facility] POC Device Number [id number] [facility] Blood 06/07/2024 8:51 AM CLUB WAITER/WAITRESS 06/07/2024 8:51 AM CLUB WAITER/WAITRESS Kemar Seay MD LAB POCT ORDERABLES - D EVICE Final Result [facility] [address] [facility] Department [place] [address] * POCT hCG, urine (06/07/2024) Pathologist [facility] HCG, ur, POC Negative Negative Lot Number [id number] QC Backgroud Clear Acceptable QC Control Line Acceptable Urine 06/07/2024 Historical Provider POINT OF CARE TEST ORDERA BLES Final Result from Last 3 Months Insurance Advance Directives For more information, please contact: [phone] * Full Code (Latest Code Status on File) Date Activated Date Inactivated Comments 08/09/2024 7:51 PM 08/12/2024 10:02 PM * Full Code Date Activated Date Inactivated Comments 06/07/2024 8:28 AM 06/07/2024 2:22 PM * Full Code Date Activated Date Inactivated Comments 11/13/2023 3:31 PM 11/13/2023 8:15 PM * Full Code Date Activated Date Inactivated Comments 11/13/2023 12:40 PM 11/13/2023 3:31 PM Care Teams Telephone Advice Nurse Relationship Specialty Start Date End Date Ayah Almodovar MD [address] [place] [address] PCP - General Family Medicine 10/22/23 Maximiliano Arndt MD [address] [place] [address] Referring Physician Gastroenterology 10/22/23
--- OUTSIDE RECORDS SUMMARY | 2024-08-15 23:33 | XMS_ITS ---
Author Organization [facility] Address [address] [place] [address] Care Team Providers Care Inventory Control Manager Name Role Phone Ayah Almodovar MD Primary Care Provider [phone] Active Problems Problem Noted Date Diagnosed Date Rectal cancer ([facility]) 04/01/2024 Current Oncology Plans injection friday thru friday after chemo treatment-13 inj approved* Plan Start Date:04/01/2024 Plan Provider:Ayah Almodovar MD Linked Problems Rectal cancer ([facility]/H [facility]) Treatment Medications Current Day (Day 1 , Cycle 7 - Planned for 04/23/2024) Next Day (Day 1, Cycle 8 - Planned for 04/24/2024) No medications scheduled. No medications schedul ed. No medications scheduled. Past Plans No past plan information found. Radiation Treatments * No radiation treatments are documented for this patient in [facility]. Treatments may have been administered in another system.
--- OUTSIDE RECORDS SUMMARY | 2024-08-15 23:33 | XMS_ITS | Clinical Summary ---
Author Organization [facility] Address [address] [place] [address] Care Team Providers Care [employer] Ax Consultant Name Role Phone Ayah Almodovar MD Primary Care Provider [phone] Allergies Active Allergy Reactions Criticality Noted Date [...] Problem Noted Date Diagnosed Date Rectal cancer ([facility]) 04/01/2024 Social History Tobacco Use Types Packs/Day [...] cm (5' 7 ) 05/27/2022 2:42 PM LEAN CONSULTANT Body Mass Index 52.72 05/27/2022 2:42 PM LEAN CONSULTANT Plan of Treatment Health Maintenance Due Date [...] complete this topic Insurance [employer] Care Teams [employer] Ax Consultant Relationship Specialty Start Date End Date Ayah Almodovar MD [address] [place] [address] PCP - General FAMILY PRACTICE 05/02/21
--- OUTSIDE RECORDS SUMMARY | 2024-08-15 23:33 | XMS_ITS ---
Author Organization [facility] Address [address] [place] [address] Care Team Providers Care Dry Cell Tester Name Role Phone Ayah Almodovar MD Primary Care Provider Maximiliano Arndt MD Unavailable [phone] Active Problems Problem Noted Date Diagnosed Date [...]
--- OUTSIDE RECORDS SUMMARY | 2024-08-15 23:33 | XMS_ITS | Clinical Summary ---
Author Organization [facility] Address [facility] [place] [address] Care Team Providers Care Professional Skateboarder Name Role Phone Ayah Almodovar MD Primary Care Provider Maximiliano Arndt MD Unavailable [phone] Allergies Active Allergy Reactions Criticality Noted Date [...] Type Department Care Team Description 08/13/2024 Telephone [facility] Surgery [address] [facility] Floor 5 [place] [phone] Ghazala Adams RN 2024 Telephone [facility] Oncology [address] [place] [address] 08/09/2024 7:30 AM VENEER PULLER - 08/09/2024 2:55 PM VENEER PULLER Surgery [facility] Operating Room 1 [place] [address] Carmen Szymanski MD XI ABDOMINAL PERINEAL RESECTION - LAPAROSCOPIC ROBOTIC ASSISTED 08/09/2024 7:29 AM VENEER PULLER Anesthesia Event [facility] Operating Room 1 [place] [address] Jovanna Vargas MD Hearn, Alexandra Marie, NP 08/09/2024 5:05 AM VENEER PULLER - 08/12/2024 4:10 PM VENEER PULLER Hospital Encounter [facility] 1 [place] [address] Carmen Szymanski MD Rectal cancer (CMS/HCC) (HCC) Discharge Disposition: Discharge to home or self care 08/03/2024 Telephone [facility] Oncology [address] [place] [phone] Luis Miller 07/28/2024 Telephone [facility] Oncology [address] [place] [phone] Kellee Sandoval RN 07/09/2024 Telephone [facility] Surgery [address] [place] [address] Medical Office Building 4 [address] [place] [address] Bonnie Clay Surgery 07/06/2024 Telephone [facility] Surgery [address] [facility] 2nd Floor [address] [place] [phone] Liliane Earl, CHELSEA 07/02/2024 Telephone [facility] Oncology [address] [place] [phone] 06/24/2024 2:30 PM VENEER PULLER Pre-Admission Testing [facility] CAM Pre Anesthesia Testing [address] [place] [phone] Preoperative testing (Primary Dx) 06/24/2024 2:05 PM VENEER PULLER Lab [facility] [address] [facility] [address] [place] [address] Preoperative testing; Rectal cancer (CMS/HCC) (HCC) 06/21/2024 11:59 PM VENEER PULLER Anesthesia Event [facility] Operating Room 1 [place] [address] Melany Mendez NP 06/16/2024 11:30 AM VENEER PULLER Office Visit [facility] Oncology [address] [place] [phone] Kimberly Velasquez MD Rectal cancer (CMS/HCC) (HCC) (Primary Dx) 06/16/2024 11:00 AM VENEER PULLER Clinical Support [facility] [address] [place] [address] Rectal cancer (CMS/HCC) (HCC) 06/10/2024 10:30 AM VENEER PULLER Office Visit [facility] Surgery [address] [place] [address] Carmen Szymanski MD Rectal cancer (CMS/HCC) (HCC) (Primary Dx) 06/10/2024 Orders Only [facility] Surgery [address] [place] [address] Medical Office Building 4 [address] [place] [phone] Hailey Crystal RN 06/07/2024 9:04 AM VENEER PULLER Anesthesia Event [facility] Endoscopy [address] [place] [address] Luis Burgos MD Hanselman, Christina M. [facility] 06/07/2024 9:00 AM VENEER PULLER - 06/07/2024 9:45 AM VENEER PULLER Surgery [facility] Endoscopy [address] [place] [address] Kemar Seay MD SIGMOIDOSCOPY 06/07/2024 8:24 AM VENEER PULLER - 06/07/2024 10:22 AM VENEER PULLER Hospital Encounter [facility] Endoscopy [address] [place] [address] Kemar Seay MD Discharge Disposition: Discharge to home or self care 06/07/2024 Documentation [facility] Surgeon [address] [place] [address] Carmen Szymanski MD 06/07/2024 Telephone [facility] Surgery [address] [place] [address] Medical Office Building 4 [address] [place] [phone] Bonnie Clay 06/03/2024 Telephone [facility] Surgery [address] [facility] 2nd Floor [address] [place] [address] Anna Marie Abdul, RMA Colonoscopy 06/01/2024 10:30 AM VENEER PULLER Office Visit [facility] Radiation Oncology at [facility] [place] [address] [place] [address] Dyana Goodson NP Rectal cancer (CMS/HCC) (HCC) (Primary Dx) 05/19/2024 Telephone [facility] Radiation Oncology at [facility] [place] [address] [place] [address] Candida Martinez RN from Last 3 Months [...] Comments Blood Pressure 106/52 08/12/2024 12:30 PM VENEER PULLER Pulse 98 08/12/2024 12:30 PM VENEER PULLER Temperature 36.9 C (98.4 F) 08/12/2024 12:30 PM VENEER PULLER Respiratory Rate 20 08/12/2024 12:30 PM VENEER PULLER Oxygen Saturation 96% 08/12/2024 12:30 PM VENEER PULLER Inhaled Oxygen Concentration - - Weight 142.4 kg (314 lb) 08/09/2024 5:57 AM VENEER PULLER Height 170.2 cm (5' 7 ) 08/09/2024 5:57 AM VENEER PULLER Body Mass Index 49.18 08/09/2024 5:57 AM VENEER PULLER Plan of Treatment Health Maintenance Due Date [...] GLUCOSE DEVICE Routine 08/12/2024 1 1:53 AM VENEER PULLER POCT GLUCOSE DEVICE Routine 08/12/2024 7 :52 AM VENEER PULLER CBC WITHOUT DIFFERENTIAL Timed 08/11/2024 9:50 PM VENEER PULLER POCT GLUCOSE DEVICE Routine 08/11/2024 7 :26 PM VENEER PULLER POCT GLUCOSE DEVICE Routine 08/11/2024 4 :53 PM VENEER PULLER POCT GLUCOSE DEVICE Routine 08/11/2024 1 1:02 AM VENEER PULLER POCT GLUCOSE DEVICE Routine 08/11/2024 7 :40 AM VENEER PULLER EGFR Timed 08/11/2024 1:37 AM VENEER PULLER BASIC METABOLIC PANEL Timed 08/11/2024 1:37 AM VENEER PULLER CBC WITHOUT DIFFERENTIAL Timed 08/11/2024 1:37 AM VENEER PULLER POCT GLUCOSE DEVICE Routine 2024 8 :48 PM VENEER PULLER POCT GLUCOSE DEVICE Routine 2024 1 2:56 PM VENEER PULLER POCT GLUCOSE DEVICE Routine 2024 7 :49 AM VENEER PULLER HEMOGLOBIN A1C Timed 08/09/2024 9:20 PM VENEER PULLER LIPID PANEL Timed 08/09/2024 9:20 PM VENEER PULLER EGFR Timed 08/09/2024 9:20 PM VENEER PULLER BASIC METABOLIC PANEL Timed 08/09/2024 9:20 PM VENEER PULLER CBC WITHOUT DIFFERENTIAL Timed 08/09/2024 9:20 PM VENEER PULLER POC BLOOD GAS AND CHEMISTRIES, ARTERIAL Routine 08/09/2024 3:23 PM VENEER PULLER POC BLOOD GAS AND CHEMISTRIES, ARTERIAL Routine 08/09/2024 1:23 PM VENEER PULLER POCT GLUCOSE DEVICE Routine 08/09/2024 1 0:59 AM VENEER PULLER IL AN PROCEDURE PLACEHOLDER Routine 08/09/2024 9:21 AM VENEER PULLER IL AN PROCEDURE PLACEHOLDER Routine 08/09/2024 9:20 AM VENEER PULLER IL AN PROCEDURE PLACEHOLDER Routine 08/09/2024 9:17 AM VENEER PULLER IL AN ELECTIVE ENDOTRACHEAL AIRWAY Routine 08/09/2024 9:17 AM VENEER PULLER POC BLOOD GAS AND CHEMISTRIES, ARTERIAL Routine 08/09/2024 8:43 AM VENEER PULLER SIGMOIDOSCOPY 08/09/2024 7:33 AM VENEER PULLER Rectal cancer (CMS/HCC) (HCC) XI ABDOMINAL PERINEAL RESECTION - LAPAROSCOPIC ROBOTIC ASSISTED 08/09/2024 7:33 AM VENEER PULLER Rectal cancer (CMS/HCC) (HCC) POCT GLUCOSE DEVICE Routine 08/09/2024 5 :55 AM VENEER PULLER TYPE AND SCREEN STAT 08/09/2024 5:55 AM VENEER PULLER POCT HCG, URINE Routine 08/09/2024 5:45 AM VENEER PULLER TYPE AND SCREEN 14 DAY Routine 4 3:30 PM VENEER PULLER Preoperative testing EGFR STAT 06/16/2024 11:00 AM VENEER PULLER Rectal cancer (CMS/HCC) (HCC) DIFFERENTIAL AUTO STAT 06/16/2024 11: 00 AM VENEER PULLER Rectal cancer (CMS/HCC) (HCC) CBC WITH AUTO DIFFERENTIAL STAT 06/16/2024 11:00 AM VENEER PULLER Rectal cancer (CMS/HCC) (HCC) CEA Routine 06/16/2024 11:00 AM VENEER PULLER Rectal cancer (CMS/HCC) (HCC) COMPREHENSIVE METABOLIC PANEL STAT 06/16/2024 11:00 AM VENEER PULLER Rectal cancer (CMS/HCC) (HCC) POCT GLUCOSE DEVICE Routine 06/07/2024 1 0:02 AM VENEER PULLER SIGMOIDOSCOPY 06/07/2024 9:04 AM VENEER PULLER Rectal cancer (CMS/HCC) (HCC) FLEXIBLE SIGMOIDOSCOPY 9:03 AM VENEER PULLER POCT GLUCOSE DEVICE Routine 06/07/2024 8 :51 AM VENEER PULLER POCT HCG, URINE Routine 06/07/2024 from Last 3 Months Results * POCT glucose (08/12/2024 11:53 AM VENEER PULLER) Glucose, POC 124 70 - 199 mg/dL Blood 08/12/2024 11:5 3 AM VENEER PULLER 08/12/2024 11:53 AM VENEER PULLER us Carmen Szymanski MD LAB POCT ORDERABLES - ÁNGELA CE Final Result Performing Organization Address [facility] Co de Phone Number [facility] Department [place] [address] * POCT glucose (08/12/2024 7:52 AM VENEER PULLER) [facility] Glucose, POC 129 70 - 199 mg/dL Blood 08/12/2024 7:52 AM VENEER PULLER 08/12/2024 7:52 AM VENEER PULLER Carmen Szymanski MD LAB POCT ORDERABLES - ÁNGELA CE Final Result Performing Organization Address City/[facility] Co de Phone Number [facility] Department [place] [address] * (ABNORMAL) CBC without differential (08/11/2024 9:50 PM VENEER PULLER) [facility] WBC 6.3 3.8 - 9.9 K/cumm Hgb 8.5(L) 11.9 - 15.5 g/dL [facility] Hct 26.5(L) 35.6 - 45.5 % [facility] Plt 82(L) 150 - 400 K/cumm [facility] MPV 10.9 9.1 - 12.3 fL [facility] RBC 2.89(L) 3.90 - 5.20 M/cumm [facility] MCV 91.7 81.3 - 96.4 fL [facility] MCH 29.4 27.1 - 33.3 pg [facility] MCHC 32.1(L) 32.3 - 35.7 g/dL [facility] RDW CV 15.6(H) 11.1 - 14.9 % [facility] RDW SD 51.8(H) 35.7 - 48.1 fL [facility] NRBC abs 0.00 0.00 - 0.01 K/cumm [facility] Blood 08/11/2024 9:50 PM VENEER PULLER 08/11/2024 11:11 PM VENEER PULLER Tasia Patel NP LAB BLOOD ORDERABLES Cecille l Result Performing Organization Address City/[facility]/ZIP Co de Phone Number [facility] Department [place] [address] * POCT glucose (08/11/2024 7:26 PM VENEER PULLER) Glucose, POC 143 70 - 199 mg/dL Blood 08/11/2024 7:26 PM VENEER PULLER 08/11/2024 7:26 PM VENEER PULLER Carmen Szymanski MD LAB POCT ORDERABLES - ÁNGELA CE Final Result [facility] [place] [address] * POCT glucose (08/11/2024 4:53 PM VENEER PULLER) Glucose, POC 129 70 - 199 mg/dL Blood 08/11/2024 4:53 PM VENEER PULLER 08/11/2024 4:53 PM VENEER PULLER us Carmen Szymanski MD LAB POCT ORDERABLES - ÁNGELA CE Final Result Performing Organization Address City/[facility]/ZIP Co de Phone Number [facility] [place] [address] * POCT glucose (08/11/2024 11:02 AM VENEER PULLER) Glucose, POC 157 70 - 199 mg/dL Blood 08/11/2024 11:0 2 AM VENEER PULLER 08/11/2024 11:02 AM VENEER PULLER us Carmen Szymanski MD LAB POCT ORDERABLES - ÁNGELA CE Final Result Performing Organization Address [facility] Co de Phone Number [facility] [place] [address] * POCT glucose (08/11/2024 7:40 AM VENEER PULLER) Glucose, POC 135 70 - 199 mg/dL Blood 08/11/2024 7:40 AM VENEER PULLER 08/11/2024 7:40 AM VENEER PULLER us Carmen Szymanski MD LAB POCT ORDERABLES - ÁNGELA CE Final Result Performing Organization Address [facility] Co de Phone Number [facility] [place] [address] * eGFR (08/11/2024 1:37 AM VENEER PULLER) eGFR >90 >=60 mL/min/1. 73 m2 Comment: [...] last reviewed 2021. Blood 08/11/2024 1:37 AM VENEER PULLER 08/11/2024 2:36 AM VENEER PULLER us Carmen Szymanski MD LAB BLOOD ORDERABLES Final Result [facility] [address] [facility] Department [place] [address] * (ABNORMAL) CBC without differential (08/11/2024 1:37 AM VENEER PULLER) WBC 7.2 3.8 - 9.9 K/cumm Hgb 8.0(L) 11.9 - 15.5 g/dL [facility] Hct 24.4(L) 35.6 - 45.5 % [facility] Plt 80(L) 150 - 400 K/cumm [facility] MPV 10.8 9.1 - 12.3 fL [facility] RBC 2.70(L) 3.90 - 5.20 M/cumm [facility] MCV 90.4 81.3 - 96.4 fL [facility] MCH 29.6 27.1 - 33.3 pg [facility] MCHC 32.8 32.3 - 35.7 g/dL [facility] RDW CV 15.6(H) 11.1 - 14.9 % [facility] RDW SD 50.5(H) 35.7 - 48.1 fL [facility] NRBC abs 0.00 0.00 - 0.01 K/cumm [facility] Blood 08/11/2024 1:37 AM VENEER PULLER 08/11/2024 2:37 AM VENEER PULLER Narrative [facility] - 08/11/2024 2:49 AM VENEER PULLER Obtain POD 1 at 2200. us Carmen Szymanski MD LAB BLOOD ORDERABLES Final Result [facility] [place] [address] * (ABNORMAL) Basic metabolic panel (08/11/2024 1:37 AM VENEER PULLER) Pathologist [facility] Sodium 141 135 - 145 mmol/L Potassium, pl 3.3 3.3 - 4.9 mmol/L [facility] Chloride 104 97 - 110 mmol/L [facility] CO2 28 22 - 32 mmol/L [facility] Anion gap 9 2 - 15 mmol/L [facility] BUN 7 6 - 25 mg/dL [facility] Creatinine 0.83 0.60 - 1.10 mg/dL [facility] Glucose 117 70 - 199 mg/dL [facility] Comment: Interpretive Data Fasting glucose >/= 126 [...] 2022. Calcium 8.0(L) 8.5 - 10.3 mg/dL [facility] Blood 08/11/2024 1:37 AM VENEER PULLER 08/11/2024 2:36 AM VENEER PULLER Narrative [facility] - 08/11/2024 3:06 AM VENEER PULLER Obtain POD 1 at 2200. Carmen Szymanski MD LAB BLOOD ORDERABLES Final Result Performing Organization Address City/[facility]/ZIP Co de Phone Number [facility] One [facility] [place] [address] * POCT glucose (2024 8:48 PM VENEER PULLER) Glucose, POC 139 70 - 199 mg/dL Blood 2024 8:48 PM VENEER PULLER 2024 8:48 PM VENEER PULLER Carmen Szymanski MD LAB POCT ORDERABLES - ÁNGELA CE Final Result Performing Organization Address [facility] de Phone Number [facility] [place] [address] * POCT glucose (2024 12:56 PM VENEER PULLER) [facility] Glucose, POC 199 70 - 199 mg/dL Blood 2024 12:5 6 PM VENEER PULLER 2024 12:56 PM VENEER PULLER Carmen Szymanski MD LAB POCT ORDERABLES - ÁNGELA CE Final Result Performing Organization Address [facility] de Phone Number [facility] Department of [employer] [place] [address] * POCT glucose (2024 7:49 AM VENEER PULLER) [facility] Glucose, POC 139 70 - 199 mg/dL Blood 2024 7:49 AM VENEER PULLER 2024 7:49 AM VENEER PULLER Carmen Szymanski MD LAB POCT ORDERABLES - ÁNGELA CE Final Result Performing Organization Address [facility] de Phone Number [facility] [employer] [place] [address] * eGFR (08/09/2024 9:20 PM VENEER PULLER) [facility] eGFR >90 >=60 mL/min/1. 73 m2 [...] last reviewed 2021. Blood 08/09/2024 9:20 PM VENEER PULLER 08/09/2024 10:19 PM VENEER PULLER us Carmen Szymanski MD LAB BLOOD ORDERABLES Final Result [facility] One [facility] Department [place] [address] * (ABNORMAL) CBC without differential (08/09/2024 9:20 PM VENEER PULLER) WBC 6.4 3.8 - 9.9 K/cumm Hgb 9.1(L) 11.9 - 15.5 g/dL [facility] Hct 27.6(L) 35.6 - 45.5 % [facility] Plt 97(L) 150 - 400 K/cumm [facility] MPV 11.0 9.1 - 12.3 fL [facility] RBC 3.07(L) 3.90 - 5.20 M/cumm [facility] MCV 89.9 81.3 - 96.4 fL [facility] MCH 29.6 27.1 - 33.3 pg [facility] MCHC 33.0 32.3 - 35.7 g/dL [facility] RDW CV 15.1(H) 11.1 - 14.9 % [facility] RDW SD 49.6(H) 35.7 - 48.1 fL [facility] NRBC abs 0.00 0.00 - 0.01 K/cumm [facility] Blood 08/09/2024 9:20 PM VENEER PULLER 08/09/2024 10:19 PM VENEER PULLER Narrative [facility] - 08/09/2024 10:30 PM VENEER PULLER Obtain POD 0 at 2200. Carmen Szymanski MD LAB BLOOD ORDERABLES Final Result Performing Organization Address [facility] de Phone Number [facility] [place] [address] * Hemoglobin A1c (08/09/2024 9:20 PM VENEER PULLER) Hgb A1C 4.9 4.0 - 5.6 % Estimated Average Glucose 94 mg/dL [facility] Comment: The ADA recommends reporting an estimated Average Glucose (eAG) with all Hemoglobin A1c results using the equation derived from a study of 507 normal and diabetic adults. Minority populations were underrepresented and children were not included. (Diabetes Care 2020; 43(S1): S66-S76). The eAG is not equivalent to a fasting glucose. Blood 08/09/2024 9:20 PM VENEER PULLER 08/09/2024 10:24 PM VENEER PULLER Carmen Szymanski MD LAB BLOOD ORDERABLES Final Result Performing Organization Address City/[facility] Co de Phone Number [facility] [place] [address] * (ABNORMAL) Lipid panel (08/09/2024 9:20 PM VENEER PULLER) Cholesterol 104 30 - 199 mg/dL Comment: [...] revised on 2018. Triglycerides 72 <=149 mg/dL [facility] Comment: Interpretive Data Ages < or = [...] revised on 2018. HDL 31(L) >=40 mg/dL [facility] Comment: Interpretive Data Ages < or = [...] on 2018. LDL, calculated 58 <=129 mg/dL [facility] Comment: Interpretive Data Ages < or = [...] revised on 2024. Non-HDL Cholesterol 73 mg/dL [facility] Comment: Interpretive Data Ages < or = [...] last revised on 2018. Chol/HDL ratio 3 [facility] Blood 08/09/2024 9:20 PM VENEER PULLER 08/09/2024 10:19 PM VENEER PULLER Carmen Szymanski MD LAB BLOOD ORDERABLES Final Result [facility] One [facility] Department [place] [address] * (ABNORMAL) Basic metabolic panel (08/09/2024 9:20 PM VENEER PULLER) Sodium 141 135 - 145 mmol/L Potassium, pl 4.0 3.3 - 4.9 mmol/L [facility] Chloride 107 97 - 110 mmol/L [facility] CO2 25 22 - 32 mmol/L [facility] Anion gap 9 2 - 15 mmol/L [facility] BUN 8 6 - 25 mg/dL [facility] Creatinine 0.84 0.60 - 1.10 mg/dL [facility] Glucose 158 70 - 199 mg/dL [facility] Comment: Interpretive Data Fasting glucose >/= 126 [...] 2022. Calcium 8.3(L) 8.5 - 10.3 mg/dL [facility] Blood 08/09/2024 9:20 PM VENEER PULLER 08/09/2024 10:19 PM VENEER PULLER Narrative [facility] - 08/09/2024 10:53 PM VENEER PULLER Obtain POD 0 at 2200. us Carmen Szymanski MD LAB BLOOD ORDERABLES Final Result [facility] One [facility] [place] [address] * (ABNORMAL) POC Blood Gas and Chemistries, Arterial - (08/09/2024 3:23 PM VENEER PULLER) pH, Art POC 7.33(L) 7.35 - 7.45 pCO2, Art POC 48(H) 35 - 45 mmHg [facility] pO2, Art POC 105 83 - 108 mmHg [facility] Na, POC 138 135 - 145 mmol/L [facility] K POC 4.5 3.3 - 4.9 mmol/L [facility] Comment: Interpretive Data Not all point of care methods assess for hemolysis. Confirm with instrument and retest K+ if not consistent with clinical signs and symptoms. Current Interpretive Data was last revised on 2023. Cl, POC 110 97 - 110 mmol/L [facility] Ionized Ca, POC 4.91 4.50 - 5.10 mg/dL [facility] Glucose, POC 155 70 - 199 mg/dL [facility] Lactate, POC 1.8 0.7 - 2.0 mmol/L [facility] SO2 (sheri) arterial 97(H) 90 - 95 % [facility] Base excess, POC -0.9 mmol/L [facility] HCO3, Art POC 25 20 - 30 mmol/L [facility] Hct, POC 31.0(L) 36.3 - 45.3 % [facility] Total Hb, POC 10.3(L) 11.9 - 15.5 g/dL [facility] Blood 08/09/2024 3:23 PM VENEER PULLER 08/09/2024 3:23 PM VENEER PULLER us Carmen Szymanski MD LAB POCT ORDERABLES - ÁNGELA CE Final Result [facility] One [facility] Department [place] [address] * (ABNORMAL) POC Blood Gas and Chemistries, Arterial - (08/09/2024 1:23 PM VENEER PULLER) pH, Art POC 7.43 7.35 - 7.45 pCO2, Art POC 38 35 - 45 mmHg [facility] pO2, Art POC 99 83 - 108 mmHg [facility] Na, POC 137 135 - 145 mmol/L [facility] K POC 4.4 3.3 - 4.9 mmol/L [facility] Comment: Interpretive Data Not all point of care methods assess for hemolysis. Confirm with instrument and retest K+ if not consistent with clinical signs and symptoms. Current Interpretive Data was last revised on 2023. Cl, POC 109 97 - 110 mmol/L [facility] Ionized Ca, POC 4.49(L) 4.50 - 5.10 mg/dL [facility] Glucose, POC 175 70 - 199 mg/dL [facility] Lactate, POC 1.4 0.7 - 2.0 mmol/L [facility] SO2 (sheri) arterial 97(H) 90 - 95 % [facility] Base excess, POC 0.9 mmol/L [facility] HCO3, Art POC 25 20 - 30 mmol/L [facility] Hct, POC 35.0(L) 36.3 - 45.3 % [facility] Total Hb, POC 11.5(L) 11.9 - 15.5 g/dL [facility] Blood 08/09/2024 1:23 PM VENEER PULLER 08/09/2024 1:23 PM VENEER PULLER Carmen Szymanski MD LAB POCT ORDERABLES - ÁNGELA CE Final Result Performing Organization Address City/[facility] Co de Phone Number [facility] [place] [address] * POCT glucose (08/09/2024 10:59 AM VENEER PULLER) Glucose, POC 159 70 - 199 mg/dL Blood 08/09/2024 10:5 9 AM VENEER PULLER 08/09/2024 10:59 AM VENEER PULLER us Carmen Szymanski MD LAB POCT ORDERABLES - ÁNGELA CE Final Result Performing Organization Address [facility] de Phone Number [facility] [place] [address] * [place] AN PROCEDURE PLACEHOLDER (08/09/2024 9:21 AM VENEER PULLER) Raghavendra Lawler CRNA - 08/09/2024 9:21 AM VENEER PULLER Raghavendra Pena CRNA 08/09/2024 9:21 AM Arterial [...] Vargas MD ANESTHESIA ORDERABLES Final Result * [place] AN PROCEDURE PLACEHOLDER (08/09/2024 9:20 AM VENEER PULLER) Raghavendra Lawler CRNA - 08/09/2024 9:20 AM VENEER PULLER Raghvaendra Pena CRNA 08/09/2024 9:21 AM Peripheral IV [...] Vargas MD ANESTHESIA ORDERABLES Final Result * IL AN ELECTIVE ENDOTRACHEAL AIRWAY, [place] AN PROCEDURE PLACEHOLDER (08/09/2024 9:17 AM VENEER PULLER) Narrative Raghavendra Pena CRNA - 08/09/2024 9:17 AM VENEER PULLER Raghavendra Pena CRNA 08/09/2024 9:20 AM Airway Patient location: OR Urgency: elective Indications for airway management: anesthesia Difficult airway: no Staff: Supervising provider: Jovanna Vargas MD Placed by: OYSTER HARVESTER: Raghavendra Pena CRNA Emergent airway documentation: Risks [...] and Chemistries, Arterial - (08/09/2024 8:43 AM VENEER PULLER) pH, Art POC 7.37 7.35 - 7.45 pCO2, Art POC 47(H) 35 - 45 mmHg [facility] pO2, Art POC 93 83 - 108 mmHg [facility] Na, POC 140 135 - 145 mmol/L [facility] K POC 3.6 3.3 - 4.9 mmol/L [facility] Comment: Interpretive Data Not all point of care methods assess for hemolysis. Confirm with instrument and retest K+ if not consistent with clinical signs and symptoms. Current Interpretive Data was last revised on 2023. Cl, POC 109 97 - 110 mmol/L [facility] Ionized Ca, POC 4.74 4.50 - 5.10 mg/dL [facility] Glucose, POC 115 70 - 199 mg/dL [facility] Lactate, POC 1.2 0.7 - 2.0 mmol/L [facility] SO2 (sheri) arterial 99(H) 90 - 95 % [facility] Base excess, POC 1.4 mmol/L [facility] HCO3, Art POC 27 20 - 30 mmol/L [facility] Hct, POC 33.0(L) 36.3 - 45.3 % [facility] Total Hb, POC 11.0(L) 11.9 - 15.5 g/dL [facility] Blood 08/09/2024 8:4 3 AM VENEER PULLER 08/09/2024 8:43 AM VENEER PULLER us Carmen Szymanski MD LAB POCT ORDERABLES - ÁNGELA CE Final Result Performing Organization Address City/[facility] Co de Phone Number [facility] Department of [employer] [place] [address] * POCT glucose (08/09/2024 5:55 AM VENEER PULLER) Glucose, POC 88 70 - 199 mg/dL Blood 08/09/2024 5:55 AM VENEER PULLER 08/09/2024 5:55 AM VENEER PULLER us Carmen Szymanski MD LAB POCT ORDERABLES - ÁNGELA CE Final Result Performing Organization Address [facility] Co de Phone Number [facility] [place] [address] * Type and screen (08/09/2024 5:55 AM VENEER PULLER) ABO Rh A Positive Thompson, indirect Negative [facility] Blood 08/09/2024 5:55 AM VENEER PULLER 08/09/2024 6:00 AM VENEER PULLER Narrative [facility] - 08/09/2024 6:44 AM VENEER PULLER Has the patient had Daratumumab or Isatuximab in the past 6 months?->Unknown Melany Mendez NP LAB BLOOD BANK TEST ORDER BRIANNA Final Result Performing Organization Address City/[facility]/ZIP Co de Phone Number [facility] Department [place] [address] * POCT hCG, urine (08/09/2024 5:45 AM VENEER PULLER) HCG, ur, POC Negative Negative Lot Number [id number] QC Backgroud Clear Acceptable QC Control Line Acceptable Urine 08/09/2024 5:45 AM VENEER PULLER Melany Mendez NP POINT OF CARE TEST ORDERA BLES Final Result * TYPE AND SCREEN 14 DAY (06/24/2024 3:30 PM VENEER PULLER) Thompson, indirect Negative ABO Rh A Positive [facility] Blood 06/24/2024 3:30 PM VENEER PULLER 06/24/2024 6:19 PM VENEER PULLER Narrative [facility] - 06/24/2024 7:12 PM VENEER PULLER Has the patient had Daratumumab or Isatuximab in the past 6 months?->Unknown Is this test being ordered in advance for a procedure?->Yes Expected date of procedure:->07/01/24 Has the patient been transfused in the past 3 months?->No Has the patient been in the past 3 months?->No Melany Mendez NP LAB BLOOD BANK TEST ORDER BRIANNA Final Result Performing Organization Address City/[facility]/ZIP Co de Phone Number [facility] Department [place] [address] * eGFR (06/16/2024 11:00 AM VENEER PULLER) Pathologist [facility] [place] eGFR >90 >=60 mL/min/1. 73 m2 Comment: [...] reviewed 2021. Blood 06/16/2024 11:0 0 AM VENEER PULLER 06/16/2024 11:03 AM VENEER PULLER us Kimberly Velasquez MD LAB BLOOD ORDERABLES Final Resul t [facility] Department [place] [address] * (ABNORMAL) Differential, auto (06/16/2024 11:00 AM VENEER PULLER) Pathologist [facility] [place] Neutrophil abs 3.0 1.5 - 6.5 K/cumm Comment:Testing performed by : [facility], [address] [place] [id number] Imm gran abs 0.0 0.0 - 0.1 K/cumm [facility] Lymphocyte abs 0.6(L) 0.8 - 3.3 K/cumm [facility] Monocyte abs 0.3 0.2 - 0.8 K/cumm [facility] Eosinophil abs 0.1 0.0 - 0.5 K/cumm [facility] Basophil abs 0.0 0.0 - 0.1 K/cumm [facility] Neutrophil pct 74.2 % [facility] Comment: Interpretive Data Percent cell count reference ranges are not reported, since discordance with absolute values may lead to misinterpretation of CBC data. Current Interpretive Data was last revised on 2017. Imm gran pct 0.5 % [facility] Comment: Interpretive Data Percent cell count reference ranges are not reported, since discordance with absolute values may lead to misinterpretation of CBC data. Current Interpretive Data was last revised on 2017. Lymphocyte pct 13.9 % [facility] Comment: Interpretive Data Percent cell count reference ranges are not reported, since discordance with absolute values may lead to misinterpretation of CBC data. Current Interpretive Data was last revised on 2017. Monocyte pct 8.3 % [facility] Comment: Interpretive Data Percent cell count reference ranges are not reported, since discordance with absolute values may lead to misinterpretation of CBC data. Current Interpretive Data was last revised on 2017. Eosinophil pct 2.8 % [facility] Comment: Interpretive Data Percent cell count reference ranges are not reported, since discordance with absolute values may lead to misinterpretation of CBC data. Current Interpretive Data was last revised on 2017. Basophil pct 0.3 % [facility] Comment: Interpretive Data Percent cell count reference ranges are not reported, since discordance with absolute values may lead to misinterpretation of CBC data. Current Interpretive Data was last revised on 2017. Blood 06/16/2024 11:0 0 AM VENEER PULLER 06/16/2024 11:03 AM VENEER PULLER us Kimberly Velasquez MD LAB BLOOD ORDERABLES Final Resul t [facility] Department [place] [address] * (ABNORMAL) CBC with auto differential (06/16/2024 11:00 AM VENEER PULLER) WBC 4.0 3.8 - 9.9 K/cumm Comment:Testing performed by : [facility], [address] [place] [id number] Hgb 11.5(L) 11.9 - 15.5 g/dL [facility] Comment:Testing performed by : [facility], [address] [place] [address] Hct 34.6(L) 35.6 - 45.5 % [facility] Comment:Testing performed by : [facility], [address] [place] [address] Plt 93(L) 150 - 400 K/cumm [facility] Comment:Testing performed by : [facility], [address] [place] [address] MPV 9.9 9.1 - 12.3 fL [facility] RBC 3.70(L) 3.90 - 5.20 M/cumm [facility] MCV 93.5 81.3 - 96.4 fL [facility] MCH 31.1 27.1 - 33.3 pg [facility] MCHC 33.2 32.3 - 35.7 g/dL [facility] RDW CV 14.6 11.1 - 14.9 % [facility] RDW SD 49.0(H) 35.7 - 48.1 fL [facility] NRBC abs 0.00 0.00 - 0.01 K/cumm [facility] Blood 06/16/2024 11:0 0 AM VENEER PULLER 06/16/2024 11:03 AM VENEER PULLER us Kimberly Velasquez MD LAB BLOOD ORDERABLES Final Resul t [facility] [place] [address] * CEA (06/16/2024 11:00 AM VENEER PULLER) Pathologist [facility] [place] CEA 1.0 <=5.0 ng/mL Comment: Interpretive Data: Reference Range: Non-Smokers: 0.0 5.0 ng/mL Smokers: 0.0 6.5 ng/mL The Just[employer] CEA assay procedure was used. Results from different manufacturers or methods may not be comparable. Serial testing should be performed using the same method. Current interpretive data was last revised 2021. Blood 06/16/2024 11:0 0 AM VENEER PULLER 06/16/2024 1:22 PM VENEER PULLER us Kimberly Velasquez MD LAB BLOOD ORDERABLES Final Resul t [facility] Department [place] [address] * Comprehensive metabolic panel (06/16/2024 11:00 AM VENEER PULLER) Pathologist [facility] [place] Sodium 141 135 - 145 mmol/L Comment:Testing performed by : [facility], [address] [place] [phone] Potassium, pl 3.8 3.3 - 4.9 mmol/L [facility] Chloride 108 97 - 110 mmol/L [facility] CO2 26 22 - 32 mmol/L [facility] Anion gap 7 2 - 15 mmol/L [facility] BUN 7 6 - 25 mg/dL [facility] Creatinine 0.69 0.60 - 1.10 mg/dL [facility] Glucose 107 70 - 199 mg/dL [facility] Comment: Interpretive Data Fasting glucose >/= 126 [...] 2022. Calcium 9.2 8.5 - 10.3 mg/dL [facility] Bilirubin, total 0.5 0.1 - 1.2 mg/dL [facility] Protein, pl 6.5 6.5 - 8.5 g/dL [facility] Albumin 3.9 3.5 - 5.0 g/dL [facility] Alk phos 107 40 - 130 Units/L [facility] ALT 30 7 - 45 Units/L [facility] AST 40 10 - 45 Units/L [facility] Blood 06/16/2024 11:0 0 AM VENEER PULLER 06/16/2024 11:03 AM VENEER PULLER us Kimberly Velasquez MD LAB BLOOD ORDERABLES Final Resul t Performing Organization Address [facility] Co de Phone Number [facility] [place] [address] * POCT glucose (06/07/2024 10:02 AM VENEER PULLER) Glucose, POC 104 70 - 199 mg/dL Comment: Interpretive Data Glucose is assumed to be non-fasting. Fasting Glucose reference ranges are: 0 - 150 years: 70 mg/dL - 99 mg/dL Current interpretive data was last revised on 2014. POC Performer [id number] [facility] POC Device Number [id number] [facility] Blood 06/07/2024 10:0 2 AM VENEER PULLER 06/07/2024 10:02 AM VENEER PULLER us Kemar Seay MD LAB POCT ORDERABLES - D EVICE Final Result Performing Organization Address [facility] Co de Phone Number [facility] [address] [facility] Department [place] [address] * Flexible Sigmoidoscopy (06/07/2024 9:03 AM VENEER PULLER) Anatomical Region Laterality Modality Other Narrative Procedure Note Kemar Seay MD - 06/07/2024 9:03 AM CST ENDOSCOPY LAB Patient Name: Isabel Lozano Procedure Date: 06/07/2024 9:03 AM Date of : 1985 Admit Type: Outpatient Age: 38 Gender: Female Attending MD: Kemar Seay M.D. Room: [facility] ENDOSCOPY ROOM 02 Note Status: Finalized [...] scope was passed under direct vision. The [id number] was introduced through theanus and advanced to [...] Result * POCT glucose (06/07/2024 8:51 AM VENEER PULLER) Pathologist [facility] [place] Glucose, POC 94 70 - 199 mg/dL Comment: Interpretive Data Glucose is assumed to be non-fasting. Fasting Glucose reference ranges are: 0 - 150 years: 70 mg/dL - 99 mg/dL Current interpretive data was last revised on 2014. POC Performer [id number] [facility] P[facility] Device Number [id number] [facility] Blood 06/07/2024 8:51 AM VENEER PULLER 06/07/2024 8:51 AM VENEER PULLER Kemar Seay MD LAB POCT ORDERABLES - D EVICE Final Result [facility] [address] [facility] [place] [address] * POCT hCG, urine (06/07/2024) HCG, ur, POC Negative Negative Lot Number [id number] QC Backgroud Clear Acceptable QC Control Line Acceptable Urine 06/07/2024 Historical Provider POINT OF CARE TEST ORDERA BLES Final Result from Last 3 Months Insurance Advance Directives For more information, please contact: [phone] * Full Code (Latest Code Status on File) Date Activated Date Inactivated Comments 08/09/2024 7:51 PM 08/12/2024 10:02 PM * Full Code Date Activated Date Inactivated Comments 06/07/2024 8:28 AM 06/07/2024 2:22 PM * Full Code Date Activated Date Inactivated Comments 11/13/2023 3:31 PM 11/13/2023 8:15 PM * Full Code Date Activated Date Inactivated Comments 11/13/2023 12:40 PM 11/13/2023 3:31 PM Care Teams Professional Skateboarder Relationship Specialty Start Date End Date Ayah Almodovar MD [address] [place] [address] PCP - General Family Medicine 10/22/23 Maximiliano Arndt MD [address] [place] [address] Referring Physician Gastroenterology 10/22/23
[2024-08-15] MEDS: HYDROmorphone HCL INJ (*CRX) 2 MG/ML VIAL 1 MG IM (23:35)
[2024-08-15 23:37] LABS: Add Urine Microscopic? NO; Appearance Urine Clear (Clear); Bilirubin Urine Negative (Negative); Blood Urine Negative (Negative); Color Urine Light Yellow (Yellow); Glucose Urine UA Negative (Negative); Ketones Urine Negative (Negative); Leukocyte Esterase Ur Negative LEU/UL (Negative); Nitrate Urine Negative (Negative); Protein Urine Negative (Negative); Urobilinogen Urine 0.2 mg/dL (0.2-1.0)
[2024-08-15] MEDS: ONDANSETRON HCL ODT 4 MG TABLET 8 MG PO (23:37)
[2024-08-15 23:43] VITALS: PULSE 109; RESP 20; O2SAT 98
[2024-08-15 23:45] VITALS: PULSE 109; RESP 21
[2024-08-15 23:48] VITALS: BP 130/51; PULSE 107; RESP 25; O2SAT 97
[2024-08-15 23:49] VITALS: PULSE 107; RESP 21; O2SAT 95
[2024-08-16 00:01] VITALS: BP 136/63; PULSE 105; RESP 17; O2SAT 97
[2024-08-16 00:15] VITALS: PULSE 108; RESP 21; O2SAT 85
[2024-08-16 00:30] VITALS: PULSE 105; RESP 21; O2SAT 97
[2024-08-16 00:45] VITALS: PULSE 107; RESP 24; O2SAT 100
== END 2024-08-16 01:05 | disposition home or self-care (01) ==
PROVIDERS: Emergency Provider Emergency Medicine
DX: R33.9 Retention of urine, unspecified (principal); Z79.891 Long term (current) use of opiate analgesic; Z79.899 Other long term (current) drug therapy; Z85.038 Personal history of other malignant neoplasm of large intestine
CPT/HCPCS: 81003; 96372; 99283; A9270; J1171

== ENCOUNTER 2024-10-26 12:40 | Inpatient (IN) | payer OTHER, SELFPAY ==
--- NOTE | 2024-10-26 12:50 | ADMGEN ---
This patient, Isabel Lozano, was admitted to 2nd Floor Room 208-2 as skilled swing bed. Patient/family oriented to hospital policies and general routines including ID bracelet, bed and alarms, visiting hours, pain management, procedures, bathroom and other care routines, personal items, smoking policy, room service/diet, and visiting hours. Information on how to activate the Rapid Response Team has been discussed. Patient/Family are encouraged to report perceived risks to care and to ask questions if they do not understand what they are told or what they should do.
[2024-10-26 13:00] VITALS: BMI 47.0
[2024-10-26 13:05] VITALS: O2SAT 96
--- OUTSIDE RECORDS SUMMARY | 2024-10-26 13:40 | XMS_ITS | Encounter Summary ---
Author Organization [facility] Healthcare Address [address] [place] [address] Care Team Providers Care Fish Checker Name Role Phone Ayah Almodovar MD Primary Care Provider [phone] Maximiliano Arndt MD Unavailable [phone] Liliana Culver MD Unavailable Encounter Details Date Type Department Care Team (Late st Contact Info) Description 12/26/2023 Completion of Therapy [facility] Radiation Oncology [address] [facility] [place] [address] Cezar Rosario MD [address] [facility] [id number] [place] [address] Social History Tobacco Use Types Packs/Day Years [...] on filedocumented in this encounter Care Teams Fish Checker Relationship Specialty Start Date End Date Ayah Almodovar MD [address] [place] [address] PCP - General Family Medicine 10/22/23 Maximiliano Arndt MD [address] [place] [address] Referring Physician Gastroenterology 10/22/23 Liliana Culver MD [address] [phone] [place] [address] Consulting Physician Plastic Surgery 10/08/24 documented as of this encounter
--- OUTSIDE RECORDS SUMMARY | 2024-10-26 13:40 | XMS_ITS | Clinical Summary ---
Author Organization [facility] Address [address] [place] [address] Phone Care Team Providers Care Chute Builder Name Role Phone Ayah Almodovar MD Primary Care Provider [phone] Allergies Active Allergy Reactions Criticality Noted Date Comments Sulfa Antibiotics Anaphylaxis 08/20/2024 Medications Cetirizine HCl (ZYRTEC ALLERGY PO)Indications: Allergy Take 10 mg by mouth if needed for Other. Indications: Allergy Active Cholecalciferol 35237 UNIT CapsuleIndicati ons:Vitamin D Deficiency Take 5,000 Units by mouth daily. Indications: Vitamin D Deficiency Active CYCLOBENZAPRINE HCL POIndications:P ain Take 10 mg by mouth daily. Indications: Pain Active enoxaparin (Lovenox) 40 MG/0.4ML Solution Prefilled SyringeIndicati ons:Deep Vein Thrombosis 40 mg by Subcutaneous route daily. Indications: Blood Clot in a Deep Vein 5 Active esomeprazole (NexIUM) 40 MG PackIndications :Stress Ulcer Prophylaxis Take 40 mg by mouth daily. Indications: Treatment to Prevent Stress Ulcers 5 Active OXYBUTYNIN CHLORIDE POIndications:U rinary Retention Take 5 mg by mouth 3 times daily. Indications: Urinary Retention 5 Active OXYCODONE ER POIndications:P ain Take 5 mg by mouth if needed for Other. Indications: Pain 5 Active Progesterone 200 MG CapsuleIndicati ons:Secondary Amenorrhea Take 200 mg by mouth daily. Indications: Absence of Menstrual Periods in Woman who has had Them 5 Active Prenat-Methylfo l-Chol-Fish Oil ( + COMPLETE MULTI PO)Indications: Supplementary factors related to causes of morbidity classified elsewhere Take 1 Tablet by mouth daily. Indications: Supplementary factors related to causes of morbidity classified elsewhere 5 Active PROBIOTIC, LACTOBACILLUS, POIndications:S tress Ulcer Prophylaxis Take 1 Capsule by mouth daily. Indications: Treatment to Prevent Stress Ulcers 5 Active Encounters Date Type Department Care Team Description 10/19/2024 Home Care Visit [address] [address] Chata Pritchett, OT OT - DISCHARGE SUMMARY 10/12/2024 Home Care Visit [address] [address] Ada Lee, PT PT - DISCHARGE SUMMARY 08/31/2024 Home Care Visit [address] [address] Ayah Valencia, RN SN - OASIS TRANSFER W/OUT DC 08/25/2024 1:45 PM ASSISTANT ENGINEER Home Care Visit [address] [address] Chata Pritchett, OT OT - HOME VISIT 08/25/2024 9:45 AM ASSISTANT ENGINEER Home Care Visit [address] [address] Ada Lee, PT PT - HOME VISIT 08/24/2024 11:45 AM ASSISTANT ENGINEER Home Care Visit [address] [address] Chata Pritchett, OT OT - HOME VISIT 08/23/2024 12:00 PM ASSISTANT ENGINEER Home Care Visit [address] [address] Ada Lee, PT PT - INITIAL EVALUATION 08/22/2024 Plan of Care Documentation [address] [address] 08/20/2024 2:45 PM ASSISTANT ENGINEER Home Care Visit [address] [address] Chata Pritchett OT OT - INITIAL EVALUATION 08/20/2024 2:00 PM ASSISTANT ENGINEER Home Care Visit [address] [address] Jacquelin Dean, [place]SEA SN - OASIS START OF CARE 08/19/[address] [address] Ayah Montez, [place] Appointment 08/15/2024 Home Care Visit [address] [address] Madison Schumacher RN CASE COMMUNICATION 08/14/2024 1:00 PM ASSISTANT ENGINEER Home Care Visit [address] [address] Madison Schumacher, [place] [facility] NON-ADMIT from Last 3 Months Social History Tobacco Use Types Packs/Day Years Used Date Smoking Tobacco: Never Assessed Comments Unknown Sex and Gender Information Value Date Recorded Sex Assigned at Not on file Legal Sex Female 10:15 PM CDT Gender Identity Not on file Sexual Orientation Not on file Last Filed Vital Signs Vital Sign Reading Time Taken Comments Blood Pressure 110/70 08/25/2024 2:20 PM ASSISTANT ENGINEER Pulse 94 08/25/2024 2:20 PM ASSISTANT ENGINEER Temperature 36.3 C (97.3 F) 08/25/2024 2:20 PM ASSISTANT ENGINEER Respiratory Rate 18 08/25/2024 2:20 PM ASSISTANT ENGINEER Oxygen Saturation 94% 08/25/2024 2:20 PM ASSISTANT ENGINEER Inhaled Oxygen Concentration - - Weight 142.4 kg (314 lb) 08/20/2024 3:47 PM ASSISTANT ENGINEER Height 170.2 cm (5' 7 ) 08/20/2024 3:01 PM ASSISTANT ENGINEER Body Mass Index 49.18 08/20/2024 3:01 PM ASSISTANT ENGINEER Plan of Treatment Health Maintenance Due Date Last Done Comments Hepatitis C Virus (HCV) Screening 1985 Hepatitis B Immunization (1 of 3 - 19+ 3-dose series) 2004 Pap Smear 2006 Cervical Cancer Screening (CCS) 2015 HPV/Cotest 2015 SARS-COV-2 Immunization ( season) 2024 02/27/2021 Influenza Immunization (Seas on Ended) 2025 07/10/2012 Respiratory Syncytial Virus (RSV) Immunization (Adult) (1 [...] patient's age to complete this topic Insurance [employer] [facility] Advance Directives * Full Code (Latest Code Status on File) Date Activated Date Inactivated Comments 09/17/2024 5:19 PM Care Teams Chute Builder Relationship Specialty Start Date End Date Ayah Almodovar MD [address] [facility] [place] [address] PCP - General Family Medicine 08/10/24
--- OUTSIDE RECORDS SUMMARY | 2024-10-26 13:40 | XMS_ITS | Encounter Summary ---
Author Organization [facility] Address [address] [place] [address] Phone Care Team Providers Care Silverware Buffer Name Role Phone Ayah Almodovar MD Primary Care Provider [phone] Maximiliano Arndt MD Unavailable [phone] Liliana Culver MD Unavailable Encounter Details Date Type Department Care Team (Late st Contact Info) Description 11/27/2023 Telephone [facility] Oncology [address] [facility] Advanced Medicine 7th [place] [address] [place] [address] Adelso Heard Social History Tobacco Use Types [...] on filedocumented in this encounter Care Teams Silverware Buffer Relationship Specialty Start Date End Date Ayah Almodovar MD [address] [place] [address] PCP - General Family Medicine 10/22/23 Maximiliano Arndt MD [address] [place] [address] Referring Physician Gastroenterology 10/22/23 Liliana Culver MD [address] [phone] [place] [address] Consulting Physician Plastic Surgery 10/08/24 documented as of this encounter
--- OUTSIDE RECORDS SUMMARY | 2024-10-26 13:40 | XMS_ITS | Encounter Summary ---
Author Organization [facility] Address [address] [place] [address] Phone Care Team Providers Care Baseball Player Name Role Phone Ayah Almodovar MD Primary Care Provider [phone] Maximiliano Arndt MD Unavailable [phone] Liliana Culver MD Unavailable Encounter Details Date Type Department Care Team (Late st Contact Info) Description 11/12/2023 Telephone [facility] Oncology [address] [facility] Advanced Medicine 7th [address], [place] [address] Do Chun Social History Tobacco Use Types [...] on filedocumented in this encounter Care Teams Baseball Player Relationship Specialty Start Date End Date Ayah Almodovar MD [address] [place] [address] PCP - General Family Medicine 10/22/23 Maximiliano Arndt MD [address] [place] [address] Referring Physician Gastroenterology 10/22/23 Liliana Culver MD [address] [phone] [place] [address] Consulting Physician Plastic Surgery 10/08/24 documented as of this encounter
--- OUTSIDE RECORDS SUMMARY | 2024-10-26 13:41 | XMS_ITS | Clinical Summary ---
Author Organization [facility] Address [address] [place] [address] Care Team Providers Care Theatre Arts Professor Name Role Phone Ayah Almodovar MD Primary Care Provider Maximiliano Arndt MD Unavailable Liliana Culver MD Unavailable Allergies Active Allergy Reactions Criticality Noted Date Comments Sulfa (Sulfonamide Antibiotics) Shortness of breath,Swelling,Rash High 05/27/2022 Trimethoprim Rash Medium 03/13/2016 Medications * This document contains information received from the source organization and may not represent a complete record from that organization. progesterone (PROMETRIUM) 200 mg capsule Take 1 capsule (200 mg total) by mouth every evening 10/27/19 24 Active multivit-hide examiner wr-sero-ubgrgt tablet Take 1 tablet/capsule by mouth every evening Active cholecalcifero l (VITAMIN D-3) 5,000 unit tablet Take 1 tablet (5,000 Units total) by mouth every evening Active L. acidophilus-di g enz cmb 5 5-250 mg capsule Take 1 tablet/capsule by mouth every evening Active TRESIBA 100 unit/mL (3 mL) pen for injection Inject 0.4 mL (40 Units total) under the skin with evening meal 05/09/20 24 Active insulin lispro (HumaLOG, ADMELOG) 100 unit/mL vial for injection Inject under the skin 3 (three) times a day before meals Sliding scale 15 units base Active acetaminophen 500 mg capsuleIndicat ions:Pain Take 2 capsules (1,000 mg total) by mouth every 6 (six) hours as needed for pain 08/12/19 25 Active tamsulosin (FLOMAX) 0.4 mg extended release capsule Take 1 capsule (0.4 mg total) by mouth daily for 14 days 14 capsule 08/17/19 25 Active oxyBUTYnin (DITROPAN) 5 mg tablet Take 1 tablet (5 mg total) by mouth 3 (three) times a day for 14 days Bladder spasm 42 tablet 08/17/19 25 Active aluminum-magne sium hydroxide-marci thicone (MAALOX) suspension 200-200-20 mg/5 mL Take 30 mL by mouth 4 (four) times a day as needed for indigestion 10/09/19 25 Active benzocaine-men thoL (CHLORASEPTIC) 6-10 mg lozenge Take 1 lozenge by mouth every 3 (three) hours as needed for sore throat 10/09/19 25 Active calcium carbonate (TUMS) 500 mg (200 mg elemental calcium) chewable tablet Take 2 tablet/chew tab (1,000 mg total) by mouth 4 (four) times a day as needed for indigestion or heartburn 10/09/19 25 026 Active gabapentin (NEURONTIN) 300 mg capsuleIndicat ions:Postopera tive Acute Pain Take 1 capsule (300 mg total) by mouth 3 (three) times a day as needed (Pain) 10/09/19 25 026 Active ibuprofen (ADVIL,MOTRIN) 600 mg tablet Take 1 tablet (600 mg total) by mouth every 8 (eight) hours 10/09/19 25 Active loratadine (CLARITIN) 10 mg tablet Take 1 tablet (10 mg total) by mouth daily 10/10/19 25 026 Active methocarbamoL (ROBAXIN) 750 mg tablet Take 1 tablet (750 mg total) by mouth 3 (three) times a day as needed for muscle spasms 10/09/19 25 Active mirabegron ER (MYRBETRIQ) 25 mg tablet extended release 24 hr Take 1 tablet (25 mg total) by mouth nightly as needed (bladder spasms while having the monk) 10/09/19 25 Active ondansetron (ZOFRAN) 4 mg/2 mL injection Infuse 2 mL (4 mg total) into a venous catheter every 4 (four) hours as needed for vomiting or nausea for 2 minutes 10/09/19 25 Active oxyCODONE (ROXICODONE) 5 mg immediate release tabletIndicati ons:Pain Take 1 tablet (5 mg total) by mouth every 4 (four) hours as needed for pain 10/09/[address] (PROTONIX) 40 mg EC tabletIndicati ons:Treatment of Non-Bleeding Gastric Disorder Take 1 tablet (40 mg total) by mouth 2 (two) times a day 10/09/19 25 026 Active polyethylene glycol (MIRALAX) 17 gram packet Take 1 packet (17 g total) by mouth 2 (two) times a day 10/09/19 25 Active polyvinyl alcohol-povido ne (REFRESH CLASSIC) 1.4-0.6 % dropperette Administer 2 drops into both eyes 4 (four) times a day as needed for dry eyes 10/09/19 25 Active pregabalin (LYRICA) 75 mg capsule Take 1 capsule (75 mg total) by mouth 2 (two) times a day 10/09/19 25 025 Active enoxaparin (LOVENOX) 40 mg/0.4 mL syringeIndicat ions:Deep Vein Thrombosis Prevention Inject 0.4 mL (40 mg total) under the skin every 12 (twelve) hours for 21 days 10/09/19 [address] (NexIUM) 40 mg capsule Take 1 capsule (40 mg total) by mouth every evening 09/23/19 24 025 Discontinued(S top Taking at Discharge) cetirizine (ZyrTEC) 10 mg tablet Take 1 tablet (10 mg total) by mouth every evening 025 Discontinued(S top Taking at Discharge) cyclobenzaprin e (FLEXERIL) 10 mg tablet Take 1 tablet (10 mg total) by mouth 3 (three) times a day as needed for muscle spasms for up to 10 days 30 tablet 08/12/19 25 025 Discontinued(S top Taking at Discharge) enoxaparin (LOVENOX) 40 mg/0.4 mL syringeIndicat ions:Deep Vein Thrombosis Prevention Inject 0.4 mL (40 mg total) under the skin every 12 (twelve) hours for 21 days 16.8 mL 02/13/20 25 025 Discontinued oxyCODONE (ROXICODONE) 5 mg immediate release tabletIndicati ons:Pain Take 1 tablet (5 mg total) by mouth every 4 (four) hours as needed for pain 15 tablet 08/18/19 25 025 Discontinued(S top Taking at Discharge) enoxaparin (LOVENOX) 40 mg/0.4 mL syringeIndicat ions:Deep Vein Thrombosis Prevention Inject 0.4 mL (40 mg total) under the skin every 12 (twelve) hours for 21 days 16.8 mL 10/09/19 25 025 Discontinued Active Problems Problem Noted Date Diagnosed Date Severe malnutrition 09/27/2024 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 History of rectal cancer 09/15/2024 Dehiscence of wound of perineum 09/15/2024 Moderate protein-calorie malnutrition 08/30/2024 Wound dehiscence, surgical, initial encounter Urinary retention 08/20/2024 Heartburn 02/26/2024 Rectal cancer 10/31/2023 Cancer Staging:Clinical stage from 11/13/2023:Stage I(cT2, cN0, cM0) - Signed by Cezar Rosario MD on 12/02/2023 Obesity with body mass index 30 or greater 10/10 Overview (09/13/2024): Body mass index (BMI) 45.0-49.9, adult;Recorded Elsewhere: No Location: [facility] Source: EHR Chronic: N Practice ID: [id number] Billable Time: 03:30:00 PM Pelvic and perineal pain 12/18/2016 Overview (09/13/2024): Pelvic and perineal pain;Practice ID: [id number] Hirsutism 03/20/2016 Overview (09/13/2024): Hirsutism;Practice ID: [id number] Encounters * This document contains information received from the source organization and may not represent a complete record from that organization. Date Type Department Care Team Description 10/21/2024 12:23 PM CDT - 10/21/2024 11:59 PM CDT Hospital Encounter [facility] [address] [place] [address] Dehiscence of wound of perineum; Wound dehiscence, surgical, initial encounter Discharge Disposition: Discharge to home or self care 10/21/2024 8:45 AM CDT Office Visit [facility] [address] [facility] 6th [place] [address] Isabel Menchaca NP Dehiscence of wound of perineum (Primary Dx); Wound dehiscence, surgical, initial encounter 10/20/2024 Documentation [facility] [address] [facility] 6th [place] [address] Aleyda Castellano RN 10/19/2024 Telephone [facility] [address] [place] [phone] Luis Miller 10/04/2024 1:35 PM CDT Ancillary Procedure [facility] [address] [place] [phone] 10/04/2024 1:30 PM CDT Ancillary Procedure [facility] [address] [address] 09/24/2024 12:17 PM CDT - 09/24/2024 11:59 PM CDT Hospital Encounter [address] [address] General medical exam Discharge Disposition: Discharge to home or self care 09/24/2024 7:30 AM CDT - 09/24/2024 3:55 PM CDT Surgery [facility] [address] [place] [address] Liliana Culver MD DEBRIDEMENT WOUND - Wound preparation and debridement, trunk 09/24/2024 7:30 AM CDT Anesthesia Event [facility] [address] [place] [address] Suki Ponce MD Montgomery, Andrea J., NP 09/15/2024 Orders Only [facility] [address] [place] [phone] Luis Miller Rectal cancer (HCC) (Primary Dx) 09/13/2024 3:49 PM CDT Anesthesia Event [facility] [address] [place] [address] Dar Sharma MD Fernandez, Gabrielle Maria, MD 09/13/2024 3:32 PM CDT - 09/13/2024 4:47 PM CDT Surgery [facility] [address] [place] [address] Stefani Szymanski MD EXAM UNDER ANESTHESIA, wound washout and debridement 09/10/2024 Telephone [facility] at [address] [address] Candida Martinez, CHELSEA 08/31/2024 Telephone [facility] [address] [address] Candida Martinez, CHELSEA 08/26/2024 4:37 PM FOOD SERVICES DIRECTOR - 10/11/2024 7:10 PM CDT Hospital Encounter [address] [phone] Dung Rushing MD Stickles, Sean Patrick, MD Cowan, Michelle Lee, MD Wound dehiscence, surgical, initial encounter (Primary Dx); Rectal cancer (HCC) Discharge Disposition: Discharge to an Rehab facility 08/26/2024 11:30 AM FOOD SERVICES DIRECTOR Office Visit [facility] [address] [place] [phone] Stefani Szymanski MD Rectal cancer (HCC) (Primary Dx) 08/26/2024 Telephone [facility] [address] [place] [address] Medical Office Building [address] [place] [phone] Bonnie Clay CMA 08/26/2024 Telephone [facility] [address] [place] [address] Medical Office Building [address] [place] [address] Hailey Crystal, CHELSEA 08/26/2024 Telephone [facility] [address] [place] [address] Medical Office Building [address] [place] [address] Bonnie Clay CMA patient placement 08/20/2024 9:00 AM FOOD SERVICES DIRECTOR Office Visit [facility] [address] [facility] Medical Office Building 4 [address] [place] [phone] Bjorn Sin MD Urinary retention 08/20/2024 Results Follow-Up [facility] [address] [place] [address] Stefani Szyamnski MD 08/18/2024 Orders Only [facility] [place] [address] [place] [address] Stefani Szymanski MD Rectal cancer (HCC) (Primary Dx) 08/18/2024 Telephone [facility] [place] [address] [place] [address] Stefani Szymanski MD Medical Question/Miscellane ous 08/17/2024 Telephone [facility] [place] [address] [place] [address] Ghazala Adams, CHELESA 08/16/2024 Orders Only [facility] [place] [address] [place] [address] Stefani Szymanski MD 08/16/2024 Telephone [facility] Floor [address] [place] [address] Ghazala Adams, CHELSEA 08/13/2024 Telephone [facility] Floor [address] [place] [address] Ghazala Adams, CHELSEA 2024 Telephone [facility] [address] [place] [address] 08/09/2024 7:30 AM FOOD SERVICES DIRECTOR - 08/09/2024 2:55 PM FOOD SERVICES DIRECTOR [facility] [address] [place] [address] Stefani Szymanski MD XI ABDOMINAL PERINEAL RESECTION - LAPAROSCOPIC ROBOTIC ASSISTED 08/09/2024 7:29 AM FOOD SERVICES DIRECTOR Anesthesia Event [facility] [address] [place] [address] Jovanna Vargas MD Hearn, Alexandra Marie, DAR 08/09/2024 5:05 AM FOOD SERVICES DIRECTOR - 08/12/2024 4:10 PM FOOD SERVICES DIRECTOR Hospital Encounter [address] [address] Stefani Szymanski MD Rectal cancer (HCC) Discharge Disposition: Discharge to home, home health skilled care 08/03/2024 Telephone [facility] [address] [place] [phone] Luis Miller 07/28/2024 Telephone [facility] [address] [place] [phone] Kellee perez RN from Last 3 Months Surgical History Surgery Date Site/Laterality Comments SECTION 07/07/2012 DILATION AND CURETTAGE OF UTERUS 06/30/2014 - 06/29/2015 DILATION AND CURETTAGE OF UTERUS 06/30/2015 - 06/29/2016 PORT PLACEMENT CHEST >5 YEARS 12/11/2023 N/A COLONOSCOPY UPPER GASTROINTESTINAL ENDOSCOPY Medical History Medical History Date Comments Endometriosis Fibromyalgia PCOS (polycystic ovarian syndrome) Rectal cancer (HCC) Sleep apnea GERD (gastroesophageal reflux disease) [...] drink = 0.6 oz pur e alcohol) [facility] Utilities Answer Date Recorded In the past 12 months has th e electric, gas, oil, or water company threatened to shut off services in your home? Yes 08/27/2024 Social Connection and Isolat ion Panel [NHANES] Answer Date Recorded In a typical week, how many times do you talk on the phone with family, friends, or neighbors? More than three times a week 08/27/2024 How often do you get togethe r with friends or relatives? Twice a week 08/27/2024 How often do you attend chur ch or jewish services? More than 4 times per year 08/27/2024 Do you belong to any clubs o r organizations such as synagogue groups, unions, fraternal or athletic groups, or school groups? No 08/27/2024 How often do you attend meet ings of the clubs or organizations you belong to? Never 08/27/2024 Are you , , di vorced, , never , or living with a partner? 08/27/2024 AUDIT-C Answer Date Recorded Q1: How often do you have a drink containing alcohol? Never 09/24/2024 Q2: How many drinks containi ng alcohol do you have on a typical day when you are drinking? Patient does not drink Q3: How often do you have si x or more drinks on one occasion? Never 09/24/2024 Overall Financial Resource Strain (CARDIA) Answe r Date Recorded How hard is it for you to pa y for the very basics like food, housing, medical care, and heating? Not very hard 08/27/2024 PHQ-2 Answer Date Recorded PHQ-2 Total Score 0 08/27/2024 Hunger Vital Sign Answer Date Recorded Within the past 12 months, y ou worried that your food would run out before you got the money to buy more. Never true 08/27/19 25 Within the past 12 months, t he food you bought just didn't last and you didn't have money to get more. Never true 08/27/2024 PRAPARE - Transportation Answer Date Re corded In the past 12 months, has l ack of transportation kept you from medical appointments or from getting medications? No 08/01 In the past 12 months, has l ack of transportation kept you from meetings, work, or from getting things needed for daily living? No 08/27/2024 Housing Stability Vital Sign Answer Davis e Recorded In the last 12 months, was t here a time when you were not able to pay the mortgage or rent on time? No 08/27/2024 In the past 12 months, how m any times have you moved where you were living? 0 08/27/2024 At any time in the past 12 m [facility], were you homeless or living in a fdc (including now)? No 08/27/2024 Personal Safety Answer Date Recorded Have you ever been in or are you currently in a harmful physical or emotional relationship or is someone making you feel afraid or unsafe? Denies 09/24/2024 Comments No Sex and Gender Information Value Date Recorded Sex Assigned at Not on file Legal Sex Female 3:03 PM CDT Gender Identity Not on file Sexual Orientation Not on file Obstetrics History Last Filed Vital Signs Vital Sign Reading Time Taken Comments Blood Pressure 115/71 10/11/2024 3:40 PM CDT Pulse 89 10/11/2024 3:40 PM CDT Temperature 36.9 C (98.4 F) 10/11/2024 3:40 PM CDT Respiratory Rate 20 10/11/2024 3:40 PM CDT Oxygen Saturation 97% 10/11/2024 3:40 PM CDT Inhaled Oxygen Concentration - - Weight 133.2 kg (293 lb 9.6 oz) 09/24/2024 5:55 AM CDT Height 170.2 cm (5' 7.01 ) 08/26/2024 1 0:25 PM FOOD SERVICES DIRECTOR Body Mass Index 45.97 08/26/2024 10:25 PM FOOD SERVICES DIRECTOR Plan of Treatment Health Maintenance Due Date Last Done Comments Cervical Cancer Screening 1985 Varicella Vaccines (1 of 2 - 13+ 2-dose series) 1998 Hepatitis B Screening 2003 Regular Well Visit/Exam 18-64 2003 Pneumococcal vaccine <65 (1 of 2 - PCV) 2004 Zoster Vaccine (1 of 2) 2004 Covid-19 Vaccine (2 - Jansse n risk series) 03/27/2021 02/27/2021 DTaP/Tdap/Td Vaccine (2 - Td or Tdap) 07/10/2022 07/10/2012 Influenza Vaccine (Season Ended) 2025 07/10/19 13 Depression Screening 08/26/2025 08/26/2024 Hepatitis C Screening Completed 09/24/2024 HPV Vaccines Aged Out No longer eligi ble based on patient's age to complete this topic Procedures Procedure Name Priority Date/Time Associated Diagnosis Comments AEROBIC AND ANAEROBIC CULTURE AND GRAM STAIN Routine 10/21/2024 5:54 PM CDT Dehiscence of wound of perineum Wound dehiscence, surgical, initial encounter AEROBIC AND ANAEROBIC CULTURE AND GRAM STAIN Routine 10/21/2024 5:54 PM CDT Dehiscence of wound of perineum Wound dehiscence, surgical, initial encounter MYCOLOGY (FUNGAL) CULTURE Routine 10/21/2024 5:54 PM CDT Dehiscence of wound of perineum Wound dehiscence, surgical, initial encounter CT ABDOMEN PELVIS W WO CONTRAST ED Urgent/IP Urgent 10/11/2024 9:18 AM CDT EGFR Timed 10/11/2024 8:19 AM CDT PREALBUMIN Timed 10/11/2024 8:19 AM CDT COMPREHENSIVE METABOLIC PANEL Timed 10/11/2024 8:19 AM CDT CBC WITHOUT DIFFERENTIAL Timed 10/11/2024 8:19 AM CDT ALBUMIN Timed 10/10/2024 11:36 AM CDT PROTEIN, TOTAL Timed 10/10/2024 11:36 AM CDT DIFFERENTIAL AUTO STAT 10/08/2024 10:17 AM CDT CBC WITH AUTO DIFFERENTIAL STAT 10/08/2024 10:17 AM CDT CBC WITHOUT DIFFERENTIAL Timed 10/06/2024 9:36 PM CDT MAGNESIUM Timed 10/05/2024 9:19 PM CDT POCT GLUCOSE DEVICE Routine 10/05/2024 11:44 AM CDT PHOSPHORUS Timed 10/05/2024 9:59 AM CDT CALCIUM LEVEL Timed 10/05/2024 9:59 AM CDT CBC WITHOUT DIFFERENTIAL Timed 10/05/2024 9:59 AM CDT TRANSFUSE RED BLOOD CELLS Timed 10/05/2024 4:35 AM CDT TYPE AND SCREEN Timed 10/05/2024 1:57 AM CDT PREPARE RBC Timed 10/05/2024 1:39 AM CDT CBC WITHOUT DIFFERENTIAL Timed 10/04/2024 11:12 PM CDT US VEIN DUPLEX UPPER EXTREMITY BILATERAL COMPLETE ED Urgent/IP Urgent 10/04/2024 4:40 PM CDT US VEIN DUPLEX LOWER EXTREMITY BILATERAL COMPLETE IP Routine 10/04/2024 4:39 PM CDT TROPONIN I HIGH-SENSITIVITY Routine 10/04/2024 8:01 AM CDT IRON PROFILE W/ IBC Timed 10/03/2024 10:32 PM CDT PREALBUMIN Timed 10/03/2024 10:32 PM CDT XR CHEST 1 VIEW ED Urgent/IP Urgent 10/03/2024 7:40 PM CDT ECG 12-LEAD STAT 10/03/2024 7:40 PM CDT ECG 12-LEAD STAT 10/03/2024 6:58 PM CDT EGFR STAT 10/03/2024 6:50 PM CDT BASIC METABOLIC PANEL STAT 10/03/2024 6:50 PM CDT CBC WITHOUT DIFFERENTIAL STAT 10/03/2024 6:50 PM CDT LACTATE STAT 10/03/2024 6:50 PM CDT ALBUMIN Timed 10/03/2024 12:46 PM CDT PROTEIN, TOTAL Timed 10/03/2024 12:46 PM CDT EGFR Timed 10/03/2024 1:14 AM CDT DIFFERENTIAL AUTO Timed 10/03/2024 1:1 4 AM CDT BASIC METABOLIC PANEL Timed 10/03/2024 1:14 AM CDT CBC WITH AUTO DIFFERENTIAL Timed 10/03/2024 1:14 AM CDT URINALYSIS AND REFLEX TO MICROSCOPIC AND CULTURE Routine 10/02/2024 6:21 PM CDT EGFR Timed 10/01/2024 11:45 PM CDT BASIC METABOLIC PANEL Timed 10/01/2024 11:45 PM CDT CBC WITHOUT DIFFERENTIAL Timed 10/01/2024 11:45 PM CDT ECG 12-LEAD Routine 09/29/2024 3:04 PM CDT IRON PROFILE W/ IBC Timed 09/26/2024 2 :08 PM CDT PREALBUMIN Routine 09/26/2024 2:08 PM CDT ALBUMIN Timed 09/26/2024 2:08 PM CDT PROTEIN, TOTAL Timed 09/26/2024 2:08 PM CDT EGFR Timed 09/24/2024 10:13 PM CDT BASIC METABOLIC PANEL Timed 09/24/2024 10:13 PM CDT CBC WITHOUT DIFFERENTIAL Timed 09/24/2024 10:13 PM CDT XR ABDOMEN AP 1 VIEW IP Routine 09/24/2024 12:46 PM CDT HEPATITIS B SURFACE ANTIGEN Routine 09/24/2024 12:17 PM CDT HEPATITIS C ANTIBODY Routine 09/24/2024 12:17 PM CDT HIV 1/2 ANTIBODY PLUS P24 ANTIGEN Routine 09/24/2024 12:17 PM CDT POC BLOOD GAS AND CHEMISTRIES, ARTERIAL Routine 09/24/2024 10:21 AM CDT TRANSFUSE RED BLOOD CELLS Timed 09/24/2024 9:52 AM CDT MA AN PROCEDURE PLACEHOLDER Routine 09/24/2024 9:41 AM CDT TRANSFUSE RED BLOOD CELLS Timed 09/24/2024 9:26 AM CDT PREPARE RBC STAT 09/24/2024 8:57 AM CDT MA AN PROCEDURE PLACEHOLDER Routine 09/24/2024 8:21 AM CDT MA AN PROCEDURE PLACEHOLDER Routine 09/24/2024 8:21 AM CDT MA AN ELECTIVE ENDOTRACHEAL AIRWAY Routine 09/24/2024 8:21 AM CDT PLACEMENT WOUND VACUUM 09/24/2024 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 Dehiscence of wound of perineum Case Notes 09/15- Missing dpc email sent to Regi GAMBOA) Special Needs Tissue Cultures, 1% Lidocaine, Epinephrine 1:100 000, LOCAL FLAP 09/24/2024 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 Dehiscence of wound of perineum Case Notes 09/15- Missing dpc email sent to Regi (ROSALVA) Special Needs Tissue Cultures, 1% Lidocaine, Epinephrine 1:100 000, DEBRIDEMENT WOUND 09/24/2024 7:3 4 AM CDT Brito syndrome History of rectal cancer Dehiscence of wound of perineum Case Notes 09/15- Missing dpc email sent to Regi (ROSALVA) Special Needs Tissue Cultures, 1% Lidocaine, Epinephrine 1:100 000, POCT GLUCOSE DEVICE Routine 09/24/2024 7 :02 AM CDT EGFR Timed 09/23/2024 11:14 PM CDT TYPE AND SCREEN Timed 09/23/2024 11:14 PM CDT CBC WITHOUT DIFFERENTIAL Timed 09/23/2024 11:14 PM CDT PROTIME-INR Timed 09/23/2024 11:14 PM CDT BASIC METABOLIC PANEL Timed 09/23/2024 11:14 PM CDT ALBUMIN Timed 09/23/2024 10:27 AM CDT PREALBUMIN Routine 09/23/2024 10:27 AM CDT URINALYSIS, MICROSCOPIC ONLY Routine 09/21/2024 12:36 PM CDT URINE CULTURE Routine 09/21/2024 12:36 PM CDT URINALYSIS AND REFLEX TO MICROSCOPIC AND CULTURE Routine 09/21/2024 12:36 PM CDT PREALBUMIN Timed 09/20/2024 9:04 PM CDT URINALYSIS, MICROSCOPIC ONLY Routine 09/18/2024 10:54 PM CDT URINALYSIS AND REFLEX TO MICROSCOPIC Routine 09/18/2024 10:54 PM CDT ZINC Timed 09/16/2024 9:17 AM CDT VITAMIN C Timed 09/16/2024 9:[address] ABDOMEN PELVIS W CONTRAST ED Urgent/IP Urgent 09/14/2024 10:56 AM CDT ECG 12-LEAD STAT 09/13/2024 11:31 PM CDT EGFR Timed 09/13/2024 11:30 PM CDT LACTATE Timed 09/13/2024 11:30 PM CDT TROPONIN I HIGH-SENSITIVITY Timed 09/13/2024 11:30 PM CDT PREALBUMIN Timed 09/13/2024 11:30 PM CDT COMPREHENSIVE METABOLIC PANEL Timed 09/13/2024 11:30 PM CDT CBC WITHOUT DIFFERENTIAL Timed 09/13/2024 11:30 PM CDT POCT GLUCOSE DEVICE Routine 09/13/2024 5 :28 PM CDT POCT GLUCOSE DEVICE Routine 09/13/2024 4 :51 PM CDT PERIPHERAL LINE Routine 09/13/2024 4:30 PM CDT ANESTHESIA INTUBATION Routine 09/13/2024 4:29 PM CDT PLACEMENT WOUND VACUUM 09/13/2024 3:31 PM CDT Wound dehiscence, surgical, initial encounter EXAM UNDER ANESTHESIA 09/13/2024 3:31 PM CDT Wound dehiscence, surgical, initial encounter POCT GLUCOSE DEVICE Routine 09/13/2024 2 :13 PM CDT EGFR STAT 09/13/2024 9:37 AM CDT APTT STAT 09/13/2024 9:37 AM CDT PROTIME-INR STAT 09/13/2024 9:37 AM CDT TYPE AND SCREEN STAT 09/13/2024 9:37 AM CDT BASIC METABOLIC PANEL STAT 09/13/2024 9:37 AM CDT CBC WITHOUT DIFFERENTIAL STAT 09/13/2024 9:37 AM CDT XR CHEST 1 VIEW IP Routine 09/03/2024 1:05 AM FOOD SERVICES DIRECTOR EGFR Routine 09/03/2024 12:42 AM FOOD SERVICES DIRECTOR BASIC METABOLIC PANEL Routine 09/03/2024 12:42 AM FOOD SERVICES DIRECTOR CBC WITHOUT DIFFERENTIAL Routine 09/03/2024 12:42 AM FOOD SERVICES DIRECTOR EGFR Routine 08/28/2024 10:33 PM FOOD SERVICES DIRECTOR BASIC METABOLIC PANEL Routine 08/28/2024 10:33 PM FOOD SERVICES DIRECTOR CBC WITHOUT DIFFERENTIAL Routine 08/28/2024 10:33 PM FOOD SERVICES DIRECTOR MAGNESIUM Routine 08/28/2024 10:33 PM FOOD SERVICES DIRECTOR PHOSPHORUS Routine 08/28/2024 10:33 PM FOOD SERVICES DIRECTOR EGFR Routine 08/27/2024 10:33 PM FOOD SERVICES DIRECTOR BASIC METABOLIC PANEL Routine 08/27/2024 10:33 PM FOOD SERVICES DIRECTOR CBC WITHOUT DIFFERENTIAL Routine 08/27/2024 10:33 PM FOOD SERVICES DIRECTOR MAGNESIUM Routine 08/27/2024 10:33 PM FOOD SERVICES DIRECTOR PHOSPHORUS Routine 08/27/2024 10:33 PM FOOD SERVICES DIRECTOR POCT LACTATE - DEVICE Routine 08/26/2024 7:18 PM FO[address] SERVICES DIRECTOR CT ABDOMEN PELVIS W CONTRAST ED 08/26/2024 6:03 PM FOOD SERVICES DIRECTOR EGFR STAT 08/26/2024 5:36 PM FOOD SERVICES DIRECTOR DIFFERENTIAL AUTO STAT 08/26/2024 5:3 6 PM FOOD SERVICES DIRECTOR COMPREHENSIVE METABOLIC PANEL STAT 08/26/2024 5:36 PM FOOD SERVICES DIRECTOR CBC WITH AUTO DIFFERENTIAL STAT 08/26/2024 5:36 PM FOOD SERVICES DIRECTOR XR CHEST PA LATERAL 2 VIEWS ED 08/26/2024 2:32 PM FOOD SERVICES DIRECTOR POCT GLUCOSE DEVICE Routine 08/12/2024 11:53 AM FOOD SERVICES DIRECTOR POCT GLUCOSE DEVICE Routine 08/12/2024 7 :52 AM FOOD SERVICES DIRECTOR CBC WITHOUT DIFFERENTIAL Timed 08/11/2024 9:50 PM FOOD SERVICES DIRECTOR POCT GLUCOSE DEVICE Routine 08/11/2024 7 :26 PM FOOD SERVICES DIRECTOR POCT GLUCOSE DEVICE Routine 08/11/2024 4 :53 PM FOOD SERVICES DIRECTOR POCT GLUCOSE DEVICE Routine 08/11/2024 11:02 AM FOOD SERVICES DIRECTOR POCT GLUCOSE DEVICE Routine 08/11/2024 7 :40 AM FOOD SERVICES DIRECTOR EGFR Timed 08/11/2024 1:37 AM FOOD SERVICES DIRECTOR BASIC METABOLIC PANEL Timed 08/11/2024 1:37 AM FOOD SERVICES DIRECTOR CBC WITHOUT DIFFERENTIAL Timed 08/11/2024 1:37 AM FOOD SERVICES DIRECTOR POCT GLUCOSE DEVICE Routine 2024 8 :48 PM FOOD SERVICES DIRECTOR POCT GLUCOSE DEVICE Routine 2024 12:56 PM FOOD SERVICES DIRECTOR POCT GLUCOSE DEVICE Routine 2024 7 :49 AM FOOD SERVICES DIRECTOR HEMOGLOBIN A1C Timed 08/09/2024 9:20 PM FOOD SERVICES DIRECTOR LIPID PANEL Timed 08/09/2024 9:20 PM FOOD SERVICES DIRECTOR EGFR Timed 08/09/2024 9:20 PM FOOD SERVICES DIRECTOR BASIC METABOLIC PANEL Timed 08/09/2024 9:20 PM FOOD SERVICES DIRECTOR CBC WITHOUT DIFFERENTIAL Timed 08/09/2024 9:20 PM FOOD SERVICES DIRECTOR POC BLOOD GAS AND CHEMISTRIES, ARTERIAL Routine 08/09/2024 3:23 PM FOOD SERVICES DIRECTOR SURGICAL PATHOLOGY Routine 08/09/2024 2: 26 PM FOOD SERVICES DIRECTOR Rectal cancer (HCC) POC BLOOD GAS AND CHEMISTRIES, ARTERIAL Routine 08/09/2024 1:23 PM FOOD SERVICES DIRECTOR POCT GLUCOSE DEVICE Routine 08/09/2024 10:59 AM FOOD SERVICES DIRECTOR MA AN PROCEDURE PLACEHOLDER Routine 08/09/2024 9:21 AM FOOD SERVICES DIRECTOR MA AN PROCEDURE PLACEHOLDER Routine 08/09/2024 9:20 AM FOOD SERVICES DIRECTOR MA AN PROCEDURE PLACEHOLDER Routine 08/09/2024 9:17 AM FOOD SERVICES DIRECTOR MA AN ELECTIVE ENDOTRACHEAL AIRWAY Routine 08/09/2024 9:17 AM FOOD SERVICES DIRECTOR POC BLOOD GAS AND CHEMISTRIES, ARTERIAL Routine 08/09/2024 8:43 AM FOOD SERVICES DIRECTOR SIGMOIDOSCOPY 08/09/2024 7:33 AM FOOD SERVICES DIRECTOR Rectal cancer (HCC) XI ABDOMINAL PERINEAL RESECTION - LAPAROSCOPIC ROBOTIC ASSISTED 08/09/2024 7:33 AM FOOD SERVICES DIRECTOR Rectal cancer (HCC) POCT GLUCOSE DEVICE Routine 08/09/2024 5 :55 AM FOOD SERVICES DIRECTOR TYPE AND SCREEN STAT 08/09/2024 5:55 AM FOOD SERVICES DIRECTOR POCT HCG, URINE Routine 08/09/2024 5:45 AM FOOD SERVICES DIRECTOR from Last 3 Months Results * CT Abdomen Pelvis W WO Contrast (10/11/2024 9:18 AM CDT) Anatomical Region Laterality Modality Body N/A Computed Tomogra phy 10/11/2024 9:45 AM CDT Impressions 10/11/2024 9:45 AM CDT Small and incompletely organized fluid collection within the perineum along the gluteal cleft, likely representing phlegmon/developing abscess. Electronically signed by: Bjorn Polanco M.D. Narrative 10/11/2024 9:45 AM CDT EXAMINATION: Computed tomography of the abdomen and pelvis with and without intravenous contrast HISTORY: Abdominal pain, postoperative TECHNIQUE: Transaxial computed tomographic images of the abdomen and pelvis were obtained with and without intravenous contrast according to the ischemic bowel/GI bleeding protocol after the uneventful administration of 94 mL Opti-Ray 350 intravenous contrast. COMPARISON: 09/14/2024 FINDINGS: Partially imaged central venous catheter terminating in the right atrium. Imaged lung bases are clear. Heart size is normal. No pericardial or pleural effusion. No focal hepatic lesion. No biliary duct dilatation. The gallbladder appears normal. The spleen is enlarged, similar to prior examination. The pancreas and adrenal glands appear normal. Unchanged stranding in the central mesentery. No focal renal lesion. No hydronephrosis. Urinary bladder is decompressed by Monk catheter and contains a amount of gas. There is persistent periventricular fat stranding. The uterus appears normal. No suspicious adnexal masses. 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 There is improved but persistent fat stranding within the fat containing parastomal hernia. The bowel is normal in caliber. There is presacral thickening and/or trace free fluid, similar to minimally increased from prior examination. Interval placement of 2 surgical drains, one of which terminates in the perineum just right of midline and the other terminates posterior to the uterus. Previously noted gas and fluid collection is improved. There is a small amount of fluid along the gluteal cleft with incomplete rim enhancement (series 7, image 276 and series 9, image 84). This measures approximately 3.0 x 1.8 cm. This is not definitively drained by either of the surgical drains. There is subcutaneous inflammatory stranding in the proximal right thigh along the surgical drain, possibly related to recent placement. Saphenous gas and soft tissue nodularity in the ventral abdominal wall is likely related to subcutaneous injections. No acute fracture or suspicious osseous lesion. Procedure Note Bjorn Polanco MD - 10/11/2024 EXAMINATION: Computed tomography of the abdomen and pelvis with and without intravenous contrast HISTORY: Abdominal pain, postoperative TECHNIQUE: Transaxial computed tomographic images of the abdomen and pelvis were obtained with and without intravenous contrast according to the ischemic bowel/GI bleeding protocol after the uneventful administration of 94 mL Opti-Ray 350 intravenous contrast. COMPARISON: 09/14/2024 FINDINGS: Partially imaged central venous catheter terminating in the right atrium. Imaged lung bases are clear. Heart size is normal. No pericardial or pleural effusion. No focal hepatic lesion. No biliary duct dilatation. The gallbladder appears normal. The spleen is enlarged, similar to prior examination. The pancreas and adrenal glands appear normal. Unchanged stranding in the central mesentery. No focal renal lesion. No hydronephrosis. Urinary bladder is decompressed by Monk catheter and contains a amount of gas. There is persistent periventricular fat stranding. The uterus appears normal. No suspicious adnexal masses. 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 There is improved but persistent fat stranding within the fat containing parastomal hernia. The bowel is normal in caliber. There is presacral thickening and/or trace free fluid, similar to minimally increased from prior examination. Interval placement of 2 surgical drains, one of which terminates in the perineum just right of midline and the other terminates posterior to the uterus. Previously noted gas and fluid collection is improved. There is a small amount of fluid along the gluteal cleft with incomplete rim enhancement (series 7, image 276 and series 9, image 84). This measures approximately 3.0 x 1.8 cm. This is not definitively drained by either of the surgical drains. There is subcutaneous inflammatory stranding in the proximal right thigh along the surgical drain, possibly related to recent placement. Saphenous gas and soft tissue nodularity in the ventral abdominal wall is likely related to subcutaneous injections. No acute fracture or suspicious osseous lesion. IMPRESSION: Small and incompletely organized fluid collection within the perineum along the gluteal cleft, likely representing phlegmon/developing abscess. Electronically signed by: Bjorn Polanco M.D. us Stefani Szymanski MD IMG CT PROCEDURES Final Re sult * eGFR (10/11/2024 8:19 AM CDT) eGFR >90 >=60 mL/min/1. 73 m2 Comment: [...] interpretive data was last reviewed 2021. Blood 10/11/2024 8:19 AM CDT 10/11/2024 8:57 AM CDT us Stefani Szymanski MD LAB BLOOD ORDERABLES Final Result [facility] Department [place] [address] * (ABNORMAL) CBC without differential (10/11/2024 8:19 AM CDT) WBC 4.62 3.80 - 9.90 K/cumm Hgb 7.8(L) 11.9 - 15.5 g/dL [facility] Hct 25.9(L) 35.6 - 45.5 % [facility] Plt 177 150 - 400 K/cumm [facility] MPV 10.0 9.1 - 12.3 fL [facility] RBC 3.03(L) 3.90 - 5.20 M/cumm [facility] MCV 85.5 81.3 - 96.4 fL [facility] MCH 25.7(L) 27.1 - 33.3 pg [facility] MCHC 30.1(L) 32.3 - 35.7 g/dL [facility] RDW CV 15.6(H) 11.1 - 14.9 % [facility] RDW SD 48.5(H) 35.7 - 48.1 fL [facility] NRBC abs 0.00 0.00 - 0.01 K/cumm [facility] Blood 10/11/2024 8:19 AM CDT 10/11/2024 8:56 AM CDT us Stefani Szymanski MD LAB BLOOD ORDERABLES Final Result Performing Organization Address City/[facility]/ZIP Co de Phone Number [facility] Department [place] [address] * (ABNORMAL) Prealbumin (10/11/2024 8:19 AM CDT) Pathologist [facility] [place] Prealbumin 17.0(L) 20.0 - 40.0 mg/dL Blood 10/11/2024 8:19 AM CDT 10/11/2024 8:57 AM CDT Stefani Szymanski MD LAB BLOOD ORDERABLES Final Result [facility] Department [place] [address] * (ABNORMAL) Comprehensive metabolic panel (10/11/2024 8:19 AM CDT) Sodium 139 135 - 145 mmol/L Potassium, pl 4.0 3.3 - 4.9 mmol/L [facility] Chloride 103 97 - 110 mmol/L [facility] CO2 27 22 - 32 mmol/L [facility] Anion gap 9 2 - 15 mmol/L [facility] BUN 16 6 - 25 mg/dL [facility] Creatinine 0.62 0.60 - 1.10 mg/dL [facility] Glucose 102 70 - 199 mg/dL [facility] Comment: Interpretive Data Fasting glucose >/= [...] interpretive data was last revised 2022. Calcium 8.9 8.5 - 10.3 mg/dL [facility] Bilirubin, total 0.4 0.1 - 1.2 mg/dL [facility] Protein, pl 6.6 6.5 - 8.5 g/dL [facility] Albumin 3.3(L) 3.5 - 5.0 g/dL [facility] Alk phos 170(H) 40 - 130 Units/L [facility] ALT 25 7 - 45 Units/L [facility] AST 22 10 - 45 Units/L [facility] Blood 10/11/2024 8:19 AM CDT 10/11/2024 8:57 AM CDT us Stefani Szymanski MD LAB BLOOD ORDERABLES Final Result [facility] [place] [place] [address] * Protein, total (10/10/2024 11:36 AM CDT) [facility] Protein, pl 6.5 6.5 - 8.5 g/dL Blood 10/10/2024 11:3 6 AM CDT 10/10/2024 12:23 PM CDT Stefani Szymanski MD LAB BLOOD ORDERABLES Final Result [facility] [place] [address] * (ABNORMAL) Albumin (10/10/2024 11:36 AM CDT) [facility] Albumin 3.4(L) 3.5 - 5.0 g/dL Blood 10/10/2024 11:3 6 AM CDT 10/10/2024 12:23 PM CDT Stefani Szymanski MD LAB BLOOD ORDERABLES Final Result Performing Organization Address City/[facility] Co de Phone Number [facility] [place] [address] * (ABNORMAL) Differential, auto (10/08/2024 10:17 AM CDT) [facility] Neutrophil abs 3.53 1.50 - 6.50 K/cumm Imm gran abs 0.02 0.00 - 0.10 K/cumm [facility] Lymphocyte abs 0.51(L) 0.80 - 3.30 K/cumm [facility] Monocyte abs 0.21 0.20 - 0.80 K/cumm [facility] Eosinophil abs 0.14 0.00 - 0.50 K/cumm [facility] Basophil abs 0.01 0.00 - 0.10 K/cumm [facility] Neutrophil pct 79.8 % [facility] Comment: Interpretive Data Percent cell count reference ranges are not reported, since discordance with absolute values may lead to misinterpretation of CBC data. Current Interpretive Data was last revised on 2017. Imm gran pct 0.5 % [facility] Comment: Interpretive Data Percent cell count reference ranges are not reported, since discordance with absolute values may lead to misinterpretation of CBC data. Current Interpretive Data was last revised on 2017. Lymphocyte pct 11.5 % [facility] Comment: Interpretive Data Percent cell count reference ranges are not reported, since discordance with absolute values may lead to misinterpretation of CBC data. Current Interpretive Data was last revised on 2017. Monocyte pct 4.8 % [facility] Comment: Interpretive Data Percent cell count reference ranges are not reported, since discordance with absolute values may lead to misinterpretation of CBC data. Current Interpretive Data was last revised on 2017. Eosinophil pct 3.2 % [facility] Comment: Interpretive Data Percent cell count reference ranges are not reported, since discordance with absolute values may lead to misinterpretation of CBC data. Current Interpretive Data was last revised on 2017. Basophil pct 0.2 % [facility] Comment: Interpretive Data Percent cell count reference ranges are not reported, since discordance with absolute values may lead to misinterpretation of CBC data. Current Interpretive Data was last revised on 2017. Blood 10/08/2024 10:1 7 AM CDT 10/08/2024 10:54 AM CDT us Stefani Szymanski MD LAB BLOOD ORDERABLES Final Result [facility] Department [place] [address] * (ABNORMAL) CBC with auto differential (10/08/2024 10:17 AM CDT) WBC 4.42 3.80 - 9.90 K/cumm Hgb 7.6(L) 11.9 - 15.5 g/dL [facility] Hct 25.4(L) 35.6 - 45.5 % [facility] Plt 164 150 - 400 K/cumm [facility] MPV 10.4 9.1 - 12.3 fL [facility] RBC 2.91(L) 3.90 - 5.20 M/cumm [facility] MCV 87.3 81.3 - 96.4 fL [facility] MCH 26.1(L) 27.1 - 33.3 pg [facility] MCHC 29.9(L) 32.3 - 35.7 g/dL [facility] RDW CV 15.8(H) 11.1 - 14.9 % [facility] RDW SD 50.3(H) 35.7 - 48.1 fL [facility] NRBC abs 0.00 0.00 - 0.01 K/cumm [facility] Blood 10/08/2024 10:1 7 AM CDT 10/08/2024 10:54 AM CDT us Stefani Szymanski MD LAB BLOOD ORDERABLES Final Result [facility] Department [place] [address] * (ABNORMAL) CBC without differential (10/06/2024 9:36 PM CDT) WBC 6.48 3.80 - 9.90 K/cumm Hgb 7.7(L) 11.9 - 15.5 g/dL [facility] Hct 24.8(L) 35.6 - 45.5 % [facility] Plt 165 150 - 400 K/cumm [facility] MPV 10.7 9.1 - 12.3 fL [facility] RBC 2.92(L) 3.90 - 5.20 M/cumm [facility] MCV 84.9 81.3 - 96.4 fL [facility] MCH 26.4(L) 27.1 - 33.3 pg [facility] MCHC 31.0(L) 32.3 - 35.7 g/dL [facility] RDW CV 15.4(H) 11.1 - 14.9 % [facility] RDW SD 47.1 35.7 - 48.1 fL [facility] NRBC abs 0.00 0.00 - 0.01 K/cumm [facility] Blood 10/06/2024 9:36 PM CDT 10/06/2024 10:26 PM CDT Tasia Patel WAREHOUSE ANALYST LAB BLOOD ORDERABLES Cecille l Result Performing Organization Address City/[facility] Co de Phone Number [facility] [place] [place] [address] * Magnesium (10/05/2024 9:19 PM CDT) [facility] Magnesium 2.0 1.4 - 2.5 mg/dL Blood 10/05/2024 9:19 PM CDT 10/05/2024 10:17 PM CDT us Isabel Huerta WAREHOUSE ANALYST LAB BLOOD ORDERABLES Final Res ult Performing Organization Address [facility] de Phone Number [facility] [place] [place] [address] * POCT glucose (10/05/2024 11:44 AM CDT) [facility] Glucose, POC 149 70 - 199 mg/dL Blood 10/05/2024 11:4 4 AM CDT 10/05/2024 11:44 AM CDT us Stefani Szymanski MD LAB POCT ORDERABLES - ÁNGELA CE Final Result Performing Organization Address [facility] de Phone Number [facility] [place] [place] [address] * (ABNORMAL) CBC without differential (10/05/2024 9:59 AM CDT) [facility] WBC 6.28 3.80 - 9.90 K/cumm Hgb 7.9(L) 11.9 - 15.5 g/dL [facility] Hct 25.7(L) 35.6 - 45.5 % [facility] Plt 173 150 - 400 K/cumm [facility] MPV 10.4 9.1 - 12.3 fL [facility] RBC 3.00(L) 3.90 - 5.20 M/cumm [facility] MCV 85.7 81.3 - 96.4 fL [facility] MCH 26.3(L) 27.1 - 33.3 pg [facility] MCHC 30.7(L) 32.3 - 35.7 g/dL [facility] RDW CV 15.4(H) 11.1 - 14.9 % [facility] RDW SD 47.7 35.7 - 48.1 fL [facility] NRBC abs 0.00 0.00 - 0.01 K/cumm [facility] Blood 10/05/2024 9:59 AM CDT 10/05/2024 10:16 AM CDT Narrative [facility] - 10/05/2024 10:25 AM CDT 1 hour after transfusion of Red Blood Cells is complete. Stefani Szymanski MD LAB BLOOD ORDERABLES Final Result [facility] Department of Laboratories [place], [place] [id number] * Phosphorus (10/05/2024 9:59 AM CDT) Pathologist [facility] [place] Phosphorus, pl 4.1 2.3 - 4.5 mg/dL Blood 10/05/2024 9:59 AM CDT 10/05/2024 10:16 AM CDT Isabel Huerta NP LAB BLOOD ORDERABLES Final Res ult [facility] [place] [address] * Calcium level (10/05/2024 9:59 AM CDT) Calcium 8.7 8.5 - 10.3 mg/dL Blood 10/05/2024 9:59 AM CDT 10/05/2024 10:16 AM CDT us Isabel Huerta WAREHOUSE ANALYST LAB BLOOD ORDERABLES Final Res ult Performing Organization Address [facility] Co de Phone Number [facility] [place] [place] [address] * Transfuse RBC (10/05/2024 8:01 AM CDT) Blood us Stefani Szymanski MD BLOOD TRANSFUSION ORDERABL ES Final Result Performing Organization Address [facility] [place] [address] * Type and screen (10/05/2024 1:57 AM CDT) Thompson, indirect Negative ABO Rh A Positive [facility] Blood 10/05/2024 1:57 AM CDT 10/05/2024 2:45 AM CDT Narrative [facility] - 10/05/2024 3:43 AM CDT Has the patient had Daratumumab or Isatuximab in the past 6 months?->Unknown us Stefani Szymanski MD LAB BLOOD BANK TEST ORDERA BLES Final Result Performing Organization Address [facility] Co de Phone Number [facility] [place] [place] [address] * Prepare RBC: 1 Units (10/05/2024 1:39 AM CDT) Product code [id number] Unit Number [id number] [facility] Product Blood Type APOS [facility] Dispense Status PRESUMED TRANSFUSED [facility] Blood 10/05/2024 1:39 AM CDT 10/05/2024 1:38 AM CDT Narrative [facility] - 10/05/2024 4:00 PM CDT Are special requirements needed? (All products are leukoreduced and CMV- safe)- >No Date required:-[id number] LRRBC # of [id number] Reasons:-Hgb <7 g/dL} us Stefani Szymanski MD BLOOD BANK PRODUCT ORDERAB LES Final Result Performing Organization Address [facility]/ZIP Co de Phone Number [facility] Department [place] [address] * (ABNORMAL) CBC without differential (10/04/2024 11:12 PM CDT) [facility] WBC 5.72 3.80 - 9.90 K/cumm Hgb 6.6(L) 11.9 - 15.5 g/dL [facility] Hct 21.7(L) 35.6 - 45.5 % [facility] Plt 159 150 - 400 K/cumm [facility] MPV 10.3 9.1 - 12.3 fL [facility] RBC 2.56(L) 3.90 - 5.20 M/cumm [facility] MCV 84.8 81.3 - 96.4 fL [facility] MCH 25.8(L) 27.1 - 33.3 pg [facility] MCHC 30.4(L) 32.3 - 35.7 g/dL [facility] RDW CV 15.6(H) 11.1 - 14.9 % [facility] RDW SD 47.8 35.7 - 48.1 fL [facility] NRBC abs 0.00 0.00 - 0.01 K/cumm [facility] Blood 10/04/2024 11:1 2 PM CDT 10/04/2024 11:49 PM CDT Tasia Patel NP LAB BLOOD ORDERABLES Cecille l Result Performing Organization Address City/[facility]/ZIP Co de Phone Number [facility] Department [place] [address] * US Vein Duplex Upper Extremity Bilateral Complete (10/04/2024 4:40 PM CDT) Anatomical Region Laterality Modality Vascular Bilateral Ultrasound 10/04/2024 2:54 PM CDT Narrative 10/05/2024 12:31 AM CDT [facility] - Department of Vascular Surgery, Vascular Laboratory [address] [place] [id number] Upper Extremity Venous Ultrasound Report Patient Name: ISABEL CAR : 1985 (39y 1m) Study Date: 10/04/2024 2:54:15 PM Gender: F Tech: Berta ALVARADO Location: [id number] Ref Provider: STEFANI SZYMANSKI Quality: Adequate Order Provider: STEFANI SZYMANSKI PROCEDURES: Vascular Report: Venous Duplex imaging was performed bilaterally in the upper extremities. The internal jugular, subclavian and axillary veins were evaluated for patency, spontaneity and phasicity with Doppler, compression and augmentation maneuvers. The brachial, basilic and cephalic veins were also evaluated with compression maneuvers. INDICATIONS: Chest pain. FINDINGS: Performing Parts Salvager: Nia Alvarado RVT. Bilateral: Venous Doppler signals in the bilateral upper extremities are within normal limits for spontaneity and phasicity; normal response to compression maneuvers. No evidence of superficial vein thrombus in the right upper extremity. CONCLUSIONS: 1. No evidence of acute deep vein thrombosis bilaterally in the upper extremities. 2. No evidence of superficial vein thrombus in the right upper extremity. HISTORY: DM, Cacer. PREVIOUS STUDIES: No previous studies for comparison. DISCLAIMER: The study images and the final report will be retained in the patient chart by the Vascular Laboratory for the legally required time period. This chart constitutes the legal record of any testing performed. ATTESTATION: I have reviewed and interpreted the pertinent images and measurements of this study. I attest to the conclusions in the final report that is provided above. Electronically Signed By: Silver Hook MD FACS 10/05/2024 12:31:24 AM CDT Procedure Note Silver Hook MD - 10/05/2024 [facility] - Department of Vascular Surgery,Vascular Laboratory [address] [place] [address] Upper Extremity Venous Ultrasound Report Patient Name: ISABEL CAR : 1985 (39y 1m) Study Date: 10/04/2024 2:54:15 PM Gender: F Tech: Berta ALVARADO Location: [id number] Ref Provider: STEFANI SZYMANSKI Quality: Adequate Order Provider: STEFANI SZYMANSKI PROCEDURES: Vascular Report: Venous Duplex imaging was performed bilaterally in the upper extremities.The internal jugular, subclavian and axillary veins were evaluated for patency,spontaneity and phasicity with Doppler, compression and augmentation maneuvers. Thebrachial, basilic and cephalic veins were also evaluated with compression maneuvers. INDICATIONS: Chest pain. FINDINGS: Performing Parts Salvager: Nia Alvarado RVT. Bilateral: Venous Doppler signals in the bilateral upper extremities are withinnormal limits for spontaneity and phasicity; normal response to compression maneuvers. No evidence of superficial vein thrombus in the right upper extremity. CONCLUSIONS: 1. No evidence of acute deep vein thrombosis bilaterally in the upperextremities. 2. No evidence of superficial vein thrombus in the right upperextremity. HISTORY: DM, Cacer. PREVIOUS STUDIES: No previous studies for comparison. DISCLAIMER: The study images and the final report will be retained in the patientchart by the Vascular Laboratory for the legally required time period. This chartconstitutes the legal record of any testing performed. ATTESTATION: I have reviewed and interpreted the pertinent images and measurements ofthis study. I attest to the conclusions in the final report that is provided above. Electronically Signed By: Silver Hook MD FACS 10/05/2024 12:31:24 AM CDT us Stefani Szymanski MD IMG US PROCEDURES Final Re sult * US Vein Duplex Lower Extremity Bilateral Complete (10/04/2024 4:39 PM CDT) Anatomical Region Laterality Modality Vascular Bilateral Ultrasound 10/04/2024 2:54 PM CDT Narrative 10/05/2024 12:29 AM CDT [employer] - Department of Vascular Surgery, Vascular Laboratory [address] [place] [id number] Lower Extremity Venous Ultrasound Report Patient Name: ISABEL CAR : 1985 (39y 1m) Study Date: 10/04/2024 2:54:15 PM Gender: F Tech: Berta ALVARADO Location: [id number] Ref Provider: STEFANI SZYMANSKI Quality: Adequate Order Provider: STEFANI SZYMANSKI PROCEDURES: Vascular Report: Venous Duplex imaging was performed bilaterally in the lower extremities. The common femoral, femoral, popliteal, posterior tibial, peroneal veins were evaluated for patency, spontaneity and phasicity with Doppler, compression and augmentation maneuvers. Great saphenous vein proximal at the junction was evaluated with compression maneuvers. INDICATIONS: Tachy, febrile, extended period of sedentary lifestyle. FINDINGS: Performing Parts Salvager: Nia Alvarado RVT. Bilateral: Venous Doppler signals in the bilateral lower extremity are within normal limits for spontaneity and phasicity and respond normally to augmentation maneuvers. No evidence of deep vein thrombus by duplex, proximal to the calf. CONCLUSIONS: 1. There is no evidence of acute deep vein thrombosis in the lower extremities bilaterally. Noninvasive venous studies cannot rule out isolated calf vein obstruction. HISTORY: DM, Cancer. PREVIOUS STUDIES: No previous studies for comparison. DISCLAIMER: The study images and the final report will be retained in the patient chart by the Vascular Laboratory for the legally required time period. This chart constitutes the legal record of any testing performed. ATTESTATION: I have reviewed and interpreted the pertinent images and measurements of this study. I attest to the conclusions in the final report that is provided above. Electronically Signed By: Silver Hook MD FACS 10/05/2024 12:29:09 AM CDT Procedure Note Silver Hook MD - 10/05/2024 [facility] - Department of Vascular Surgery,Vascular Laboratory [address] [place] [id number] Lower Extremity Venous Ultrasound Report Patient Name: ISABEL CAR : 1985 (39y 1m) Study Date: 10/04/2024 2:54:15 PM Gender: F Tech: Berta HERNANDEZPITER Location: [id number] Ref Provider: STEFANI SZYMANSKI Quality: Adequate Order Provider: STEFANI SZYMANSKI PROCEDURES: Vascular Report: Venous Duplex imaging was performed bilaterally in the lower extremities.The common femoral, femoral, popliteal, posterior tibial, peroneal veins wereevaluated for patency, spontaneity and phasicity with Doppler, compression and augmentationmaneuvers. Great saphenous vein proximal at the junction was evaluated with compressionmaneuvers. INDICATIONS: Tachy, febrile, extended period of sedentary lifestyle. FINDINGS: Performing Parts Salvager: Nia Alvarado RVT. Bilateral: Venous Doppler signals in the bilateral lower extremity are within normallimits for spontaneity and phasicity and respond normally to augmentation maneuvers.No evidence of deep vein thrombus by duplex, proximal to the calf. CONCLUSIONS: 1. There is no evidence of acute deep vein thrombosis in the lowerextremities bilaterally. Noninvasive venous studies cannot rule out isolated calf veinobstruction. HISTORY: DM, Cancer. PREVIOUS STUDIES: No previous studies for comparison. DISCLAIMER: The study images and the final report will be retained in the patientchart by the Vascular Laboratory for the legally required time period. This chartconstitutes the legal record of any testing performed. ATTESTATION: I have reviewed and interpreted the pertinent images and measurements ofthis study. I attest to the conclusions in the final report that is provided above. Electronically Signed By: Silver Hook MD FACS 10/05/2024 12:29:09 AM CDT Stefani Szymanski MD IMG US PROCEDURES Final Re sult * Troponin I high-sensitivity (10/04/2024 8:01 AM CDT) Trop I hs <4 <=17 ng/L Comment: Interpretive Data For further hscTnI resources including the diagnostic algorithm and an aid in interpretation, copy and paste this link: [email or web address].testcatalog.org/show/[email or web address] Current Interpretive Data last revised 2020. Blood 10/04/2024 8:01 AM CDT 10/04/2024 8:29 AM CDT Result [facility] Stefani Szymanski MD LAB BLOOD ORDERABLES Final Result [facility] Department [place] [address] * (ABNORMAL) Iron profile w/ IBC (10/03/2024 10:32 PM CDT) Iron 17(L) 35 - 145 mcg/dL TIBC 209(L) 250 - 400 mcg/dL [facility] Transferrin saturation 8(L) 20 - 50 % [facility] Blood 10/03/2024 10:3 2 PM CDT 10/03/2024 11:11 PM CDT Tasia Staley Amanda WAREHOUSE ANALYST LAB BLOOD ORDERABLES Cecille l [facility] Department [place] [address] * (ABNORMAL) Prealbumin (10/03/2024 10:32 PM CDT) Prealbumin 12.0(L) 20.0 - 40.0 mg/dL Blood 10/03/2024 10:3 2 PM CDT 10/03/2024 11:11 PM CDT Tasia Muhammado WAREHOUSE ANALYST LAB BLOOD ORDERABLES Cecille l Result Performing Organization Address [facility] Co de Phone Number [facility] Department [place] [address] * XR Chest 1 View (10/03/2024 7:40 PM CDT) Anatomical Region Laterality Modality Body, Chest N/A Computed Radiogr aphy 10/04/2024 6:56 AM CDT Impressions 10/04/2024 6:56 AM CDT Comparison with 09/03/2024. In the interval, there is been no development of focal pneumonic consolidation pneumothorax or pleural effusion. The heart and mediastinum normal. Electronically signed by: Sampson Nassar M.D., MPH Narrative 10/04/2024 6:56 AM CDT EXAMINATION: 1 view chest radiograph Procedure Note Sampson Nassar MD - 10/04/2024 EXAMINATION: 1 view chest radiograph IMPRESSION: Comparison with 09/03/2024. In the interval, there is been no development of focal pneumonic consolidation pneumothorax or pleural effusion. The heart and mediastinum normal. Electronically signed by: Sampson Nassar M.D., MPH us Stefani Szymanski MD IMG XR PROCEDURES Final Re sult * ECG 12 lead (10/03/2024 7:40 PM CDT) Ventricular Rate EKG/Min 114 BPM [facility] Atrial Rate 114 BPM [facility] MA-Interval (MSEC) 144 ms [facility] QRS-Interval (MSEC) 76 ms [facility] QT-Interval (MSEC) 348 ms [facility] QTc 479 ms [facility] P Omro 28 degrees [facility] R [place]ro 27 degrees [facility] T Omro 13 degrees [facility] Diagnosis Sinus tachycardia Long QT interval Abnormal ECG When compared with ECG of 03-OCT-2024 18:58, (unconfirmed) Aberrant conduction is no longer Present QT is longer Confirmed by GINETTE GLASS M.D ([id number]) on 10/04/2024 10:26:13 AM [facility] 10/03/2024 7:40 PM CDT 10/04/2024 10:26 AM CDT us Stefani Szymanski MD ECG ORDERABLES Final Resu lt [facility] * ECG 12 lead (10/03/2024 6:58 PM CDT) Ventricular Rate EKG/Min 113 BPM [facility] Atrial Rate 113 BPM [facility] MA-Interval (MSEC) 190 ms [facility] QRS-Interval (MSEC) 76 ms [facility] QT-Interval (MSEC) 326 ms [facility] QTc 447 ms [facility] P Omro 39 degrees [facility] R Omro 36 degrees [facility] T Omro 20 degrees [facility] Diagnosis Age and gender specific ECG analysis Sinus tachycardia Otherwise normal ECG When compared with ECG of 29-SEP-2024 15:04, QTc has shortened Confirmed by GINETTE GLASS M.D ([id number]) on 10/05/2024 9:53:23 AM [facility] 10/03/2024 6:58 PM CDT 10/05/2024 9:53 AM CDT us Stefani Szymanski MD ECG ORDERABLES Final Resu lt [facility] * Lactate (10/03/2024 6:50 PM CDT) Lactate 1.3 0.7 - 2.0 mmol/L Blood 10/03/2024 6:50 PM CDT 10/03/2024 7:07 PM CDT us Stefani Szymanski MD LAB BLOOD ORDERABLES Final Result Performing Organization Address City/[facility]/ZIP Co de Phone Number [facility] [place] [address] * eGFR (10/03/2024 6:50 PM CDT) eGFR >90 >=60 mL/min/1. 73 m2 Comment: [...] interpretive data was last reviewed 2021. Blood 10/03/2024 6:50 PM CDT 10/03/2024 7:09 PM CDT us Stefani Szymanski MD LAB BLOOD ORDERABLES Final Result Performing Organization Address City/[facility]/ZIP Co de Phone Number [facility] [place] [address] * (ABNORMAL) CBC without differential (10/03/2024 6:50 PM CDT) [facility] WBC 6.43 3.80 - 9.90 K/cumm Hgb 7.1(L) 11.9 - 15.5 g/dL [facility] Hct 23.4(L) 35.6 - 45.5 % [facility] Plt 150 150 - 400 K/cumm [facility] MPV 10.6 9.1 - 12.3 fL [facility] RBC 2.71(L) 3.90 - 5.20 M/cumm [facility] MCV 86.3 81.3 - 96.4 fL [facility] MCH 26.2(L) 27.1 - 33.3 pg [facility] MCHC 30.3(L) 32.3 - 35.7 g/dL [facility] RDW CV 15.5(H) 11.1 - 14.9 % [facility] RDW SD 48.6(H) 35.7 - 48.1 fL [facility] NRBC abs 0.00 0.00 - 0.01 K/cumm [facility] Blood 10/03/2024 6:50 PM CDT 10/03/2024 7:07 PM CDT us Stefani Szymanski MD LAB BLOOD ORDERABLES Final Result [facility] Department [place] [address] * (ABNORMAL) Basic metabolic panel (10/03/2024 6:50 PM CDT) [facility] Sodium 137 135 - 145 mmol/L Potassium, pl 3.8 3.3 - 4.9 mmol/L [facility] Chloride 104 97 - 110 mmol/L [facility] CO2 24 22 - 32 mmol/L [facility] Anion gap 9 2 - 15 mmol/L [facility] BUN 19 6 - 25 mg/dL [facility] Creatinine 0.60 0.60 - 1.10 mg/dL [facility] Glucose 113 70 - 199 mg/dL [facility] Comment: Interpretive Data Fasting glucose >/= [...] interpretive data was last revised 2022. Calcium 8.4(L) 8.5 - 10.3 mg/dL [facility] Blood 10/03/2024 6:50 PM CDT 10/03/2024 7:07 PM CDT Stefani Szymanski MD LAB BLOOD ORDERABLES Final Result Performing Organization Address City/[facility]/ZIP Co de Phone Number [facility] Department [place] [address] * Protein, total (10/03/2024 12:46 PM CDT) Pathologist [facility] [place] Protein, pl 6.5 6.5 - 8.5 g/dL Blood 10/03/2024 12:4 6 PM CDT 10/03/2024 1:20 PM CDT Stefani Szymanski MD LAB BLOOD ORDERABLES Final Result [facility] Department [place] [address] * (ABNORMAL) Albumin (10/03/2024 12:46 PM CDT) Albumin 3.3(L) 3.5 - 5.0 g/dL Blood 10/03/2024 12:4 6 PM CDT 10/03/2024 1:20 PM CDT us Stefani Szymanski MD LAB BLOOD ORDERABLES Final Result Performing Organization Address City/[facility] Co de Phone Number [facility] Department [place] [address] * eGFR (10/03/2024 1:14 AM CDT) eGFR >90 >=60 mL/min/1. 73 m2 Comment: [...] interpretive data was last reviewed 2021. Blood 10/03/2024 1:14 AM CDT 10/03/2024 1:46 AM CDT Stefani Szymanski MD LAB BLOOD ORDERABLES Final Result Performing Organization Address City/[facility] Co de Phone Number [facility] Department [place] [address] * Differential, auto (10/03/2024 1:14 AM CDT) Neutrophil abs 6.28 1.50 - 6.50 K/cumm Imm gran abs 0.06 0.00 - 0.10 K/cumm [facility] Lymphocyte abs 0.85 0.80 - 3.30 K/cumm [facility] Monocyte abs 0.59 0.20 - 0.80 K/cumm [facility] Eosinophil abs 0.11 0.00 - 0.50 K/cumm [facility] Basophil abs 0.02 0.00 - 0.10 K/cumm [facility] Neutrophil pct 79.3 % [facility] Comment: Interpretive Data Percent cell count reference ranges are not reported, since discordance with absolute values may lead to misinterpretation of CBC data. Current Interpretive Data was last revised on 2017. Imm gran pct 0.8 % [facility] Comment: Interpretive Data Percent cell count reference ranges are not reported, since discordance with absolute values may lead to misinterpretation of CBC data. Current Interpretive Data was last revised on 2017. Lymphocyte pct 10.7 % [facility] Comment: Interpretive Data Percent cell count reference ranges are not reported, since discordance with absolute values may lead to misinterpretation of CBC data. Current Interpretive Data was last revised on 2017. Monocyte pct 7.5 % [facility] Comment: Interpretive Data Percent cell count reference ranges are not reported, since discordance with absolute values may lead to misinterpretation of CBC data. Current Interpretive Data was last revised on 2017. Eosinophil pct 1.4 % [facility] Comment: Interpretive Data Percent cell count reference ranges are not reported, since discordance with absolute values may lead to misinterpretation of CBC data. Current Interpretive Data was last revised on 2017. Basophil pct 0.3 % [facility] Comment: Interpretive Data Percent cell count reference ranges are not reported, since discordance with absolute values may lead to misinterpretation of CBC data. Current Interpretive Data was last revised on 2017. Blood 10/03/2024 1:14 AM CDT 10/03/2024 1:46 AM CDT us Stefani Szymanski MD LAB BLOOD ORDERABLES Final Result [facility] Department [place] [address] * (ABNORMAL) CBC with auto differential (10/03/2024 1:14 AM CDT) WBC 7.91 3.80 - 9.90 K/cumm Hgb 7.1(L) 11.9 - 15.5 g/dL [facility] Hct 24.1(L) 35.6 - 45.5 % [facility] Plt 146(L) 150 - 400 K/cumm [facility] MPV 10.7 9.1 - 12.3 fL [facility] RBC 2.80(L) 3.90 - 5.20 M/cumm [facility] MCV 86.1 81.3 - 96.4 fL [facility] MCH 25.4(L) 27.1 - 33.3 pg [facility] MCHC 29.5(L) 32.3 - 35.7 g/dL [facility] RDW CV 15.8(H) 11.1 - 14.9 % [facility] RDW SD 49.6(H) 35.7 - 48.1 fL [facility] NRBC abs 0.00 0.00 - 0.01 K/cumm [facility] Blood 10/03/2024 1:14 AM CDT 10/03/2024 1:46 AM CDT Stefani Szymanski MD LAB BLOOD ORDERABLES Final Result [facility] Department [place] [address] * Basic metabolic panel (10/03/2024 1:14 AM CDT) [facility] Sodium 139 135 - 145 mmol/L Potassium, pl 3.3 3.3 - 4.9 mmol/L [facility] Chloride 106 97 - 110 mmol/L [facility] CO2 26 22 - 32 mmol/L [facility] Anion gap 7 2 - 15 mmol/L [facility] BUN 13 6 - 25 mg/dL [facility] Creatinine 0.63 0.60 - 1.10 mg/dL [facility] Glucose 131 70 - 199 mg/dL [facility] Comment: Interpretive Data Fasting glucose >/= [...] interpretive data was last revised 2022. Calcium 8.6 8.5 - 10.3 mg/dL [facility] Blood 10/03/2024 1:14 AM CDT 10/03/2024 1:46 AM CDT us Stefani Szymanski MD LAB BLOOD ORDERABLES Final Result [facility] Department [place] [address] * Urinalysis reflex to microscopic and culture Urine, indwelling catheter (10/02/2024 6:21 PM CDT) Color, ur Yellow Yellow Clarity, ur Clear Clear [facility] Specific gravity, ur 1.026 1.003 - 1.030 [facility] pH, urine 7.0 [facility] Comment: Interpretive Data U rine pH is affected by diet, medications, systemic acid-base disturbances, and renal tubular function. pH may affect urinary stone formation. For example, urine pH below 6.0 may help reduce the tendency for calcium phosphate stones and pH greater than 6.0 may reduce the tendency for uric acid stone formation. Source: [facility] [employer] Current Interpretive Data was last revised on 2017 Protein, ur ql Trace Negative [facility] Glucose, ur ql Negative Negative [facility] Ketones, ur Negative Negative [facility] Bilirubin, ur Negative Negative [facility] Blood, ur Negative Negative [facility] Urobilinogen, ur <2.0 <2.0 mg/dL [facility] Nitrite, ur Negative Negative [facility] Leukocyte esterase, ur Negative Negative [facility] UA reflex comment Reflex conditions for microscopic UA and culture not met. [facility] Urine, indwelling catheter 10/02/2024 6:21 PM CDT 10/02/2024 6:46 PM CDT Stefani Szymanski MD LAB MICROBIOLOGY - GENERAL ORDERABLES Final Result Performing Organization Address [facility] Co de Phone Number [facility] Department [place] [address] * eGFR (10/01/2024 11:45 PM CDT) eGFR >90 >=60 mL/min/1. 73 m2 Comment: [...] interpretive data was last reviewed 2021. Blood 10/01/2024 11:4 5 PM CDT 10/02/2024 2:47 AM CDT us Tasia Patel NP LAB BLOOD ORDERABLES Cecille l Result Performing Organization Address City/[facility]/ZIP Co de Phone Number [facility] Department [place] [address] * (ABNORMAL) CBC without differential (10/01/2024 11:45 PM CDT) WBC 7.82 3.80 - 9.90 K/cumm Hgb 7.4(L) 11.9 - 15.5 g/dL [facility] Hct 24.9(L) 35.6 - 45.5 % [facility] Plt 145(L) 150 - 400 K/cumm [facility] MPV 10.8 9.1 - 12.3 fL [facility] RBC 2.85(L) 3.90 - 5.20 M/cumm [facility] MCV 87.4 81.3 - 96.4 fL [facility] MCH 26.0(L) 27.1 - 33.3 pg [facility] MCHC 29.7(L) 32.3 - 35.7 g/dL [facility] RDW CV 15.6(H) 11.1 - 14.9 % [facility] RDW SD 49.5(H) 35.7 - 48.1 fL [facility] NRBC abs 0.00 0.00 - 0.01 K/cumm [facility] Blood 10/01/2024 11:4 5 PM CDT 10/02/2024 2:47 AM CDT us Tasia Patel NP LAB BLOOD ORDERABLES Cecille oviedo Result [facility] Department [place] [address] * Basic metabolic panel (10/01/2024 11:45 PM CDT) [facility] Sodium 139 135 - 145 mmol/L Potassium, pl 3.7 3.3 - 4.9 mmol/L [facility] Chloride 104 97 - 110 mmol/L [facility] CO2 25 22 - 32 mmol/L [facility] Anion gap 10 2 - 15 mmol/L [facility] BUN 13 6 - 25 mg/dL [facility] Creatinine 0.68 0.60 - 1.10 mg/dL [facility] Glucose 109 70 - 199 mg/dL [facility] Comment: Interpretive Data Fasting glucose >/= [...] interpretive data was last revised 2022. Calcium 8.6 8.5 - 10.3 mg/dL [facility] Blood 10/01/2024 11:4 5 PM CDT 10/02/2024 2:47 AM CDT us Tasia Patel NP LAB BLOOD ORDERABLES Cecille l Result [facility] Department [place] [address] * ECG 12 lead (09/29/2024 3:04 PM CDT) Pathologist [facility] [place] Ventricular Rate EKG/Min 96 BPM [facility] Atrial Rate 96 BPM [facility] MA-Interval (MSEC) 142 ms [facility] QRS-Interval (MSEC) 80 ms [facility] QT-Interval (MSEC) 380 ms [facility] QTc 480 ms [facility] P Omro 35 degrees [facility] R Omro 28 degrees [facility] T Omro 24 degrees [facility] Diagnosis Normal sinus rhythm Prolonged QT Abnormal ECG When compared with ECG of 13-SEP-2024 23:31, No significant change was found Confirmed by GINETTE GLASS M.D ([id number]) on 09/30/2024 11:59:04 AM [facility] 09/29/2024 3:04 PM CDT 09/30/2024 11:59 AM CDT us Stefani Szymanski MD ECG ORDERABLES Final Resu lt [facility] * (ABNORMAL) Iron profile w/ IBC (09/26/2024 2:08 PM CDT) [facility] Iron 15(L) 35 - 145 mcg/dL TIBC 138(L) 250 - 400 mcg/dL [facility] Transferrin saturation 11(L) 20 - 50 % [facility] Blood 09/26/2024 2:08 PM CDT 09/26/2024 3:25 PM CDT Stefani Szymanski MD LAB BLOOD ORDERABLES Final Result Performing Organization Address City/[facility] Co de Phone Number [facility] [place] [place] [address] * (ABNORMAL) Protein, total (09/26/2024 2:08 PM CDT) [facility] Protein, pl 5.9(L) 6.5 - 8.5 g/dL Blood 09/26/2024 2:08 PM CDT 09/26/2024 3:25 PM CDT Stefani Szymanski MD LAB BLOOD ORDERABLES Final Result Performing Organization Address [facility] Co de Phone Number [facility] [place] [address] * (ABNORMAL) Prealbumin (09/26/2024 2:08 PM CDT) [facility] Prealbumin 14.0(L) 20.0 - 40.0 mg/dL Blood 09/26/2024 2:08 PM CDT 09/26/2024 3:27 PM CDT Stefani Szymanski MD LAB BLOOD ORDERABLES Final Result Performing Organization Address [facility] Co de Phone Number [facility] [place] [place] [address] * (ABNORMAL) Albumin (09/26/2024 2:08 PM CDT) [facility] Albumin 2.9(L) 3.5 - 5.0 g/dL Blood 09/26/2024 2:08 PM CDT 09/26/2024 3:25 PM CDT us Stefani Szymanski MD LAB BLOOD ORDERABLES Final Result Performing Organization Address [facility] Co de Phone Number [facility] [place] [address] * eGFR (09/24/2024 10:13 PM CDT) eGFR >90 >=60 mL/min/1. 73 m2 Comment: [...] interpretive data was last reviewed 2021. Blood 09/24/2024 10:1 3 PM CDT 09/24/2024 10:47 PM CDT us Tasia Patel NP LAB BLOOD ORDERABLES Cecille l Result Performing Organization Address City/[facility]/ZIP Co de Phone Number [facility] Department [place] [address] * (ABNORMAL) CBC without differential (09/24/2024 10:13 PM CDT) WBC 9.2 3.8 - 9.9 K/cumm Hgb 8.4(L) 11.9 - 15.5 g/dL [facility] Hct 27.8(L) 35.6 - 45.5 % [facility] Plt 141(L) 150 - 400 K/cumm [facility] MPV 10.2 9.1 - 12.3 fL [facility] RBC 3.13(L) 3.90 - 5.20 M/cumm [facility] MCV 88.8 81.3 - 96.4 fL [facility] MCH 26.8(L) 27.1 - 33.3 pg [facility] MCHC 30.2(L) 32.3 - 35.7 g/dL [facility] RDW CV 15.0(H) 11.1 - 14.9 % [facility] RDW SD 48.5(H) 35.7 - 48.1 fL [facility] NRBC abs 0.00 0.00 - 0.01 K/cumm [facility] Blood 09/24/2024 10:1 3 PM CDT 09/24/2024 10:48 PM CDT Tasia Patel NP LAB BLOOD ORDERABLES Cecille oviedo Result [facility] Department [place] [address] * (ABNORMAL) Basic metabolic panel (09/24/2024 10:13 PM CDT) Pathologist [facility] [place] Sodium 141 135 - 145 mmol/L Potassium, pl 4.3 3.3 - 4.9 mmol/L [facility] Chloride 105 97 - 110 mmol/L [facility] CO2 26 22 - 32 mmol/L [facility] Anion gap 10 2 - 15 mmol/L [facility] BUN 15 6 - 25 mg/dL [facility] Creatinine 0.77 0.60 - 1.10 mg/dL [facility] Glucose 151 70 - 199 mg/dL [facility] Comment: Interpretive Data Fasting glucose >/= [...] 2022. Calcium 8.3(L) 8.5 - 10.3 mg/dL [facility] Blood 09/24/2024 10:1 3 PM CDT 09/24/2024 10:47 PM CDT us Tasia Patel NP LAB BLOOD ORDERABLES Cecille oviedo Result [facility] Department [place] [address] * XR Abdomen Ap 1 Vw (09/24/2024 12:46 PM CDT) Anatomical Region Laterality Modality Body, Abdomen N/A Computed Radiogr aphy 09/24/2024 1:14 PM CDT Impressions 09/24/2024 1:14 PM CDT 5 exposures were obtained to include the abdomen. The left most abdomen soft tissues laterally are not included however this was discussed with the operating room and they confirmed there were satisfied with images obtained. No retained foreign items are identified. Catheter overlies the bladder. Nasogastric tube overlies the stomach. Electronically signed by: Paulina Moreno M.D. Narrative 09/24/2024 1:14 PM CDT EXAMINATION: Abdomen, one view. HISTORY: Wound closure COMPARISON: None Procedure Note Paulina Moreno MD - 09/24/2024 EXAMINATION: Abdomen, one view. HISTORY: Wound closure COMPARISON: None IMPRESSION: 5 exposures were obtained to include the abdomen. The left most abdomen soft tissues laterally are not included however this was discussed with the operating room and they confirmed there were satisfied with images obtained. No retained foreign items are identified. Catheter overlies the bladder. Nasogastric tube overlies the stomach. Electronically signed by: Paulina Moreno M.D. Liliana Culver MD IMG XR PROCEDURES Final Result * HIV 1/2 Antibody plus p24 Antigen Blood (09/24/2024 12:17 PM CDT) Pathologist [facility] [place] HIV 1/2 ab + p24 ag Nonreactive Nonreactive Comment:Nonreactive for HIV- 1 antigen and HIV-1/HIV-2 antibodies. No laboratory evidence of HIV infection. If acute HIV infection is suspected, consider testing for HIV-1 RNA. Current interpretive data was last revised on 22. Blood 09/24/2024 12:1 7 PM CDT 09/24/2024 12:18 PM CDT Ruddy Sheffield MD LAB MICROBIOLOGY - GE NERAL ORDERABLES Final Result Performing Organization Address [facility] Co de Phone Number [facility] Department [place] [address] * Hepatitis C antibody Blood (09/24/2024 12:17 PM CDT) [facility] Hep C Ab Nonreactive Nonreactive Comment:Antibodies to HCV no t detected. Does NOT exclude the possibility of recent exposure to HCV. Current interpretive data was last revised on 22 Blood 09/24/2024 12:1 7 PM CDT 09/24/2024 12:18 PM CDT Ruddy Sheffield MD LAB MICROBIOLOGY - GE NERAL ORDERABLES Final Result [facility] [place] [address] * Hepatitis B Surface Antigen Blood (09/24/2024 12:17 PM CDT) Pathologist [facility] [place] HepBsAg Nonreactive Nonreactive Blood 09/24/2024 12:1 7 PM CDT 09/24/2024 12:18 PM CDT us Ruddy Sheffield MD LAB MICROBIOLOGY - GRETEL CHERRY ORDERABLES Final Result [facility] Department [place] [address] * (ABNORMAL) POC Blood Gas and Chemistries, Arterial - (09/24/2024 10:21 AM CDT) pH, Art POC 7.42 7.35 - 7.45 pCO2, Art POC 37 35 - 45 mmHg [facility] pO2, Art POC 140(H) 83 - 108 mmHg [facility] Na, POC 138 135 - 145 mmol/L [facility] K POC 4.9 3.3 - 4.9 mmol/L [facility] Comment: Interpretive Data Not all point of care methods assess for hemolysis. Confirm with instrument and retest K+ if not consistent with clinical signs and symptoms. Current Interpretive Data was last revised on 2023. Cl, POC 112(H) 97 - 110 mmol/L [facility] Ionized Ca, POC 4.86 4.50 - 5.10 mg/dL [facility] Glucose, POC 168 70 - 199 mg/dL [facility] Lactate, POC 2.6(H) 0.7 - 2.0 mmol/L [facility] SO2 (sheri) arterial 100(H) 90 - 95 % [facility] Base excess, POC -0.3 mmol/L [facility] HCO3, Art POC 24 20 - 30 mmol/L [facility] Hct, POC 32.0(L) 36.3 - 45.3 % [facility] Total Hb, POC 10.6(L) 11.9 - 15.5 g/dL [facility] Blood 09/24/2024 10:2 1 AM CDT 09/24/2024 10:21 AM CDT us Stefani Szymanski MD LAB POCT ORDERABLES - ÁNGELA CE Final Result [place] [address] * Transfuse RBC (09/24/2024 9:52 AM CDT) Blood Suki Ponce MD BLOOD TRANSFUSION ORDERABLE S Final Result Performing Organization Address City/[facility]/ZIP Co de Phone Number [facility] [place] [address] * MA AN PROCEDURE PLACEHOLDER (09/24/2024 9:41 AM CDT) Narrative Roula Bowen CRNA - 09/24/2024 9:41 AM CDT Roula Bowen CRNA 09/24/2024 9:41 AM Arterial Line Patient location: OR Indication: continuous blood pressure monitoring Staff: Placed by: [employer]: Roula Bowen CRNA Procedure prep: Prep solution: povidone-iodine Prep: provider hat/mask and sterile gloves Arterial line: Catheter size: 20 gauge Catheter length: 1 and 3/4 inch Catheter type: wire-guided catheter Seldinger technique: yes Laterality: left Site: radial artery Line secured: tape and Tegaderm Results: good waveform and good blood return Number of attempts: 1 Assessment: Events: patient tolerated procedure well with no complications Suki Ponce MD ANESTHESIA ORDERABLES Final Result * Transfuse RBC (09/24/2024 9:26 AM CDT) Blood Suki Ponce MD BLOOD TRANSFUSION ORDERABLE [place] [address] * Prepare RBC: 2 Units (09/24/2024 8:57 AM CDT) Product code [id number] [facility] Unit Number [id number]- S [facility] Product Blood Type APOS [facility] Dispense Status PRESUMED TRANSFUSED [facility] Product code [id number] Unit Number [id number]- V [facility] Product Blood Type APOS [facility] Dispense Status PRESUMED TRANSFUSED [facility] Blood 09/24/2024 8:57 AM CDT 09/24/2024 8:57 AM CDT Narrative [facility] - 09/25/2024 12:57 AM CDT Are special requirements needed? (All products are leukoreduced and CMV- safe)- >No Date required:-[id number] LRRBC # of [id number] Reasons:-Intra-op transfusion} Suki Ponce MD BLOOD BANK PRODUCT ORDERABL ES Final Result [facility] Department [place] [address] * MA AN PROCEDURE PLACEHOLDER (09/24/2024 8:21 AM CDT) Roula Keith CRNA - 09/24/2024 8:21 AM CDT Roula Bowen CRNA 09/24/2024 8:21 AM Peripheral IV Catheter Patient location: OR Staff: Placed by: BRYSON: Roula Bowen CRNA Preprocedure prep: Prep solution: chlorhexadine PPE: gloves and provider hat/mask PIV line: Laterality: right Site: forearm Catheter size: 18 g Technique: anatomical landmarks and direct visualization Procedure details: good blood return and occlusive dressing applied Number of attempts: 1 Assessment: Events: patient tolerated procedure well with no complications us Suki Ponce MD ANESTHESIA ORDERABLES Final Result * MA AN ELECTIVE ENDOTRACHEAL AIRWAY, MA AN PROCEDURE PLACEHOLDER (09/24/2024 8:21 AM CDT) Roula Keith CRNA - 09/24/2024 8:21 AM CDT Roula Bowen CRNA 09/24/2024 8:21 AM Airway Patient location: OR Urgency: elective Indications for airway management: anesthesia Difficult airway: no Staff: Supervising provider: Suki Ponce MD Placed by: [employer]: Roula Bowen CRNA Emergent airway documentation: Risks and benefits discussed: yes Consent obtained: yes Consent given by: patient Airway prep: Preoxygenated: yes Patient position: sniffing Mask difficulty assessment: 0 - not attempted Spontaneous ventilation during airway: absent Sedation level during airway: GA Final airway details: Final airway type: endotracheal airway Tube type: ETT ETT size: 8.0 mm Cuffed: yes Technique used for successful ETT placement: direct laryngoscopy Devices/Methods used in placement: stylet Insertion site: oral Blade type: Alexys Blade size: 4 Cormack-Lehane (direct): grade I - full view of glottis Cuff inflated with: air ETT to gums: 21 cm Placement verified by: auscultation and CO2 detection Airway secured with: silk tape Number of attempts: 1 Planned trial extubation: yes us Suki Ponce MD ANESTHESIA ORDERABLES Final Result * POCT glucose (09/24/2024 7:02 AM CDT) Pathologist [facility] [place] Glucose, POC 111 70 - 199 mg/dL Blood 09/24/2024 7:02 AM CDT 09/24/2024 7:02 AM CDT us Stefani Szymanski MD LAB POCT ORDERABLES - ÁNGELA CE Final Result [facility] Department [place] [address] * eGFR (09/23/2024 11:14 PM CDT) eGFR 85 >=60 mL/min/1. 73 m2 Comment: Interpretive Data [...] interpretive data was last reviewed 2021. Blood 09/23/2024 11:1 4 PM CDT 09/24/2024 12:05 AM CDT Tasia Patel LAB BLOOD ORDERABLES Cecille l Result Performing Organization Address [facility] Co de Phone Number [facility] [place] [address] * Protime-INR (09/23/2024 11:14 PM CDT) PT 12.0 9.7 - 13.0 sec INR 1.11 0.90 - 1.20 [facility] Comment: Interpretive data Oral anticoagulant therapeutic ranges: Venous thromboembolism prophylaxis or treatment: 2.0-3.0 CARDIOLOGY Standard range: 2.0-3.0 High-intensity range: 2.5-3.5 Refer to indication-specific guidelines for appropriate target ranges for prosthetic heart valve replacement. Current interpretive data was last revised on 2019. Blood 09/23/2024 11:1 4 PM CDT 09/24/2024 12:13 AM CDT Tasia Patel WAREHOUSE ANALYST LAB BLOOD ORDERABLES Cecille l Result Performing Organization Address [facility] Co de Phone Number [facility] [place] [address] * (ABNORMAL) CBC without differential (09/23/2024 11:14 PM CDT) WBC 3.6(L) 3.8 - 9.9 K/cumm Hgb 7.7(L) 11.9 - 15.5 g/dL [facility] Hct 25.9(L) 35.6 - 45.5 % [facility] Plt 140(L) 150 - 400 K/cumm [facility] MPV 10.7 9.1 - 12.3 fL [facility] RBC 2.95(L) 3.90 - 5.20 M/cumm [facility] MCV 87.8 81.3 - 96.4 fL [facility] MCH 26.1(L) 27.1 - 33.3 pg [facility] MCHC 29.7(L) 32.3 - 35.7 g/dL [facility] RDW CV 15.1(H) 11.1 - 14.9 % [facility] RDW SD 48.6(H) 35.7 - 48.1 fL [facility] NRBC abs 0.00 0.00 - 0.01 K/cumm [facility] Blood 09/23/2024 11:1 4 PM CDT 09/24/2024 12:06 AM CDT Tasia Patel WAREHOUSE ANALYST LAB BLOOD ORDERABLES Cecille l Result Performing Organization Address City/[facility]/ZIP Co de Phone Number [facility] [place] [address] * Type and screen (09/23/2024 11:14 PM CDT) Thompson, indirect Negative ABO Rh A Positive [facility] Blood 09/23/2024 11:1 4 PM CDT 09/24/2024 12:44 AM CDT Narrative [facility] - 09/24/2024 2:00 AM CDT Has the patient had Daratumumab or Isatuximab in the past 6 months?->Unknown Tasia Patel WAREHOUSE ANALYST LAB BLOOD BANK TEST ORDER BRIANNA Final Result Performing Organization Address City/[facility]/ZIP Co de Phone Number [facility] [place] [address] * Basic metabolic panel (09/23/2024 11:14 PM CDT) Sodium 141 135 - 145 mmol/L Potassium, pl 3.8 3.3 - 4.9 mmol/L [facility] Chloride 106 97 - 110 mmol/L [facility] CO2 26 22 - 32 mmol/L [facility] Anion gap 9 2 - 15 mmol/L [facility] BUN 19 6 - 25 mg/dL [facility] Creatinine 0.89 0.60 - 1.10 mg/dL [facility] Glucose 121 70 - 199 mg/dL [facility] Comment: Interpretive Data Fasting glucose >/= [...] interpretive data was last revised 2022. Calcium 8.6 8.5 - 10.3 mg/dL [facility] Blood 09/23/2024 11:1 4 PM CDT 09/24/2024 12:05 AM CDT us Tasia Patel WAREHOUSE ANALYST LAB BLOOD ORDERABLES Cecille oviedo Result [facility] Department [place] [address] * (ABNORMAL) Prealbumin (09/23/2024 10:27 AM CDT) Prealbumin 19.0(L) 20.0 - 40.0 mg/dL Blood 09/23/2024 10:2 7 AM CDT 09/23/2024 10:56 AM CDT us Celi Hoskins WAREHOUSE ANALYST LAB BLOOD ORDERABLES Final Res ult Performing Organization Address City/[facility]/ZIP Co de Phone Number [facility] [place] [address] * Albumin (09/23/2024 10:27 AM CDT) Albumin 3.6 3.5 - 5.0 g/dL Blood 09/23/2024 10:2 7 AM CDT 09/23/2024 10:56 AM CDT Celi Ricco Hoskins WAREHOUSE ANALYST LAB BLOOD ORDERABLES Final Res ult Performing Organization Address [facility] [place] [address] * (ABNORMAL) Urinalysis reflex to microscopic and culture Urine, clean voided (09/21/2024 12:36 PM CDT) Color, ur Yellow Yellow Clarity, ur Clear Clear [facility] Specific gravity, ur 1.031(H) 1.003 - 1.030 [facility] pH, urine 6.0 [facility] Comment: Interpretive Data U rine pH is affected by diet, medications, systemic acid-base disturbances, and renal tubular function. pH may affect urinary stone formation. For example, urine pH below 6.0 may help reduce the tendency for calcium phosphate stones and pH greater than 6.0 may reduce the tendency for uric acid stone formation. Source: [facility] [employer] Current Interpretive Data was last revised on 2017 Protein, ur ql 1+(A) Negative [facility] Glucose, ur ql Negative Negative [facility] Ketones, ur Negative Negative [facility] Bilirubin, ur Negative Negative [facility] Blood, ur Negative Negative [facility] Urobilinogen, ur <2.0 <2.0 mg/dL [facility] Nitrite, ur Negative Negative [facility] Leukocyte esterase, ur 2+(A) Negative [facility] UA reflex comment Reflex to microscopic UA will be performed. [facility] Urine, clean voided 09/21/2024 12:36 PM CDT 09/21/2024 1:17 PM CDT us Isabel Huerta WAREHOUSE ANALYST LAB MICROBIOLOGY - GENERAL ORD ERABLES Final Result Performing Organization Address [facility] Co de Phone Number [facility] Department [place] [address] * (ABNORMAL) Urinalysis, microscopic only (09/21/2024 12:36 PM CDT) WBC, ur 21-50(A) 0 - 5 /HPF RBC, ur 6-10(A) 0 - 2 /HPF [facility] Epithelial cells, squamous, ur 1-5 0 - 5 /HPF [facility] Bacteria, ur 2+(A) [facility] Yeast, ur TRACE [facility] Mucous, ur Present(A) [facility] Culture Reflex Comment Reflex to urine culture will be performed. [facility] Urine, clean voided 09/21/2024 12:36 PM CDT 09/21/2024 1:17 PM CDT us Isabel Huerta WAREHOUSE ANALYST LAB URINE ORDERABLES Final Res ult Performing Organization Address [facility] Co de Phone Number [facility] Department [place] [address] * Urine culture Urine, clean voided (09/21/2024 12:36 PM CDT) Report Final Report: Less than 100,000 colonies/mL (clinically insignificant growth based on current clinical standards) Organism (CLINICALLY INSIGNIFICANT GROWTH [facility] Urine, clean voided 09/21/2024 12:36 PM CDT 09/21/2024 3:37 PM CDT Narrative [facility] - 09/22/2024 5:34 PM CDT Urine culture reflexed based upon urinalysis results. Testing performed by [facility] ([phone]) Isabel Huerta WAREHOUSE ANALYST LAB MICROBIOLOGY - GENERAL ORD ERABLES Final Result [facility] [place] [address] * (ABNORMAL) Prealbumin (09/20/2024 9:04 PM CDT) Prealbumin 19.0(L) 20.0 - 40.0 mg/dL Blood 09/20/2024 9:04 PM CDT 09/20/2024 9:51 PM CDT Tasia Patel WAREHOUSE ANALYST LAB BLOOD ORDERABLES Cecille l Result Performing Organization Address [facility] Co de Phone Number [facility] [place] [address] * (ABNORMAL) Urinalysis reflex to microscopic (09/18/2024 10:54 PM CDT) Color, ur Yellow Yellow Clarity, ur Clear Clear [facility] Specific gravity, ur 1.009 1.003 - 1.030 [facility] pH, urine 6.0 [facility] Comment: Interpretive Data U rine pH is affected by diet, medications, systemic acid-base disturbances, and renal tubular function. pH may affect urinary stone formation. For example, urine pH below 6.0 may help reduce the tendency for calcium phosphate stones and pH greater than 6.0 may reduce the tendency for uric acid stone formation. Source: [facility] [employer] Current Interpretive Data was last revised on 2017 Protein, ur ql Negative Negative [facility] Glucose, ur ql Negative Negative [facility] Ketones, ur Negative Negative [facility] Bilirubin, ur Negative Negative [facility] Blood, ur Negative Negative [facility] Urobilinogen, ur <2.0 <2.0 mg/dL [facility] Nitrite, ur Positive(A) Negative [facility] Leukocyte esterase, ur Negative Negative [facility] UA reflex comment Reflex to microscopic UA will be performed. [facility] Urine, clean voided 09/18/2024 10:54 PM CDT 09/18/2024 11:48 PM CDT Stefani Szymanski MD LAB URINE ORDERABLES Final Result Performing Organization Address [facility] de Phone Number [facility] Department [place] [address] * (ABNORMAL) Urinalysis, microscopic only (09/18/2024 10:54 PM CDT) WBC, ur 0-5 0 - 5 /HPF RBC, ur 0-2 0 - 2 /HPF [facility] Bacteria, ur Trace(A) [facility] Urine, clean voided 09/18/2024 10:54 PM CDT 09/18/2024 11:48 PM CDT Stefani Szymanski MD LAB URINE ORDERABLES Final Result Performing Organization Address [facility] de Phone Number [facility] Department [place] [address] * Zinc (09/16/2024 9:17 AM CDT) Zinc 78 60 - 106 mcg/dL [facility] Comment: ADDITIONAL INFORMATION This test was developed and its performance characteristics determined by [facility] in a manner consistent with CLIA requirements. This test has not been cleared or approved by the U.S. Food and Drug Administration. Test Performed by: [facility] [place] [address] Acid Retort Operator: Nakia Almanzar Ph.D.; CLIA# [id number] Blood 09/16/2024 9:17 AM CDT 09/16/2024 10:17 AM CDT Tasia Patel NP LAB BLOOD ORDERABLES Cecille l Result Performing Organization Address [facility] Co de Phone Number [facility] Department [place] [address] [facility] * Vitamin C (09/16/2024 9:17 AM CDT) Ascorbic acid (Vit C) 0.7 0.4 - 2.0 mg/dL [facility] Comment: ADDITIONAL INFORMATION This test was developed and its performance characteristics determined by [facility] in a manner consistent with CLIA requirements. This test has not been cleared or approved by the U.S. Food and Drug Administration. Test Performed by: [place] [address] Acid Retort Operator: Nakia Almanzar Ph.D.; CLIA# [id number] Blood 09/16/2024 9:17 AM CDT 09/16/2024 10:17 AM CDT us Tasia Patel NP LAB BLOOD ORDERABLES Cecille l Result Performing Organization Address [facility] Co de Phone Number [facility] Department [place] [address] [facility] * CT Abdomen Pelvis W Contrast (09/14/2024 10:56 AM CDT) Anatomical Region Laterality Modality Body N/A Computed Tomogra phy 09/14/2024 11:2 1 AM CDT Impressions 09/14/2024 11:21 AM CDT Changes of abdominal perineal resection with residual fluid in the resection area. The amount of fluid and gas has slightly decreased compared to the prior examination of 08/26/2024. New locules of soft tissue gas in the right buttock, which could conceivably represent early changes of necrotizing fasciitis. This finding has been discussed with the clinical team. Electronically signed by: Hunter Andrew M.D. Narrative 09/14/2024 11:21 AM CDT EXAMINATION: Computed tomography of the abdomen and pelvis with intravenous contrast material. 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 TECHNIQUE: Computed tomography of the abdomen and pelvis was performed after the administration of 92 mL of Optiray 350 following standard technique. FINDINGS:. Comparison is made to a CT scan dated 08/26/2024. Lower chest:. The patient has a port in place, distal tip in the right atrium. Bibasilar atelectatic changes, left greater than right are again identified, more prominent than on the prior examination. There is no pneumothorax. No suspicious pulmonary nodules. There is no pericardial effusion. There is no pleural effusion. ABDOMEN:. Some steatosis of the liver is seen. Gallbladder is present and is normal. There is mild splenomegaly. The pancreas is normal. Normal adrenal glands and kidneys bilaterally. Noted again are changes of abdominoperineal resection and left upper quadrant and colostomy. Some fat stranding is seen along the subcutaneous tract of the colostomy similar to the prior examination. Stomach and small bowel appear normal. Pelvis:. Changes of abdominoperineal resection are again identified. The urinary bladder is normal. There is a Monk catheter in the bladder. Stranding is noted in the lower pelvis, with small amount of fluid and gas tracking from the surgical resection to the gluteal cleft. The amount of fluid and gas in the postoperative region has slightly decreased. However, there is a new area of locules of gas in the right gluteal region, centered around table position 474.2. This could conceivably represent early necrotizing fasciitis. Clinical correlation is strongly recommended. I have discussed this finding and the possibility of necrotizing fasciitis with Dr. Smith on 09/14/2024 11:15 AM. Procedure Note Hunter Andrew MD - 09/14/2024 EXAMINATION: Computed tomography of the abdomen and pelvis with intravenous contrast material. 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 TECHNIQUE: Computed tomography of the abdomen and pelvis was performed after the administration of 92 mL of Optiray 350 following standard technique. FINDINGS:. Comparison is made to a CT scan dated 08/26/2024. Lower chest:. The patient has a port in place, distal tip in the right atrium. Bibasilar atelectatic changes, left greater than right are again identified, more prominent than on the prior examination. There is no pneumothorax. No suspicious pulmonary nodules. There is no pericardial effusion. There is no pleural effusion. ABDOMEN:. Some steatosis of the liver is seen. Gallbladder is present and is normal. There is mild splenomegaly. The pancreas is normal. Normal adrenal glands and kidneys bilaterally. Noted again are changes of abdominoperineal resection and left upper quadrant and colostomy. Some fat stranding is seen along the subcutaneous tract of the colostomy similar to the prior examination. Stomach and small bowel appear normal. Pelvis:. Changes of abdominoperineal resection are again identified. The urinary bladder is normal. There is a Monk catheter in the bladder. Stranding is noted in the lower pelvis, with small amount of fluid and gas tracking from the surgical resection to the gluteal cleft. The amount of fluid and gas in the postoperative region has slightly decreased. However, there is a new area of locules of gas in the right gluteal region, centered around table position 474.2. This could conceivably represent early necrotizing fasciitis. Clinical correlation is strongly recommended. I have discussed this finding and the possibility of necrotizing fasciitis with Dr. Smith on 09/14/2024 11:15 AM. IMPRESSION: Changes of abdominal perineal resection with residual fluid in the resection area. The amount of fluid and gas has slightly decreased compared to the prior examination of 08/26/2024. New locules of soft tissue gas in the right buttock, which could conceivably represent early changes of necrotizing fasciitis. This finding has been discussed with the clinical team. Electronically signed by: Hunter Andrew M.D. us Stefani Szymanski MD IMG CT PROCEDURES Final Re sult * ECG 12 lead (09/13/2024 11:31 PM CDT) Ventricular Rate EKG/Min 97 BPM [facility] Atrial Rate 97 BPM [facility] MA-Interval (MSEC) 148 ms [facility] QRS-Interval (MSEC) 78 ms [facility] QT-Interval (MSEC) 368 ms [facility] QTc 467 ms [facility] P Omro 52 degrees [facility] R Omro 31 degrees [facility] T Omro 34 degrees [facility] Diagnosis Normal sinus rhythm Normal ECG No previous ECGs available Confirmed by KRISSY WELLER M.D ([id number]) on 09/14/2024 3:46:25 PM [facility] 09/13/2024 11:3 1 PM CDT 09/14/2024 3:46 PM CDT us Stefani Szymanski MD ECG ORDERABLES Final Resu lt [facility] * Troponin I high-sensitivity (09/13/2024 11:30 PM CDT) Trop I hs <4 <=17 ng/L Comment: Interpretive Data For further hscTnI resources including the diagnostic algorithm and an aid in interpretation, copy and paste this link: [email or web address].testcatalog.org/show/[email or web address] Current Interpretive Data last revised 2020. Blood 09/13/2024 11:3 0 PM CDT 09/13/2024 11:51 PM CDT us Stefani Szymanski MD LAB BLOOD ORDERABLES Final Result Performing Organization Address [facility]/ZIP Co de Phone Number [facility] Department [place] [address] * Lactate (09/13/2024 11:30 PM CDT) Lactate 1.4 0.7 - 2.0 mmol/L Blood 09/13/2024 11:3 0 PM CDT 09/13/2024 11:49 PM CDT Stefani Szymanski MD LAB BLOOD ORDERABLES Final Result Performing Organization Address City/[facility]/ZIP Co de Phone Number [facility] Department [place] [address] * eGFR (09/13/2024 11:30 PM CDT) [facility] eGFR >90 >=60 mL/min/1. 73 m2 [...] interpretive data was last reviewed 2021. Blood 09/13/2024 11:3 0 PM CDT 09/13/2024 11:49 PM CDT us Stefani Szymanski MD LAB BLOOD ORDERABLES Final Result [facility] Department [place] [address] * (ABNORMAL) CBC without differential (09/13/2024 11:30 PM CDT) [facility] WBC 5.2 3.8 - 9.9 K/cumm Hgb 8.2(L) 11.9 - 15.5 g/dL [facility] Hct 26.6(L) 35.6 - 45.5 % [facility] Plt 147(L) 150 - 400 K/cumm [facility] MPV 10.0 9.1 - 12.3 fL [facility] RBC 2.97(L) 3.90 - 5.20 M/cumm [facility] MCV 89.6 81.3 - 96.4 fL [facility] MCH 27.6 27.1 - 33.3 pg [facility] MCHC 30.8(L) 32.3 - 35.7 g/dL [facility] RDW CV 15.1(H) 11.1 - 14.9 % [facility] RDW SD 48.7(H) 35.7 - 48.1 fL [facility] NRBC abs 0.00 0.00 - 0.01 K/cumm [facility] Blood 09/13/2024 11:3 0 PM CDT 09/13/2024 11:51 PM CDT Celi Hoskins NP LAB BLOOD ORDERABLES Final Res ult [facility] Department [place] [address] * (ABNORMAL) Prealbumin (09/13/2024 11:30 PM CDT) Pathologist [facility] [place] Prealbumin 17.0(L) 20.0 - 40.0 mg/dL Blood 09/13/2024 11:3 0 PM CDT 09/13/2024 11:50 PM CDT us Stefani Szymanski MD LAB BLOOD ORDERABLES Final Result [facility] Department [place] [address] * (ABNORMAL) Comprehensive metabolic panel (09/13/2024 11:30 PM CDT) Sodium 142 135 - 145 mmol/L Potassium, pl 3.7 3.3 - 4.9 mmol/L [facility] Chloride 108 97 - 110 mmol/L [facility] CO2 28 22 - 32 mmol/L [facility] Anion gap 6 2 - 15 mmol/L [facility] BUN 12 6 - 25 mg/dL [facility] Creatinine 0.74 0.60 - 1.10 mg/dL [facility] Glucose 124 70 - 199 mg/dL [facility] Comment: Interpretive Data Fasting glucose >/= [...] interpretive data was last revised 2022. Calcium 8.6 8.5 - 10.3 mg/dL [facility] Bilirubin, total 0.3 0.1 - 1.2 mg/dL [facility] Protein, pl 6.2(L) 6.5 - 8.5 g/dL [facility] Albumin 3.4(L) 3.5 - 5.0 g/dL [facility] Alk phos 133(H) 40 - 130 Units/L [facility] ALT 18 7 - 45 Units/L [facility] Comment:Repeated and Verifie d AST 20 10 - 45 Units/L [facility] Comment:Repeated and Verifie d Blood 09/13/2024 11:3 0 PM CDT 09/13/2024 11:49 PM CDT us Stefani Szymanski MD LAB BLOOD ORDERABLES Final Result Performing Organization Address City/[facility]/ZIP Co de Phone Number [facility] Department [place] [address] * POCT glucose (09/13/2024 5:28 PM CDT) [facility] Glucose, POC 130 70 - 199 mg/dL Blood 09/13/2024 5:28 PM CDT 09/13/2024 5:28 PM CDT us Stefani Szymanski MD LAB POCT ORDERABLES - ÁNGELA CE Final Result Performing Organization Address City/[facility]/ZIP Co de Phone Number [facility] Department [place] [address] * POCT glucose (09/13/2024 4:51 PM CDT) Glucose, POC 109 70 - 199 mg/dL Blood 09/13/2024 4:51 PM CDT 09/13/2024 4:51 PM CDT Stefani Szymanski MD LAB POCT ORDERABLES - ÁNGELA CE Final Result Performing Organization Address [facility] Co de Phone Number [facility] [place] [address] * Peripheral IV Catheter (09/13/2024 4:30 PM CDT) Narrative Javy Pierce DO - 09/13/2024 4:30 PM CDT Javy Pierce DO 09/13/2024 4:30 PM Peripheral IV Catheter Patient location: OR Staff: Placed by: Resident: Javy Pierce DO Preprocedure prep: Prep solution: alcohol PPE: gloves and provider hat/mask PIV line: Laterality: left Site: forearm Catheter size: 20 g Technique: anatomical landmarks and direct visualization Procedure details: good blood return and occlusive dressing applied Number of attempts: 2 Assessment: Events: patient tolerated procedure well with no complications us Dar Sharma MD ANESTHESIA ORDERABLES Final Result * Airway (09/13/2024 4:29 PM CDT) Narrative Javy Pierce DO - 09/13/2024 4:29 PM CDT Javy Pierec DO 09/13/2024 4:30 PM Airway Patient location: OR Urgency: elective Indications for airway management: anesthesia Difficult airway: no Staff: Supervising provider: Dar Sharma MD Placed by: Resident: Javy Pierce DO Emergent airway documentation: Risks and benefits discussed: [...] placement: video laryngoscopy Devices/Methods used in placement: cricoid pressure Insertion site: oral Blade type: Alexys Video blade type: Luna Blade size: 3 Cormack-Lehane (video): grade I - full view of glottis Cuff inflated with: air ETT to lips: 25 cm Placement verified by: auscultation and CO2 detection Airway secured with: silk tape Number of attempts: 1 us Dar Sharma MD ANESTHESIA ORDERABLES Final Result * POCT glucose (09/13/2024 2:13 PM CDT) Glucose, POC 102 70 - 199 mg/dL Blood 09/13/2024 2:13 PM CDT 09/13/2024 2:13 PM CDT us Stefani Szymanski MD LAB POCT ORDERABLES - ÁNGELA CE Final Result [facility] Department [place] [address] * eGFR (09/13/2024 9:37 AM CDT) eGFR >90 >=60 mL/min/1. 73 m2 Comment: [...] interpretive data was last reviewed 2021. Blood 09/13/2024 9:37 AM CDT 09/13/2024 10:06 AM CDT Celi Hoskins WAREHOUSE ANALYST LAB BLOOD ORDERABLES Final Res ult Performing Organization Address [facility] Co de Phone Number [facility] [place] [employer] [address] * aPTT (09/13/2024 9:37 AM CDT) aPTT 33 28 - 38 sec Comment: Interpretive Data Heparin therapeutic range: 66.0 - 100.0 seconds. Range based on correlation with therapeutic heparin activity range of 0.3 - 0.7 Units/mL. Current interpretive data was last revised on 2023. Blood 09/13/2024 9:37 AM CDT 09/13/2024 10:03 AM CDT Celi Hoskins WAREHOUSE ANALYST LAB BLOOD ORDERABLES Final Res ult Performing Organization Address [facility] [place] [address] * (ABNORMAL) Protime-INR (09/13/2024 9:37 AM CDT) PT 13.2(H) 9.7 - 13.0 sec INR 1.22(H) 0.90 - 1.20 [facility] Comment: Interpretive data Oral anticoagulant therapeutic ranges: Venous thromboembolism prophylaxis or treatment: 2.0-3.0 CARDIOLOGY Standard range: 2.0-3.0 High-intensity range: 2.5-3.5 Refer to indication-specific guidelines for appropriate target ranges for prosthetic heart valve replacement. Current interpretive data was last revised on 2019. Blood 09/13/2024 9:37 AM CDT 09/13/2024 10:03 AM CDT Celi Hoskins WAREHOUSE ANALYST LAB BLOOD ORDERABLES Final Res ult [facility] Department [place] [address] * (ABNORMAL) CBC without differential (09/13/2024 9:37 AM CDT) WBC 3.5(L) 3.8 - 9.9 K/cumm Hgb 8.4(L) 11.9 - 15.5 g/dL [facility] Hct 28.1(L) 35.6 - 45.5 % [facility] Plt 155 150 - 400 K/cumm [facility] MPV 9.8 9.1 - 12.3 fL [facility] RBC 3.12(L) 3.90 - 5.20 M/cumm [facility] MCV 90.1 81.3 - 96.4 fL [facility] MCH 26.9(L) 27.1 - 33.3 pg [facility] MCHC 29.9(L) 32.3 - 35.7 g/dL [facility] RDW CV 15.0(H) 11.1 - 14.9 % [facility] RDW SD 49.5(H) 35.7 - 48.1 fL [facility] NRBC abs 0.00 0.00 - 0.01 K/cumm [facility] Blood 09/13/2024 9:37 AM CDT 09/13/2024 10:07 AM CDT us Celi Hoskins WAREHOUSE ANALYST LAB BLOOD ORDERABLES Final Res ult [facility] [place] [address] * Type and screen (09/13/2024 9:37 AM CDT) Thompson, indirect Negative ABO Rh A Positive [facility] Blood 09/13/2024 9:37 AM CDT 09/13/2024 10:12 AM CDT Narrative [facility] - 09/13/2024 11:09 AM CDT Has the patient had Daratumumab or Isatuximab in the past 6 months?->Unknown Celi Hoskins NP LAB BLOOD BANK TEST ORDERABLES Final Result [facility] Department [place] [address] * Basic metabolic panel (09/13/2024 9:37 AM CDT) [facility] Sodium 143 135 - 145 mmol/L Potassium, pl 4.2 3.3 - 4.9 mmol/L [facility] Chloride 108 97 - 110 mmol/L [facility] CO2 26 22 - 32 mmol/L [facility] Anion gap 9 2 - 15 mmol/L [facility] BUN 17 6 - 25 mg/dL [facility] Creatinine 0.64 0.60 - 1.10 mg/dL [facility] Glucose 97 70 - 199 mg/dL [facility] Comment: Interpretive Data Fasting glucose >/= [...] interpretive data was last revised 2022. Calcium 8.9 8.5 - 10.3 mg/dL [facility] Blood 09/13/2024 9:37 AM CDT 09/13/2024 10:06 AM CDT Celi Hoskins WAREHOUSE ANALYST LAB BLOOD ORDERABLES Final Res ult Performing Organization Address City/[facility]/ZIP Co de Phone Number [facility] Department [place] [address] * XR Chest 1 View (09/03/2024 1:05 AM FOOD SERVICES DIRECTOR) Anatomical Region Laterality Modality Body, Chest N/A Computed Radiogr aphy 09/03/2024 7:13 AM FOOD SERVICES DIRECTOR Impressions 09/03/2024 7:13 AM FOOD SERVICES DIRECTOR Comparison 08/26/2024. Right chest wall port catheter tip is in the superior vena cava. Clear lungs. No consolidation pleural effusion or pneumothorax. The heart size is unchanged. Electronically signed by: Hilario Cintron M.D. Narrative 09/03/2024 7:13 AM FOOD SERVICES DIRECTOR EXAMINATION: 1 view chest radiograph Procedure Note Hilario Cintron MD - 09/03/2024 EXAMINATION: 1 view chest radiograph IMPRESSION: Comparison 08/26/2024. Right chest wall port catheter tip is in the superior vena cava. Clear lungs. No consolidation pleural effusion or pneumothorax. The heart size is unchanged. Electronically signed by: Hilario Cintron M.D. us Stefani Szymanski MD IMG XR PROCEDURES Final Re sult * eGFR (09/03/2024 12:42 AM FOOD SERVICES DIRECTOR) eGFR >90 >=60 mL/min/1. 73 m2 Comment: [...] interpretive data was last reviewed 2021. Blood 09/03/2024 12:4 2 AM FOOD SERVICES DIRECTOR 09/03/2024 1:17 AM FOOD SERVICES DIRECTOR us Stefani Szymanski MD LAB BLOOD ORDERABLES Final Result [facility] [place] [address] * (ABNORMAL) CBC without differential (09/03/2024 12:42 AM FOOD SERVICES DIRECTOR) WBC 4.6 3.8 - 9.9 K/cumm Hgb 8.1(L) 11.9 - 15.5 g/dL [facility] Hct 26.8(L) 35.6 - 45.5 % [facility] Plt 160 150 - 400 K/cumm [facility] MPV 10.0 9.1 - 12.3 fL [facility] RBC 2.87(L) 3.90 - 5.20 M/cumm [facility] MCV 93.4 81.3 - 96.4 fL [facility] MCH 28.2 27.1 - 33.3 pg [facility] MCHC 30.2(L) 32.3 - 35.7 g/dL [facility] RDW CV 15.8(H) 11.1 - 14.9 % [facility] RDW SD 53.6(H) 35.7 - 48.1 fL [facility] NRBC abs 0.00 0.00 - 0.01 K/cumm [facility] Blood 09/03/2024 12:4 2 AM FOOD SERVICES DIRECTOR 09/03/2024 1:17 AM FOOD SERVICES DIRECTOR us Stefani Szymanski MD LAB BLOOD ORDERABLES Final Result [facility] [place] [address] * Basic metabolic panel (09/03/2024 12:42 AM FOOD SERVICES DIRECTOR) Pathologist [facility] [place] Sodium 141 135 - 145 mmol/L Potassium, pl 3.7 3.3 - 4.9 mmol/L [facility] Chloride 105 97 - 110 mmol/L [facility] CO2 27 22 - 32 mmol/L [facility] Anion gap 9 2 - 15 mmol/L [facility] BUN 14 6 - 25 mg/dL [facility] Creatinine 0.73 0.60 - 1.10 mg/dL [facility] Glucose 105 70 - 199 mg/dL [facility] Comment: Interpretive Data Fasting glucose >/= [...] interpretive data was last revised 2022. Calcium 8.8 8.5 - 10.3 mg/dL [facility] Blood 09/03/2024 12:4 2 AM FOOD SERVICES DIRECTOR 09/03/2024 1:17 AM FOOD SERVICES DIRECTOR us Stefani Szymanski MD LAB BLOOD ORDERABLES Final Result [facility] Department [place] [address] * eGFR (08/28/2024 10:33 PM FOOD SERVICES DIRECTOR) Pathologist [facility] [place] eGFR >90 [...] interpretive data was last reviewed 2021. Blood 08/28/2024 10:3 3 PM FOOD SERVICES DIRECTOR 08/28/2024 10:50 PM FOOD SERVICES DIRECTOR us Jose Rockwell MD LAB BLOOD ORDERABLES Fi nal Result [facility] Department [place] [address] * (ABNORMAL) CBC without differential (08/28/2024 10:33 PM FOOD SERVICES DIRECTOR) WBC 4.1 3.8 - 9.9 K/cumm Hgb 8.4(L) 11.9 - 15.5 g/dL [facility] Hct 26.9(L) 35.6 - 45.5 % [facility] Plt 171 150 - 400 K/cumm [facility] MPV 9.9 9.1 - 12.3 fL [facility] RBC 2.88(L) 3.90 - 5.20 M/cumm [facility] MCV 93.4 81.3 - 96.4 fL [facility] MCH 29.2 27.1 - 33.3 pg [facility] MCHC 31.2(L) 32.3 - 35.7 g/dL [facility] RDW CV 16.4(H) 11.1 - 14.9 % [facility] RDW SD 55.2(H) 35.7 - 48.1 fL [facility] NRBC abs 0.00 0.00 - 0.01 K/cumm [facility] Blood 08/28/2024 10:3 3 PM FOOD SERVICES DIRECTOR 08/28/2024 10:50 PM FOOD SERVICES DIRECTOR Jose Rockwell MD LAB BLOOD ORDERABLES Fi nal Result Performing Organization Address City/[facility]/ZIP Co de Phone Number [facility] [place] [address] * Phosphorus (08/28/2024 10:33 PM FOOD SERVICES DIRECTOR) [facility] Phosphorus, pl 3.1 2.3 - 4.5 mg/dL Blood 08/28/2024 10:3 3 PM FOOD SERVICES DIRECTOR 08/28/2024 10:50 PM FOOD SERVICES DIRECTOR Jose Rockwell MD LAB BLOOD ORDERABLES Fi nal Result Performing Organization Address [facility] de Phone Number [facility] [place] [address] * Magnesium (08/28/2024 10:33 PM FOOD SERVICES DIRECTOR) [facility] Magnesium 2.0 1.4 - 2.5 mg/dL Blood 08/28/2024 10:3 3 PM FOOD SERVICES DIRECTOR 08/28/2024 10:50 PM FOOD SERVICES DIRECTOR Jose Rockwell MD LAB BLOOD ORDERABLES Fi nal Result Performing Organization Address [facility] de Phone Number [facility] [place] [address] * Basic metabolic panel (08/28/2024 10:33 PM FOOD SERVICES DIRECTOR) Pathologist [facility] [place] Sodium 140 135 - 145 mmol/L Potassium, pl 4.1 3.3 - 4.9 mmol/L [facility] Chloride 107 97 - 110 mmol/L [facility] CO2 27 22 - 32 mmol/L [facility] Anion gap 6 2 - 15 mmol/L [facility] BUN 18 6 - 25 mg/dL [facility] Creatinine 0.65 0.60 - 1.10 mg/dL [facility] Glucose 117 70 - 199 mg/dL [facility] Comment: Interpretive Data Fasting glucose >/= [...] interpretive data was last revised 2022. Calcium 8.6 8.5 - 10.3 mg/dL [facility] Blood 08/28/2024 10:3 3 PM FOOD SERVICES DIRECTOR 08/28/2024 10:50 PM FOOD SERVICES DIRECTOR us Jose Rockwell MD LAB BLOOD ORDERABLES Fi nal Result [facility] Department [place] [address] * eGFR (08/27/2024 10:33 PM FOOD SERVICES DIRECTOR) eGFR >90 >=60 mL/min/1. 73 m2 Comment: [...] interpretive data was last reviewed 2021. Blood 08/27/2024 10:3 3 PM FOOD SERVICES DIRECTOR 08/27/2024 11:12 PM FOOD SERVICES DIRECTOR Jose Rockwell MD LAB BLOOD ORDERABLES Fi nal Result Performing Organization Address City/[facility]/ZIP Co de Phone Number [facility] [place] [address] * (ABNORMAL) CBC without differential (08/27/2024 10:33 PM FOOD SERVICES DIRECTOR) WBC 4.1 3.8 - 9.9 K/cumm Hgb 8.6(L) 11.9 - 15.5 g/dL [facility] Hct 27.8(L) 35.6 - 45.5 % [facility] Plt 194 150 - 400 K/cumm [facility] MPV 9.9 9.1 - 12.3 fL [facility] RBC 2.99(L) 3.90 - 5.20 M/cumm [facility] MCV 93.0 81.3 - 96.4 fL [facility] MCH 28.8 27.1 - 33.3 pg [facility] MCHC 30.9(L) 32.3 - 35.7 g/dL [facility] RDW CV 16.7(H) 11.1 - 14.9 % [facility] RDW SD 56.1(H) 35.7 - 48.1 fL [facility] NRBC abs 0.00 0.00 - 0.01 K/cumm [facility] Blood 08/27/2024 10:3 3 PM FOOD SERVICES DIRECTOR 08/27/2024 11:12 PM FOOD SERVICES DIRECTOR Jose Rockwell MD LAB BLOOD ORDERABLES Fi nal Result [facility] [place] [address] * Phosphorus (08/27/2024 10:33 PM FOOD SERVICES DIRECTOR) Phosphorus, pl 3.4 2.3 - 4.5 mg/dL Blood 08/27/2024 10:3 3 PM FOOD SERVICES DIRECTOR 08/27/2024 11:12 PM FOOD SERVICES DIRECTOR us Jose Rockwell MD LAB BLOOD ORDERABLES Fi nal Result Performing Organization Address City/[facility] Co de Phone Number [facility] [place] [address] * Magnesium (08/27/2024 10:33 PM FOOD SERVICES DIRECTOR) Pathologist [facility] [place] Magnesium 2.1 1.4 - 2.5 mg/dL Blood 08/27/2024 10:3 3 PM FOOD SERVICES DIRECTOR 08/27/2024 11:12 PM FOOD SERVICES DIRECTOR Jose Rockwell MD LAB BLOOD ORDERABLES Fi nal Result Performing Organization Address [facility] de Phone Number [facility] Department [place] [address] * Basic metabolic panel (08/27/2024 10:33 PM FOOD SERVICES DIRECTOR) [facility] Sodium 139 135 - 145 mmol/L Potassium, pl 4.2 3.3 - 4.9 mmol/L [facility] Comment:Repeated and Verifie d Chloride 103 97 - 110 mmol/L [facility] CO2 27 22 - 32 mmol/L [facility] Anion gap 9 2 - 15 mmol/L [facility] BUN 16 6 - 25 mg/dL [facility] Creatinine 0.82 0.60 - 1.10 mg/dL [facility] Glucose 118 70 - 199 mg/dL [facility] Comment: Interpretive Data Fasting glucose >/= [...] interpretive data was last revised 2022. Calcium 8.6 8.5 - 10.3 mg/dL [facility] Blood 08/27/2024 10:3 3 PM FOOD SERVICES DIRECTOR 08/27/2024 11:12 PM FOOD SERVICES DIRECTOR us Jose Rockwell MD LAB BLOOD ORDERABLES Fi nal Result Performing Organization Address [facility]/ZIP Co de Phone Number [facility] Department [place] [address] * POCT lactate (08/26/2024 7:18 PM FOOD SERVICES DIRECTOR) Lactate POC i-STAT 0.8 0.7 - 2.0 mmol/L Blood 08/26/2024 7:18 PM FOOD SERVICES DIRECTOR 08/26/2024 7:18 PM FOOD SERVICES DIRECTOR Jose Rockwell MD LAB POCT ORDERABLES - D EVICE Final Result Performing Organization Address [facility] de Phone Number [facility] Department [place] [address] * CT Abdomen Pelvis W Contrast (08/26/2024 6:03 PM FOOD SERVICES DIRECTOR) Anatomical Region Laterality Modality Body N/A Computed Tomogra phy 08/26/2024 6:31 PM FOOD SERVICES DIRECTOR Impressions 08/26/2024 7:16 PM FOOD SERVICES DIRECTOR 1. Postsurgical changes of abdominoperineal resection with locules of gas and surrounding fat stranding extending from the gluteal cleft to the resection bed consistent with wound dehiscence. Small amount of free fluid in the surgical bed without discrete fluid collection. 2. Splenomegaly. 3. Hepatic steatosis. Dictated by: Frank Santos MD The radiology attending physician has personally reviewed this study, and had reviewed and/or edited this written report and agrees with it. Electronically signed by: Teja Infante M.D. Narrative 08/26/2024 7:16 PM FOOD SERVICES DIRECTOR EXAMINATION: Computed tomography of the abdomen and pelvis with intravenous contrast HISTORY: 39-year-old status post abdominal perineal resection and end colostomy for adenocarcinoma of the rectum. She was seen in surgery clinic today with concern for perineal wound breakdown TECHNIQUE: Transaxial computed tomographic images of the abdomen and pelvis were obtained with intravenous contrast according to the standard protocol after the uneventful administration of 94 mL Opti-Ray 350 intravenous contrast. COMPARISON: CT from 10/16/2023 and MRI from 05/12/2024 FINDINGS: Lung bases are clear. No pleural or pericardial effusion. Heart size is normal. Partially visualized port catheter terminates in the right atrium. No suspicious hepatic lesion. Hepatic steatosis. Portal vasculature is patent. Gallbladder is normal. No biliary ductal dilation. Splenomegaly measuring up to 18 cm. Pancreas and adrenal glands are normal. Kidneys enhance symmetrically without hydronephrosis. Urinary bladder is normal. Uterus is normal. No suspicious adnexal lesion. Postsurgical changes of abdominal perineal resection and left upper quadrant end colostomy. There are locules of gas extending from the gluteal cleft to the surgical bed with surrounding fat stranding. Small amount of free fluid in the pelvis with no discrete fluid collection. No evidence of osseous involvement of the adjacent sacrum. No thickened or distended loops of small or large bowel. No free air. Small fat-containing umbilical hernia. Locules of gas throughout the abdominal wall soft tissues likely from injections with multiple soft tissue nodules which likely represent injection granulomata. Abdominal aorta is normal in caliber. Numerous nonenlarged retroperitoneal lymph nodes which are similar to 10/16/2023. No suspicious osseous lesion. 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 She was seen in surgery clinic today with concern for perineal wound breakdown TECHNIQUE: Transaxial computed tomographic images of the abdomen and pelvis were obtained with intravenous contrast according to the standard protocol after the uneventful administration of 94 mL Opti-Ray 350 intravenous contrast. COMPARISON: CT from 10/16/2023 and MRI from 05/12/2024 FINDINGS: Lung bases are clear. No pleural or pericardial effusion. Heart size is normal. Partially visualized port catheter terminates in the right atrium. No suspicious hepatic lesion. Hepatic steatosis. Portal vasculature is patent. Gallbladder is normal. No biliary ductal dilation. Splenomegaly measuring up to 18 cm. Pancreas and adrenal glands are normal. Kidneys enhance symmetrically without hydronephrosis. Urinary bladder is normal. Uterus is normal. No suspicious adnexal lesion. Postsurgical changes of abdominal perineal resection and left upper quadrant end colostomy. There are locules of gas extending from the gluteal cleft to the surgical bed with surrounding fat stranding. Small amount of free fluid in the pelvis with no discrete fluid collection. No evidence of osseous involvement of the adjacent sacrum. No thickened or distended loops of small or large bowel. No free air. Small fat-containing umbilical hernia. Locules of gas throughout the abdominal wall soft tissues likely from injections with multiple soft tissue nodules which likely represent injection granulomata. Abdominal aorta is normal in caliber. Numerous nonenlarged retroperitoneal lymph nodes which are similar to 10/16/2023. No suspicious osseous lesion. IMPRESSION: 1. Postsurgical changes of abdominoperineal resection with locules of gas and surrounding fat stranding extending from the gluteal cleft to the resection bed consistent with wound dehiscence. Small amount of free fluid in the surgical bed without discrete fluid collection. 2. Splenomegaly. 3. Hepatic steatosis. Dictated by: Frank Santos MD The radiology attending physician has personally reviewed this study, and had reviewed and/or edited this written report and agrees with it. Electronically signed by: Teja Infante M.D. Jennifer Strong MD IMG CT PROCEDURES Final Result * eGFR (08/26/2024 5:36 PM FOOD SERVICES DIRECTOR) eGFR >90 >=60 mL/min/1. 73 m2 Comment: [...] interpretive data was last reviewed 2021. Blood 08/26/2024 5:36 PM FOOD SERVICES DIRECTOR 08/26/2024 6:02 PM FOOD SERVICES DIRECTOR us Jose Alfredo Lugo MD LAB BLOOD ORDERABLES F inal Result [facility] Department [place] [address] * (ABNORMAL) Differential, auto (08/26/2024 5:36 PM FOOD SERVICES DIRECTOR) Neutrophil abs 5.5 1.5 - 6.5 K/cumm Imm gran abs 0.0 0.0 - 0.1 K/cumm [facility] Lymphocyte abs 0.6(L) 0.8 - 3.3 K/cumm [facility] Monocyte abs 0.5 0.2 - 0.8 K/cumm [facility] Eosinophil abs 0.0 0.0 - 0.5 K/cumm [facility] Basophil abs 0.0 0.0 - 0.1 K/cumm [facility] Neutrophil pct 82.9 % [facility] Comment: Interpretive Data Percent cell count reference ranges are not reported, since discordance with absolute values may lead to misinterpretation of CBC data. Current Interpretive Data was last revised on 2017. Imm gran pct 0.5 % [facility] Comment: Interpretive Data Percent cell count reference ranges are not reported, since discordance with absolute values may lead to misinterpretation of CBC data. Current Interpretive Data was last revised on 2017. Lymphocyte pct 9.3 % [facility] Comment: Interpretive Data Percent cell count reference ranges are not reported, since discordance with absolute values may lead to misinterpretation of CBC data. Current Interpretive Data was last revised on 2017. Monocyte pct 6.8 % [facility] Comment: Interpretive Data Percent cell count reference ranges are not reported, since discordance with absolute values may lead to misinterpretation of CBC data. Current Interpretive Data was last revised on 2017. Eosinophil pct 0.3 % [facility] Comment: Interpretive Data Percent cell count reference ranges are not reported, since discordance with absolute values may lead to misinterpretation of CBC data. Current Interpretive Data was last revised on 2017. Basophil pct 0.2 % [facility] Comment: Interpretive Data Percent cell count reference ranges are not reported, since discordance with absolute values may lead to misinterpretation of CBC data. Current Interpretive Data was last revised on 2017. Blood 08/26/2024 5:36 PM FOOD SERVICES DIRECTOR 08/26/2024 6:02 PM FOOD SERVICES DIRECTOR us Jose Alfredo Lugo MD LAB BLOOD ORDERABLES F inal Result [facility] Department [place] [address] * (ABNORMAL) CBC with auto differential (08/26/2024 5:36 PM FOOD SERVICES DIRECTOR) WBC 6.6 3.8 - 9.9 K/cumm Hgb 9.3(L) 11.9 - 15.5 g/dL [facility] Hct 30.0(L) 35.6 - 45.5 % [facility] Plt 235 150 - 400 K/cumm [facility] MPV 10.3 9.1 - 12.3 fL [facility] RBC 3.22(L) 3.90 - 5.20 M/cumm [facility] MCV 93.2 81.3 - 96.4 fL [facility] MCH 28.9 27.1 - 33.3 pg [facility] MCHC 31.0(L) 32.3 - 35.7 g/dL [facility] RDW CV 16.6(H) 11.1 - 14.9 % [facility] RDW SD 56.0(H) 35.7 - 48.1 fL [facility] NRBC abs 0.00 0.00 - 0.01 K/cumm [facility] Blood 08/26/2024 5:36 PM FOOD SERVICES DIRECTOR 08/26/2024 6:02 PM FOOD SERVICES DIRECTOR us Dung Rushing MD LAB BLOOD ORDERABLES Final Res ult [facility] Department [place] [address] * (ABNORMAL) Comprehensive metabolic panel (08/26/2024 5:36 PM FOOD SERVICES DIRECTOR) Sodium 141 135 - 145 mmol/L Potassium, pl See Comment 3.3 - 4.9 mmol/L [facility] Comment: Credited; Hemolyzed Specimen Repeated and Verified Chloride 107 97 - 110 mmol/L [facility] CO2 24 22 - 32 mmol/L [facility] Anion gap 10 2 - 15 mmol/L [facility] BUN 13 6 - 25 mg/dL [facility] Creatinine 0.79 0.60 - 1.10 mg/dL [facility] Glucose 108 70 - 199 mg/dL [facility] Comment: Interpretive Data Fasting glucose >/= [...] interpretive data was last revised 2022. Calcium 8.9 8.5 - 10.3 mg/dL [facility] Bilirubin, total 0.9 0.1 - 1.2 mg/dL [facility] Protein, pl 7.3 6.5 - 8.5 g/dL [facility] Albumin 3.3(L) 3.5 - 5.0 g/dL [facility] Alk phos 114 40 - 130 Units/L [facility] Comment:Hemolyzed; result ma y be falsely decreased ALT See Comment 7 - 45 Units/L [facility] Comment:Credited; Hemolyzed Specimen AST See Comment 10 - 45 Units/L [facility] Comment:Credited; Hemolyzed Specimen Blood 08/26/2024 5:36 PM FOOD SERVICES DIRECTOR 08/26/2024 6:02 PM FOOD SERVICES DIRECTOR Dung Rushing MD LAB BLOOD ORDERABLES Final Res ult [facility] Department [place] [address] * XR Chest PA Lateral 2 Views (08/26/2024 2:32 PM FOOD SERVICES DIRECTOR) Anatomical Region Laterality Modality Body, Chest N/A Computed Radiogr aphy 08/26/2024 2:38 PM FOOD SERVICES DIRECTOR Impressions 08/26/2024 2:38 PM FOOD SERVICES DIRECTOR Comparison 02/12/2024 Unchanged positioning of right chest wall port catheter. No specific evidence of pneumonia or pulmonary edema. No pneumothorax. No pleural effusion. Unchanged appearance of the cardiomediastinal silhouette Electronically signed by: Edward Haile M.D. Narrative 08/26/2024 2:38 PM FOOD SERVICES DIRECTOR EXAMINATION: 2 view chest radiograph Procedure Note Edward Haile MD - 08/26/2024 EXAMINATION: 2 view chest radiograph IMPRESSION: Comparison 02/12/2024 Unchanged positioning of right chest wall port catheter. No specific evidence of pneumonia or pulmonary edema. No pneumothorax. No pleural effusion. Unchanged appearance of the cardiomediastinal silhouette Electronically signed by: Edward Haile M.D. Dung Rushing MD IMG XR PROCEDURES Final Result * POCT glucose (08/12/2024 11:53 AM FOOD SERVICES DIRECTOR) [facility] Glucose, POC 124 70 - 199 mg/dL Blood 08/12/2024 11:5 3 AM FOOD SERVICES DIRECTOR 08/12/2024 11:53 AM FOOD SERVICES DIRECTOR us Stefani Szymanski MD LAB POCT ORDERABLES - ÁNGELA CE Final Result [facility] Department [place] [address] * POCT glucose (08/12/2024 7:52 AM FOOD SERVICES DIRECTOR) [facility] Glucose, POC 129 70 - 199 mg/dL Blood 08/12/2024 7:52 AM FOOD SERVICES DIRECTOR 08/12/2024 7:52 AM FOOD SERVICES DIRECTOR us Stefani Szymanski MD LAB POCT ORDERABLES - ÁNGELA CE Final Result Performing Organization Address [facility] de Phone Number [facility] Department [place] [address] * (ABNORMAL) CBC without differential (08/11/2024 9:50 PM FOOD SERVICES DIRECTOR) [facility] WBC 6.3 3.8 - 9.9 K/cumm Hgb 8.5(L) 11.9 - 15.5 g/dL [facility] Hct 26.5(L) 35.6 - 45.5 % [facility] Plt 82(L) 150 - 400 K/cumm [facility] MPV 10.9 9.1 - 12.3 fL [facility] RBC 2.89(L) 3.90 - 5.20 M/cumm [facility] MCV 91.7 81.3 - 96.4 fL [facility] MCH 29.4 27.1 - 33.3 pg [facility] MCHC 32.1(L) 32.3 - 35.7 g/dL [facility] RDW CV 15.6(H) 11.1 - 14.9 % [facility] RDW SD 51.8(H) 35.7 - 48.1 fL [facility] NRBC abs 0.00 0.00 - 0.01 K/cumm [facility] Blood 08/11/2024 9:50 PM FOOD SERVICES DIRECTOR 08/11/2024 11:11 PM FOOD SERVICES DIRECTOR us Tasia Patel NP LAB BLOOD ORDERABLES Cecille l Result Performing Organization Address City/[facility] Co de Phone Number [facility] [place] [address] * POCT glucose (08/11/2024 7:26 PM FOOD SERVICES DIRECTOR) Glucose, POC 143 70 - 199 mg/dL Blood 08/11/2024 7:26 PM FOOD SERVICES DIRECTOR 08/11/2024 7:26 PM FOOD SERVICES DIRECTOR us Stefani Szymanski MD LAB POCT ORDERABLES - ÁNGELA CE Final Result Performing Organization Address [facility] Co de Phone Number [facility] [place] [address] * POCT glucose (08/11/2024 4:53 PM FOOD SERVICES DIRECTOR) Glucose, POC 129 70 - 199 mg/dL Blood 08/11/2024 4:53 PM FOOD SERVICES DIRECTOR 08/11/2024 4:53 PM FOOD SERVICES DIRECTOR us Stefani Szymanski MD LAB POCT ORDERABLES - ÁNGELA CE Final Result Performing Organization Address [facility] Co de Phone Number [facility] [place] [address] * POCT glucose (08/11/2024 11:02 AM FOOD SERVICES DIRECTOR) Glucose, POC 157 70 - 199 mg/dL Blood 08/11/2024 11:0 2 AM FOOD SERVICES DIRECTOR 08/11/2024 11:02 AM FOOD SERVICES DIRECTOR us Stefani Szymanski MD LAB POCT ORDERABLES - ÁNGELA CE Final Result Performing Organization Address City/[facility] Co de Phone Number [facility] [place] [address] * POCT glucose (08/11/2024 7:40 AM FOOD SERVICES DIRECTOR) Pathologist [facility] [place] Glucose, POC 135 70 - 199 mg/dL Blood 08/11/2024 7:40 AM FOOD SERVICES DIRECTOR 08/11/2024 7:40 AM FOOD SERVICES DIRECTOR Stefani Szymanski MD LAB POCT ORDERABLES - ÁNGELA CE Final Result Performing Organization Address [facility] Co de Phone Number [facility] [place] [address] * eGFR (08/11/2024 1:37 AM FOOD SERVICES DIRECTOR) [facility] eGFR >90 >=60 mL/min/1. 73 m2 [...] last reviewed 2021. Blood 08/11/2024 1:37 AM FOOD SERVICES DIRECTOR 08/11/2024 2:36 AM FOOD SERVICES DIRECTOR us Stefani Szymanski MD LAB BLOOD ORDERABLES Final Result Performing Organization Address City/[facility]/ZIP Co de Phone Number [facility] [place] [address] * (ABNORMAL) CBC without differential (08/11/2024 1:37 AM FOOD SERVICES DIRECTOR) [facility] WBC 7.2 3.8 - 9.9 K/cumm Hgb 8.0(L) 11.9 - 15.5 g/dL [facility] Hct 24.4(L) 35.6 - 45.5 % [facility] Plt 80(L) 150 - 400 K/cumm [facility] MPV 10.8 9.1 - 12.3 fL [facility] RBC 2.70(L) 3.90 - 5.20 M/cumm [facility] MCV 90.4 81.3 - 96.4 fL [facility] MCH 29.6 27.1 - 33.3 pg [facility] MCHC 32.8 32.3 - 35.7 g/dL [facility] RDW CV 15.6(H) 11.1 - 14.9 % [facility] RDW SD 50.5(H) 35.7 - 48.1 fL [facility] NRBC abs 0.00 0.00 - 0.01 K/cumm [facility] Blood 08/11/2024 1:37 AM FOOD SERVICES DIRECTOR 08/11/2024 2:37 AM FOOD SERVICES DIRECTOR Narrative [facility] - 08/11/2024 2:49 AM FOOD SERVICES DIRECTOR Obtain POD 1 at 2200. us Stefani Szymanski MD LAB BLOOD ORDERABLES Final Result [facility] Department [place] [address] * (ABNORMAL) Basic metabolic panel (08/11/2024 1:37 AM FOOD SERVICES DIRECTOR) [facility] Sodium 141 135 - 145 mmol/L Potassium, pl 3.3 3.3 - 4.9 mmol/L [facility] Chloride 104 97 - 110 mmol/L [facility] CO2 28 22 - 32 mmol/L [facility] Anion gap 9 2 - 15 mmol/L [facility] BUN 7 6 - 25 mg/dL [facility] Creatinine 0.83 0.60 - 1.10 mg/dL [facility] Glucose 117 70 - 199 mg/dL [facility] Comment: Interpretive Data Fasting glucose >/= [...] 2022. Calcium 8.0(L) 8.5 - 10.3 mg/dL [facility] Blood 08/11/2024 1:37 AM FOOD SERVICES DIRECTOR 08/11/2024 2:36 AM FOOD SERVICES DIRECTOR Narrative [facility] - 08/11/2024 3:06 AM FOOD SERVICES DIRECTOR Obtain POD 1 at 2200. Stefani Szymanski MD LAB BLOOD ORDERABLES Final Result [facility] Department [place] [address] * POCT glucose (2024 8:48 PM FOOD SERVICES DIRECTOR) Glucose, POC 139 70 - 199 mg/dL Blood 2024 8:48 PM FOOD SERVICES DIRECTOR 2024 8:48 PM FOOD SERVICES DIRECTOR Stefani Szymanski MD LAB POCT ORDERABLES - ÁNGELA CE Final Result [facility] Department [place] [address] * POCT glucose (2024 12:56 PM FOOD SERVICES DIRECTOR) Glucose, POC 199 70 - 199 mg/dL Blood 2024 12:5 6 PM FOOD SERVICES DIRECTOR 2024 12:56 PM FOOD SERVICES DIRECTOR Stefani Szymanski MD LAB POCT ORDERABLES - ÁNGELA CE Final Result Performing Organization Address City/[facility] Co de Phone Number [facility] [place] [address] * POCT glucose (2024 7:49 AM FOOD SERVICES DIRECTOR) Glucose, POC 139 70 - 199 mg/dL Blood 2024 7:49 AM FOOD SERVICES DIRECTOR 2024 7:49 AM FOOD SERVICES DIRECTOR Stefani Szymanski MD LAB POCT ORDERABLES - ÁNGELA CE Final Result Performing Organization Address [facility] de Phone Number [facility] [place] [address] * eGFR (08/09/2024 9:20 PM FOOD SERVICES DIRECTOR) eGFR >90 >=60 mL/min/1. 73 m2 Comment: [...] last reviewed 2021. Blood 08/09/2024 9:20 PM FOOD SERVICES DIRECTOR 08/09/2024 10:19 PM FOOD SERVICES DIRECTOR Stefani Szymanski MD LAB BLOOD ORDERABLES Final Result [facility] Department [place] [address] * (ABNORMAL) CBC without differential (08/09/2024 9:20 PM FOOD SERVICES DIRECTOR) [facility] WBC 6.4 3.8 - 9.9 K/cumm Hgb 9.1(L) 11.9 - 15.5 g/dL [facility] Hct 27.6(L) 35.6 - 45.5 % [facility] Plt 97(L) 150 - 400 K/cumm [facility] MPV 11.0 9.1 - 12.3 fL [facility] RBC 3.07(L) 3.90 - 5.20 M/cumm [facility] MCV 89.9 81.3 - 96.4 fL [facility] MCH 29.6 27.1 - 33.3 pg [facility] MCHC 33.0 32.3 - 35.7 g/dL [facility] RDW CV 15.1(H) 11.1 - 14.9 % [facility] RDW SD 49.6(H) 35.7 - 48.1 fL [facility] NRBC abs 0.00 0.00 - 0.01 K/cumm [facility] Blood 08/09/2024 9:20 PM FOOD SERVICES DIRECTOR 08/09/2024 10:19 PM FOOD SERVICES DIRECTOR Narrative [facility] - 08/09/2024 10:30 PM FOOD SERVICES DIRECTOR Obtain POD 0 at 2200. us Stefani Szymanski MD LAB BLOOD ORDERABLES Final Result [facility] Department [place] [address] * Hemoglobin A1c (08/09/2024 9:20 PM FOOD SERVICES DIRECTOR) Pathologist [facility] [place] Hgb A1C 4.9 4.0 - 5.6 % Estimated Average Glucose 94 mg/dL [facility] Comment: The ADA recommends reporting an estimated Average Glucose (eAG) with all Hemoglobin A1c results using the equation derived from a study of 507 normal and diabetic adults. Minority populations were underrepresented and children were not included. (Diabetes Care 2020; 43(S1): S66-S76). The eAG is not equivalent to a fasting glucose. Blood 08/09/2024 9:20 PM FOOD SERVICES DIRECTOR 08/09/2024 10:24 PM FOOD SERVICES DIRECTOR us Stefani Szymanski MD LAB BLOOD ORDERABLES Final Result [facility] [facility] Department [place] [address] * (ABNORMAL) Lipid panel (08/09/2024 9:20 PM FOOD SERVICES DIRECTOR) Cholesterol 104 30 - 199 mg/dL Comment: [...] revised on 2018. Triglycerides 72 <=149 mg/dL [facility] Comment: Interpretive Data Ages < or [...] revised on 2018. HDL 31(L) >=40 mg/dL [facility] Comment: Interpretive Data Ages < or [...] on 2018. LDL, calculated 58 <=129 mg/dL [facility] Comment: Interpretive Data Ages < or [...] 3. Jovon Hampton et al. TATO Cardiol. 2019October 28;5(5):540-548. doi: [email or web address].2020.0013 Current Interpretive Data was last revised on 2024. Non-HDL Cholesterol 73 mg/dL [facility] Comment: Interpretive Data Ages < or [...] last revised on 2018. Chol/HDL ratio 3 [facility] Blood 08/09/2024 9:20 PM FOOD SERVICES DIRECTOR 08/09/2024 10:19 PM FOOD SERVICES DIRECTOR Stefani Szymanski MD LAB BLOOD ORDERABLES Final Result [facility] Department [place] [address] * (ABNORMAL) Basic metabolic panel (08/09/2024 9:20 PM FOOD SERVICES DIRECTOR) [facility] Sodium 141 135 - 145 mmol/L Potassium, pl 4.0 3.3 - 4.9 mmol/L [facility] Chloride 107 97 - 110 mmol/L [facility] CO2 25 22 - 32 mmol/L [facility] Anion gap 9 2 - 15 mmol/L [facility] BUN 8 6 - 25 mg/dL [facility] Creatinine 0.84 0.60 - 1.10 mg/dL [facility] Glucose 158 70 - 199 mg/dL [facility] Comment: Interpretive Data Fasting glucose >/= [...] 2022. Calcium 8.3(L) 8.5 - 10.3 mg/dL [facility] Blood 08/09/2024 9:20 PM FOOD SERVICES DIRECTOR 08/09/2024 10:19 PM FOOD SERVICES DIRECTOR Narrative [facility] - 08/09/2024 10:53 PM FOOD SERVICES DIRECTOR Obtain POD 0 at 2200. us Stefani Szymanski MD LAB BLOOD ORDERABLES Final Result [facility] Department [place] [address] * (ABNORMAL) POC Blood Gas and Chemistries, Arterial - (08/09/2024 3:23 PM FOOD SERVICES DIRECTOR) pH, Art POC 7.33(L) 7.35 - 7.45 pCO2, Art POC 48(H) 35 - 45 mmHg [facility] pO2, Art POC 105 83 - 108 mmHg [facility] Na, POC 138 135 - 145 mmol/L [facility] K POC 4.5 3.3 - 4.9 mmol/L [facility] Comment: Interpretive Data Not all point of care methods assess for hemolysis. Confirm with instrument and retest K+ if not consistent with clinical signs and symptoms. Current Interpretive Data was last revised on 2023. Cl, POC 110 97 - 110 mmol/L [facility] Ionized Ca, POC 4.91 4.50 - 5.10 mg/dL [facility] Glucose, POC 155 70 - 199 mg/dL [facility] Lactate, POC 1.8 0.7 - 2.0 mmol/L [facility] SO2 (sheri) arterial 97(H) 90 - 95 % [facility] Base excess, POC -0.9 mmol/L [facility] HCO3, Art POC 25 20 - 30 mmol/L [facility] Hct, POC 31.0(L) 36.3 - 45.3 % [facility] Total Hb, POC 10.3(L) 11.9 - 15.5 g/dL [facility] Blood 08/09/2024 3:23 PM FOOD SERVICES DIRECTOR 08/09/2024 3:23 PM FOOD SERVICES DIRECTOR us Stefani Szymanski MD LAB POCT ORDERABLES - ÁNGELA CE Final Result [facility] Department [place] [address] * Surgical pathology (08/09/2024 2:26 PM FOOD SERVICES DIRECTOR) Tissue specimen (specimen) (Rectum, Resection) 08/09/2024 2:26 PM FOOD SERVICES DIRECTOR Narrative PATHOLOGY [facility] - 08/17/2024 2:44 PM FOOD SERVICES DIRECTOR EPIC results best viewed via link to PDF [facility] Eva Izquierdo [facility] [place] [address] Note to Patients: This report may contain a detailed description of human tissue sent by a health care provider to the laboratory for pathologic evaluation. The content of this report is essential for diagnosis and may provide important critical findings. This information may be unfamiliar to patients to review without a medical professional present. It is advised that the patient review this report in the presence of a health care provider who can answer questions and explain the details. SURGICAL PATHOLOGY REPORT FINAL Patient Name: ISABEL CAR Gender: F : 1985 (Age: 38) Address: [address] [place] [address] Hospital #: [id number] Taken:08/09/2024 Received:08/09/2024 Reported: 08/17/2024 Patient Type: [facility] Inpatient Service: Surgery Location: [place] [address] Physician(s): MD Ayah Flood M.D. Diagnosis: Sigmoid colon and rectum, abdominoperineal resection - Invasive, moderately differentiated adenocarcinoma of the rectum, with treatment effect - Tumor measures 2.8 cm in greatest dimension - Tumor invades the muscularis propria - Lymphovascular invasion: not identified - Perineural invasion: not identified - All resection margins are negative for tumor - Closest margin: radial, 0.9 cm from the carcinoma - Nine lymph nodes with no evidence of malignancy (0/9),see comment - Tumor deposits absent - Pathologic TNM (AJCC 8th edition): pT2 N0 Mx - See synoptic summary 08/17/2024 14:09 By this signature, I attest that the above diagnosis is based upon my personal examination of the slides(and/or other material indicated in the diagnosis). Brijesh Akins M.D. Report Electronically Reviewed and Signed Out By Brijesh Akins M.D. 08/17/2024 14:44:09 Microscopic Description and Comment: Microscopic examination substantiates the above cited diagnosis. After two attempts at lymph node recovery, only 9 lymph nodes could be recovered. All fat was submetted. Angel Ruiz M.D. History: The patient is a 39-year-old woman with low rectal carcinoma status post radiation and chemotherapy completed in March of 2024 with subsequent flexible sigmoidoscopy demonstrating residual disease. Operative procedure abdominal perineal resection Specimen(s) Received: A: Rectum for tme Gross Description: Received in formalin, marked with patient identifiers, and labeled rectum for TME is a segment of large bowel measuring 15 cm in length from the proximal resection margin to the anterior peritoneal reflection with the greatest circumference of 5.0 cm and 13 cm from the anterior peritoneal reflection to the anal skin margin with a greatest circumference of 8.0 cm. The serosal surface is rock-pink and unremarkable. The attached pericolonic fat shows scattered hemorrhage. The mesorectum is intact and inked black. The segment is opened anteriorly to reveal a round, firm, ulcerated, 2.8 x 2.7 cm lesion with heaped borders that is 4.2 cm from the nearest anal skin margin and approximately 20 cm from the proximal resection margin. Mucosa is otherwise unremarkable. The mass is serially sectioned to reveal that the mass grossly invades to a depth of approximately 0.3 cm with possible involvement of the muscularis propria and is 0.9 cm from the closest radial margin. The pericolonic fat above the anterior peritoneal reflection is sectioned to reveal 12 lymph node candidates. The mesorectum is serially sectioned to reveal 11 lymph node candidates. Manager Protein sections are submitted as follows: A1 Proximal resection margin, en face A2 Anal skin margin closest to mass, en face A3-A8 Entire lesion submitted in relation to radial margin A9 Unremarkable large bowel above anterior peritoneal reflection A10 Three pericolonic lymph nodes (one bisected and differentially inked) A11 Three pericolonic lymph nodes (one bisected and differentially inked) A12 Three pericolonic lymph nodes (one bisected and differentially inked) A13 Three pericolonic lymph nodes (two bisected and differentially inked A14 Four mesorectal lymph nodes A15 Three mesorectal lymph nodes A16 Two mesorectal lymph nodes (one bisected abutting radial margin) A17 Random sections of pericolonic fat A18-28 Random sections of mesorectal fat A29-A33 Additional random sections of pericolonic fat Jar 3. 2024 14:54 Gross Resident:Angel Ruiz M.D. CANCER CASE SUMMARY FOR CARCINOMA OF COLON AND RECTUM Procedure: Abdominoperineal resection Tumor site: Rectum Rectal tumor: Entirely below anterior peritoneal reflection Tumor size: Greatest dimension: 2.8 cm Macroscopic tumor perforation: Not identified Macroscopic intactness of mesorectum: Complete Histologic grade: G2: Moderately differentiated Histologic type: Adenocarcinoma Tumor extent: Tumor invades muscularis propria Margins: Margin Status for Invasive Carcinoma: All margins are uninvolved by invasive carcinoma Closest Margin(s) to Invasive Carcinoma - Radial (circumferential) or mesenteric: 0.9 cm Distance from invasive carcinoma to radial margin: Distance already reported as closest margin Distance from invasive carcinoma to distal margin: Distance from invasive carcinoma: 4.2 cm All margins negative for high-grade dysplasia/intramucosal carcinoma and low- grade dysplasia Treatment effect: Present with residual cancer showing evident tumor regression, but more than one single cells or rare small groups of cancer cells (partial response, score 2) Lymphovascular invasion: Not identified Perineural invasion: Not identified Tumor Budding: Not applicable Tumor Griswold score:: Type of polyp in which invasive carcinoma arose: Tubular adenoma Additional pathologic findings: None identified Tumor deposits: Not identified Distant Metastasis: Not applicable Regional Lymph Node Status: All regional lymph nodes negative for tumor Exact number of lymph nodes with tumor: 0 Lymph nodes examined: Exact: 9 Pathologic Stage Classification (pTNM, AJCC 8th Edition): TNM descriptors: y (post-treatment) Primary Tumor (pT): pT2: Tumor invades muscularis propria Regional lymph nodes (pN): pN0: No regional lymph node metastasis Distant metastasis (pM): pM: Not applicable - pM cannot be determined from the submitted specimen(s) The pathologic stage assigned here should be regarded as provisional, and may change after integration of clinical data not provided with this specimen. CAP VERSION: ColonRectum 4.3.1.0 By this signature, I attest that the above diagnosis is based upon my personal examination of the slides(and/or other material). Addenda/Procedures The performance characteristics of some immunohistochemical stains, fluorescence in-situ hybridization tests and immunophenotyping by flow cytometry cited in this report (if any) were determined by the Surgical Pathology and Flow Cytometry Departments at [facility] as part of an ongoing quality officer program and in compliance with federally mandated regulations drawn from the Clinical Laboratory Improvement Act of 1988 (CLIA '88). Some of these tests rely on the use of analyte specific reagents and are subject to specific labeling requirements by the US Food and Drug Administration. Such diagnostic tests may only be performed in a facility that is certified by the Department of Health and Human Services as a high complexity laboratory under CLIA '88. The FDA has determined that such clearance or approval is not necessary. This test is used for clinical purposes. It should not be regarded as investigational or for research. Nevertheless, federal rules concerning the medical use of analyte specific reagents require that the following disclaimer be attached to the report: This test was developed and its performance characteristics determined by the Surgical Pathology and Flow Cytometry Departments of [facility]. It has not been cleared or approved by the U. S. Food and Drug Administration. IMAGES AND SCANNED DOCUMENTS, IF INCLUDED, ONLY VIEWABLE IN PDF VERSION OF REPORT us Stefani Szymanski MD LAB PATHOLOGY ORDERABLES F inal Result PATHOLOGY [facility] 3rd Floor [place], [place] [phone] * (ABNORMAL) POC Blood Gas and Chemistries, Arterial - (08/09/2024 1:23 PM FOOD SERVICES DIRECTOR) pH, Art POC 7.43 7.35 - 7.45 pCO2, Art POC 38 35 - 45 mmHg [facility] pO2, Art POC 99 83 - 108 mmHg [facility] Na, POC 137 135 - 145 mmol/L [facility] K POC 4.4 3.3 - 4.9 mmol/L [facility] Comment: Interpretive Data Not all point of care methods assess for hemolysis. Confirm with instrument and retest K+ if not consistent with clinical signs and symptoms. Current Interpretive Data was last revised on 2023. Cl, POC 109 97 - 110 mmol/L [facility] Ionized Ca, POC 4.49(L) 4.50 - 5.10 mg/dL [facility] Glucose, POC 175 70 - 199 mg/dL [facility] Lactate, POC 1.4 0.7 - 2.0 mmol/L [facility] SO2 (sheri) arterial 97(H) 90 - 95 % [facility] Base excess, POC 0.9 mmol/L [facility] HCO3, Art POC 25 20 - 30 mmol/L [facility] Hct, POC 35.0(L) 36.3 - 45.3 % [facility] Total Hb, POC 11.5(L) 11.9 - 15.5 g/dL [facility] Blood 08/09/2024 1:23 PM FOOD SERVICES DIRECTOR 08/09/2024 1:23 PM FOOD SERVICES DIRECTOR Stefani Szymanski MD LAB POCT ORDERABLES - ÁNGELA CE Final Result Performing Organization Address [facility] Co de Phone Number [facility] Department [place] [address] * POCT glucose (08/09/2024 10:59 AM FOOD SERVICES DIRECTOR) [facility] Glucose, POC 159 70 - 199 mg/dL Blood 08/09/2024 10:5 9 AM FOOD SERVICES DIRECTOR 08/09/2024 10:59 AM FOOD SERVICES DIRECTOR Result [facility] Stefani Szymanski MD LAB POCT ORDERABLES - ÁNGELA CE Final Result Performing Organization Address [facility] de Phone Number [facility] [place] [address] * MA AN PROCEDURE PLACEHOLDER (08/09/2024 9:21 AM FOOD SERVICES DIRECTOR) Narrative Raghavendra Pena CRNA - 08/09/2024 9:21 AM FOOD SERVICES DIRECTOR Raghavendra Pena CRNA 08/09/2024 9:21 AM Arterial [...] Vargas MD ANESTHESIA ORDERABLES Final Result * MA AN PROCEDURE PLACEHOLDER (08/09/2024 9:20 AM FOOD SERVICES DIRECTOR) Raghavendra Lawler CRNA - 08/09/2024 9:20 AM FOOD SERVICES DIRECTOR Raghavendra Pena CRNA 08/09/2024 9:21 AM Peripheral [...] Vargas MD ANESTHESIA ORDERABLES Final Result * MA AN ELECTIVE ENDOTRACHEAL AIRWAY, MA AN PROCEDURE PLACEHOLDER (08/09/2024 9:17 AM FOOD SERVICES DIRECTOR) Raghavendra Lawler CRNA - 08/09/2024 9:17 AM FOOD SERVICES DIRECTOR Raghavendra Pena CRNA 08/09/2024 9:20 AM Airway Patient location: OR Urgency: elective Indications for airway management: anesthesia Difficult airway: no Staff: Supervising provider: Jovanna Vargas MD Placed by: [employer]: Raghavendra Pena CRNA Emergent airway documentation: Risks [...] and Chemistries, Arterial - (08/09/2024 8:43 AM FOOD SERVICES DIRECTOR) pH, Art POC 7.37 7.35 - 7.45 pCO2, Art POC 47(H) 35 - 45 mmHg [facility] pO2, Art POC 93 83 - 108 mmHg [facility] Na, POC 140 135 - 145 mmol/L [facility] K POC 3.6 3.3 - 4.9 mmol/L [facility] Comment: Interpretive Data Not all point of care methods assess for hemolysis. Confirm with instrument and retest K+ if not consistent with clinical signs and symptoms. Current Interpretive Data was last revised on 2023. Cl, POC 109 97 - 110 mmol/L [facility] Ionized Ca, POC 4.74 4.50 - 5.10 mg/dL [facility] Glucose, POC 115 70 - 199 mg/dL [facility] Lactate, POC 1.2 0.7 - 2.0 mmol/L [facility] SO2 (sheri) arterial 99(H) 90 - 95 % [facility] Base excess, POC 1.4 mmol/L [facility] HCO3, Art POC 27 20 - 30 mmol/L [facility] Hct, POC 33.0(L) 36.3 - 45.3 % [facility] Total Hb, POC 11.0(L) 11.9 - 15.5 g/dL [facility] Blood 08/09/2024 8:43 AM FOOD SERVICES DIRECTOR 08/09/2024 8:43 AM FOOD SERVICES DIRECTOR us Stefani Szymanski MD LAB POCT ORDERABLES - ÁNGELA CE Final Result [facility] Department [place] [address] * POCT glucose (08/09/2024 5:55 AM FOOD SERVICES DIRECTOR) Glucose, POC 88 70 - 199 mg/dL Blood 08/09/2024 5:55 AM FOOD SERVICES DIRECTOR 08/09/2024 5:55 AM FOOD SERVICES DIRECTOR Stefani Szymanski MD LAB POCT ORDERABLES - ÁNGELA CE Final Result Performing Organization Address [facility] Co de Phone Number [facility] [place] [address] * Type and screen (08/09/2024 5:55 AM FOOD SERVICES DIRECTOR) ABO Rh A Positive Thompson, indirect Negative [facility] Blood 08/09/2024 5:55 AM FOOD SERVICES DIRECTOR 08/09/2024 6:00 AM FOOD SERVICES DIRECTOR Narrative [facility] - 08/09/2024 6:44 AM FOOD SERVICES DIRECTOR Has the patient had Daratumumab or Isatuximab in the past 6 months?->Unknown Melany Mendez NP LAB BLOOD BANK TEST ORDER BRIANNA Final Result Performing Organization Address [facility] de Phone Number [facility] Department [place] [address] * POCT hCG, urine (08/09/2024 5:45 AM FOOD SERVICES DIRECTOR) HCG, ur, POC Negative Negative Lot Number [id number] QC Backgroud Clear Acceptable QC Control Line Acceptable Urine 08/09/2024 5:45 AM FOOD SERVICES DIRECTOR Melany Mendez NP POINT OF CARE TEST ORDERA BLES Final Result from Last 3 Months Insurance [place] [id number] [place] [id number] Advance Directives For more information, please contact: [phone] * Full Code (Latest Code Status on File) Date Activated Date Inactivated Comments 08/26/2024 10:20 PM 10/12/2024 1:34 AM * Full Code Date Activated Date Inactivated Comments 08/09/2024 7:51 PM 08/12/2024 10:02 PM * Full Code Date Activated Date Inactivated Comments 06/07/2024 8:28 AM 06/07/2024 2:22 PM * Full Code Date Activated Date Inactivated Comments 11/13/2023 3:31 PM 11/13/2023 8:15 PM * Full Code Date Activated Date Inactivated Comments 11/13/2023 12:40 PM 11/13/2023 3:31 PM Care Teams Theatre Arts Professor Relationship Specialty Start Date End Date Ayah Almodovar MD [address] [place] [address] PCP - General Family Medicine 10/22/23 [place] [address] [place] [address] [place] [address] Referring Physician Gastroenterology 10/22/23 Liliana Culver MD [address] [facility] [phone] [place] [address] Consulting Physician Plastic Surgery 10/08/24
--- OUTSIDE RECORDS SUMMARY | 2024-10-26 13:42 | XMS_ITS ---
Author Organization [facility] Address [address] [place] [address] Care Team Providers Care Vtc Technician Name Role Phone Ayah Almodovar MD Primary Care Provider Maximiliano Arndt MD Unavailable Liliana Culver MD Unavailable Active Problems * This document contains information received from the source organization and may not represent a complete record from that organization. Problem Noted Date Diagnosed Date Severe malnutrition [...] index (BMI) 45.0-49.9, adult;Recorded Elsewhere: No Location: [facility] Source: EHR Chronic: N Practice ID: [id number] Billable Time: 03:30:00 PM Pelvic and perineal pain 12/18/2016 Overview (09/13/2024): Pelvic and perineal pain;Practice ID: [id number] Hirsutism 03/20/2016 Overview (09/13/2024): Gurpreetsutism;Practice ID: [id number] Current Treatment and Therapy Plans IV Maintenance Therapy Plan* Plan Start Date:01/29/2024 Plan Provider:Kimberly Velasquez MD Linked Problems Rectal cancer (HCC) Treatment Medications No medications scheduled. [id number]: (Fluorouracil / Leucovorin / Oxaliplatin) 14 Day Cycles - GI* Plan Start Date:01/05/2024 Plan Provider:Kimberly Velasquez MD Linked Problems Rectal cancer (HCC)Heartburn Treatment Medications Current Day (Day 1 , [...] (Ka,r) 3 mGy 3 mGy 0 mGy DLP 8,339 mGycm 8,339 mGycm 0 mGycm
--- OUTSIDE RECORDS SUMMARY | 2024-10-26 13:42 | XMS_ITS ---
Author Organization [facility] Address [address] [place] [id number] Care Team Providers Care Sleeve Separator Name Role Phone Ayah Almodovar MD Primary Care Provider [phone] Active Problems Problem Noted Date Diagnosed Date Rectal cancer ([facility]) 04/01/2024 Current Treatment and Therapy Plans injection friday thru friday after chemo treatment-13 inj approved* Plan Start Date:04/01/2024 Plan Provider:Ayah Almodovar MD Linked Problems Rectal cancer ([facility]) Treatment Medications Current Day (Day 1 , Cycle 7 - Planned for 04/23/2024) Next Day (Day 1, Cycle 8 - Planned for 04/24/2024) No medications scheduled. No medications schedul ed. No medications scheduled. Past Treatment and Therapy Plans No past plan information found.
--- OUTSIDE RECORDS SUMMARY | 2024-10-26 13:42 | XMS_ITS | Referral Summary ---
Author Organization [facility] Address [address] [place] [address] Care Team Providers Care Field Project Manager Name Role Phone Ayah Almodovar MD Primary Care Provider Maximiliano Arndt MD Unavailable Liliana Culver MD Unavailable Encounters * This document contains information received from the source organization and may not represent a complete record from that organization. Date Type Department Care Team Description 10/21/2024 12:23 PM CDT - 10/21/2024 11:59 PM CDT Hospital Encounter [facility] [address] [place] [address] Dehiscence of wound of perineum; Wound dehiscence, surgical, initial encounter Discharge Disposition: Discharge to home or self care 10/21/2024 8:45 AM CDT Office Visit [facility] [address] [facility] 6th [place] [phone] Dhruv Menchaca NP Dehiscence of wound of perineum (Primary Dx); Wound dehiscence, surgical, initial encounter 10/20/2024 Documentation [facility] [address] [facility] Medicine 6th [place] [phone] Aleyda Castellano RN 10/19/2024 Telephone [facility] [address] [place] [address] Luis Miller 08/26/2024 4:37 PM NETWORK DESKTOP SUPPORT SPECIALIST - 10/11/2024 7:10 PM CDT Hospital Encounter [address] [phone] Dung Rushing MD Stickles, MD Nessa Fisher, Carmen Wolfe MD Wound dehiscence, surgical, initial encounter (Primary Dx); Rectal cancer (HCC) Discharge Disposition: Discharge to an IP Rehab facility 10/04/2024 1:35 PM CDT Ancillary Procedure [facility] IP 1 [facility] [address] [place] [phone] 10/04/2024 1:30 PM CDT Ancillary Procedure [facility] IP 1 [facility] [address] [place] [phone] 09/24/2024 12:17 PM CDT - 09/24/2024 11:59 PM CDT Hospital Encounter [address] [address] General medical exam Discharge Disposition: Discharge to home or self care 09/24/2024 7:30 AM CDT - 09/24/2024 3:55 PM CDT Surgery [facility] Operating Room [address] [place] [address] Liliana Culver MD DEBRIDEMENT WOUND - Wound preparation and debridement, trunk 09/24/2024 7:30 AM CDT Anesthesia Event [facility] Operating Room 1 [place] [address] Suki Ponce MD Montgomery, Andrea J., NP 09/15/2024 Orders Only [facility] [address] [place] [address] Luis Miller Rectal cancer (HCC) (Primary Dx) 09/13/2024 3:49 PM CDT Anesthesia Event [facility] Operating Room [address] [place] [address] Dar Sharma MD Fernandez, Latoya Richey MD 09/13/2024 3:32 PM CDT - 09/13/2024 4:47 PM CDT Surgery [facility] Operating Room 1 [place] [address] Carmen Szymanski MD EXAM UNDER ANESTHESIA, wound washout and debridement 09/10/2024 Telephone [facility] Radiation Oncology at [facility] [address] [place] [address] Candida Martinez, CHELSEA 08/31/2024 Telephone [facility] Radiation Oncology at [facility] [address] [place] [phone] Candida Martinez, CHELSEA 08/26/2024 Telephone [facility] [address] [place] [address] Medical Office Building [address] [place] [address] Bonnie Clay CMA 08/26/2024 Telephone [facility] [address] [place] [address] Medical Office Building [address] [place] [address] Hailey Crystal, CHELSEA 08/26/2024 Telephone [facility] [address] [place] [address] Medical Office Building [address] [place] [phone] Bonnie Clay CMA patient placement 08/26/2024 11:30 AM NETWORK DESKTOP SUPPORT SPECIALIST Office Visit [facility] [address] [place] [phone] Carmen Szymanski MD Rectal cancer (HCC) (Primary Dx) 08/20/2024 Results Follow-Up [facility] [address] [place] [phone] Carmen Szymanski MD 08/20/2024 9:00 AM NETWORK DESKTOP SUPPORT SPECIALIST Office Visit [facility] Urology [address] [place] [address] Medical Office Building 4 [address] [place] [address] Bjorn Sin MD Urinary retention 08/18/2024 Orders Only [facility] Floor 5 [place] [phone] Carmen Szymanski MD Rectal cancer (HCC) (Primary Dx) 08/18/2024 Telephone [facility] [address] [facility] Floor 5 [place] [address] Carmen Szymanski MD Medical Question/Miscellane ous 08/17/2024 Telephone [facility] [address] [facility] Floor 5 [place] [address] Ghazala Adams, CHELSEA 08/16/2024 Orders Only [facility] [address] [facility] Floor 5 [place] [address] Carmen Szymanski MD 08/16/2024 Telephone [facility] Floor 5 [place] [address] Ghazala Adams, CHELSEA 08/13/2024 Telephone [facility] Floor 5 [place] [address] Ghazala Adams, CHELSEA 08/09/2024 5:05 AM NETWORK DESKTOP SUPPORT SPECIALIST - 08/12/2024 4:10 PM NETWORK DESKTOP SUPPORT SPECIALIST Hospital Encounter [address] [address] Carmen Szymanski MD Rectal cancer (HCC) Discharge Disposition: Discharge to home, home health skilled care 2024 Telephone [facility] [address] [place] [phone] 08/09/2024 7:30 AM NETWORK DESKTOP SUPPORT SPECIALIST - 08/09/2024 2:55 PM NETWORK DESKTOP SUPPORT SPECIALIST Surgery [facility] Operating Room 1 [place] [address] Carmen Szymanski MD XI ABDOMINAL PERINEAL RESECTION - LAPAROSCOPIC ROBOTIC ASSISTED 08/09/2024 7:29 AM NETWORK DESKTOP SUPPORT SPECIALIST Anesthesia Event [facility] Operating Room 1 [place] [address] Jovanna Vargas MD Hearn, Alexandra Marie, NP 08/03/2024 Telephone [facility] [address] [place] [phone] Luis Miller 07/28/2024 Telephone [facility] [address] [place] [address] [facility], Kellee Celeste RN from Last 3 Months Allergies Active [...] by mouth every evening 10/27/19 24 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 [id number] tablet Take 1 tablet/capsule by mouth every [...] a day as needed (Pain) 10/09/19 25 Active ibuprofen (ADVIL,MOTRIN) 600 mg tablet Take [...] (four) hours as needed for pain 10/09/[address] (PROTONIX) 40 mg EC [...] day as needed for dry eyes 10/09/19 Active pregabalin (LYRICA) 75 mg capsule Take 1 capsule (75 mg total) by mouth 2 (two) times a day 10/09/19 25 Active enoxaparin (LOVENOX) 40 mg/0.4 mL syringeIndicat [...] 21 days 16.8 mL 08/12/19 25 025 Discontinued oxyCODONE (ROXICODONE) 5 mg [...] index (BMI) 45.0-49.9, adult;Recorded Elsewhere: No Location: [facility] Source: EHR Chronic: N Practice ID: [id number] Billable Time: 03:30:00 PM Pelvic and perineal pain 12/18/2016 Overview (09/13/2024): Pelvic and perineal pain;Practice ID: [id number] Hirsutism 03/20/2016 Overview (09/13/2024): Hirsutism;Practice ID: [id number] Social History Tobacco Use Types Packs/Day Years Used Date Smoking Tobacco: Never Smokeless Tobacco: Never Tobacco Cessation:Counseling Given: Not Answered Alcohol Use Standard Drinks/Week Comments Never 0 (1 standard drink = 0.6 oz pur e alcohol) [facility] Utilities Answer Date Recorded In the past 12 months has [employer], gas, oil, or water [email or web address] threatened to shut off services in your [...] often do you attend chur ch or holiness services? More than 4 times per year 08/27/2024 Do you belong to any clubs o r organizations such as bahai groups, unions, fraternal or athletic groups, or [...] any time in the past 12 m [facility], were you homeless or living in a chcf (including now)? No 08/27/2024 Personal Safety Answer [...] (5' 7.01 ) 08/26/2024 1 0:25 PM NETWORK DESKTOP SUPPORT SPECIALIST Body Mass Index 45.97 08/26/2024 10:25 PM NETWORK DESKTOP SUPPORT SPECIALIST Plan of Treatment Not on file Procedures [...] BLOOD CELLS Timed 09/24/2024 9:52 AM CDT IL AN PROCEDURE PLACEHOLDER Routine 09/24/2024 9:41 AM CDT TRANSFUSE RED BLOOD CELLS Timed 09/24/2024 9:26 AM CDT PREPARE RBC STAT 09/24/2024 8:57 AM CDT IL AN PROCEDURE PLACEHOLDER Routine 09/24/2024 8:21 AM CDT IL AN PROCEDURE PLACEHOLDER Routine 09/24/2024 8:21 AM CDT IL AN ELECTIVE ENDOTRACHEAL AIRWAY Routine 09/24/2024 8:21 AM CDT PLACEMENT WOUND VACUUM 09/24/2024 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 Dehiscence of wound of perineum Case Notes 09/15- Missing dpc email sent to Regi () Special Needs Tissue Cultures, 1% Lidocaine, Epinephrine 1:100 000, LOCAL FLAP 09/24/2024 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 Dehiscence of wound of perineum Case Notes 09/15- Missing dpc email sent to Regi () Special Needs Tissue Cultures, 1% Lidocaine, Epinephrine 1:100 000, DEBRIDEMENT WOUND 09/24/2024 7:3 4 AM CDT Brito syndrome History of rectal cancer Dehiscence of wound of perineum Case Notes 09/15- Missing dpc email sent to Regi () Special Needs Tissue Cultures, 1% Lidocaine, Epinephrine [...] PM CDT POCT GLUCOSE DEVICE Routine 09/13/2024 5:28 PM CDT POCT GLUCOSE DEVICE Routine 09/13/2024 [...] 1 VIEW IP Routine 09/03/2024 1:05 AM NETWORK DESKTOP SUPPORT SPECIALIST EGFR Routine 09/03/2024 12:42 AM NETWORK DESKTOP SUPPORT SPECIALIST BASIC METABOLIC PANEL Routine 09/03/2024 12:42 AM NETWORK DESKTOP SUPPORT SPECIALIST CBC WITHOUT DIFFERENTIAL Routine 09/03/2024 12:42 AM NETWORK DESKTOP SUPPORT SPECIALIST EGFR Routine 08/28/2024 10:33 PM NETWORK DESKTOP SUPPORT SPECIALIST BASIC METABOLIC PANEL Routine 08/28/2024 10:33 PM NETWORK DESKTOP SUPPORT SPECIALIST CBC WITHOUT DIFFERENTIAL Routine 08/28/2024 10:33 PM NETWORK DESKTOP SUPPORT SPECIALIST MAGNESIUM Routine 08/28/2024 10:33 PM NETWORK DESKTOP SUPPORT SPECIALIST PHOSPHORUS Routine 08/28/2024 10:33 PM NETWORK DESKTOP SUPPORT SPECIALIST EGFR Routine 08/27/2024 10:33 PM NETWORK DESKTOP SUPPORT SPECIALIST BASIC METABOLIC PANEL Routine 08/27/2024 10:33 PM NETWORK DESKTOP SUPPORT SPECIALIST CBC WITHOUT DIFFERENTIAL Routine 08/27/2024 10:33 PM NETWORK DESKTOP SUPPORT SPECIALIST MAGNESIUM Routine 08/27/2024 10:33 PM NETWORK DESKTOP SUPPORT SPECIALIST PHOSPHORUS Routine 08/27/2024 10:33 PM NETWORK DESKTOP SUPPORT SPECIALIST POCT LACTATE - DEVICE Routine 08/26/2024 7:18 PM NETWORK DESKTOP SUPPORT SPECIALIST CT ABDOMEN PELVIS W CONTRAST ED 08/26/2024 6:03 PM NETWORK DESKTOP SUPPORT SPECIALIST EGFR STAT 08/26/2024 5:36 PM NETWORK DESKTOP SUPPORT SPECIALIST DIFFERENTIAL AUTO STAT 08/26/2024 5:3 6 PM NETWORK DESKTOP SUPPORT SPECIALIST COMPREHENSIVE METABOLIC PANEL STAT 08/26/2024 5:36 PM NETWORK DESKTOP SUPPORT SPECIALIST CBC WITH AUTO DIFFERENTIAL STAT 08/26/2024 5:36 PM NETWORK DESKTOP SUPPORT SPECIALIST XR CHEST PA LATERAL 2 VIEWS ED 08/26/2024 2:32 PM NETWORK DESKTOP SUPPORT SPECIALIST POCT GLUCOSE DEVICE Routine 08/12/2024 11:53 AM NETWORK DESKTOP SUPPORT SPECIALIST POCT GLUCOSE DEVICE Routine 08/12/2024 7 :52 AM NETWORK DESKTOP SUPPORT SPECIALIST CBC WITHOUT DIFFERENTIAL Timed 08/11/2024 9:50 PM NETWORK DESKTOP SUPPORT SPECIALIST POCT GLUCOSE DEVICE Routine 08/11/2024 7 :26 PM NETWORK DESKTOP SUPPORT SPECIALIST POCT GLUCOSE DEVICE Routine 08/11/2024 4 :53 PM NETWORK DESKTOP SUPPORT SPECIALIST POCT GLUCOSE DEVICE Routine 08/11/2024 11:02 AM NETWORK DESKTOP SUPPORT SPECIALIST POCT GLUCOSE DEVICE Routine 08/11/2024 7 :40 AM NETWORK DESKTOP SUPPORT SPECIALIST EGFR Timed 08/11/2024 1:37 AM NETWORK DESKTOP SUPPORT SPECIALIST BASIC METABOLIC PANEL Timed 08/11/2024 1:37 AM NETWORK DESKTOP SUPPORT SPECIALIST CBC WITHOUT DIFFERENTIAL Timed 08/11/2024 1:37 AM NETWORK DESKTOP SUPPORT SPECIALIST POCT GLUCOSE DEVICE Routine 2024 8 :48 PM NETWORK DESKTOP SUPPORT SPECIALIST POCT GLUCOSE DEVICE Routine 2024 12:56 PM NETWORK DESKTOP SUPPORT SPECIALIST POCT GLUCOSE DEVICE Routine 2024 7 :49 AM NETWORK DESKTOP SUPPORT SPECIALIST HEMOGLOBIN A1C Timed 08/09/2024 9:20 PM NETWORK DESKTOP SUPPORT SPECIALIST LIPID PANEL Timed 08/09/2024 9:20 PM NETWORK DESKTOP SUPPORT SPECIALIST EGFR Timed 08/09/2024 9:20 PM NETWORK DESKTOP SUPPORT SPECIALIST BASIC METABOLIC PANEL Timed 08/09/2024 9:20 PM NETWORK DESKTOP SUPPORT SPECIALIST CBC WITHOUT DIFFERENTIAL Timed 08/09/2024 9:20 PM NETWORK DESKTOP SUPPORT SPECIALIST POC BLOOD GAS AND CHEMISTRIES, ARTERIAL Routine 08/09/2024 3:23 PM NETWORK DESKTOP SUPPORT SPECIALIST SURGICAL PATHOLOGY Routine 08/09/2024 2: 26 PM NETWORK DESKTOP SUPPORT SPECIALIST Rectal cancer (HCC) POC BLOOD GAS AND CHEMISTRIES, ARTERIAL Routine 08/09/2024 1:23 PM NETWORK DESKTOP SUPPORT SPECIALIST POCT GLUCOSE DEVICE Routine 08/09/2024 10:59 AM NETWORK DESKTOP SUPPORT SPECIALIST IL AN PROCEDURE PLACEHOLDER Routine 08/09/2024 9:21 AM NETWORK DESKTOP SUPPORT SPECIALIST IL AN PROCEDURE PLACEHOLDER Routine 08/09/2024 9:20 AM NETWORK DESKTOP SUPPORT SPECIALIST IL AN PROCEDURE PLACEHOLDER Routine 08/09/2024 9:17 AM NETWORK DESKTOP SUPPORT SPECIALIST IL AN ELECTIVE ENDOTRACHEAL AIRWAY Routine 08/09/2024 9:17 AM NETWORK DESKTOP SUPPORT SPECIALIST POC BLOOD GAS AND CHEMISTRIES, ARTERIAL Routine 08/09/2024 8:43 AM NETWORK DESKTOP SUPPORT SPECIALIST SIGMOIDOSCOPY 08/09/2024 7:33 AM NETWORK DESKTOP SUPPORT SPECIALIST Rectal cancer (HCC) XI ABDOMINAL PERINEAL RESECTION - LAPAROSCOPIC ROBOTIC ASSISTED 08/09/2024 7:33 AM NETWORK DESKTOP SUPPORT SPECIALIST Rectal cancer (HCC) POCT GLUCOSE DEVICE Routine 08/09/2024 5 :55 AM NETWORK DESKTOP SUPPORT SPECIALIST TYPE AND SCREEN STAT 08/09/2024 5:55 AM NETWORK DESKTOP SUPPORT SPECIALIST POCT HCG, URINE Routine 08/09/2024 5:45 AM NETWORK DESKTOP SUPPORT SPECIALIST from Last 3 Months Results * CT [...] Electronically signed by: Bjorn Polanco M.D. us Carmen Szymanski MD IMG CT PROCEDURES Final Re [...] AM CDT 10/11/2024 8:57 AM CDT us Carmen Szymanski MD LAB BLOOD ORDERABLES Final Result Performing Organization Address [facility] Co de Phone Number [facility] Department [place] [address] * (ABNORMAL) CBC without differential (10/11/2024 8:19 AM CDT) WBC 4.62 3.80 - 9.90 K/cumm Hgb 7.8(L) 11.9 - 15.5 g/dL [facility] Hct 25.9(L) 35.6 - 45.5 % [facility] Plt 177 150 - 400 K/cumm [facility] MPV 10.0 9.1 - 12.3 fL [facility] RBC 3.03(L) 3.90 - 5.20 M/cumm [facility] MCV 85.5 81.3 - 96.4 fL [facility] MCH 25.7(L) 27.1 - 33.3 pg [facility] MCHC 30.1(L) 32.3 - 35.7 g/dL [facility] RDW CV 15.6(H) 11.1 - 14.9 % [facility] RDW SD 48.5(H) 35.7 - 48.1 fL [facility] NRBC abs 0.00 0.00 - 0.01 K/cumm [facility] Blood 10/11/2024 8:19 AM CDT 10/11/2024 8:56 AM CDT us Carmen Szymanski MD LAB BLOOD ORDERABLES Final Result [facility] Department [place] [address] * (ABNORMAL) Prealbumin (10/11/2024 8:19 AM CDT) Prealbumin 17.0(L) 20.0 - 40.0 mg/dL Blood 10/11/2024 8:19 AM CDT 10/11/2024 8:57 AM CDT us Carmen Szymanski MD LAB BLOOD ORDERABLES Final Result [facility] Department [place] [address] * (ABNORMAL) Comprehensive metabolic panel (10/11/2024 8:19 AM CDT) [facility] Sodium 139 135 - 145 mmol/L Potassium, pl 4.0 3.3 - 4.9 mmol/L [facility] Chloride 103 97 - 110 mmol/L [facility] CO2 27 22 - 32 mmol/L [facility] Anion gap 9 2 - 15 mmol/L [facility] BUN 16 6 - 25 mg/dL [facility] Creatinine 0.62 0.60 - 1.10 mg/dL [facility] Glucose 102 70 - 199 mg/dL [facility] Comment: Interpretive Data Fasting glucose >/= [...] 2022. Calcium 8.9 8.5 - 10.3 mg/dL [facility] Bilirubin, total 0.4 0.1 - 1.2 mg/dL [facility] Protein, pl 6.6 6.5 - 8.5 g/dL [facility] Albumin 3.3(L) 3.5 - 5.0 g/dL [facility] Alk phos 170(H) 40 - 130 Units/L [facility] ALT 25 7 - 45 Units/L [facility] AST 22 10 - 45 Units/L [facility] Blood 10/11/2024 8:19 AM CDT 10/11/2024 8:57 AM CDT Carmen Szymanski MD LAB BLOOD ORDERABLES Final Result Performing Organization Address [facility] de Phone Number [facility] [place] [place] [address] * Protein, total (10/10/2024 11:36 AM CDT) [facility] Protein, pl 6.5 6.5 - 8.5 g/dL Blood 10/10/2024 11:3 6 AM CDT 10/10/2024 12:23 PM CDT Carmen Szymanski MD LAB BLOOD ORDERABLES Final Result Performing Organization Address [facility] de Phone Number [facility] [place] [address] * (ABNORMAL) Albumin (10/10/2024 11:36 AM CDT) [facility] Albumin 3.4(L) 3.5 - 5.0 g/dL Blood 10/10/2024 11:3 6 AM CDT 10/10/2024 12:23 PM CDT Carmen Szymanski MD LAB BLOOD ORDERABLES Final Result Performing Organization Address [facility] [place] [address] * (ABNORMAL) Differential, auto (10/08/2024 10:17 AM CDT) [facility] Neutrophil abs 3.53 1.50 - 6.50 K/cumm Imm gran abs 0.02 0.00 - 0.10 K/cumm [facility] Lymphocyte abs 0.51(L) 0.80 - 3.30 K/cumm [facility] Monocyte abs 0.21 0.20 - 0.80 K/cumm [facility] Eosinophil abs 0.14 0.00 - 0.50 K/cumm [facility] Basophil abs 0.01 0.00 - 0.10 K/cumm [facility] Neutrophil pct 79.8 % [facility] Comment: Interpretive Data Percent cell count reference ranges are not reported, since discordance with absolute values may lead to misinterpretation of CBC data. Current Interpretive Data was last revised on 2017. Imm gran pct 0.5 % [facility] Comment: Interpretive Data Percent cell count reference ranges are not reported, since discordance with absolute values may lead to misinterpretation of CBC data. Current Interpretive Data was last revised on 2017. Lymphocyte pct 11.5 % [facility] Comment: Interpretive Data Percent cell count reference ranges are not reported, since discordance with absolute values may lead to misinterpretation of CBC data. Current Interpretive Data was last revised on 2017. Monocyte pct 4.8 % [facility] Comment: Interpretive Data Percent cell count reference ranges are not reported, since discordance with absolute values may lead to misinterpretation of CBC data. Current Interpretive Data was last revised on 2017. Eosinophil pct 3.2 % [facility] Comment: Interpretive Data Percent cell count reference ranges are not reported, since discordance with absolute values may lead to misinterpretation of CBC data. Current Interpretive Data was last revised on 2017. Basophil pct 0.2 % [facility] Comment: Interpretive Data Percent cell count reference ranges are not reported, since discordance with absolute values may lead to misinterpretation of CBC data. Current Interpretive Data was last revised on 2017. Blood 10/08/2024 10:1 7 AM CDT 10/08/2024 10:54 AM CDT us Carmen Szymanski MD LAB BLOOD ORDERABLES Final Result [facility] Department [place] [address] * (ABNORMAL) CBC with auto differential (10/08/2024 10:17 AM CDT) Pathologist [facility] WBC 4.42 3.80 - 9.90 K/cumm Hgb 7.6(L) 11.9 - 15.5 g/dL [facility] Hct 25.4(L) 35.6 - 45.5 % [facility] Plt 164 150 - 400 K/cumm [facility] MPV 10.4 9.1 - 12.3 fL [facility] RBC 2.91(L) 3.90 - 5.20 M/cumm [facility] MCV 87.3 81.3 - 96.4 fL [facility] MCH 26.1(L) 27.1 - 33.3 pg [facility] MCHC 29.9(L) 32.3 - 35.7 g/dL [facility] RDW CV 15.8(H) 11.1 - 14.9 % [facility] RDW SD 50.3(H) 35.7 - 48.1 fL [facility] NRBC abs 0.00 0.00 - 0.01 K/cumm [facility] Blood 10/08/2024 10:1 7 AM CDT 10/08/2024 10:54 AM CDT us Carmen Szymanski MD LAB BLOOD ORDERABLES Final Result [facility] Department [place] [address] * (ABNORMAL) CBC without differential (10/06/2024 9:36 PM CDT) [facility] WBC 6.48 3.80 - 9.90 K/cumm Hgb 7.7(L) 11.9 - 15.5 g/dL [facility] Hct 24.8(L) 35.6 - 45.5 % [facility] Plt 165 150 - 400 K/cumm [facility] MPV 10.7 9.1 - 12.3 fL [facility] RBC 2.92(L) 3.90 - 5.20 M/cumm [facility] MCV 84.9 81.3 - 96.4 fL [facility] MCH 26.4(L) 27.1 - 33.3 pg [facility] MCHC 31.0(L) 32.3 - 35.7 g/dL [facility] RDW CV 15.4(H) 11.1 - 14.9 % [facility] RDW SD 47.1 35.7 - 48.1 fL [facility] NRBC abs 0.00 0.00 - 0.01 K/cumm [facility] Blood 10/06/2024 9:36 PM CDT 10/06/2024 10:26 PM CDT Tasia Patel [employer] LAB BLOOD ORDERABLES Cecille l Result Performing Organization Address [facility] Co de Phone Number [facility] [place] [address] * Magnesium (10/05/2024 9:19 PM CDT) Pathologist [facility] Magnesium 2.0 1.4 - 2.5 mg/dL Blood 10/05/2024 9:19 PM CDT 10/05/2024 10:17 PM CDT us Dhruv Huerta [employer] LAB BLOOD ORDERABLES Final Res ult Performing Organization Address [facility] Co de Phone Number [facility] [place] [address] * POCT glucose (10/05/2024 11:44 AM CDT) Glucose, POC 149 70 - 199 mg/dL Blood 10/05/2024 11:4 4 AM CDT 10/05/2024 11:44 AM CDT us Carmen Szymanski MD LAB POCT ORDERABLES - ÁNGELA CE Final Result Performing Organization Address [facility] Co de Phone Number [facility] Department [place] [address] * (ABNORMAL) CBC without differential (10/05/2024 9:59 AM CDT) WBC 6.28 3.80 - 9.90 K/cumm Hgb 7.9(L) 11.9 - 15.5 g/dL [facility] Hct 25.7(L) 35.6 - 45.5 % [facility] Plt 173 150 - 400 K/cumm [facility] MPV 10.4 9.1 - 12.3 fL [facility] RBC 3.00(L) 3.90 - 5.20 M/cumm [facility] MCV 85.7 81.3 - 96.4 fL [facility] MCH 26.3(L) 27.1 - 33.3 pg [facility] MCHC 30.7(L) 32.3 - 35.7 g/dL [facility] RDW CV 15.4(H) 11.1 - 14.9 % [facility] RDW SD 47.7 35.7 - 48.1 fL [facility] NRBC abs 0.00 0.00 - 0.01 K/cumm [facility] Blood 10/05/2024 9:59 AM CDT 10/05/2024 10:16 AM CDT Narrative [facility] - 10/05/2024 10:25 AM CDT 1 hour after transfusion of Red Blood Cells is complete. Carmen Szymanski MD LAB BLOOD ORDERABLES Final Result Performing Organization Address City/[facility]/ZIP Co de Phone Number [facility] Department [place] [address] * Phosphorus (10/05/2024 9:59 AM CDT) Pathologist [facility] Phosphorus, pl 4.1 2.3 - 4.5 mg/dL Blood 10/05/2024 9:59 AM CDT 10/05/2024 10:16 AM CDT Dhruv Huerta NP LAB BLOOD [place]AB[place] [address] * Calcium level (10/05/2024 9:59 AM CDT) [facility] Calcium 8.7 8.5 - 10.3 mg/dL Blood 10/05/2024 9:59 AM CDT 10/05/2024 10:16 AM CDT us Dhruv Huerta NP LAB BLOOD ORDERABLES Final Res ult Performing Organization Address [facility] Co de Phone Number [place] [address] * Transfuse RBC (10/05/2024 8:01 AM CDT) Blood Carmen Szymanski MD BLOOD TRANSFUSION ORDERABL ES Final Result Performing Organization Address [facility] [place] [address] * Type and screen (10/05/2024 1:57 AM CDT) [facility] Thompson, indirect Negative ABO Rh A Positive [facility] Blood 10/05/2024 1:57 AM CDT 10/05/2024 2:45 AM CDT Narrative [facility] - 10/05/2024 3:43 AM CDT Has the patient had Daratumumab or Isatuximab in the past 6 months?->Unknown Carmen Szymanski MD LAB BLOOD BANK TEST ORDERA BLES Final Result Performing Organization Address [facility] [place] [address] * Prepare RBC: 1 Units (10/05/2024 1:39 AM CDT) [facility] Product code [id number] Unit Number [id number] [facility] Product Blood Type APOS [facility] Dispense Status PRESUMED TRANSFUSED [facility] Blood 10/05/2024 1:39 AM CDT 10/05/2024 1:38 AM CDT Narrative [facility] - 10/05/2024 4:00 PM CDT Are special requirements needed? (All products are leukoreduced and CMV- safe)- >No Date required:-[id number] LRRBC # of [id number] Reasons:-Hgb <7 g/dL} us Carmen Szymanski MD BLOOD BANK PRODUCT ORDERAB LES Final Result [facility] Department [place] [address] * (ABNORMAL) CBC without differential (10/04/2024 11:12 PM CDT) [facility] WBC 5.72 3.80 - 9.90 K/cumm Hgb 6.6(L) 11.9 - 15.5 g/dL [facility] Hct 21.7(L) 35.6 - 45.5 % [facility] Plt 159 150 - 400 K/cumm [facility] MPV 10.3 9.1 - 12.3 fL [facility] RBC 2.56(L) 3.90 - 5.20 M/cumm [facility] MCV 84.8 81.3 - 96.4 fL [facility] MCH 25.8(L) 27.1 - 33.3 pg [facility] MCHC 30.4(L) 32.3 - 35.7 g/dL [facility] RDW CV 15.6(H) 11.1 - 14.9 % [facility] RDW SD 47.8 35.7 - 48.1 fL [facility] NRBC abs 0.00 0.00 - 0.01 K/cumm [facility] Blood 10/04/2024 11:1 2 PM CDT 10/04/2024 11:49 PM CDT us Tasia Staley Amanda [facility] [employer] LAB BLOOD ORDERABLES Cecille oviedo Result BARBARA Alcantar [facility] Department [place] [address] * US Vein Duplex Upper Extremity Bilateral Complete (10/04/2024 4:40 PM CDT) Anatomical Region Laterality Modality Vascular Bilateral Ultrasound 10/04/2024 2:54 PM CDT Narrative 10/05/2024 12:31 AM CDT [facility] - Department of Vascular Surgery, Vascular Laboratory [address] [place] [address] Upper Extremity Venous Ultrasound Report Patient Name: DHRUV CAR : 1985 (39y 1m) Study Date: 10/04/2024 2:54:15 PM Gender: F Tech: Berta ALVARADO Location: [id number] Ref Provider: CARMEN SZYMANSKI Quality: Adequate Order Provider: CARMEN SZYMANSKI PROCEDURES: Vascular Report: Venous Duplex imaging was performed bilaterally in the upper extremities. The internal jugular, subclavian and axillary veins were evaluated for patency, spontaneity and phasicity with Doppler, compression and augmentation maneuvers. The brachial, basilic and cephalic veins were also evaluated with compression maneuvers. INDICATIONS: Chest pain. FINDINGS: Performing Research Nutritionist: Nia Alvarado RVT. Bilateral: Venous Doppler signals [...] Procedure Note Silver Hook MD - 10/05/2024 [facility] - Department of Vascular Surgery,Vascular Laboratory [address] [place] [address] Upper Extremity Venous Ultrasound Report Patient Name: DHRUV CAR : 1985 (39y 1m) Study Date: 10/04/2024 2:54:15 PM Gender: F Tech: Berta ALVARADO Location: [id number] Ref Provider: CARMEN SZYMANSKI Quality: Adequate Order Provider: CARMEN SZYMANSKI PROCEDURES: Vascular Report: Venous Duplex imaging was performed bilaterally in the upper extremities.The internal jugular, subclavian and axillary veins were evaluated for patency,spontaneity and phasicity with Doppler, compression and augmentation maneuvers. Thebrachial, basilic and cephalic veins were also evaluated with compression maneuvers. INDICATIONS: Chest pain. FINDINGS: Performing Research Nutritionist: Nia Alvarado RVT. Bilateral: Venous Doppler signals [...] above. Electronically Signed By: Silver Hook MD [facility] 10/05/2024 12:31:24 AM CDT us Carmen Szymanski MD IMG US PROCEDURES Final Re sult * US Vein Duplex Lower Extremity Bilateral Complete (10/04/2024 4:39 PM CDT) Anatomical Region Laterality Modality Vascular Bilateral Ultrasound 10/04/2024 2:54 PM CDT Narrative 10/05/2024 12:29 AM CDT [facility] - Department of Vascular Surgery, Vascular Laboratory [address] [place] [address] Lower Extremity Venous Ultrasound Report Patient Name: DHRUV CAR : 1985 (39y 1m) Study Date: 10/04/2024 2:54:15 PM Gender: F Tech: Berta ALVARADO Location: [id number] Ref Provider: CARMEN SZYMANSKI Quality: Adequate Order Provider: CARMEN SZYMANSKI PROCEDURES: Vascular Report: Venous Duplex imaging was performed bilaterally in the lower extremities. The common femoral, femoral, popliteal, posterior tibial, peroneal veins were evaluated for patency, spontaneity and phasicity with Doppler, compression and augmentation maneuvers. Great saphenous vein proximal at the junction was evaluated with compression maneuvers. INDICATIONS: Tachy, febrile, extended period of sedentary lifestyle. FINDINGS: Performing Research Nutritionist: Nia Alvarado RVT. Bilateral: Venous Doppler signals [...] Procedure Note Silver Hook MD - 10/05/2024 [facility] - Department of Vascular Surgery,Vascular Laboratory [address] [place] [id number] Lower Extremity Venous Ultrasound Report Patient Name: DHRUV CAR : 1985 (39y 1m) Study Date: 10/04/2024 2:54:15 PM Gender: F Tech: Berta ALVARADO Location: [id number] Ref Provider: CARMEN SZYMANSKI Quality: Adequate Order Provider: CARMEN SZYMANSKI PROCEDURES: Vascular Report: Venous Duplex imaging was performed bilaterally in the lower extremities.The common femoral, femoral, popliteal, posterior tibial, peroneal veins wereevaluated for patency, spontaneity and phasicity with Doppler, compression and augmentationmaneuvers. Great saphenous vein proximal at the junction was evaluated with compressionmaneuvers. INDICATIONS: Tachy, febrile, extended period of sedentary lifestyle. FINDINGS: Performing Research Nutritionist: Nia Alvarado RVT. Bilateral: Venous Doppler signals [...] above. Electronically Signed By: Silver Hook MD [facility] 10/05/2024 12:29:09 AM CDT us Carmen Szymanski MD IMG US PROCEDURES Final Re sult * Troponin I high-sensitivity (10/04/2024 8:01 AM CDT) Trop I hs <4 <=17 ng/L Comment: Interpretive Data For further hscTnI resources including the diagnostic algorithm and an aid in interpretation, copy and paste this link: [email or web address].[email or web address].org/[email or web address] Current Interpretive Data last revised 2020. Blood 10/04/2024 8:01 AM CDT 10/04/2024 8:29 AM CDT us Carmen Szymanski MD LAB BLOOD ORDERABLES Final Result BARBARA VARELA [facility] Department [place] [address] * (ABNORMAL) Iron profile w/ IBC (10/03/2024 10:32 PM CDT) Iron 17(L) 35 - 145 mcg/dL TIBC 209(L) 250 - 400 mcg/dL [facility] Transferrin saturation 8(L) 20 - 50 % [facility] Blood 10/03/2024 10:3 2 PM CDT 10/03/2024 11:11 PM CDT Tasiadenisse Patel [facility] LAB BLOOD ORDERABLES Cecille l Result Performing Organization Address City/[facility]/ZIP Co de Phone Number [facility] [place] [address] * (ABNORMAL) Prealbumin (10/03/2024 10:32 PM CDT) Prealbumin 12.0(L) 20.0 - 40.0 mg/dL Blood 10/03/2024 10:3 2 PM CDT 10/03/2024 11:11 PM CDT Tasia Luís Muhammado [facility] LAB BLOOD ORDERABLES Cecille l Result Performing Organization Address [facility] Co de Phone Number [facility] [place] [address] * XR Chest 1 View (10/03/2024 7:40 [...] signed by: Sampson Nassar M.D., MPH us Carmen Szymanski MD IMG XR PROCEDURES Final Re sult * ECG 12 lead (10/03/2024 7:40 PM CDT) Ventricular Rate EKG/Min 114 BPM [facility] Atrial Rate 114 BPM [facility] [place]-Interval (MSEC) 144 ms [facility] QRS-Interval (MSEC) 76 ms [facility] QT-Interval (MSEC) 348 ms [facility] QTc 479 ms [facility] P [place] 28 degrees [facility] [place] 27 degrees [facility] [place] 13 degrees [facility] Diagnosis Sinus tachycardia Long QT interval Abnormal ECG When compared with ECG of 03-OCT-2024 18:58, (unconfirmed) Aberrant conduction is no longer Present QT is longer Confirmed by GINETTE GLASS M.D ([id number]) on 10/04/2024 10:26:13 AM [facility] 10/03/2024 7:40 PM CDT 10/04/2024 10:26 AM CDT us Carmen Szymanski MD ECG ORDERABLES Final Resu lt [facility] * ECG 12 lead (10/03/2024 6:58 PM CDT) Ventricular Rate EKG/Min 113 BPM [facility] Atrial Rate 113 BPM [facility] [place]-Interval (MSEC) 190 ms [facility] QRS-Interval (MSEC) 76 ms [facility] QT-Interval (MSEC) 326 ms [facility] QTc 447 ms [facility] P [place] 39 degrees [facility] [place] 36 degrees [facility] [place] 20 degrees [facility] Diagnosis Age and gender specific ECG analysis Sinus tachycardia Otherwise normal ECG When compared with ECG of 29-SEP-2024 15:04, QTc has shortened Confirmed by GINETTE GLASS M.D ([id number]) on 10/05/2024 9:53:23 AM [facility] 10/03/2024 6:58 PM CDT 10/05/2024 9:53 AM CDT us Carmen Szymanski MD ECG ORDERABLES Final Resu lt Performing Organization Address City/[facility]/ZIP Co de Phone Number [facility] * Lactate (10/03/2024 6:50 PM CDT) Lactate 1.3 0.7 - 2.0 mmol/L Blood 10/03/2024 6:50 PM CDT 10/03/2024 7:07 PM CDT us Carmen Szymanski MD LAB BLOOD ORDERABLES Final Result Performing Organization Address City/[facility] Co de Phone Number [facility] Department [place] [address] * eGFR (10/03/2024 6:50 PM CDT) eGFR [...] PM CDT 10/03/2024 7:09 PM CDT us Carmen Szymanski MD LAB BLOOD ORDERABLES Final Result [facility] Department [place] [address] * (ABNORMAL) CBC without differential (10/03/2024 6:50 PM CDT) Pathologist [facility] WBC 6.43 3.80 - 9.90 K/cumm Hgb 7.1(L) 11.9 - 15.5 g/dL [facility] Hct 23.4(L) 35.6 - 45.5 % [facility] Plt 150 150 - 400 K/cumm [facility] MPV 10.6 9.1 - 12.3 fL [facility] RBC 2.71(L) 3.90 - 5.20 M/cumm [facility] MCV 86.3 81.3 - 96.4 fL [facility] MCH 26.2(L) 27.1 - 33.3 pg [facility] MCHC 30.3(L) 32.3 - 35.7 g/dL [facility] RDW CV 15.5(H) 11.1 - 14.9 % [facility] RDW SD 48.6(H) 35.7 - 48.1 fL [facility] NRBC abs 0.00 0.00 - 0.01 K/cumm [facility] Blood 10/03/2024 6:50 PM CDT 10/03/2024 7:07 PM CDT us Carmen Szymanski MD LAB BLOOD ORDERABLES Final Result [facility] [place] [address] * (ABNORMAL) Basic metabolic panel (10/03/2024 6:50 PM CDT) Sodium 137 135 - 145 mmol/L Potassium, pl 3.8 3.3 - 4.9 mmol/L [facility] Chloride 104 97 - 110 mmol/L [facility] CO2 24 22 - 32 mmol/L [facility] Anion gap 9 2 - 15 mmol/L [facility] BUN 19 6 - 25 mg/dL [facility] Creatinine 0.60 0.60 - 1.10 mg/dL [facility] Glucose 113 70 - 199 mg/dL [facility] Comment: Interpretive Data Fasting glucose >/= [...] 2022. Calcium 8.4(L) 8.5 - 10.3 mg/dL [facility] Blood 10/03/2024 6:50 PM CDT 10/03/2024 7:07 PM CDT us Carmen Szymanski MD LAB BLOOD ORDERABLES Final Result Performing Organization Address City/[facility]/ZIP Co de Phone Number [facility] [place] [address] * Protein, total (10/03/2024 12:46 PM CDT) [facility] Protein, pl 6.5 6.5 - 8.5 g/dL Blood 10/03/2024 12:4 6 PM CDT 10/03/2024 1:20 PM CDT us Carmen Szymanski MD LAB BLOOD ORDERABLES Final Result Performing Organization Address City/[facility]/ZIP Co de Phone Number [facility] Department [place] [address] * (ABNORMAL) Albumin (10/03/2024 12:46 PM CDT) [facility] Albumin 3.3(L) 3.5 - 5.0 g/dL Blood 10/03/2024 12:4 6 PM CDT 10/03/2024 1:20 PM CDT Carmen Szymanski MD LAB BLOOD ORDERABLES Final Result Performing Organization Address City/[facility]/ZIP Co de Phone Number [facility] Department [place] [address] * eGFR (10/03/2024 1:14 AM CDT) [facility] eGFR >90 >=60 mL/min/1. 73 m2 [...] 1:14 AM CDT 10/03/2024 1:46 AM CDT Carmen Szymanski MD LAB BLOOD ORDERABLES Final Result [facility]BAR[facility] Department [place] [address] * Differential, auto (10/03/2024 1:14 AM CDT) Neutrophil abs 6.28 1.50 - 6.50 K/cumm Imm gran abs 0.06 0.00 - 0.10 K/cumm [facility] Lymphocyte abs 0.85 0.80 - 3.30 K/cumm [facility] Monocyte abs 0.59 0.20 - 0.80 K/cumm [facility] Eosinophil abs 0.11 0.00 - 0.50 K/cumm [facility] Basophil abs 0.02 0.00 - 0.10 K/cumm [facility] Neutrophil pct 79.3 % [facility] Comment: Interpretive Data Percent cell count reference ranges are not reported, since discordance with absolute values may lead to misinterpretation of CBC data. Current Interpretive Data was last revised on 2017. Imm gran pct 0.8 % [facility] Comment: Interpretive Data Percent cell count reference ranges are not reported, since discordance with absolute values may lead to misinterpretation of CBC data. Current Interpretive Data was last revised on 2017. Lymphocyte pct 10.7 % [facility] Comment: Interpretive Data Percent cell count reference ranges are not reported, since discordance with absolute values may lead to misinterpretation of CBC data. Current Interpretive Data was last revised on 2017. Monocyte pct 7.5 % [facility] Comment: Interpretive Data Percent cell count reference ranges are not reported, since discordance with absolute values may lead to misinterpretation of CBC data. Current Interpretive Data was last revised on 2017. Eosinophil pct 1.4 % [facility] Comment: Interpretive Data Percent cell count reference ranges are not reported, since discordance with absolute values may lead to misinterpretation of CBC data. Current Interpretive Data was last revised on 2017. Basophil pct 0.3 % [facility] Comment: Interpretive Data Percent cell count reference ranges are not reported, since discordance with absolute values may lead to misinterpretation of CBC data. Current Interpretive Data was last revised on 2017. Blood 10/03/2024 1:14 AM CDT 10/03/2024 1:46 AM CDT Carmen Szymanski MD LAB BLOOD ORDERABLES Final Result Performing Organization Address [facility]/ZIP Co de Phone Number [facility] Department [place] [address] * (ABNORMAL) CBC with auto differential (10/03/2024 1:14 AM CDT) [facility] WBC 7.91 3.80 - 9.90 K/cumm Hgb 7.1(L) 11.9 - 15.5 g/dL [facility] Hct 24.1(L) 35.6 - 45.5 % [facility] Plt 146(L) 150 - 400 K/cumm [facility] MPV 10.7 9.1 - 12.3 fL [facility] RBC 2.80(L) 3.90 - 5.20 M/cumm [facility] MCV 86.1 81.3 - 96.4 fL [facility] MCH 25.4(L) 27.1 - 33.3 pg [facility] MCHC 29.5(L) 32.3 - 35.7 g/dL [facility] RDW CV 15.8(H) 11.1 - 14.9 % [facility] RDW SD 49.6(H) 35.7 - 48.1 fL [facility] NRBC abs 0.00 0.00 - 0.01 K/cumm [facility] Blood 10/03/2024 1:14 AM CDT 10/03/2024 1:46 AM CDT Carmen Szymanski MD LAB BLOOD ORDERABLES Final Result Performing Organization Address [facility]/ZIP Co de Phone Number [facility] Department [place] [address] * Basic metabolic panel (10/03/2024 1:14 AM CDT) [facility] Sodium 139 135 - 145 mmol/L Potassium, pl 3.3 3.3 - 4.9 mmol/L [facility] Chloride 106 97 - 110 mmol/L [facility] CO2 26 22 - 32 mmol/L [facility] Anion gap 7 2 - 15 mmol/L [facility] BUN 13 6 - 25 mg/dL [facility] Creatinine 0.63 0.60 - 1.10 mg/dL [facility] Glucose 131 70 - 199 mg/dL [facility] Comment: Interpretive Data Fasting glucose >/= [...] 2022. Calcium 8.6 8.5 - 10.3 mg/dL [facility] Blood 10/03/2024 1:14 AM CDT 10/03/2024 1:46 AM CDT Carmen Szymanski MD LAB BLOOD ORDERABLES Final Result [facility] Department [place] [address] * Urinalysis reflex to microscopic and culture Urine, indwelling catheter (10/02/2024 6:21 PM CDT) Color, ur Yellow Yellow Clarity, ur Clear Clear [facility] Specific gravity, ur 1.026 1.003 - 1.030 [facility] pH, urine 7.0 [facility] Comment: Interpretive Data U rine pH is affected by diet, medications, systemic acid-base disturbances, and renal tubular function. pH may affect urinary stone formation. For example, urine pH below 6.0 may help reduce the tendency for calcium phosphate stones and pH greater than 6.0 may reduce the tendency for uric acid stone formation. Source: [employer] Current Interpretive Data was last revised on 2017 Protein, ur ql Trace Negative [facility] Glucose, ur ql Negative Negative [facility] Ketones, ur Negative Negative [facility] Bilirubin, ur Negative Negative [facility] Blood, ur Negative Negative [facility] Urobilinogen, ur <2.0 <2.0 mg/dL [facility] Nitrite, ur Negative Negative [facility] Leukocyte esterase, ur Negative Negative [facility] UA reflex comment Reflex conditions for microscopic UA and culture not met. [facility] Urine, indwelling catheter 10/02/2024 6:21 PM CDT 10/02/2024 6:46 PM CDT us Carmen Szymanski MD LAB MICROBIOLOGY - GENERAL ORDERABLES Final Result Performing Organization Address [facility] Co de Phone Number [facility] Department [place] [address] * eGFR (10/01/2024 11:45 PM CDT) eGFR [...] NP LAB BLOOD ORDERABLES Cecille l Result [facility] [place] [address] * (ABNORMAL) CBC without differential (10/01/2024 11:45 PM CDT) [facility] WBC 7.82 3.80 - 9.90 K/cumm Hgb 7.4(L) 11.9 - 15.5 g/dL [facility] Hct 24.9(L) 35.6 - 45.5 % [facility] Plt 145(L) 150 - 400 K/cumm [facility] MPV 10.8 9.1 - 12.3 fL [facility] RBC 2.85(L) 3.90 - 5.20 M/cumm [facility] MCV 87.4 81.3 - 96.4 fL [facility] MCH 26.0(L) 27.1 - 33.3 pg [facility] MCHC 29.7(L) 32.3 - 35.7 g/dL [facility] RDW CV 15.6(H) 11.1 - 14.9 % [facility] RDW SD 49.5(H) 35.7 - 48.1 fL [facility] NRBC abs 0.00 0.00 - 0.01 K/cumm [facility] Blood 10/01/2024 11:4 5 PM CDT 10/02/2024 2:47 AM CDT Tasia Patel NP LAB BLOOD ORDERABLES Cecille oviedo Result [facility] Department [place] [address] * Basic metabolic panel (10/01/2024 11:45 PM CDT) [facility] Sodium 139 135 - 145 mmol/L Potassium, pl 3.7 3.3 - 4.9 mmol/L [facility] Chloride 104 97 - 110 mmol/L [facility] CO2 25 22 - 32 mmol/L [facility] Anion gap 10 2 - 15 mmol/L [facility] BUN 13 6 - 25 mg/dL [facility] Creatinine 0.68 0.60 - 1.10 mg/dL [facility] Glucose 109 70 - 199 mg/dL [facility] Comment: Interpretive Data Fasting glucose >/= [...] 2022. Calcium 8.6 8.5 - 10.3 mg/dL [facility] Blood 10/01/2024 11:4 5 PM CDT 10/02/2024 2:47 AM CDT Tasia Patel NP LAB BLOOD ORDERABLES Cecille oviedo Result [facility] Department [place] [address] * ECG 12 lead (09/29/2024 3:04 PM CDT) Ventricular Rate EKG/Min 96 BPM [facility] Atrial Rate 96 BPM [facility] [place]-Interval (MSEC) 142 ms [facility] QRS-Interval (MSEC) 80 ms [facility] QT-Interval (MSEC) 380 ms [facility] QTc 480 ms [facility] P [place] 35 degrees [facility] R [place] 28 degrees [facility] [place] 24 degrees [facility] Diagnosis Normal sinus rhythm Prolonged QT Abnormal ECG When compared with ECG of 13-SEP-2024 23:31, No significant change was found Confirmed by GINETTE GLASS M.D ([id number]) on 09/30/2024 11:59:04 AM [facility] 09/29/2024 3:04 PM CDT 09/30/2024 11:59 AM CDT us Carmen Szymanski MD ECG ORDERABLES Final Resu lt [facility] * (ABNORMAL) Iron profile w/ IBC (09/26/2024 2:08 PM CDT) Iron 15(L) 35 - 145 mcg/dL TIBC 138(L) 250 - 400 mcg/dL [facility] Transferrin saturation 11(L) 20 - 50 % [facility] Blood 09/26/2024 2:08 PM CDT 09/26/2024 3:25 PM CDT us Carmen Szymanski MD LAB BLOOD ORDERABLES Final Result Performing Organization Address [facility] de Phone Number [facility] Department [place] [address] * (ABNORMAL) Protein, total (09/26/2024 2:08 PM CDT) Pathologist [facility] Protein, pl 5.9(L) 6.5 - 8.5 g/dL Blood 09/26/2024 2:08 PM CDT 09/26/2024 3:25 PM CDT us Carmen Szymanski MD LAB BLOOD ORDERABLES Final Result Performing Organization Address [facility] Co de Phone Number [facility] Department [place] [address] * (ABNORMAL) Prealbumin (09/26/2024 2:08 PM CDT) Prealbumin 14.0(L) 20.0 - 40.0 mg/dL Blood 09/26/2024 2:08 PM CDT 09/26/2024 3:27 PM CDT us Carmen Szymanski MD LAB BLOOD ORDERABLES Final Result Performing Organization Address [facility] Co de Phone Number [facility] [place] [place] [address] * (ABNORMAL) Albumin (09/26/2024 2:08 PM CDT) Albumin 2.9(L) 3.5 - 5.0 g/dL Blood 09/26/2024 2:08 PM CDT 09/26/2024 3:25 PM CDT us Carmen Szymanski MD LAB BLOOD ORDERABLES Final Result Performing Organization Address City/[facility]/ZIP Co de Phone Number [facility] [place] [address] * eGFR (09/24/2024 10:13 PM CDT) eGFR [...] NP LAB BLOOD ORDERABLES Cecille l Result [facility] Department [place] [address] * (ABNORMAL) CBC without differential (09/24/2024 10:13 PM CDT) [facility] WBC 9.2 3.8 - 9.9 K/cumm Hgb 8.4(L) 11.9 - 15.5 g/dL [facility] Hct 27.8(L) 35.6 - 45.5 % [facility] Plt 141(L) 150 - 400 K/cumm [facility] MPV 10.2 9.1 - 12.3 fL [facility] RBC 3.13(L) 3.90 - 5.20 M/cumm [facility] MCV 88.8 81.3 - 96.4 fL [facility] MCH 26.8(L) 27.1 - 33.3 pg [facility] MCHC 30.2(L) 32.3 - 35.7 g/dL [facility] RDW CV 15.0(H) 11.1 - 14.9 % [facility] RDW SD 48.5(H) 35.7 - 48.1 fL [facility] NRBC abs 0.00 0.00 - 0.01 K/cumm [facility] Blood 09/24/2024 10:1 3 PM CDT 09/24/2024 10:48 PM CDT us Tasia Patel NP LAB BLOOD ORDERABLES Cecille oviedo Result [facility] [place] [address] * (ABNORMAL) Basic metabolic panel (09/24/2024 10:13 PM CDT) [facility] Sodium 141 135 - 145 mmol/L Potassium, pl 4.3 3.3 - 4.9 mmol/L [facility] Chloride 105 97 - 110 mmol/L [facility] CO2 26 22 - 32 mmol/L [facility] Anion gap 10 2 - 15 mmol/L [facility] BUN 15 6 - 25 mg/dL [facility] Creatinine 0.77 0.60 - 1.10 mg/dL [facility] Glucose 151 70 - 199 mg/dL [facility] Comment: Interpretive Data Fasting glucose >/= [...] 2022. Calcium 8.3(L) 8.5 - 10.3 mg/dL [facility] Blood 09/24/2024 10:1 3 PM CDT 09/24/2024 10:47 PM CDT Tasia Patel NP LAB BLOOD ORDERABLES Cecille l Result [facility] Department [place] [address] * XR Abdomen Ap 1 Vw (09/24/2024 [...] p24 Antigen Blood (09/24/2024 12:17 PM CDT) HIV 1/2 ab + p24 ag Nonreactive [...] NERAL ORDERABLES Final Result Performing Organization Address City/[facility]/ZIP Co de Phone Number [facility] [place] [address] * Hepatitis C antibody Blood (09/24/2024 12:17 PM CDT) Hep C Ab Nonreactive Nonreactive Comment:Antibodies to HCV no t detected. Does NOT exclude the possibility of recent exposure to HCV. Current interpretive data was last revised on 22 Blood 09/24/2024 12:1 7 PM CDT 09/24/2024 12:18 PM CDT Ruddy Sheffield MD LAB MICROBIOLOGY - GE NERAL ORDERABLES Final Result [facility] [address] * Hepatitis B Surface Antigen Blood (09/24/2024 12:17 PM CDT) HepBsAg Nonreactive Nonreactive Blood 09/24/2024 12:1 7 PM CDT 09/24/2024 12:18 PM CDT us Ruddy Sheffield MD LAB MICROBIOLOGY - [facility] ORDERABLES Final Result [facility] Department [place] [address] * (ABNORMAL) POC Blood Gas and Chemistries, Arterial - (09/24/2024 10:21 AM CDT) pH, Art POC 7.42 7.35 - 7.45 pCO2, Art POC 37 35 - 45 mmHg [facility] pO2, Art POC 140(H) 83 - 108 mmHg [facility] Na, POC 138 135 - 145 mmol/L [facility] K POC 4.9 3.3 - 4.9 mmol/L [facility] Comment: Interpretive Data Not all point of care methods assess for hemolysis. Confirm with instrument and retest K+ if not consistent with clinical signs and symptoms. Current Interpretive Data was last revised on 2023. Cl, POC 112(H) 97 - 110 mmol/L [facility] Ionized Ca, POC 4.86 4.50 - 5.10 mg/dL [facility] Glucose, POC 168 70 - 199 mg/dL [facility] Lactate, POC 2.6(H) 0.7 - 2.0 mmol/L [facility] SO2 (sheri) arterial 100(H) 90 - 95 % [facility] Base excess, POC -0.3 mmol/L [facility] HCO3, Art POC 24 20 - 30 mmol/L [facility] Hct, POC 32.0(L) 36.3 - 45.3 % [facility] Total Hb, POC 10.6(L) 11.9 - 15.5 g/dL [facility] Blood 09/24/2024 10:2 1 AM CDT 09/24/2024 10:21 AM CDT Carmen Szymanski MD LAB POCT ORDERABLES - ÁNGELA CE Final Result Performing Organization Address City/[facility] Co de Phone Number [facility] Department [place] [address] * Transfuse RBC (09/24/2024 9:52 AM CDT) Blood Suki Ponce MD BLOOD TRANSFUSION ORDERABLE S Final Result Performing Organization Address [facility] de Phone Number [facility] [place] [address] * [place] AN PROCEDURE PLACEHOLDER (09/24/2024 9:41 AM CDT) Narrative Roula Bowen CRNA - 09/24/2024 9:41 AM CDT Roula Bowen CRNA 09/24/2024 9:41 AM Arterial Line Patient location: OR Indication: continuous blood pressure monitoring Staff: Placed by: BRYSON: Roula Bowen CRNA Procedure prep: Prep solution: [...] ORDERABLE S Final Result Performing Organization Address [facility] Co de Phone Number [facility] [place] [address] * Prepare RBC: 2 Units (09/24/2024 8:57 AM CDT) Product code [id number] [facility] Unit Number [id number] [facility]BARA VARELA Product Blood Type APOS [facility] Dispense Status PRESUMED TRANSFUSED [facility] Product code [id number] Unit Number [id number] [facility] Product Blood Type APOS BARBARA VARELA Dispense Status PRESUMED TRANSFUSED [facility] Blood 09/24/2024 8:57 AM CDT 09/24/2024 8:57 AM CDT Narrative [facility] - 09/25/2024 12:57 AM CDT Are special requirements needed? (All products are leukoreduced and CMV- safe)- >No Date required:-[id number] LRRBC # of [id number] Reasons:-Intra-op transfusion} Suki Ponce MD BLOOD BANK PRODUCT ORDERABL ES Final Result [facility] Department [place] [address] * [place] AN PROCEDURE PLACEHOLDER (09/24/2024 8:21 AM CDT) Roula Keith CRNA - 09/24/2024 8:21 AM CDT Roula Bowen CRNA 09/24/2024 8:21 AM Peripheral IV Catheter Patient location: OR Staff: Placed by: NURSE REVIEWER: Roula Bowen CRNA Preprocedure prep: Prep solution: chlorhexadine PPE: gloves and provider hat/mask PIV line: Laterality: right Site: forearm Catheter size: 18 g Technique: anatomical landmarks and direct visualization Procedure details: good blood return and occlusive dressing applied Number of attempts: 1 Assessment: Events: patient tolerated procedure well with no complications Suki Ponce MD ANESTHESIA ORDERABLES Final Result * [place] AN ELECTIVE ENDOTRACHEAL AIRWAY, [place] AN PROCEDURE PLACEHOLDER (09/24/2024 8:21 AM CDT) Roula Keith CRNA - 09/24/2024 8:21 AM CDT Roula Bowen CRNA 09/24/2024 8:21 AM Airway Patient location: OR Urgency: elective Indications for airway management: anesthesia Difficult airway: no Staff: Supervising provider: Suki Ponce MD Placed by: NURSE REVIEWER: Roula Bowen CRNA Emergent airway documentation: Risks [...] POCT glucose (09/24/2024 7:02 AM CDT) Pathologist [facility] Glucose, POC 111 70 - 199 mg/dL Blood 09/24/2024 7:02 AM CDT 09/24/2024 7:02 AM CDT us Carmen Szymanski MD LAB POCT ORDERABLES - ÁNGELA CE Final Result [facility] [place] [address] * eGFR (09/23/2024 11:14 PM CDT) eGFR [...] ORDERABLES Cecille l Result Performing Organization Address [facility] de Phone Number [facility] [place] [address] * Protime-INR (09/23/2024 11:14 PM CDT) PT 12.0 9.7 - 13.0 sec INR 1.11 0.90 - 1.20 [facility] Comment: Interpretive data Oral anticoagulant therapeutic ranges: Venous thromboembolism prophylaxis or treatment: 2.0-3.0 CARDIOLOGY Standard range: 2.0-3.0 High-intensity range: 2.5-3.5 Refer to indication-specific guidelines for appropriate target ranges for prosthetic heart valve replacement. Current interpretive data was last revised on 2019. Blood 09/23/2024 11:1 4 PM CDT 09/24/2024 12:13 AM CDT Tasia Patel [employer] LAB BLOOD ORDERABLES Cecille l Result Performing Organization Address [facility] Co de Phone Number [facility] [place] [address] * (ABNORMAL) CBC without differential (09/23/2024 11:14 PM CDT) WBC 3.6(L) 3.8 - 9.9 K/cumm Hgb 7.7(L) 11.9 - 15.5 g/dL [facility] Hct 25.9(L) 35.6 - 45.5 % [facility] Plt 140(L) 150 - 400 K/cumm [facility] MPV 10.7 9.1 - 12.3 fL [facility] RBC 2.95(L) 3.90 - 5.20 M/cumm [facility] MCV 87.8 81.3 - 96.4 fL [facility] MCH 26.1(L) 27.1 - 33.3 pg [facility] MCHC 29.7(L) 32.3 - 35.7 g/dL [facility] RDW CV 15.1(H) 11.1 - 14.9 % [facility] RDW SD 48.6(H) 35.7 - 48.1 fL [facility] NRBC abs 0.00 0.00 - 0.01 K/cumm [facility] Blood 09/23/2024 11:1 4 PM CDT 09/24/2024 12:06 AM CDT Tasia Patel NP LAB BLOOD ORDERABLES Cecille oviedo Result [facility] Department [place] [address] * Type and screen (09/23/2024 11:14 PM CDT) Pathologist [facility] Thompson, indirect Negative ABO Rh A Positive [facility] Blood 09/23/2024 11:1 4 PM CDT 09/24/2024 12:44 AM CDT Narrative [facility] - 09/24/2024 2:00 AM CDT Has the patient had Daratumumab or Isatuximab in the past 6 months?->Unknown Tasia Patel NP LAB BLOOD BANK TEST ORDER BRIANNA Final Result [facility] [place] [address] * Basic metabolic panel (09/23/2024 11:14 PM CDT) Sodium 141 135 - 145 mmol/L Potassium, pl 3.8 3.3 - 4.9 mmol/L [facility] Chloride 106 97 - 110 mmol/L [facility] CO2 26 22 - 32 mmol/L [facility] Anion gap 9 2 - 15 mmol/L [facility] BUN 19 6 - 25 mg/dL [facility] Creatinine 0.89 0.60 - 1.10 mg/dL [facility] Glucose 121 70 - 199 mg/dL [facility] Comment: Interpretive Data Fasting glucose >/= [...] 2022. Calcium 8.6 8.5 - 10.3 mg/dL [facility] Blood 09/23/2024 11:1 4 PM CDT 09/24/2024 12:05 AM CDT Tasia Patel NP LAB BLOOD ORDERABLES Cecille l Result Performing Organization Address [facility]/ZIP Co de Phone Number [facility] [place] [address] * (ABNORMAL) Prealbumin (09/23/2024 10:27 AM CDT) Prealbumin 19.0(L) 20.0 - 40.0 mg/dL Blood 09/23/2024 10:2 7 AM CDT 09/23/2024 10:56 AM CDT Celi Hoskins [employer] LAB BLOOD ORDERABLES Final Res ult Performing Organization Address [facility]/ZIP Co de Phone Number [facility] [place] [address] * Albumin (09/23/2024 10:27 AM CDT) Albumin 3.6 3.5 - 5.0 g/dL Blood 09/23/2024 10:2 7 AM CDT 09/23/2024 10:56 AM CDT Celi Hoskins [employer] LAB BLOOD ORDERABLES Final Res ult Performing Organization Address [facility] de Phone Number [facility] [place] [address] * (ABNORMAL) Urinalysis reflex to microscopic and culture Urine, clean voided (09/21/2024 12:36 PM CDT) Color, ur Yellow Yellow Clarity, ur Clear Clear [facility] Specific gravity, ur 1.031(H) 1.003 - 1.030 [facility] pH, urine 6.0 [facility] Comment: Interpretive Data U rine pH is affected by diet, medications, systemic acid-base disturbances, and renal tubular function. pH may affect urinary stone formation. For example, urine pH below 6.0 may help reduce the tendency for calcium phosphate stones and pH greater than 6.0 may reduce the tendency for uric acid stone formation. Source: [facility] Current Interpretive Data was last revised on 2017 Protein, ur ql 1+(A) Negative [facility] Glucose, ur ql Negative Negative [facility] Ketones, ur Negative Negative [facility] Bilirubin, ur Negative Negative [facility] Blood, ur Negative Negative [facility] Urobilinogen, ur <2.0 <2.0 mg/dL [facility] Nitrite, ur Negative Negative [facility] Leukocyte esterase, ur 2+(A) Negative [facility] UA reflex comment Reflex to microscopic UA will be performed. [facility] Urine, clean voided 09/21/2024 12:36 PM CDT 09/21/2024 1:17 PM CDT Dhruv Huerta [employer] LAB MICROBIOLOGY - GENERAL ORD ERABLES Final Result Performing Organization Address [facility] Co de Phone Number [facility] [place] [address] * (ABNORMAL) Urinalysis, microscopic only (09/21/2024 12:36 PM CDT) WBC, ur 21-50(A) 0 - 5 /HPF RBC, ur 6-10(A) 0 - 2 /HPF [facility] Epithelial cells, squamous, ur 1-5 0 - 5 /HPF [facility] Bacteria, ur 2+(A) [facility] Yeast, ur TRACE [facility] Mucous, ur Present(A) [facility] Culture Reflex Comment Reflex to urine culture will be performed. [facility] Urine, clean voided 09/21/2024 12:36 PM CDT 09/21/2024 1:17 PM CDT Dhruv Huerta [employer] LAB URINE ORDERABLES Final Res ult Performing Organization Address [facility] Co de Phone Number [facility] [place] [address] * Urine culture Urine, clean voided (09/21/2024 12:36 PM CDT) Report Final Report: Less than 100,000 colonies/mL (clinically insignificant growth based on current clinical standards) Organism (CLINICALLY INSIGNIFICANT GROWTH [facility] Urine, clean voided 09/21/2024 12:36 PM CDT 09/21/2024 3:37 PM CDT Narrative [facility] - 09/22/2024 5:34 PM CDT Urine culture reflexed based upon urinalysis results. Testing performed by [facility] ([phone]) Dhruv Huerta [employer] LAB MICROBIOLOGY - GENERAL ORD ERABLES Final Result Performing Organization Address City/[facility]/ZIP Co de Phone Number [facility] [address] * (ABNORMAL) Prealbumin (09/20/2024 9:04 PM CDT) Prealbumin 19.0(L) 20.0 - 40.0 mg/dL Blood 09/20/2024 9:04 PM CDT 09/20/2024 9:51 PM CDT Tasia Patel [employer] LAB BLOOD ORDERABLES Cecille l Result Performing Organization Address [facility] Co de Phone Number [facility] [place] [address] * (ABNORMAL) Urinalysis reflex to microscopic (09/18/2024 10:54 PM CDT) Color, ur Yellow Yellow Clarity, ur Clear Clear [facility] Specific gravity, ur 1.009 1.003 - 1.030 [facility] pH, urine 6.0 [facility] Comment: Interpretive Data U rine pH is affected by diet, medications, systemic acid-base disturbances, and renal tubular function. pH may affect urinary stone formation. For example, urine pH below 6.0 may help reduce the tendency for calcium phosphate stones and pH greater than 6.0 may reduce the tendency for uric acid stone formation. Source: [facility] [place] Current Interpretive Data was last revised on 2017 Protein, ur ql Negative Negative [facility] Glucose, ur ql Negative Negative [facility] Ketones, ur Negative Negative [facility] Bilirubin, ur Negative Negative [facility] Blood, ur Negative Negative [facility] Urobilinogen, ur <2.0 <2.0 mg/dL [facility] Nitrite, ur Positive(A) Negative [facility] Leukocyte esterase, ur Negative Negative [facility] UA reflex comment Reflex to microscopic UA will be performed. [facility] Urine, clean voided 09/18/2024 10:54 PM CDT 09/18/2024 11:48 PM CDT Carmen Szymanski MD LAB URINE ORDERABLES Final Result Performing Organization Address [facility] de Phone Number [facility] [place] [address] * (ABNORMAL) Urinalysis, microscopic only (09/18/2024 10:54 PM CDT) WBC, ur 0-5 0 - 5 /HPF RBC, ur 0-2 0 - 2 /HPF [facility] Bacteria, ur Trace(A) [facility] Urine, clean voided 09/18/2024 10:54 PM CDT 09/18/2024 11:48 PM CDT Carmen Szymanski MD LAB URINE ORDERABLES Final Result Performing Organization Address [facility] de Phone Number [facility] [place] [address] * Zinc (09/16/2024 9:17 AM CDT) Zinc 78 60 - 106 mcg/dL [facility] Comment: ADDITIONAL INFORMATION This test was developed and its performance characteristics determined by [facility] in a manner consistent with CLIA requirements. This test has not been cleared or approved by the U.S. Food and Drug Administration. Test Performed by: [facility] - [address] [address] Patch Sander: Nakia Almanzar Ph.D.; CLIA# [id number] Blood 09/16/2024 9:17 AM CDT 09/16/2024 10:17 AM CDT Tasia Staley Amanda [employer] LAB BLOOD ORDERABLES Cecille l Result Performing Organization Address [facility] de Phone Number [facility] [place] [address] [facility] * Vitamin C (09/16/2024 9:17 AM CDT) Pathologist [facility] Ascorbic acid (Vit C) 0.7 0.4 - 2.0 mg/dL [facility] Comment: ADDITIONAL INFORMATION This test was developed and its performance characteristics determined by [facility] in a manner consistent with CLIA requirements. This test has not been cleared or approved by the U.S. Food and Drug Administration. Test Performed by: [facility] - [address] [id number] [place] [address] Patch Sander: Nakia Almanzar Ph.D.; CLIA# [id number] Blood 09/16/2024 9:17 AM CDT 09/16/2024 10:17 AM CDT Tasia Patel [employer] LAB BLOOD ORDERABLES Cecille l Result Performing Organization Address [facility] de Phone Number [facility] Department [place] [address] [facility] * CT Abdomen Pelvis W Contrast [...] Electronically signed by: Hunter Andrew M.D. us Carmen Szymanski MD IMG CT PROCEDURES Final Re sult * ECG 12 lead (09/13/2024 11:31 PM CDT) [facility] Ventricular Rate EKG/Min 97 BPM [facility] Atrial Rate 97 BPM [facility] IL-Interval (MSEC) 148 ms [facility] QRS-Interval (MSEC) 78 ms [facility] QT-Interval (MSEC) 368 ms [facility] QTc 467 ms [facility] P [place] 52 degrees [facility] R [place] 31 degrees [facility] T [place] 34 degrees [facility] Diagnosis Normal sinus rhythm Normal ECG No previous ECGs available Confirmed by KRISSY WELLER M.D ([id number]) on 09/14/2024 3:46:25 PM [facility] 09/13/2024 11:3 1 PM CDT 09/14/2024 3:46 PM CDT us Carmen Szymanski MD ECG ORDERABLES Final Resu lt [facility] * Troponin I high-sensitivity (09/13/2024 11:30 PM CDT) [facility] Trop I hs <4 <=17 ng/L Comment: Interpretive Data For further hscTnI resources including the diagnostic algorithm and an aid in interpretation, copy and paste this link: [email or web address]/[email or web address] Current Interpretive Data last revised 2020. Blood 09/13/2024 11:3 0 PM CDT 09/13/2024 11:51 PM CDT us Carmen Szymanski MD LAB BLOOD ORDERABLES Final Result [facility] [place] [address] * Lactate (09/13/2024 11:30 PM CDT) [facility] Lactate 1.4 0.7 - 2.0 mmol/L Blood 09/13/2024 11:3 0 PM CDT 09/13/2024 11:49 PM CDT us Carmen Szymanski MD LAB BLOOD ORDERABLES Final Result Performing Organization Address [facility] Co de Phone Number [facility] Department [place] [address] * eGFR (09/13/2024 11:30 PM CDT) Pathologist [facility] eGFR >90 [...] PM CDT 09/13/2024 11:49 PM CDT us Carmen Szymanski MD LAB BLOOD ORDERABLES Final Result Performing Organization Address City/[facility]/ZIP Co de Phone Number [facility] Department [place] [address] * (ABNORMAL) CBC without differential (09/13/2024 11:30 PM CDT) [facility] WBC 5.2 3.8 - 9.9 K/cumm Hgb 8.2(L) 11.9 - 15.5 g/dL [facility] Hct 26.6(L) 35.6 - 45.5 % [facility] Plt 147(L) 150 - 400 K/cumm [facility] MPV 10.0 9.1 - 12.3 fL [facility] RBC 2.97(L) 3.90 - 5.20 M/cumm [facility] MCV 89.6 81.3 - 96.4 fL [facility] MCH 27.6 27.1 - 33.3 pg [facility] MCHC 30.8(L) 32.3 - 35.7 g/dL [facility] RDW CV 15.1(H) 11.1 - 14.9 % [facility] RDW SD 48.7(H) 35.7 - 48.1 fL [facility] NRBC abs 0.00 0.00 - 0.01 K/cumm [facility] Blood 09/13/2024 11:3 0 PM CDT 09/13/2024 11:51 PM CDT us Celi Hoskins NP LAB BLOOD ORDERABLES Final Res ult [facility] [place] [address] * (ABNORMAL) Prealbumin (09/13/2024 11:30 PM CDT) Prealbumin 17.0(L) 20.0 - 40.0 mg/dL Blood 09/13/2024 11:3 0 PM CDT 09/13/2024 11:50 PM CDT us Carmen Szymanski MD LAB BLOOD ORDERABLES Final Result [facility] [place] [address] * (ABNORMAL) Comprehensive metabolic panel (09/13/2024 11:30 PM CDT) Sodium 142 135 - 145 mmol/L Potassium, pl 3.7 3.3 - 4.9 mmol/L [facility] Chloride 108 97 - 110 mmol/L [facility] CO2 28 22 - 32 mmol/L [facility] Anion gap 6 2 - 15 mmol/L [facility] BUN 12 6 - 25 mg/dL [facility] Creatinine 0.74 0.60 - 1.10 mg/dL [facility] Glucose 124 70 - 199 mg/dL [facility] Comment: Interpretive Data Fasting glucose >/= [...] 2022. Calcium 8.6 8.5 - 10.3 mg/dL [facility] Bilirubin, total 0.3 0.1 - 1.2 mg/dL [facility] Protein, pl 6.2(L) 6.5 - 8.5 g/dL [facility] Albumin 3.4(L) 3.5 - 5.0 g/dL [facility] Alk phos 133(H) 40 - 130 Units/L [facility] ALT 18 7 - 45 Units/L [facility] Comment:Repeated and Verifie d AST 20 10 - 45 Units/L [facility] Comment:Repeated and Verifie d Blood 09/13/2024 11:3 0 PM CDT 09/13/2024 11:49 PM CDT us Carmen Szymanski MD LAB BLOOD ORDERABLES Final Result [facility] [place] [address] * POCT glucose (09/13/2024 5:28 PM CDT) [facility] Glucose, POC 130 70 - 199 mg/dL Blood 09/13/2024 5:28 PM CDT 09/13/2024 5:28 PM CDT us Carmen Szymanski MD LAB POCT ORDERABLES - ÁNGELA CE Final Result Performing Organization Address [facility] Co de Phone Number [facility] [place] [address] * POCT glucose (09/13/2024 4:51 PM CDT) [facility] Signature Glucose, POC 109 70 - 199 mg/dL Blood 09/13/2024 4:51 PM CDT 09/13/2024 4:51 PM CDT us Carmen Szymanski MD LAB POCT ORDERABLES - ÁNGELA CE Final Result Performing Organization Address [facility] de Phone Number [facility] [place] [address] * Peripheral IV Catheter (09/13/2024 4:30 PM [...] DO - 09/13/2024 4:29 PM CDT Javy Pierce DO 09/13/2024 4:30 PM Airway Patient location: [...] PM CDT 09/13/2024 2:13 PM CDT us Carmen Szymanski MD LAB POCT ORDERABLES - ÁNGELA CE Final Result [facility] [place] [address] * eGFR (09/13/2024 9:37 AM CDT) Pathologist [facility] eGFR >90 [...] CDT 09/13/2024 10:06 AM CDT Celi Hoskins [employer] LAB BLOOD ORDERABLES Final Res ult Performing Organization Address [facility] de Phone Number BARBARA [facility] [place] [address] * aPTT (09/13/2024 9:37 AM CDT) aPTT 33 28 - 38 sec Comment: Interpretive Data Heparin therapeutic range: 66.0 - 100.0 seconds. Range based on correlation with therapeutic heparin activity range of 0.3 - 0.7 Units/mL. Current interpretive data was last revised on 2023. Blood 09/13/2024 9:37 AM CDT 09/13/2024 10:03 AM CDT Celi Hoskins [employer]GE [employer] LAB BLOOD ORDERABLES Final Res ult Performing Organization Address [facility] de Phone Number [facility] [place] [address] * (ABNORMAL) Protime-INR (09/13/2024 9:37 AM CDT) PT 13.2(H) 9.7 - 13.0 sec INR 1.22(H) 0.90 - 1.20 [facility] Comment: Interpretive data Oral anticoagulant therapeutic ranges: Venous thromboembolism prophylaxis or treatment: 2.0-3.0 CARDIOLOGY Standard range: 2.0-3.0 High-intensity range: 2.5-3.5 Refer to indication-specific guidelines for appropriate target ranges for prosthetic heart valve replacement. Current interpretive data was last revised on 2019. Blood 09/13/2024 9:37 AM CDT 09/13/2024 10:03 AM CDT Celi Hoskins [employer]GE [employer] LAB BLOOD ORDERABLES Final Res ult Performing Organization Address [facility]/ZIP Co de Phone Number [facility] [place] [address] * (ABNORMAL) CBC without differential (09/13/2024 9:37 AM CDT) WBC 3.5(L) 3.8 - 9.9 K/cumm Hgb 8.4(L) 11.9 - 15.5 g/dL [facility] Hct 28.1(L) 35.6 - 45.5 % [facility] Plt 155 150 - 400 K/cumm [facility] MPV 9.8 9.1 - 12.3 fL [facility] RBC 3.12(L) 3.90 - 5.20 M/cumm [facility] MCV 90.1 81.3 - 96.4 fL [facility] MCH 26.9(L) 27.1 - 33.3 pg [facility] MCHC 29.9(L) 32.3 - 35.7 g/dL [facility] RDW CV 15.0(H) 11.1 - 14.9 % [facility] RDW SD 49.5(H) 35.7 - 48.1 fL [facility] NRBC abs 0.00 0.00 - 0.01 K/cumm [facility] Blood 09/13/2024 9:37 AM CDT 09/13/2024 10:07 AM CDT us Celi Hoskins [employer] LAB BLOOD ORDERABLES Final Res ult Performing Organization Address City/[facility]/ZIP Co de Phone Number [facility] [place] [address] * Type and screen (09/13/2024 9:37 AM CDT) Thompson, indirect Negative ABO Rh A Positive [facility] Blood 09/13/2024 9:37 AM CDT 09/13/2024 10:12 AM CDT Narrative [facility] - 09/13/2024 11:09 AM CDT Has the patient had Daratumumab or Isatuximab in the past 6 months?->Unknown Celi Hoskins NP LAB BLOOD BANK TEST ORDERABLES Final Result [facility] Department [place] [address] * Basic metabolic panel (09/13/2024 9:37 AM CDT) Pathologist [facility] [place] Sodium 143 135 - 145 mmol/L Potassium, pl 4.2 3.3 - 4.9 mmol/L [facility] Chloride 108 97 - 110 mmol/L [facility] CO2 26 22 - 32 mmol/L [facility] Anion gap 9 2 - 15 mmol/L [facility] BUN 17 6 - 25 mg/dL [facility] Creatinine 0.64 0.60 - 1.10 mg/dL [facility] Glucose 97 70 - 199 mg/dL [facility] Comment: Interpretive Data Fasting glucose >/= [...] 2022. Calcium 8.9 8.5 - 10.3 mg/dL [facility] Blood 09/13/2024 9:37 AM CDT 09/13/2024 10:06 AM CDT us Celi Hoskins [employer] LAB BLOOD ORDERABLES Final Res ult BARBARA [facility] Department [place] [address] * XR Chest 1 View (09/03/2024 1:05 AM NETWORK [employer] SUPPORT SPECIALIST) Anatomical Region Laterality Modality Body, Chest N/A Computed Radiogr aphy 09/03/2024 7:13 AM [employer]WORK [employer] SUPPORT SPECIALIST Impressions 09/03/2024 7:13 AM [employer]WORK [employer] SUPPORT SPECIALIST Comparison 08/26/2024. Right chest wall port catheter tip is in the superior vena cava. Clear lungs. No consolidation pleural effusion or pneumothorax. The heart size is unchanged. Electronically signed by: Hilario Cintron M.D. Narrative 09/03/2024 7:13 AM [employer] SUPPORT SPECIALIST EXAMINATION: 1 view chest radiograph Procedure Note Hilario Cintron MD - 09/03/2024 EXAMINATION: 1 view chest radiograph IMPRESSION: Comparison 08/26/2024. Right chest wall port catheter tip is in the superior vena cava. Clear lungs. No consolidation pleural effusion or pneumothorax. The heart size is unchanged. Electronically signed by: Hilario Cintron M.D. us Carmen Szymanski MD IMG XR PROCEDURES Final Re sult * eGFR (09/03/2024 12:42 AM NET[employer] SUPPORT SPECIALIST) eGFR >90 >=60 mL/min/1. 73 m2 Comment: [...] reviewed 2021. Blood 09/03/2024 12:4 2 AM [employer] SUPPORT SPECIALIST 09/03/2024 1:17 AM [employer] SUPPORT SPECIALIST us Carmen Szymanski MD LAB BLOOD ORDERABLES Final Result [facility] Department [place] [address] * (ABNORMAL) CBC without differential (09/03/2024 12:42 AM NETWORK [employer] SUPPORT SPECIALIST) WBC 4.6 3.8 - 9.9 K/cumm Hgb 8.1(L) 11.9 - 15.5 g/dL [facility] Hct 26.8(L) 35.6 - 45.5 % [facility] Plt 160 150 - 400 K/cumm [facility] MPV 10.0 9.1 - 12.3 fL [facility] RBC 2.87(L) 3.90 - 5.20 M/cumm [facility] MCV 93.4 81.3 - 96.4 fL [facility] MCH 28.2 27.1 - 33.3 pg [facility] MCHC 30.2(L) 32.3 - 35.7 g/dL [facility] RDW CV 15.8(H) 11.1 - 14.9 % [facility] RDW SD 53.6(H) 35.7 - 48.1 fL [facility] NRBC abs 0.00 0.00 - 0.01 K/cumm [facility] Blood 09/03/2024 12:4 2 AM [employer]WORK [employer] SUPPORT SPECIALIST 09/03/2024 1:17 AM [employer] SUPPORT SPECIALIST us Carmen Szymanski MD LAB BLOOD ORDERABLES Final Result Performing Organization Address [facility]/ZIP Co de Phone Number [facility] [place] [address] * Basic metabolic panel (09/03/2024 12:42 AM NETWORK [employer] SUPPORT SPECIALIST) [facility] Sodium 141 135 - 145 mmol/L Potassium, pl 3.7 3.3 - 4.9 mmol/L [facility] Chloride 105 97 - 110 mmol/L [facility] CO2 27 22 - 32 mmol/L [facility] Anion gap 9 2 - 15 mmol/L [facility] BUN 14 6 - 25 mg/dL [facility] Creatinine 0.73 0.60 - 1.10 mg/dL [facility] Glucose 105 70 - 199 mg/dL [facility] Comment: Interpretive Data Fasting glucose >/= [...] 2022. Calcium 8.8 8.5 - 10.3 mg/dL [facility] Blood 09/03/2024 12:4 2 AM [employer]WORK [employer] SUPPORT SPECIALIST 09/03/2024 1:17 AM [employer] SUPPORT SPECIALIST us Carmen Szymanski MD LAB BLOOD ORDERABLES Final Result Performing Organization Address [facility] Co de Phone Number [facility] Department [place] [address] * eGFR (08/28/2024 10:33 PM NETWORK [employer] SUPPORT SPECIALIST) [facility] eGFR >90 >=60 mL/min/1. 73 m2 [...] reviewed 2021. Blood 08/28/2024 10:3 3 PM [employer] SUPPORT SPECIALIST 08/28/2024 10:50 PM [employer] SUPPORT SPECIALIST Jose Rockwell MD LAB BLOOD ORDERABLES nal Result [facility] Department [place] [address] * (ABNORMAL) CBC without differential (08/28/2024 10:33 PM NETWORK [employer] SUPPORT SPECIALIST) WBC 4.1 3.8 - 9.9 K/cumm Hgb 8.4(L) 11.9 - 15.5 g/dL [facility] Hct 26.9(L) 35.6 - 45.5 % [facility] Plt 171 150 - 400 K/cumm [facility] MPV 9.9 9.1 - 12.3 fL [facility] RBC 2.88(L) 3.90 - 5.20 M/cumm [facility] MCV 93.4 81.3 - 96.4 fL [facility] MCH 29.2 27.1 - 33.3 pg [facility] MCHC 31.2(L) 32.3 - 35.7 g/dL [facility] RDW CV 16.4(H) 11.1 - 14.9 % [facility] RDW SD 55.2(H) 35.7 - 48.1 fL [facility] NRBC abs 0.00 0.00 - 0.01 K/cumm [facility] Blood 08/28/2024 10:3 3 PM [employer]WORK [employer] SUPPORT SPECIALIST 08/28/2024 10:50 PM [employer] SUPPORT SPECIALIST Jose Rockwell MD LAB BLOOD ORDERABLES Fi nal Result Performing Organization Address City/[facility] Co de Phone Number [facility] [place] [address] * Phosphorus (08/28/2024 10:33 PM NETWORK [employer] SUPPORT SPECIALIST) [facility] Phosphorus, pl 3.1 2.3 - 4.5 mg/dL Blood 08/28/2024 10:3 3 PM [employer]WORK [employer] SUPPORT SPECIALIST 08/28/2024 10:50 PM [employer] SUPPORT SPECIALIST Jose Rockwell MD LAB BLOOD ORDERABLES Fi nal Result Performing Organization Address [facility] de Phone Number [facility] [place] [address] * Magnesium (08/28/2024 10:33 PM NETWORK DESK[employer] SUPPORT SPECIALIST) [facility] Magnesium 2.0 1.4 - 2.5 mg/dL Blood 08/28/2024 10:3 3 PM [employer]WORK [employer] SUPPORT SPECIALIST 08/28/2024 10:50 PM [employer] SUPPORT SPECIALIST Jose Rockwell MD LAB BLOOD ORDERABLES Fi nal Result Performing Organization Address [facility] [place] [address] * Basic metabolic panel (08/28/2024 10:33 PM NETWORK [employer] SUPPORT SPECIALIST) Pathologist [facility] [place] Sodium 140 135 - 145 mmol/L Potassium, pl 4.1 3.3 - 4.9 mmol/L [facility] Chloride 107 97 - 110 mmol/L [facility] CO2 27 22 - 32 mmol/L [facility] Anion gap 6 2 - 15 mmol/L [facility] BUN 18 6 - 25 mg/dL [facility] Creatinine 0.65 0.60 - 1.10 mg/dL [facility] Glucose 117 70 - 199 mg/dL [facility] Comment: Interpretive Data Fasting glucose >/= [...] 2022. Calcium 8.6 8.5 - 10.3 mg/dL [facility] Blood 08/28/2024 10:3 3 PM [employer]WORK [employer] SUPPORT SPECIALIST 08/28/2024 10:50 PM NETWORK [employer] SUPPORT SPECIALIST us Jose Rockwell MD LAB BLOOD ORDERABLES Fi nal Result [facility] Department [place] [address] * eGFR (08/27/2024 10:33 PM NETWORK [employer] SUPPORT SPECIALIST) eGFR >90 >=60 mL/min/1. 73 m2 Comment: [...] of Race in Diagnosing Kidney Disease, JASN 2021). The CKD-EPI equation should not be used for patients with unstable renal function and has not been validated in children and those over 70. Current interpretive data was last reviewed 2021. Blood 08/27/2024 10:3 3 PM [employer]WORK [employer] SUPPORT SPECIALIST 08/27/2024 11:12 PM [employer] SUPPORT SPECIALIST Jose Rockwell MD LAB BLOOD ORDERABLES Fi nal Result Performing Organization Address City/[facility]/ZIP Co de Phone Number [facility] Department [place] [address] * (ABNORMAL) CBC without differential (08/27/2024 10:33 PM NETWORK [employer] SUPPORT SPECIALIST) WBC 4.1 3.8 - 9.9 K/cumm Hgb 8.6(L) 11.9 - 15.5 g/dL [facility] Hct 27.8(L) 35.6 - 45.5 % [facility] Plt 194 150 - 400 K/cumm [facility] MPV 9.9 9.1 - 12.3 fL [facility] RBC 2.99(L) 3.90 - 5.20 M/cumm [facility] MCV 93.0 81.3 - 96.4 fL [facility] MCH 28.8 27.1 - 33.3 pg [facility] MCHC 30.9(L) 32.3 - 35.7 g/dL [facility] RDW CV 16.7(H) 11.1 - 14.9 % [facility] RDW SD 56.1(H) 35.7 - 48.1 fL [facility] NRBC abs 0.00 0.00 - 0.01 K/cumm [facility] Blood 08/27/2024 10:3 3 PM [employer]WORK [employer] SUPPORT SPECIALIST 08/27/2024 11:12 PM [employer] SUPPORT SPECIALIST Jose Rockwell MD LAB BLOOD ORDERABLES Fi nal Result Performing Organization Address [facility]/ZIP Co de Phone Number [facility] [place] [address] * Phosphorus (08/27/2024 10:33 PM NETWORK [employer] SUPPORT SPECIALIST) Pathologist [facility] Phosphorus, pl 3.4 2.3 - 4.5 mg/dL Blood 08/27/2024 10:3 3 PM NETWORK [employer] SUPPORT SPECIALIST 08/27/2024 11:12 PM [employer] SUPPORT SPECIALIST Jose Rockwell MD LAB BLOOD ORDERABLES Fi nal Result Performing Organization Address City/[facility] Co de Phone Number [facility] [place] [place] [address] * Magnesium (08/27/2024 10:33 PM NETWORK DESK[employer] SUPPORT SPECIALIST) [facility] Magnesium 2.1 1.4 - 2.5 mg/dL Blood 08/27/2024 10:3 3 PM NETWORK [employer] SUPPORT SPECIALIST 08/27/2024 11:12 PM NET[employer] SUPPORT SPECIALIST Jose Rockwell MD LAB BLOOD ORDERABLES Fi nal Result Performing Organization Address City/[facility] [place] [address] * Basic metabolic panel (08/27/2024 10:33 PM NETWORK DESK[employer] SUPPORT SPECIALIST) [facility] Sodium 139 135 - 145 mmol/L Potassium, pl 4.2 3.3 - 4.9 mmol/L [facility] Comment:Repeated and Verifie d Chloride 103 97 - 110 mmol/L [facility] CO2 27 22 - 32 mmol/L [facility] Anion gap 9 2 - 15 mmol/L [facility] BUN 16 6 - 25 mg/dL [facility] Creatinine 0.82 0.60 - 1.10 mg/dL [facility] Glucose 118 70 - 199 mg/dL [facility] Comment: Interpretive Data Fasting glucose >/= [...] 2022. Calcium 8.6 8.5 - 10.3 mg/dL [facility] Blood 08/27/2024 10:3 3 PM NETWORK [employer] SUPPORT SPECIALIST 08/27/2024 11:12 PM NET[employer] SUPPORT SPECIALIST Jose Rockwell MD LAB BLOOD ORDERABLES Fi nal Result Performing Organization Address City/[facility]/ZIP Co de Phone Number [facility] [place] [address] * POCT lactate (08/26/2024 7:18 PM NETWORK [employer] SUPPORT SPECIALIST) [facility] Lactate POC i-STAT 0.8 0.7 - 2.0 mmol/L Blood 08/26/2024 7:18 PM NETWORK [employer] SUPPORT SPECIALIST 08/26/2024 7:18 PM NETWORK [employer] SUPPORT SPECIALIST Jose Rockwell MD LAB POCT ORDERABLES - D EVICE Final Result Performing Organization Address [facility] Co de Phone Number [facility] [place] [address] * CT Abdomen Pelvis W Contrast (08/26/2024 6:03 PM NETWORK [employer] SUPPORT SPECIALIST) Anatomical Region Laterality Modality Body N/A Computed Tomogra phy 08/26/2024 6:31 PM NETWORK [employer] SUPPORT SPECIALIST Impressions 08/26/2024 7:16 PM NETWORK [employer] SUPPORT SPECIALIST 1. Postsurgical changes of abdominoperineal resection with [...] Teja Infante M.D. Narrative 08/26/2024 7:16 PM NETWORK [employer] SUPPORT SPECIALIST EXAMINATION: Computed tomography of the abdomen and [...] it. Electronically signed by: Teja Infante M.D. us Jennifer Strong MD [facility] CT PROCEDURES Final Result * eGFR (08/26/2024 5:36 PM NETWORK [employer] SUPPORT SPECIALIST) eGFR >90 >=60 mL/min/1. 73 m2 Comment: [...] last reviewed 2021. Blood 08/26/2024 5:36 PM NETWORK [employer] SUPPORT SPECIALIST 08/26/2024 6:02 PM NETWORK [employer] SUPPORT SPECIALIST us Jose Alfredo Lugo MD LAB BLOOD ORDERABLES F inal Result [facility] Department [place] [address] * (ABNORMAL) Differential, auto (08/26/2024 5:36 PM NETWORK [employer] SUPPORT SPECIALIST) Neutrophil abs 5.5 1.5 - 6.5 K/cumm Imm gran abs 0.0 0.0 - 0.1 K/cumm [facility] Lymphocyte abs 0.6(L) 0.8 - 3.3 K/cumm [facility] Monocyte abs 0.5 0.2 - 0.8 K/cumm [facility] Eosinophil abs 0.0 0.0 - 0.5 K/cumm [facility] Basophil abs 0.0 0.0 - 0.1 K/cumm [facility] Neutrophil pct 82.9 % [facility] Comment: Interpretive Data Percent cell count reference ranges are not reported, since discordance with absolute values may lead to misinterpretation of CBC data. Current Interpretive Data was last revised on 2017. Imm gran pct 0.5 % [facility] Comment: Interpretive Data Percent cell count reference ranges are not reported, since discordance with absolute values may lead to misinterpretation of CBC data. Current Interpretive Data was last revised on 2017. Lymphocyte pct 9.3 % [facility] Comment: Interpretive Data Percent cell count reference ranges are not reported, since discordance with absolute values may lead to misinterpretation of CBC data. Current Interpretive Data was last revised on 2017. Monocyte pct 6.8 % [facility] Comment: Interpretive Data Percent cell count reference ranges are not reported, since discordance with absolute values may lead to misinterpretation of CBC data. Current Interpretive Data was last revised on 2017. Eosinophil pct 0.3 % [facility] Comment: Interpretive Data Percent cell count reference ranges are not reported, since discordance with absolute values may lead to misinterpretation of CBC data. Current Interpretive Data was last revised on 2017. Basophil pct 0.2 % [facility] Comment: Interpretive Data Percent cell count reference ranges are not reported, since discordance with absolute values may lead to misinterpretation of CBC data. Current Interpretive Data was last revised on 2017. Blood 08/26/2024 5:36 PM [employer]WORK [employer] SUPPORT SPECIALIST 08/26/2024 6:02 PM NETWORK [employer] SUPPORT SPECIALIST us Jose Alfredo Lugo MD LAB BLOOD ORDERABLES F inal Result [facility] Department [place] [address] * (ABNORMAL) CBC with auto differential (08/26/2024 5:36 PM NETWORK [employer] SUPPORT SPECIALIST) WBC 6.6 3.8 - 9.9 K/cumm Hgb 9.3(L) 11.9 - 15.5 g/dL [facility] Hct 30.0(L) 35.6 - 45.5 % [facility] Plt 235 150 - 400 K/cumm [facility] MPV 10.3 9.1 - 12.3 fL [facility] RBC 3.22(L) 3.90 - 5.20 M/cumm [facility] MCV 93.2 81.3 - 96.4 fL [facility] MCH 28.9 27.1 - 33.3 pg [facility] MCHC 31.0(L) 32.3 - 35.7 g/dL [facility] RDW CV 16.6(H) 11.1 - 14.9 % [facility] RDW SD 56.0(H) 35.7 - 48.1 fL [facility] NRBC abs 0.00 0.00 - 0.01 K/cumm [facility] Blood 08/26/2024 5:36 PM NETWORK [employer] SUPPORT SPECIALIST 08/26/2024 6:02 PM NETWORK [employer] SUPPORT SPECIALIST us Dung Rushing MD LAB BLOOD ORDERABLES Final Res ult [facility] Department [place] [address] * (ABNORMAL) Comprehensive metabolic panel (08/26/2024 5:36 PM NETWORK [employer] SUPPORT SPECIALIST) Sodium 141 135 - 145 mmol/L Potassium, pl See Comment 3.3 - 4.9 mmol/L [facility] Comment: Credited; Hemolyzed Specimen Repeated and Verified Chloride 107 97 - 110 mmol/L [facility] CO2 24 22 - 32 mmol/L [facility] Anion gap 10 2 - 15 mmol/L [facility] BUN 13 6 - 25 mg/dL [facility] Creatinine 0.79 0.60 - 1.10 mg/dL [facility] Glucose 108 70 - 199 mg/dL [facility] Comment: Interpretive Data Fasting glucose >/= [...] 2022. Calcium 8.9 8.5 - 10.3 mg/dL [facility] Bilirubin, total 0.9 0.1 - 1.2 mg/dL [facility] Protein, pl 7.3 6.5 - 8.5 g/dL [facility] Albumin 3.3(L) 3.5 - 5.0 g/dL [facility] Alk phos 114 40 - 130 Units/L [facility] Comment:Hemolyzed; result ma y be falsely decreased ALT See Comment 7 - 45 Units/L [facility] Comment:Credited; Hemolyzed Specimen AST See Comment 10 - 45 Units/L [facility] Comment:Credited; Hemolyzed Specimen Blood 08/26/2024 5:36 PM NETWORK [employer] SUPPORT SPECIALIST 08/26/2024 6:02 PM NETWORK [employer] SUPPORT SPECIALIST us Dung Rushing MD LAB BLOOD ORDERABLES Final Res ult [facility] Department [place] [address] * XR Chest PA Lateral 2 Views (08/26/2024 2:32 PM NETWORK [employer] SUPPORT SPECIALIST) Anatomical Region Laterality Modality Body, Chest N/A Computed Radiogr aphy 08/26/2024 2:38 PM NETWORK [employer] SUPPORT SPECIALIST Impressions 08/26/2024 2:38 PM NETWORK [employer] SUPPORT SPECIALIST Comparison 02/12/2024 Unchanged positioning of right chest wall port catheter. No specific evidence of pneumonia or pulmonary edema. No pneumothorax. No pleural effusion. Unchanged appearance of the cardiomediastinal silhouette Electronically signed by: Edward Haile M.D. Narrative 08/26/2024 2:38 PM [employer]WORK [employer] SUPPORT SPECIALIST EXAMINATION: 2 view chest radiograph Procedure Note Edward Haile MD - 08/26/2024 EXAMINATION: 2 view chest radiograph IMPRESSION: Comparison 02/12/2024 Unchanged positioning of right chest wall port catheter. No specific evidence of pneumonia or pulmonary edema. No pneumothorax. No pleural effusion. Unchanged appearance of the cardiomediastinal silhouette Electronically signed by: Edward Haile M.D. us Dung Rushing MD IMG XR PROCEDURES Final Result * POCT glucose (08/12/2024 11:53 AM NETWORK [employer] SUPPORT SPECIALIST) [facility] Glucose, POC 124 70 - 199 mg/dL Blood 08/12/2024 11:5 3 AM NET[employer] SUPPORT SPECIALIST 08/12/2024 11:53 AM NETWORK [employer] SUPPORT SPECIALIST Carmen Szymanski MD LAB POCT ORDERABLES - ÁNGELA CE Final Result Performing Organization Address [facility] Co de Phone Number [facility] Department [place] [address] * POCT glucose (08/12/2024 7:52 AM NETWORK [employer] SUPPORT SPECIALIST) [facility] Glucose, POC 129 70 - 199 mg/dL Blood 08/12/2024 7:52 AM NETWORK [employer] SUPPORT SPECIALIST 08/12/2024 7:52 AM NET[employer] SUPPORT SPECIALIST Carmen Szymanski MD LAB POCT ORDERABLES - ÁNGELA CE Final Result Performing Organization Address [facility] de Phone Number [facility] [place] [address] * (ABNORMAL) CBC without differential (08/11/2024 9:50 PM NETWORK [employer] SUPPORT SPECIALIST) [facility] WBC 6.3 3.8 - 9.9 K/cumm Hgb 8.5(L) 11.9 - 15.5 g/dL [facility] Hct 26.5(L) 35.6 - 45.5 % [facility] Plt 82(L) 150 - 400 K/cumm [facility] MPV 10.9 9.1 - 12.3 fL [facility] RBC 2.89(L) 3.90 - 5.20 M/cumm [facility] MCV 91.7 81.3 - 96.4 fL [facility] MCH 29.4 27.1 - 33.3 pg [facility] MCHC 32.1(L) 32.3 - 35.7 g/dL [facility] RDW CV 15.6(H) 11.1 - 14.9 % [facility] RDW SD 51.8(H) 35.7 - 48.1 fL [facility] NRBC abs 0.00 0.00 - 0.01 K/cumm [facility] Blood 08/11/2024 9:50 PM NETWORK [employer] SUPPORT SPECIALIST 08/11/2024 11:11 PM [employer] SUPPORT SPECIALIST Tasia Patel NP LAB BLOOD ORDERABLES Cecille l Result Performing Organization Address City/[facility] Co de Phone Number [facility] [place] [address] * POCT glucose (08/11/2024 7:26 PM NETWORK [employer] SUPPORT SPECIALIST) Glucose, POC 143 70 - 199 mg/dL Blood 08/11/2024 7:26 PM NETWORK [employer] SUPPORT SPECIALIST 08/11/2024 7:26 PM NETWORK [employer] SUPPORT SPECIALIST us Carmen Szymanski MD LAB POCT ORDERABLES - ÁNGELA CE Final Result Performing Organization Address [facility] Co de Phone Number [facility] [place] [address] * POCT glucose (08/11/2024 4:53 PM NETWORK [employer] SUPPORT SPECIALIST) Glucose, POC 129 70 - 199 mg/dL Blood 08/11/2024 4:53 PM NETWORK [employer]KTOP SUPPORT SPECIALIST 08/11/2024 4:53 PM NETWORK [employer] SUPPORT SPECIALIST Carmen Szymanski MD LAB POCT ORDERABLES - ÁNGELA CE Final Result Performing Organization Address [facility] [facility] Co de Phone Number [facility] [place] [address] * POCT glucose (08/11/2024 11:02 AM NETWORK DESKTOP SUPPORT SPECIALIST) Glucose, POC 157 70 - 199 mg/dL Blood 08/11/2024 11:0 2 AM NETWORK DESKTOP SUPPORT SPECIALIST 08/11/2024 11:02 AM NETWORK DESKTOP SUPPORT SPECIALIST Carmen Szymanski MD LAB POCT ORDERABLES - ÁNGELA CE Final Result Performing Organization Address City/[facility] Co de Phone Number [facility] [place] [address] * POCT glucose (08/11/2024 7:40 AM NETWORK DESKTOP SUPPORT SPECIALIST) Glucose, POC 135 70 - 199 mg/dL Blood 08/11/2024 7:40 AM NETWORK DESKTOP SUPPORT SPECIALIST 08/11/2024 7:40 AM NETWORK DESKTOP SUPPORT SPECIALIST Carmen Szymanski MD LAB POCT ORDERABLES - ÁNGELA CE Final Result Performing Organization Address [facility] de Phone Number [facility] [place] [address] * eGFR (08/11/2024 1:37 AM NETWORK DESKTOP SUPPORT SPECIALIST) eGFR >90 >=60 mL/min/1. 73 m2 Comment: [...] last reviewed 2021. Blood 08/11/2024 1:37 AM NETWORK DESKTOP SUPPORT SPECIALIST 08/11/2024 2:36 AM NETWORK DESKTOP SUPPORT SPECIALIST us Carmen Szymanski MD LAB BLOOD ORDERABLES Final Result [facility] Department [place] [address] * (ABNORMAL) CBC without differential (08/11/2024 1:37 AM NETWORK DESKTOP SUPPORT SPECIALIST) WBC 7.2 3.8 - 9.9 K/cumm Hgb 8.0(L) 11.9 - 15.5 g/dL [facility] Hct 24.4(L) 35.6 - 45.5 % [facility] Plt 80(L) 150 - 400 K/cumm [facility] MPV 10.8 9.1 - 12.3 fL [facility] RBC 2.70(L) 3.90 - 5.20 M/cumm [facility] MCV 90.4 81.3 - 96.4 fL [facility] MCH 29.6 27.1 - 33.3 pg [facility] MCHC 32.8 32.3 - 35.7 g/dL [facility] RDW CV 15.6(H) 11.1 - 14.9 % [facility] RDW SD 50.5(H) 35.7 - 48.1 fL [facility] NRBC abs 0.00 0.00 - 0.01 K/cumm [facility] Blood 08/11/2024 1:37 AM NETWORK DESKTOP SUPPORT SPECIALIST 08/11/2024 2:37 AM NETWORK DESKTOP SUPPORT SPECIALIST Narrative [facility] - 08/11/2024 2:49 AM NETWORK DESKTOP SUPPORT SPECIALIST Obtain POD 1 at 2200. us Carmen Szymanski MD LAB BLOOD ORDERABLES Final Result [facility] Department [place] [address] * (ABNORMAL) Basic metabolic panel (08/11/2024 1:37 AM NETWORK DESKTOP SUPPORT SPECIALIST) Pathologist [facility] Sodium 141 135 - 145 mmol/L Potassium, pl 3.3 3.3 - 4.9 mmol/L [facility] Chloride 104 97 - 110 mmol/L [facility] CO2 28 22 - 32 mmol/L [facility] Anion gap 9 2 - 15 mmol/L [facility] BUN 7 6 - 25 mg/dL [facility] Creatinine 0.83 0.60 - 1.10 mg/dL [facility] Glucose 117 70 - 199 mg/dL [facility] Comment: Interpretive Data Fasting glucose >/= [...] 2022. Calcium 8.0(L) 8.5 - 10.3 mg/dL [facility] Blood 08/11/2024 1:37 AM NETWORK DESKTOP SUPPORT SPECIALIST 08/11/2024 2:36 AM NETWORK DESKTOP SUPPORT SPECIALIST Narrative [facility] - 08/11/2024 3:06 AM NETWORK DESKTOP SUPPORT SPECIALIST Obtain POD 1 at 2200. Carmen Szymanski MD LAB BLOOD ORDERABLES Final Result Performing Organization Address [facility]/ZIP Co de Phone Number [facility] [place] [address] * POCT glucose (2024 8:48 PM NETWORK DESKTOP SUPPORT SPECIALIST) [facility] Glucose, POC 139 70 - 199 mg/dL Blood 2024 8:48 PM NETWORK DESKTOP SUPPORT SPECIALIST 2024 8:48 PM NETWORK DESKTOP SUPPORT SPECIALIST Carmen Szymanski MD LAB POCT ORDERABLES - ÁNGELA CE Final Result Performing Organization Address [facility]/ZIP Co de Phone Number [facility] [place] [address] * POCT glucose (2024 12:56 PM NETWORK DESKTOP SUPPORT SPECIALIST) Glucose, POC 199 70 - 199 mg/dL Blood 2024 12:5 6 PM NETWORK DESKTOP SUPPORT SPECIALIST 2024 12:56 PM NETWORK DESKTOP SUPPORT SPECIALIST Carmen Szymanski MD LAB POCT ORDERABLES - ÁNGELA CE Final Result Performing Organization Address [facility] Co de Phone Number [facility] [place] [address] * POCT glucose (2024 7:49 AM NETWORK DESKTOP SUPPORT SPECIALIST) Glucose, POC 139 70 - 199 mg/dL Blood 2024 7:49 AM NETWORK DESKTOP SUPPORT SPECIALIST 2024 7:49 AM NETWORK DESKTOP SUPPORT SPECIALIST Carmen Szymanski MD LAB POCT ORDERABLES - ÁNGELA CE Final Result Performing Organization Address [facility] de Phone Number [facility] [place] [address] * eGFR (08/09/2024 9:20 PM NETWORK DESKTOP SUPPORT SPECIALIST) eGFR >90 >=60 mL/min/1. 73 m2 Comment: [...] last reviewed 2021. Blood 08/09/2024 9:20 PM NETWORK DESKTOP SUPPORT SPECIALIST 08/09/2024 10:19 PM NETWORK DESKTOP SUPPORT SPECIALIST Carmen Szymanski MD LAB BLOOD ORDERABLES Final Result [facility] [place] [address] * (ABNORMAL) CBC without differential (08/09/2024 9:20 PM NETWORK DESKTOP SUPPORT SPECIALIST) WBC 6.4 3.8 - 9.9 K/cumm Hgb 9.1(L) 11.9 - 15.5 g/dL [facility] Hct 27.6(L) 35.6 - 45.5 % [facility] Plt 97(L) 150 - 400 K/cumm [facility] MPV 11.0 9.1 - 12.3 fL [facility] RBC 3.07(L) 3.90 - 5.20 M/cumm [facility] MCV 89.9 81.3 - 96.4 fL [facility] MCH 29.6 27.1 - 33.3 pg [facility] MCHC 33.0 32.3 - 35.7 g/dL [facility] RDW CV 15.1(H) 11.1 - 14.9 % [facility] RDW SD 49.6(H) 35.7 - 48.1 fL [facility] NRBC abs 0.00 0.00 - 0.01 K/cumm [facility] Blood 08/09/2024 9:20 PM NETWORK DESKTOP SUPPORT SPECIALIST 08/09/2024 10:19 PM NETWORK DESKTOP SUPPORT SPECIALIST Narrative [facility] - 08/09/2024 10:30 PM NETWORK DESKTOP SUPPORT SPECIALIST Obtain POD 0 at 2200. us Carmen Szymanski MD LAB BLOOD ORDERABLES Final Result [facility] [place] [place] [address] * Hemoglobin A1c (08/09/2024 9:20 PM NETWORK DESKTOP SUPPORT SPECIALIST) Hgb A1C 4.9 4.0 - 5.6 % Estimated Average Glucose 94 mg/dL [facility] Comment: The ADA recommends reporting an estimated Average Glucose (eAG) with all Hemoglobin A1c results using the equation derived from a study of 507 normal and diabetic adults. Minority populations were underrepresented and children were not included. (Diabetes Care 2020; 43(S1): S66-S76). The eAG is not equivalent to a fasting glucose. Blood 08/09/2024 9:20 PM NETWORK DESKTOP SUPPORT SPECIALIST 08/09/2024 10:24 PM NETWORK DESKTOP SUPPORT SPECIALIST us Carmen Szymanski MD LAB BLOOD ORDERABLES Final Result [facility] Department [place] [address] * (ABNORMAL) Lipid panel (08/09/2024 9:20 PM NETWORK DESKTOP SUPPORT SPECIALIST) Cholesterol 104 30 - 199 mg/dL Comment: [...] revised on 2018. Triglycerides 72 <=149 mg/dL [facility] Comment: Interpretive Data Ages < or [...] revised on 2018. HDL 31(L) >=40 mg/dL [facility] Comment: Interpretive Data Ages < [...] on 2018. LDL, calculated 58 <=129 mg/dL [facility] Comment: Interpretive Data Ages < [...] NCEP Expert Panel. Circulation 2004;110:227 3. Jovon Pérez al. TATO Cardiol. 2019October 28;5(5):540-548. doi: 10.1001/jamacardio.2020.0013 Current Interpretive Data was last revised on 2024. Non-HDL Cholesterol 73 mg/dL [facility] Comment: Interpretive Data Ages < [...] last revised on 2018. Chol/HDL ratio 3 [facility] Blood 08/09/2024 9:20 PM NETWORK DESKTOP SUPPORT SPECIALIST 08/09/2024 10:19 PM NETWORK DESKTOP SUPPORT SPECIALIST Carmen Szymanski MD LAB BLOOD ORDERABLES Final Result [facility] Department [place] [address] * (ABNORMAL) Basic metabolic panel (08/09/2024 9:20 PM NETWORK DESKTOP SUPPORT SPECIALIST) Sodium 141 135 - 145 mmol/L Potassium, pl 4.0 3.3 - 4.9 mmol/L [facility] Chloride 107 97 - 110 mmol/L [facility] CO2 25 22 - 32 mmol/L [facility] Anion gap 9 2 - 15 mmol/L [facility] BUN 8 6 - 25 mg/dL [facility] Creatinine 0.84 0.60 - 1.10 mg/dL [facility] Glucose 158 70 - 199 mg/dL [facility] Comment: Interpretive Data Fasting glucose >/= [...] 2022. Calcium 8.3(L) 8.5 - 10.3 mg/dL [facility] Blood 08/09/2024 9:20 PM NETWORK DESKTOP SUPPORT SPECIALIST 08/09/2024 10:19 PM NETWORK DESKTOP SUPPORT SPECIALIST Narrative [facility] - 08/09/2024 10:53 PM NETWORK DESKTOP SUPPORT SPECIALIST Obtain POD 0 at 2200. us Carmne Szymanski MD LAB BLOOD ORDERABLES Final Result [facility] Department [place] [address] * (ABNORMAL) POC Blood Gas and Chemistries, Arterial - (08/09/2024 3:23 PM NETWORK DESKTOP SUPPORT SPECIALIST) pH, Art POC 7.33(L) 7.35 - 7.45 pCO2, Art POC 48(H) 35 - 45 mmHg [facility] pO2, Art POC 105 83 - 108 mmHg [facility] Na, POC 138 135 - 145 mmol/L [facility] K POC 4.5 3.3 - 4.9 mmol/L [facility] Comment: Interpretive Data Not all point of care methods assess for hemolysis. Confirm with instrument and retest K+ if not consistent with clinical signs and symptoms. Current Interpretive Data was last revised on 2023. Cl, POC 110 97 - 110 mmol/L [facility] Ionized Ca, POC 4.91 4.50 - 5.10 mg/dL [facility] Glucose, POC 155 70 - 199 mg/dL [facility] Lactate, POC 1.8 0.7 - 2.0 mmol/L [facility] SO2 (sheri) arterial 97(H) 90 - 95 % [facility] Base excess, POC -0.9 mmol/L [facility] HCO3, Art POC 25 20 - 30 mmol/L [facility] Hct, POC 31.0(L) 36.3 - 45.3 % [facility] Total Hb, POC 10.3(L) 11.9 - 15.5 g/dL [facility] Blood 08/09/2024 3:23 PM NETWORK DESKTOP SUPPORT SPECIALIST 08/09/2024 3:23 PM NETWORK DESKTOP SUPPORT SPECIALIST us Carmen Szymanski MD LAB POCT ORDERABLES - ÁNGELA CE Final Result [facility] Department [place] [address] * Surgical pathology (08/09/2024 2:26 PM NETWORK DESKTOP SUPPORT SPECIALIST) Tissue specimen (specimen) (Rectum, Resection) 08/09/2024 2:26 PM NETWORK DESKTOP SUPPORT SPECIALIST Narrative PATHOLOGY [facility] - 08/17/2024 2:44 PM NETWORK DESKTOP SUPPORT SPECIALIST EPIC results best viewed via link to PDF [facility] Eva Izquierdo [facility] Surgical [place] [address] Note to Patients: This report may contain [...] details. SURGICAL PATHOLOGY REPORT FINAL Patient Name: DHRUV CAR Gender: F : 1985 (Age: 38) Address: [address] [place], [place] [id number] Hospital #: [id number] Taken:08/09/2024 Received:08/09/2024 Reported: 08/17/2024 Patient Type: [facility] Inpatient Service: Surgery Location: [place] [address] Physician(s): MD Ayah Flood M.D. Diagnosis: Sigmoid [...] pT2 N0 Mx - See synoptic summary fw/08/17/2024 14:09 By this signature, I attest that [...] sectioned to reveal 11 lymph node candidates. Student Support Counselor sections are submitted as follows: A1 Proximal [...] Not identified Tumor Budding: Not applicable Tumor Byron score:: Type of polyp in which invasive [...] Surgical Pathology and Flow Cytometry Departments at [facility] as part of an ongoing software quality engineer program and in compliance with federally mandated [...] Surgical Pathology and Flow Cytometry Departments of [facility]. It has not been cleared or approved by the U. S. Food and Drug Administration. IMAGES AND SCANNED DOCUMENTS, IF INCLUDED, ONLY VIEWABLE IN PDF VERSION OF REPORT us Carmen Szymanski MD LAB PATHOLOGY ORDERABLES F inal Result PATHOLOGY [facility] 3rd Floor [place], [place] [phone] * (ABNORMAL) POC Blood Gas and Chemistries, Arterial - (08/09/2024 1:23 PM NETWORK DESKTOP SUPPORT SPECIALIST) pH, Art POC 7.43 7.35 - 7.45 pCO2, Art POC 38 35 - 45 mmHg [facility] pO2, Art POC 99 83 - 108 mmHg [facility] Na, POC 137 135 - 145 mmol/L [facility] K POC 4.4 3.3 - 4.9 mmol/L [facility] Comment: Interpretive Data Not all point of care methods assess for hemolysis. Confirm with instrument and retest K+ if not consistent with clinical signs and symptoms. Current Interpretive Data was last revised on 2023. Cl, POC 109 97 - 110 mmol/L [facility] Ionized Ca, POC 4.49(L) 4.50 - 5.10 mg/dL [facility] Glucose, POC 175 70 - 199 mg/dL [facility] Lactate, POC 1.4 0.7 - 2.0 mmol/L [facility] SO2 (sheri) arterial 97(H) 90 - 95 % [facility] Base excess, POC 0.9 mmol/L [facility] HCO3, Art POC 25 20 - 30 mmol/L [facility] Hct, POC 35.0(L) 36.3 - 45.3 % [facility] Total Hb, POC 11.5(L) 11.9 - 15.5 g/dL [facility] Blood 08/09/2024 1:23 PM NETWORK DESKTOP SUPPORT SPECIALIST 08/09/2024 1:23 PM NETWORK DESKTOP SUPPORT SPECIALIST us Carmen Szymanski MD LAB POCT ORDERABLES - ÁNGELA CE Final Result Performing Organization Address [facility] Co de Phone Number [facility] Department [place] [address] * POCT glucose (08/09/2024 10:59 AM NETWORK DESKTOP SUPPORT SPECIALIST) [facility] Glucose, POC 159 70 - 199 mg/dL Blood 08/09/2024 10:5 9 AM NETWORK DESKTOP SUPPORT SPECIALIST 08/09/2024 10:59 AM NETWORK DESKTOP SUPPORT SPECIALIST us Carmen Szymanski MD LAB POCT ORDERABLES - ÁNGELA CE Final Result Performing Organization Address [facility] de Phone Number [facility] [place] [address] * [place] AN PROCEDURE PLACEHOLDER (08/09/2024 9:21 AM NETWORK DESKTOP SUPPORT SPECIALIST) Narrative Raghavendra Pena CRNA - 08/09/2024 9:21 AM NETWORK DESKTOP SUPPORT SPECIALIST Raghavendra Pena CRNA 08/09/2024 9:21 AM Arterial [...] [place] AN PROCEDURE PLACEHOLDER (08/09/2024 9:20 AM NETWORK DESKTOP SUPPORT SPECIALIST) Raghavendra Lawler CRNA - 08/09/2024 9:20 AM NETWORK DESKTOP SUPPORT SPECIALIST Raghavendra Pena CRNA 08/09/2024 9:21 AM Peripheral [...] [place] AN PROCEDURE PLACEHOLDER (08/09/2024 9:17 AM NETWORK DESKTOP SUPPORT SPECIALIST) Raghavendra Lawler CRNA - 08/09/2024 9:17 AM NETWORK DESKTOP SUPPORT SPECIALIST Raghavendra Pena CRNA 08/09/2024 9:20 AM Airway Patient location: OR Urgency: elective Indications for airway management: anesthesia Difficult airway: no Staff: Supervising provider: Jovanna Vargas MD Placed by: NURSE REVIEWER: Raghavendra Pena CRNA Emergent airway documentation: Risks [...] and Chemistries, Arterial - (08/09/2024 8:43 AM NETWORK DESKTOP SUPPORT SPECIALIST) pH, Art POC 7.37 7.35 - 7.45 pCO2, Art POC 47(H) 35 - 45 mmHg [facility] pO2, Art POC 93 83 - 108 mmHg [facility] Na, POC 140 135 - 145 mmol/L [facility] K POC 3.6 3.3 - 4.9 mmol/L [facility] Comment: Interpretive Data Not all point of care methods assess for hemolysis. Confirm with instrument and retest K+ if not consistent with clinical signs and symptoms. Current Interpretive Data was last revised on 2023. Cl, POC 109 97 - 110 mmol/L [facility] Ionized Ca, POC 4.74 4.50 - 5.10 mg/dL [facility] Glucose, POC 115 70 - 199 mg/dL [facility] Lactate, POC 1.2 0.7 - 2.0 mmol/L [facility] SO2 (sheri) arterial 99(H) 90 - 95 % [facility] Base excess, POC 1.4 mmol/L [facility] HCO3, Art POC 27 20 - 30 mmol/L [facility] Hct, POC 33.0(L) 36.3 - 45.3 % [facility] Total Hb, POC 11.0(L) 11.9 - 15.5 g/dL [facility] Blood 08/09/2024 8:43 AM NETWORK DESKTOP SUPPORT SPECIALIST 08/09/2024 8:43 AM NETWORK DESKTOP SUPPORT SPECIALIST us Carmen Szymanski MD LAB POCT ORDERABLES - ÁNGELA CE Final Result [facility] Department [place] [address] * POCT glucose (08/09/2024 5:55 AM NETWORK DESKTOP SUPPORT SPECIALIST) Glucose, POC 88 70 - 199 mg/dL Blood 08/09/2024 5:55 AM NETWORK DESKTOP SUPPORT SPECIALIST 08/09/2024 5:55 AM NETWORK DESKTOP SUPPORT SPECIALIST us Carmen Szymanski MD LAB POCT ORDERABLES - ÁNGELA CE Final Result Performing Organization Address [facility]/ZIP Co de Phone Number [facility] [place] [address] * Type and screen (08/09/2024 5:55 AM NETWORK DESKTOP SUPPORT SPECIALIST) Pathologist [facility] ABO Rh A Positive Thompson, indirect Negative [facility] Blood 08/09/2024 5:55 AM NETWORK DESKTOP SUPPORT SPECIALIST 08/09/2024 6:00 AM NETWORK DESKTOP SUPPORT SPECIALIST Narrative [facility] - 08/09/2024 6:44 AM NETWORK DESKTOP SUPPORT SPECIALIST Has the patient had Daratumumab or Isatuximab in the past 6 months?->Unknown Melany Mendez NP LAB BLOOD BANK TEST ORDER BRIANNA Final Result Performing Organization Address [facility] Co de Phone Number [facility] [place] [address] * POCT hCG, urine (08/09/2024 5:45 AM NETWORK DESKTOP SUPPORT SPECIALIST) HCG, ur, POC Negative Negative Lot Number [id number] QC Backgroud Clear Acceptable QC Control Line Acceptable Urine 08/09/2024 5:45 AM NETWORK DESKTOP SUPPORT SPECIALIST Melany Mendez EDGE INKER UPPERS POINT OF CARE TEST ORDERA BLES Final Result from Last 3 Months Insurance Advance Directives For more information, please contact: [phone] * Full Code (Latest Code Status on [...] 12:40 PM 11/13/2023 3:31 PM Care Teams Field Project Manager Relationship Specialty Start Date End Date Ayah Almodovar MD [address] [place] [address] PCP - General Family Medicine 10/22/23 Maximiliano Arndt MD [address] [place] [address] Referring Physician Gastroenterology 10/22/23 Liliana Culver MD [address] [phone] [place] [address] Consulting Physician Plastic Surgery 10/08/24
--- OUTSIDE RECORDS SUMMARY | 2024-10-26 13:42 | XMS_ITS | Clinical Summary ---
Author Organization [facility] Address [address] [place] [address] Care Team Providers Care Pollution Control Engineer Name Role Phone Ayah Almodovar MD Primary Care Provider [phone] Allergies Active Allergy Reactions Criticality Noted Date [...] Problem Noted Date Diagnosed Date Rectal cancer (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 [address] [place] [address] Ruthie Wolfe, [facility] [address] [place] [address] Health Maintenance Due Date Last Done Comments Annual Physical 1988 Hepatitis C 2003 Hepatitis B Vaccines (1 of 3 - 19+ 3-dose series) 2004 Cervical Cancer Screening Pa p with HPV Testing (Age 30 to 64) Every 5 Years 2015 DTaP, Tdap and Td Vaccines ( 2 - Td or Tdap) 07/10/2022 07/10/2012 COVID-19 Vaccine (2023-2 5 season) 2024 Cervical Cancer Screening Pa p Smear (Age [...] 5 Years) and At-Risk Patients (6 to 49 Years) Aged Out No longer eligi ble based on patient's age to complete this topic RSV Immunizations Under 20 Months Aged Out No longer eligible based on patient's age to complete this topic Insurance [facility] Care Teams Pollution Control Engineer Relationship Specialty Start Date End Date Ayah Almodovar MD [address] [place] [address] PCP - General FAMILY PRACTICE 05/02/21
--- OUTSIDE RECORDS SUMMARY | 2024-10-26 13:42 | XMS_ITS | Encounter Summary ---
Author Organization [facility] Address [address] [place] [id number] Care Team Providers Care Inspector Printed Circuit Boards Name Role Phone Ayah Almodovar MD Primary Care Provider Reason for Visit * Reason Onset Date Comments Referral 10/22/2024 Swing bed referr al to SFL from [facility] Encounter Details Date Type Department Care Team (Late st Contact Info) Description 10/22/2024 Telephone [facility] [address] [place] [address] [place] [id number] Isabel Michelle RN Referral (Swing bed referral to SFL from [facility]/) Social History Tobacco Use Types Packs/Day Years Used Date Smoking Tobacco: Never Smokeless Tobacco: Never Alcohol Use Standard Drinks/Week Comments Never 0 (1 standard drink = 0.6 oz pur e alcohol) Comments No Sex and Gender Information Value Date Recorded Sex Assigned at Not on file Legal Sex Female 4:36 PM CDT Gender Identity Not on file Sexual Orientation Not on file documented as of this encounter Progress Notes * Isabel Michelle RN - 10/25/2024 2:53 PM CDT 1348: VERONICA called promotion writer to inform that Pt [facility]. Nurse called insurance and let them know to cancel referral. Nurse also sent message to team to let them know. * Isabel Michelle RN - 10/22/2024 11:53 AM CDT 1523-1818: SFL received referral for services from [facility]. The below was obtained for review: VERONICA: Shirley [phone] Code: na Insurance: [employer] Skilled need that qualifies for SWB: Wound care GUS: 10/25 Barriers: No sig barriers Final d/c plans: Lives with Spouse and their 12 y/o son. Pt is already set up with [facility] and [facility] wound clinic for after rehab stay Referral Info: Pt has had a length hospitalization for rectal cancer. Pt was at [facility] from 08/26-10/11 and then went to [facility] from 10/11-10/25. Pt had abdominoperineal resection on 08/09 and flap coverage on 09/24 with DANY drains placed and ostomy. Pt was doing well but then perineal incision dehised. Pt currently has a wound to thigh that is to irrigate, 1/2 iodoform and cover with Alievyn three times a day and wound to buttocks that is irrigate, soak kerlix and ABD twice a day. Pt saw plastics and they did not want Pt go come home until after next follow up which is 10/28 at 0900 that [facility] be able to transfer to. Nurse sent to team to review and will let CM know their decision. 1220: Team reported they would be able to accept however pharmacy did report the following: Progesterone caps (home med). SFL does not carry - patient will need to bring in own from home. Also, SFL does not carry Cirpo. We will need to make sure her MD is okay with us using Levaquin, our formulary sub for it. Lastly, she is currently on Lyrica CR and SFL only carries the regular Lyrica not extended release . Nurse did inform CM and is getting clarification for the above. Nurse also reached out to Dr. Almodovar to give heads up of admission and see if willing to accept, awaiting to hear. Once hears from MD will send for auth documented in this encounter Plan of Treatment Upcoming Encounters Date Type Department Care Team (Late st Contact Info) Description 11/08/2024 8:[address] [facility] [address] [place] [address] Ruthie Wolfe, RUN BOAT OPERATOR [address] [place] [address] documented as of this encounter Visit Diagnoses Not on filedocumented in this encounter Care Teams Inspector Printed Circuit Boards Relationship Specialty Start Date End Date Ayah Almodovar MD [address] [place] [phone] PCP - General FAMILY PRACTICE 05/02/21 documented as of this encounter
[2024-10-26 14:34] VITALS: O2SAT 96
--- NOTE | 2024-10-26 14:34 | PC.NURSE ---
1330 informed MAINTENANCE AND CUSTODIAN SUPERVISOR medications are confirmed.
[2024-10-26] MEDS: ACETAMINOPHEN 325 MG TABLET 975 MG PO ×2 (15:23→23:32)
[2024-10-26] MEDS: GABAPENTIN 300 MG CAPSULE PO (17:43)
[2024-10-26] MEDS: PANTOPRAZOLE 40 MG TABLET PO (21:08)
[2024-10-26] MEDS: PREGABALIN (*CRX) 25 MG CAPSULE 75 MG PO (21:09)
[2024-10-26] MEDS: IBUPROFEN 600 MG TABLET PO (21:09)
--- NOTE | 2024-10-26 23:17 | PM.EVENT ---
Event Note Event Note Event Note: unable to open Rehab progress note patient seen and examined discussed abdominal discomfort with IM active bowel sounds wounds reviewed with brine tank tender continues with monk catheter DC to swing bed for continued wound management
[2024-10-26] MEDS: methocarbamoL 750 MG TABLET PO (23:32)
[2024-10-26 23:53] VITALS: BP 122/64; PULSE 92; RESP 18; TEMP 36.4; O2SAT 96
[2024-10-27] MEDS: IBUPROFEN 600 MG TABLET PO ×3 (05:12→21:09)
[2024-10-27] MEDS: ACETAMINOPHEN 325 MG TABLET 975 MG PO ×4 (05:12→23:07)
[2024-10-27 07:35] LABS: Hematocrit 28.9 % (35.0-49.0); Hemoglobin 8.1 g/dL (12.0-15.0); Mean Corpuscular Hemoglobin 24.7 pg (27.0-31.0); Mean Corpuscular Volume 88.1 fL (78.0-102.0); Mean Platelet Volume 9.1 fl (9.2-11.8); Platelet Count Result 112 K/mm3 (150-420); Red Blood Count 3.28 M/mm3 (4.20-5.40); Red Cell Distribution Width 16.4 % (11.6-14.4); White Blood Count 3.4 K/mm3 (4.8-10.8)
[2024-10-27 08:00] VITALS: BP 110/65; PULSE 92; TEMP 36.6; O2SAT 98
[2024-10-27 08:17] LABS: Band Neutrophils Percent 0 % (0-6); Eosinophils Absolute Manual 0.13 K/mm3 (0.02-0.50); Eosinophils Percent Manual 4 % (1-6); Lymphocytes Absolute Manual 0.91 K/mm3 (1.1-4.5); Lymphocytes Percent Manual 27 % (18-44); Monocytes Absolute Manual 0.06 K/mm3 (0.1-0.90); Monocytes Percent Manual 2 % (3-9); Neutrophils Absolute Manual 2.27 K/mm3 (1.7-7.2); Neutrophils Percent Manual 67 % (46-73); Total Cells Counted 100
[2024-10-27 08:18] LABS: Platelet Estimate Decreased (Adequate)
[2024-10-27] MEDS: polyethylene glycoL 3350 17 GM POWD.PACK PO (09:35)
[2024-10-27] MEDS: GABAPENTIN 300 MG CAPSULE PO ×3 (09:35→17:13)
[2024-10-27] MEDS: CHOLECALCIFEROL 5,000 UNITS TABLET 5000 UNITS PO (09:35)
[2024-10-27] MEDS: LORATADINE 10 MG TABLET PO (09:35)
[2024-10-27] MEDS: PANTOPRAZOLE 40 MG TABLET PO ×2 (09:35→21:09)
[2024-10-27] MEDS: PREGABALIN (*CRX) 25 MG CAPSULE 75 MG PO ×2 (09:35→21:09)
[2024-10-27 10:06] LABS: Alanine Aminotransferase 41 U/L (6-35); Albumin Level 3.7 g/dL (3.5-5.1); Alkaline Phosphatase 120 U/L (38-126); Anion Gap 8 mmol/L (4-12); Aspartate Amino Transferase 47 U/L (14-36); Bilirubin,Total 0.5 mg/dL (0.2-1.3); Blood Urea Nitrogen 19 mg/dL (7-17); Calcium 8.9 mg/dL (8.4-10.2); Carbon Dioxide 26 mmol/L (22-30); Chloride 105 mmol/L (98-107); Estimated CRCL calculation 148 ml/min; Estimated Glomerular Filt Rate > 60; Glucose 104 mg/dL (65-110); Osmolality Calculated 290 mOsm/kg (285-295); Sodium 139 mmol/L (137-145)
--- NOTE | 2024-10-27 12:17 | PM.IMHP ---
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 After the dehiscence patient was placed on wound VAC on 09/13/24 and then later removed on 10/08/2024. She was seen by Plastic surgery and had a flap coverage with AL S on 09/24/2024 with insertion of 3 DANY drains. DANY drains were removed last week at follow-up appointment. She now continues with wet to dry dressings to her coccyx and packed dressing to her thigh. she was also noted to have some urinary retention postoperatively requiring Persaud catheter to be placed and did successfully pass a voiding trial however due to concerns about potential wound infection a catheter was reinserted. She worked with PT and OT who recommended further inpatient rehab and was sent here for [facility] program. Review of Systems Review of Systems: All systems reviewed & are unremarkable except as noted in HPI and below PMFSH Past Medical History Medical History Bladder dysfunction Fibromyalgia Altered bowel elimination due to intestinal ostomy Anemia GERD (gastroesophageal reflux disease) Morbid obesity Neuropathy Rectal adenocarcinoma Colon cancer Hemorrhoids Family History Family History Grandparent Acute myocardial infarction Congestive heart failure Diabetes mellitus Father Diabetes mellitus Social History Social History Smoking status: Never smoker Second hand tobacco smoke exposure: No Alcohol intake: never Substance use: never Substance use type: does not use Do You Feel Safe in your Home?: Yes Lack of Transportation: No Lack of Food: Never True Current Housing: I Have Housing Concerned About Future Housing: No Difficulty Paying Gas/Electric Bills: No Difficulty Paying for Meds: No Currently Unemployed: No Education: Bachelor's Degree Difficulty w/ Childcare or Family Care: No Spiritual care concerns: No Meds Home Medications and Allergies Home Medications ?Medication ?Instructions ?Recorded ?Confirmed ?Type progesterone micronized 200 mg 200 mg PO HS 60 days #30 caps 07/12/22 10/26/24 Rx capsule (Prometrium) phenylephrine 0.25 %-mineral oil 1 applic RECTAL QAM AND QHS PRN 09/17/23 10/26/24 Rx 14 %-petrolatm 74.9 % rectal hemorrhoids #56 grams ointment (Hemorrhoidal(phenyleph-min oil-petrolat)) polyethylene glycol 3350 17 17 g PO DAILY #238 grams 09/17/23 10/26/24 Rx gram/dose oral powder (Miralax) acetaminophen 325 mg tablet 975 mg (3 x 325 mg) PO Q6H #30 tabs 10/26/24 10/26/24 Rx cetirizine 10 mg tablet 10 mg PO DAILY #10 tabs 10/26/24 10/26/24 Rx cholecalciferol (vitamin D3) 125 125 mcg PO DAILY #30 tabs 10/26/24 10/26/24 Rx mcg (5,000 unit) tablet gabapentin 300 mg capsule 300 mg PO TID #30 caps 10/26/24 10/26/24 Rx (Neurontin) ibuprofen 200 mg tablet 600 mg (3 x 200 mg) PO Q8H #10 tabs 10/26/24 10/26/24 Rx methocarbamol 750 mg tablet 750 mg PO TID PRN Muscle Spasm #10 10/26/24 10/26/24 Rx tabs mirabegron 25 mg tablet,extended 25 mg PO HS PRN Bladder Spasm #10 10/26/24 10/26/24 Rx release 24 hr (Myrbetriq) tabs oxycodone 5 mg tablet 5 mg PO Q4H PRN Pain Rated 7-10 10/26/24 10/26/24 Rx #10 tabs pantoprazole 40 mg tablet,delayed 40 mg PO Q12HR #30 tabs 10/26/24 10/26/24 Rx release peg [id number] 1 2 drp EACH EYE QID PRN Dry Eye(S) 10/26/24 10/26/24 Rx %-0.2 %-0.2 % eye drops #30 mL (Artificial Tears ([id number])) pregabalin 75 mg capsule (Lyrica) 75 mg PO Q12HR #10 caps 10/26/24 10/26/24 Rx Allergies Allergy/AdvReac Type Severity Reaction Status Date / Time Sulfa (Sulfonamide Allergy Unknown Rash Verified 10/11/24 22:33 Antibiotics) sulfamethoxazole Allergy Unknown Rash Verified 10/11/24 22:33 trimethoprim Allergy Unknown Rash Verified 10/11/24 22:33 Vital Signs Vital Signs - 24 hr 10/26/24 13:05 10/26/24 14:34 10/26/24 23:53 Temperature 97.6 F Pulse Rate 92 Respiratory Rate 18 Blood Pressure 122/64 Pulse Oximetry 96 96 96 Oxygen Delivery Room Air Room Air Room Air 10/27/24 08:00 Temperature 97.8 F Pulse Rate 92 Respiratory Rate Blood Pressure 110/65 Pulse Oximetry 98 Oxygen Delivery Room Air Exam Narrative: General: In no acute distress, well nourished Head: atraumatic, no encephalopathy Eyes: PERRLA, sclera clear, wears glasses ENT: moist mucous membranes, nasal passages clear Neck: supple, no JVD, no adenopathy, trachea midline Cardiac: Normal S1 and S2. RRR, No murmur, gallops or friction rubs, peripheral pulses intact. Respiratory: Lungs clear to auscultation, no adventitious lung sounds, currently on room air Gastrointestinal: soft, non-distended, non-tender, normoactive bowel sounds. : Persaud catheter draining clear carlos urine Extremities: moves all extremities well, no edema Skin: wound to thigh and coccyx, dressing in place Neuro: Alert and oriented x4, cranial nerves intact, no neuro deficits. Psych: normal mood, normal affect, interactive H&P: Results Labs Labs: Short CBC 10/27/24 Range/Units 07:28 WBC 3.4 L (4.8-10.8) K/mm3 Hgb 8.1 L (12.0-15.0) g/dL Hct 28.9 L (35.0-49.0) % Plt Count 112 L (150-420) K/mm3 BMP 10/27/24 07:28 Sodium 139 Potassium 4.0 Chloride 105 Carbon Dioxide 26 BUN 19 H Creatinine 0.63 L Glucose 104 Calcium 8.9 Liver Function 10/27/24 Range/Units 07:28 Total Bilirubin 0.5 (0.2-1.3) mg/dL AST 47 H (14-36) U/L ALT 41 H (6-35) U/L Alkaline Phosphatase 120 (38-126) U/L Albumin 3.7 (3.5-5.1) g/dL Assessment and Plan Assessment and plan (1) Weakness: Code(s): R53.1 - Weakness Status: Acute Assessment and Plan: PT and OT ordered (2) Rectal adenocarcinoma: Code(s): C20 - Malignant neoplasm of rectum Status: Acute Assessment and Plan: history of Brito syndrome with rectal adenocarcinoma. status post tonia total neoadjuvant therapy and robotic assisted APR abdominal peritoneal resection on 08/09/2024 with complication of a perineal wound dehiscence on 08/26/2024, neuropathy, morbid obesity, GERD, anemia, fibromyalgia who presented to [facility] for continued wound care And rehab. After the dehiscence patient was placed on wound VAC on 09/13/24 and then later removed on 10/08/2024. She was seen by Plastic surgery and had a flap coverage with AL S on 09/24/2024 with insertion of 3 DANY drains. DANY drains were removed last week at follow-up appointment. Continue dressing changes 3 times a day to right thigh wet-to-dry dressing change to coccyx/buttocks q.shift watch for signs and symptoms of infection continue Persaud catheter continue pain control plan for Wound Clinic outpatient at [facility] after rehab (3) Morbid obesity: Code(s): E66.01 - Morbid (severe) obesity due to excess calories Status: Acute Assessment and Plan: 136.1 kg, BMI 47 educate on healthy diet and exercise routine (4) GERD (gastroesophageal reflux disease): Code(s): K21.9 - Gastro-esophageal reflux disease without esophagitis Status: Acute Assessment and Plan: continue Protonix Hospitalist [facility] Advance Care Plan I have confirmed that the patient's Advanced Care Plan is present, code status is documented, or surrogate decision maker is listed in patient medical record.: Yes Medication Reconciliation I have utilized all available resources to obtain, update and review the patients current medications (includes all prescriptions, OTC, herbals, cannabis, and nutritional supplements).: Yes
[2024-10-27 16:00] VITALS: BP 99/56; PULSE 86; RESP 18; TEMP 36.2; O2SAT 96
[2024-10-28] VITALS: BP 119/68; PULSE 84; RESP 16; TEMP 36.7; O2SAT 97
[2024-10-28] MEDS: ACETAMINOPHEN 325 MG TABLET 975 MG PO ×3 (05:20→17:48)
[2024-10-28] MEDS: IBUPROFEN 600 MG TABLET PO ×3 (05:20→21:12)
[2024-10-28] MEDS: oxyCODONE HCL (*CRX) 5 MG TAB IR PO ×3 (07:48→21:12)
[2024-10-28] MEDS: methocarbamoL 750 MG TABLET PO (07:48)
[2024-10-28 08:00] VITALS: BP 117/70; PULSE 83; RESP 16; TEMP 35.8; O2SAT 96
[2024-10-28] MEDS: CHOLECALCIFEROL 5,000 UNITS TABLET 5000 UNITS PO (08:59)
[2024-10-28] MEDS: PREGABALIN (*CRX) 25 MG CAPSULE 75 MG PO ×2 (08:59→21:12)
[2024-10-28] MEDS: PANTOPRAZOLE 40 MG TABLET PO ×2 (08:59→21:13)
[2024-10-28] MEDS: LORATADINE 10 MG TABLET PO (08:59)
[2024-10-28] MEDS: GABAPENTIN 300 MG CAPSULE PO ×3 (08:59→17:48)
[2024-10-28] MEDS: polyethylene glycoL 3350 17 GM POWD.PACK PO (09:00)
[2024-10-28 16:00] VITALS: BP 110/68; PULSE 92; RESP 18; TEMP 36.1; O2SAT 97
[2024-10-29] VITALS: BP 104/71; PULSE 87; RESP 17; TEMP 36.7; O2SAT 98
[2024-10-29] MEDS: ACETAMINOPHEN 325 MG TABLET 975 MG PO ×5 (01:00→23:27)
[2024-10-29] MEDS: IBUPROFEN 600 MG TABLET PO ×3 (06:14→22:10)
--- NOTE | 2024-10-29 11:24 | PC.NURSE ---
Downtime today from [id number]. No new orders written during this time.
--- NOTE | 2024-10-29 11:44 | PC.NURSE ---
7am- 110ma computer was down. pleases see nurses down time paperwork
[2024-10-29] MEDS: GABAPENTIN 300 MG CAPSULE PO ×3 (13:11→17:06)
[2024-10-29 16:00] VITALS: BP 104/60; PULSE 68; RESP 18; TEMP 36.6; O2SAT 96
[2024-10-29] MEDS: methocarbamoL 750 MG TABLET PO (19:51)
[2024-10-29] MEDS: PREGABALIN (*CRX) 25 MG CAPSULE 75 MG PO (21:55)
[2024-10-29] MEDS: PANTOPRAZOLE 40 MG TABLET PO (21:55)
[2024-10-29] MEDS: [UNRECOGNIZED DRUG - OTHER] PO (21:55)
[2024-10-29] MEDS: PROGESTERONE MICRONIZED 200 MG PO (21:55)
[2024-10-29] MEDS: MIRABEGRON 25 MG ER TABLET PO (22:09)
[2024-10-30] VITALS: BP 109/57; PULSE 77; RESP 16; TEMP 36.7; O2SAT 97
[2024-10-30] MEDS: IBUPROFEN 600 MG TABLET PO ×3 (06:18→21:28)
[2024-10-30] MEDS: ACETAMINOPHEN 325 MG TABLET 975 MG PO ×4 (06:18→23:53)
[2024-10-30 08:00] VITALS: BP 117/68; PULSE 93; RESP 16; TEMP 36.6; O2SAT 98
[2024-10-30] MEDS: CHOLECALCIFEROL 5,000 UNITS TABLET 5000 UNITS PO (09:44)
[2024-10-30] MEDS: methocarbamoL 750 MG TABLET PO (09:44)
[2024-10-30] MEDS: PREGABALIN (*CRX) 25 MG CAPSULE 75 MG PO ×2 (09:44→21:28)
[2024-10-30] MEDS: GABAPENTIN 300 MG CAPSULE PO ×3 (09:45→17:34)
[2024-10-30] MEDS: polyethylene glycoL 3350 17 GM POWD.PACK PO (09:45)
[2024-10-30] MEDS: PANTOPRAZOLE 40 MG TABLET PO ×2 (09:45→21:28)
[2024-10-30] MEDS: LORATADINE 10 MG TABLET PO (09:45)
[2024-10-30] MEDS: oxyCODONE HCL (*CRX) 5 MG TAB IR PO (11:20)
[2024-10-30 16:00] VITALS: BP 112/65; PULSE 88; RESP 17; TEMP 36.2; O2SAT 97
[2024-10-30] MEDS: TAMSULOSIN HCL 0.4 MG CAPSULE PO (17:34)
[2024-10-30] MEDS: HYOSCYAMINE SULFATE 0.125 MG TABLET PO (17:34)
[2024-10-30] MEDS: [UNRECOGNIZED DRUG - OTHER] PO (21:28)
[2024-10-30] MEDS: PROGESTERONE MICRONIZED 200 MG PO (21:28)
[2024-10-31] VITALS: BP 108/60; PULSE 87; RESP 17; TEMP 36.6; O2SAT 96
[2024-10-31] MEDS: ACETAMINOPHEN 325 MG TABLET 975 MG PO ×4 (06:11→23:09)
[2024-10-31] MEDS: IBUPROFEN 600 MG TABLET PO ×3 (06:11→21:09)
[2024-10-31 08:00] VITALS: BP 112/57; PULSE 88; RESP 15; TEMP 36.9; O2SAT 97
[2024-10-31] MEDS: GABAPENTIN 300 MG CAPSULE PO ×3 (09:21→18:00)
[2024-10-31] MEDS: PANTOPRAZOLE 40 MG TABLET PO ×2 (09:21→21:09)
[2024-10-31] MEDS: polyethylene glycoL 3350 17 GM POWD.PACK PO (09:21)
[2024-10-31] MEDS: LORATADINE 10 MG TABLET PO (09:21)
[2024-10-31] MEDS: PREGABALIN (*CRX) 25 MG CAPSULE 75 MG PO ×2 (09:21→21:09)
[2024-10-31] MEDS: TAMSULOSIN HCL 0.4 MG CAPSULE PO (09:21)
[2024-10-31] MEDS: CHOLECALCIFEROL 5,000 UNITS TABLET 5000 UNITS PO (09:21)
[2024-10-31] MEDS: oxyCODONE HCL (*CRX) 5 MG TAB IR PO ×2 (09:25→21:13)
[2024-10-31] MEDS: methocarbamoL 750 MG TABLET PO ×2 (12:43→21:12)
[2024-10-31 16:00] VITALS: BP 116/66; PULSE 85; RESP 17; TEMP 36.2; O2SAT 97
[2024-10-31] MEDS: [UNRECOGNIZED DRUG - OTHER] PO (21:08)
[2024-10-31] MEDS: PROGESTERONE MICRONIZED 200 MG PO (21:08)
[2024-10-31 23:02] VITALS: BP 120/59; PULSE 86; RESP 15; TEMP 36.2; O2SAT 97
[2024-11-01] MEDS: ACETAMINOPHEN 325 MG TABLET 975 MG PO ×2 (05:21→12:58)
[2024-11-01] MEDS: IBUPROFEN 600 MG TABLET PO ×3 (05:21→21:03)
[2024-11-01 08:00] VITALS: BP 110/64; PULSE 77; RESP 18; TEMP 36.1; O2SAT 97
[2024-11-01] MEDS: PANTOPRAZOLE 40 MG TABLET PO ×2 (08:09→20:56)
[2024-11-01] MEDS: polyethylene glycoL 3350 17 GM POWD.PACK PO (08:09)
[2024-11-01] MEDS: GABAPENTIN 300 MG CAPSULE PO ×2 (08:10→12:58)
[2024-11-01] MEDS: oxyCODONE HCL (*CRX) 5 MG TAB IR PO ×2 (08:10→12:59)
[2024-11-01] MEDS: LORATADINE 10 MG TABLET PO (08:10)
[2024-11-01] MEDS: TAMSULOSIN HCL 0.4 MG CAPSULE PO (08:10)
[2024-11-01] MEDS: PREGABALIN (*CRX) 25 MG CAPSULE 75 MG PO ×2 (08:10→20:56)
[2024-11-01] MEDS: methocarbamoL 750 MG TABLET PO ×3 (08:10→21:03)
[2024-11-01] MEDS: CHOLECALCIFEROL 5,000 UNITS TABLET 5000 UNITS PO (08:10)
--- NOTE | 2024-11-01 08:14 | PHAR ---
verified pt.'s home med: progesterone 200mg cap, one by mouth every night at bedtime. tls
--- NOTE | 2024-11-01 08:57 | P.PNIM_ITS ---
Progress Note: A&P Assessment and Plan (1) Weakness: Code(s): R53.1 - Weakness Status: Acute Assessment and Plan: * PT and OT ordered (2) Rectal adenocarcinoma: Code(s): C20 - Malignant neoplasm of rectum Status: Acute Assessment and Plan: history of Brito syndrome with rectal adenocarcinoma. status post tonia total neoadjuvant therapy and robotic assisted APR abdominal peritoneal resection on 08/09/2024 with complication of a perineal wound dehiscence on 08/26/2024, neuropathy, morbid obesity, GERD, anemia, fibromyalgia who presented to [facility] for continued wound care And rehab. After the dehiscence patient was placed on wound VAC on 09/13/24 and then later removed on 10/08/2024. She was seen by Plastic surgery and had a flap coverage with [place] S on 09/24/2024 with insertion of 3 DANY drains. DANY drains were removed last week at follow-up appointment. * Continue dressing changes 3 times a day to right thigh * wet-to-dry dressing change to coccyx/buttocks q.shift * watch for signs and symptoms of infection * continue Persaud catheter * continue pain control * plan for Wound Clinic outpatient at [facility] after rehab (3) Morbid obesity: Code(s): E66.01 - Morbid (severe) obesity due to excess calories Status: Acute Assessment and Plan: * 136.1 kg, BMI 47 * educate on healthy diet and exercise routine (4) GERD (gastroesophageal reflux disease): Code(s): K21.9 - Gastro-esophageal reflux disease without esophagitis Status: Acute Assessment and Plan: * continue Protonix Subjective Date/time seen: 11/01/24 08:57 Interval history: Patient has no complaints she is doing well with physical therapy and she is going to her surgeon today. Patient at this time denies any pain and or discomfort and she is eating breakfast at this time. Exam Narrative: General: In no acute distress, well nourished Head: atraumatic, no encephalopathy Eyes: PERRLA, sclera clear, wears glasses ENT: moist mucous membranes, nasal passages clear Neck: supple, no JVD, no adenopathy, trachea midline Cardiac: Normal S1 and S2. RRR, No murmur, gallops or friction rubs, peripheral pulses intact. Respiratory: Lungs clear to auscultation, no adventitious lung sounds, currently on room air Gastrointestinal: soft, non-distended, non-tender, normoactive bowel sounds. : Persaud catheter draining clear carlos urine Extremities: moves all extremities well, no edema Skin: wound to thigh and coccyx, dressing in place Neuro: Alert and oriented x4, cranial nerves intact, no neuro deficits. Psych: normal mood, normal affect, interactive Objective Data Vital Signs Vital Signs: Vital Signs - 24 hr 10/31/24 16:00 10/31/24 23:02 Temperature 97.1 F L 97.2 F L Pulse Rate 85 86 Respiratory Rate 17 15 Blood Pressure 116/66 120/59 L Pulse Oximetry 97 97 Oxygen Delivery Room Air Room Air Intake/Output Intake/Output: Intake & Output 10/29/24 10/30/24 10/31/24 11/01/24 23:59 23:59 23:59 23:59 Intake Total 1680 1900 2250 300 Output Total 2100 2600 2000 1125 Balance -420 -700 250 -825 Meds/Results Medications: Active Medications Generic Name Dose Route Start Last Admin Trade Name Freq PRN Reason Stop Dose Admin Acetaminophen 975 mg 10/26/24 18:00 11/01/24 05:21 Acetaminophen 325 Mg Tablet PO 975 mg Q6HR PRISCILLA Administration Artificial Tears 2 drop 10/26/24 14:37 Artificial Tears Ophth Soln 15 Ml Bottle EACH EYE QID PRN Dry Eye(S) Gabapentin 300 mg 10/26/24 17:00 11/01/24 08:10 Gabapentin 300 Mg Capsule PO 300 mg TID PRISCILLA Administration Hyoscyamine 0.125 mg 10/30/24 15:35 10/30/24 17:34 Hyoscyamine Sulfate 0.125 Mg Tablet PO 0.125 mg Q4H PRN Administration Bladder Spasm Ibuprofen 600 mg 10/26/24 22:00 11/01/24 05:21 Ibuprofen 600 Mg Tablet PO 600 mg Q8H PRISCILLA Administration Loratadine 10 mg 10/27/24 09:00 11/01/24 08:10 Loratadine 10 Mg Tablet PO 10 mg QAM PRISCILLA Administration Methocarbamol 750 mg 10/26/24 14:37 11/01/24 08:10 Methocarbamol 750 Mg Tablet PO 750 mg TID PRN Administration Muscle Spasm Mirabegron 25 mg 10/26/24 14:37 10/29/24 22:09 Mirabegron 25 Mg Er Tablet PO 25 mg HS PRN Administration Bladder Spasm Non-Formulary Medication 200 mg 10/29/24 21:00 10/31/24 21:08 Progesterone Micronized [Prometrium] PO 11/28/24 20:59 200 mg HS PRISCILLA Administration Ondansetron HCl 4 mg 10/26/24 14:34 Ondansetron Inj 4 Mg/2 Ml Vial IV PUSH Q6H PRN Nausea And Vomiting Oxycodone HCl 5 mg 10/26/24 14:37 11/01/24 08:10 Oxycodone Hcl (*Crx) 5 Mg Tab Ir PO 5 mg Q4H PRN Administration Pain Rated 7-10 Pantoprazole Sodium 40 mg 10/26/24 21:00 11/01/24 08:09 Pantoprazole 40 Mg Tablet PO 40 mg Q12HR PRISCILLA Administration Phenyleph/Shark Oil/Min Oil/Petrol 1 applic 10/26/24 14:37 Phenyleph/Shark Oil/Mo/Petrol Cream 26 Gm RECTAL Q12HR PRN hemorrhoids Polyethylene Glycol 17 gm 10/27/24 09:00 11/01/24 08:09 Polyethylene Glycol 3350 17 Gm Powd.Pack PO 17 gm DAILY PRISCILLA Administration Pregabalin 75 mg 10/26/24 21:00 11/01/24 08:10 Pregabalin (*Crx) 25 Mg Capsule PO 75 mg Q12HR PRISCILLA Administration Tamsulosin HCl 0.4 mg 10/30/24 15:35 11/01/24 08:10 Tamsulosin Hcl 0.4 Mg Capsule PO 0.4 mg QAM PRISCILLA Administration Vitamin D 5,000 units 10/27/24 09:00 11/01/24 08:10 Cholecalciferol 5,000 Units Tablet PO 5,000 units DAILY PRISCILLA Administration
--- NOTE | 2024-11-01 09:38 | PHAR ---
VERIFIED PATIENT HOME MED - PROGESTERONE 200MG CAPSULE 1 CAPSULE BY MOUTH AT BEDTIME
--- NOTE | 2024-11-01 13:45 | PC.NURSE ---
Patient off floor per wheelchair with family at 1340, out of facility for doctor appointment at [place].
--- NOTE | 2024-11-01 19:35 | PC.NURSE ---
Patient returned from appointment w/ surgical doctor who removed a mass from her coccyx. Patient had orders to remove the monk, which was done upon her return. Dressing changes were to continue as previously ordered, with changes at 0600, 1400, and 2200. Patient continues to be up with 1 assist and a gait belt.
[2024-11-01 20:00] VITALS: PULSE 75; RESP 18; O2SAT 96
[2024-11-01] MEDS: [UNRECOGNIZED DRUG - OTHER] PO (20:56)
[2024-11-01] MEDS: PROGESTERONE MICRONIZED 200 MG PO (20:56)
[2024-11-02] VITALS: BP 127/73; PULSE 96; RESP 16; TEMP 36.2; O2SAT 97
[2024-11-02] MEDS: ACETAMINOPHEN 325 MG TABLET 975 MG PO ×4 (00:23→18:32)
[2024-11-02] MEDS: IBUPROFEN 600 MG TABLET PO ×3 (06:01→21:51)
[2024-11-02] MEDS: HYOSCYAMINE SULFATE 0.125 MG TABLET PO (06:05)
[2024-11-02 08:00] VITALS: BP 110/64; PULSE 90; RESP 18; TEMP 36.1; O2SAT 97
[2024-11-02] MEDS: polyethylene glycoL 3350 17 GM POWD.PACK PO (09:22)
[2024-11-02] MEDS: CHOLECALCIFEROL 5,000 UNITS TABLET 5000 UNITS PO (09:23)
[2024-11-02] MEDS: PREGABALIN (*CRX) 25 MG CAPSULE 75 MG PO ×2 (09:23→21:50)
[2024-11-02] MEDS: GABAPENTIN 300 MG CAPSULE PO ×3 (09:23→16:08)
[2024-11-02] MEDS: PANTOPRAZOLE 40 MG TABLET PO ×2 (09:23→21:50)
[2024-11-02] MEDS: LORATADINE 10 MG TABLET PO (09:23)
[2024-11-02] MEDS: TAMSULOSIN HCL 0.4 MG CAPSULE PO (09:23)
[2024-11-02 16:00] VITALS: BP 108/62; PULSE 88; RESP 18; TEMP 36.1; O2SAT 96
[2024-11-02 20:00] VITALS: PULSE 89; RESP 18; O2SAT 95
[2024-11-02] MEDS: MIRABEGRON 25 MG ER TABLET PO (21:50)
[2024-11-02] MEDS: methocarbamoL 750 MG TABLET PO (21:51)
[2024-11-02] MEDS: [UNRECOGNIZED DRUG - OTHER] PO (21:56)
[2024-11-02] MEDS: PROGESTERONE MICRONIZED 200 MG PO (21:56)
[2024-11-03] VITALS: BP 96/53; PULSE 96; RESP 16; TEMP 36.7; O2SAT 96
[2024-11-03] MEDS: ACETAMINOPHEN 325 MG TABLET 975 MG PO ×5 (00:51→23:24)
[2024-11-03] MEDS: IBUPROFEN 600 MG TABLET PO ×3 (06:27→21:52)
[2024-11-03 08:00] VITALS: BP 110/70; PULSE 86; RESP 18; TEMP 36.1; O2SAT 96
[2024-11-03] MEDS: LORATADINE 10 MG TABLET PO (09:22)
[2024-11-03] MEDS: CHOLECALCIFEROL 5,000 UNITS TABLET 5000 UNITS PO (09:22)
[2024-11-03] MEDS: polyethylene glycoL 3350 17 GM POWD.PACK PO (09:22)
[2024-11-03] MEDS: TAMSULOSIN HCL 0.4 MG CAPSULE PO (09:22)
[2024-11-03] MEDS: PANTOPRAZOLE 40 MG TABLET PO ×2 (09:22→21:48)
[2024-11-03] MEDS: GABAPENTIN 300 MG CAPSULE PO ×3 (09:23→18:03)
[2024-11-03] MEDS: PREGABALIN (*CRX) 25 MG CAPSULE 75 MG PO ×2 (09:23→21:48)
--- NOTE | 2024-11-03 10:38 | PC.NURSE ---
at times patient cont to have bladder spasms. lies on stomach to try to keep urine from getting to back side. uses bed side commode @ times. incont most times. explained the importance of bladder training. frequent regular attempts to empty instead of when the urge hits.
--- NOTE | 2024-11-03 11:12 | P.PNCROSS_ITS ---
Event Note Event Note Event Note: Plan for discharge to home following an extended hospitalization and rehab from history of Brito syndrome with rectal adenocarcinoma. status post tonia total neoadjuvant therapy and robotic assisted APR abdominal peritoneal resection on 08/09/2024 with complication of a perineal wound dehiscence on 08/26/2024, neuropathy, morbid obesity, GERD, anemia, fibromyalgia who presented to [facility] program for continued wound care And rehab. After the dehiscence patient was placed on wound VAC on 09/13/24 and then later removed on 10/08/2024. She was seen by Plastic surgery and had a flap coverage with [place] S on 09/24/2024 with insertion of 3 DANY drains. Patient will be needing a hospital bed at discharge due to patient with difficulty repositioning self in bed a overhead trapeze recommended to assist with reposition and reduce further skin breakdown. She will require elevation at 45 degrees to reduce aspiration risk which can not be achieved due to her activity restrictions including only sitting for 15 minutes at a time in beach chair style. Patient also requires elevation of her LLE secondary to edema but can not be done with wedges or pillows due to no Leg abduction restrictions. A hospital bed with trapeze will assist patient in safe mobility in and out of bed as will as to reduce further skin breakdown or surgical wound dehiscence. * Continue dressing changes 3 times a day to right thigh * wet-to-dry dressing change to coccyx/buttocks q.shift * off loading frequent turns
[2024-11-03 16:00] VITALS: BP 104/65; PULSE 98; RESP 20; TEMP 36.4; O2SAT 98
[2024-11-03] MEDS: oxyCODONE HCL (*CRX) 5 MG TAB IR PO (18:03)
[2024-11-03] MEDS: methocarbamoL 750 MG TABLET PO (18:03)
[2024-11-03] MEDS: HYOSCYAMINE SULFATE 0.125 MG TABLET PO (19:49)
[2024-11-03] MEDS: MIRABEGRON 25 MG ER TABLET PO (21:49)
[2024-11-03] MEDS: PROGESTERONE MICRONIZED 200 MG PO (21:49)
[2024-11-03] MEDS: [UNRECOGNIZED DRUG - OTHER] PO (21:49)
[2024-11-03 23:35] VITALS: BP 95/58; PULSE 91; RESP 17; TEMP 36.6; O2SAT 97
[2024-11-04] MEDS: ACETAMINOPHEN 325 MG TABLET 975 MG PO ×3 (06:38→23:46)
[2024-11-04] MEDS: IBUPROFEN 600 MG TABLET PO ×3 (06:38→21:12)
[2024-11-04 08:00] VITALS: BP 110/60; PULSE 85; RESP 14; TEMP 36.6; O2SAT 98
[2024-11-04] MEDS: TAMSULOSIN HCL 0.4 MG CAPSULE PO (09:40)
[2024-11-04] MEDS: PANTOPRAZOLE 40 MG TABLET PO ×2 (09:40→21:12)
[2024-11-04] MEDS: CHOLECALCIFEROL 5,000 UNITS TABLET 5000 UNITS PO (09:40)
[2024-11-04] MEDS: GABAPENTIN 300 MG CAPSULE PO ×2 (09:40→16:17)
[2024-11-04] MEDS: PREGABALIN (*CRX) 25 MG CAPSULE 75 MG PO ×2 (09:40→21:12)
[2024-11-04] MEDS: LORATADINE 10 MG TABLET PO (09:40)
[2024-11-04] MEDS: polyethylene glycoL 3350 17 GM POWD.PACK PO (09:40)
[2024-11-04 16:00] VITALS: BP 131/64; PULSE 103; RESP 18; TEMP 35.7; O2SAT 97
[2024-11-04] MEDS: PROGESTERONE MICRONIZED 200 MG PO (21:15)
[2024-11-04] MEDS: [UNRECOGNIZED DRUG - OTHER] PO (21:15)
[2024-11-05] VITALS: PULSE 84; RESP 15; TEMP 36.4; O2SAT 97
[2024-11-05] MEDS: ACETAMINOPHEN 325 MG TABLET 975 MG PO ×2 (05:43→13:41)
[2024-11-05] MEDS: IBUPROFEN 600 MG TABLET PO ×2 (05:43→13:42)
[2024-11-05 08:00] VITALS: BP 102/68; PULSE 88; RESP 14; TEMP 36.2; O2SAT 98
--- NOTE | 2024-11-05 09:02 | P.DS_ITS ---
DS: Admitting Diagnosis Discharge Date 11/05/2024 Admitting Diagnosis Rehab/Wound care DS: Discharge Diagnosis Discharge Diagnosis (1) Weakness: Code(s): R53.1 - Weakness Status: Acute Assessment and Plan: * PT and OT/Home Health services (2) Rectal adenocarcinoma: Code(s): C20 - Malignant neoplasm of rectum Status: Acute Assessment and Plan: * Continue dressing changes 3 times a day to right thigh * wet-to-dry dressing change to coccyx/buttocks q.shift * watch for signs and symptoms of infection * continue pain control * plan for Wound Clinic outpatient at [facility] after rehab (3) Morbid obesity: Code(s): E66.01 - Morbid (severe) obesity due to excess calories Status: Acute Assessment and Plan: Encouraged activity and weight loss (4) GERD (gastroesophageal reflux disease): Code(s): K21.9 - Gastro-esophageal reflux disease without esophagitis Status: Acute Assessment and Plan: continued Protonix Plan Disposition: Discharged home with home health DS: Summary Hospital Course Reason for hospitalization: Rehab/Wound care Hospital Course: Admission: this is a 39-year-old female with a significant past medical history of rectal adenocarcinoma and 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 After the dehiscence patient was placed on wound VAC on 09/13/24 and then later removed on 10/08/2024. She was seen by Plastic surgery and had a flap coverage with GA S on 09/24/2024 with insertion of 3 DANY drains. DANY drains were removed last week at follow-up appointment. She now continues with wet to dry dressings to her coccyx and packed dressing to her thigh. she was also noted to have some urinary retention postoperatively requiring Persaud catheter to be placed and did successfully pass a voiding trial however due to concerns about potential wound infection a catheter was reinserted. She worked with PT and OT who recommended further inpatient rehab and was sent here for [facility] program. Hospital Course: Patient with history of Brito syndrome with rectal adenocarcinoma. status post tonia total neoadjuvant therapy and robotic assisted APR abdominal peritoneal resection on 08/09/2024 with complication of a perineal wound dehiscence on 08/26/2024, neuropathy, morbid obesity, GERD, anemia, fibromyalgia she had presented to [facility] program for continued wound care And rehab. After the dehiscence patient was placed on wound VAC on 09/13/24 and then later removed on 10/08/2024. She was seen by Plastic surgery and had a flap coverage with GA S on 09/24/2024 with insertion of 3 DANY drains. DANY drains were removed last week at follow-up appointment. She was set up with a hospital bed with trapeze and will continue dressing changes 3 times a day to right thigh wet-to-dry dressing change to coccyx/buttocks q.shift and plan for Wound Clinic outpatient at [facility]. patient with overall improvement following rehab and increased her strength and endurance with ability to offload and transfer from bed to wheelchair. Patient was discharged home with family and will follow-up with her surgeon outpatient. Status at Discharge Functional status at discharge: wheelchair bound Overall status at discharge: patient is progressing back to baseline Time Spent with Patient Time attestation: Total time spent providing and/or coordinating discharge services: Time spent: Greater than 30 minutes Exam Narrative: General: In no acute distress, well nourished Head: atraumatic, no encephalopathy Eyes: PERRLA, sclera clear, wears glasses ENT: moist mucous membranes, nasal passages clear Neck: supple, no JVD, no adenopathy, trachea midline Cardiac: Normal S1 and S2. RRR, No murmur, gallops or friction rubs, peripheral pulses intact. Respiratory: Lungs clear to auscultation, no adventitious lung sounds, currently on room air Gastrointestinal: soft, non-distended, non-tender, normoactive bowel sounds. Extremities: moves all extremities well, no edema Skin: wound to thigh and coccyx, dressing in place Neuro: Alert and oriented x4, cranial nerves intact, no neuro deficits. Psych: normal mood, normal affect, interactive Discharge Plan Discharge Attending physician on discharge: Lonnie Lua Consulting providers: Manuela Allen; Viviana Gutierrez; Ashley Lugo Discharging Clinician: Ashley Lugo Anticipated Discharge Date/Time: 11/05/24 14:20 Patient Disposition: Home with Home Health Service Activity: may shower and other - see discharge instructions Diet: as tolerated and regular Wound Care Instructions: follow printed instructions Discharge Instructions: Per Care Coordination: [facility] will follow you at discharge. They will call to schedule and anticipate to see you on November 09. [facility] will deliver hospital bed to your house on November 05. * Continue dressing changes 3 times a day to right thigh * wet-to-dry dressing change to coccyx/buttocks-Cleanse coccyx/buttocks with wound cleanser and pat dry, Pack with kerlix gauze, cover with ABD, change three times a day. * Cleanse right thigh wound with wound cleanser and pat dry. Pack wound with 1/2 inch iodoform, cover with mepilex dressing. Change three times a day. * off loading frequent turns * plan for Wound Clinic outpatient at [facility] after rehab 11/08/24 * I have prescribed pain medication use as needed try not to strain for BM * Encourage oral hydration and activity as tolerated * Sit for only 15 minutes at a time in beach style chair provided * Follow-up with Surgeon as scheduled November 15 How can you care for yourself at home? ? Keep track of any new symptoms or changes in your symptoms. ? Rest until you feel better. ? Be safe with medicines. Take your medicines exactly as prescribed. Call your doctor if you think you are having a problem with your medicine. ? Do not drive after taking a prescription pain medicine. ? Ensure to follow-up with primary care physician as indicated and provide updated medication list provided to you at discharge. When should you call for help? Call 911 anytime you think you may need emergency care. For example, call if: ? You passed out (lost consciousness). Call your doctor now or seek immediate medical care if: ? You have new symptoms like fever, difficulty breathing, Chest pain, vomiting, or rash. ? You have new or different pain. ? You are confused and are having trouble thinking clearly. ? Your symptoms are getting worse. Watch closely for changes in your health, and be sure to contact your doctor if: ? You do not get better as expected. Patient Instructions: Antibiotic Form, Oxycodone, Rapid Release (By mouth), Pain Management (DC), Narcotic Safety (DC), Wound Healing and Your Diet (DC), Wound Dehiscence (DC) Patient Language: Ivorian Stand Alone Forms: General Discharge Information Follow-up/Referrals: Ayah Almodovar MD [Primary Care Provider] - 3 Weeks Discharge Medications: Continued polyethylene glycol 3350 [Miralax] 17 gram/dose powder 17 g PO DAILY Qty: 238 0RF Hemorrhoidal(PE-min oil-hemal) 0.25-14-74.9 % ointment 1 applic RECTAL QAM AND QHS MDD 3 doses PRN (Reason: hemorrhoids) Qty: 56 0RF acetaminophen 325 mg Tablet 975 mg PO Q6H Qty: 30 0RF cetirizine 10 mg Tablet 10 mg PO DAILY Qty: 30 0RF methocarbamol 750 mg Tablet 750 mg PO TID PRN (Reason: Muscle Spasm) Qty: 30 0RF pantoprazole 40 mg Tablet,Delayed Release (Dr/Ec) 40 mg PO Q12HR Qty: 60 0RF progesterone micronized [Prometrium] 200 mg capsule 200 mg PO HS 60 Days Qty: 30 1RF ibuprofen 200 mg Tablet 600 mg PO Q8H Qty: 30 0RF gabapentin [Neurontin] 300 mg Capsule 300 mg PO TID Qty: 30 0RF oxycodone 5 mg Tablet 5 mg PO Q4H PRN (Reason: Pain Rated 7-10) Qty: 20 0RF pregabalin [Lyrica] 75 mg Capsule 75 mg PO Q12HR Qty: 60 0RF mirabegron [Myrbetriq] 25 mg Tablet Extended Release 24 Hr 25 mg PO HS PRN (Reason: Bladder Spasm) Qty: 30 0RF Artificial Tears(jt-uvta-wmda) 1-0.2-0.2 % Drops 2 drp EACH EYE QID PRN (Reason: Dry Eye(S)) Qty: 30 0RF cholecalciferol (vitamin D3) 125 mcg (5,000 unit) Tablet 125 mcg PO DAILY Qty: 30 0RF Date of admission: 10/26/24 12:40 Primary Care Provider: Ayah Almodovar Admitting Provider: Lonnie Lua Attending physician on admission: Lonnie Lua Condition: Stable Quality -Patient's previous records reviewed on admission -ER notes reviewed in detail on admission -discussed all findings and current treatment plan with patient/Family/POA -Consultations reviewed for recommendations -Patient's disposition for safe discharge discussed with case supervisor Dictation performed by Snapguide direct speech recognition software, therefore youth worker variants and typographical errors may occur. Hospitalist MIPS Heart Failure (Exclusion) Patient has history of Heart Transplant or Left Ventricular Assistive Device?: No IF YES, STOP HERE Heart Failure (Qualifier) Patient has current or prior documentation of LVEF less than or equal to 40%, or mod/servere depressed LVSF?: No IF NO, STOP HERE
[2024-11-05] MEDS: polyethylene glycoL 3350 17 GM POWD.PACK PO (10:00)
[2024-11-05] MEDS: LORATADINE 10 MG TABLET PO (10:00)
[2024-11-05] MEDS: TAMSULOSIN HCL 0.4 MG CAPSULE PO (10:00)
[2024-11-05] MEDS: PREGABALIN (*CRX) 25 MG CAPSULE 75 MG PO (10:00)
[2024-11-05] MEDS: CHOLECALCIFEROL 5,000 UNITS TABLET 5000 UNITS PO (10:00)
[2024-11-05] MEDS: PANTOPRAZOLE 40 MG TABLET PO (10:00)
[2024-11-05] MEDS: GABAPENTIN 300 MG CAPSULE PO ×2 (10:01→13:42)
--- NOTE | 2024-11-05 15:33 | PC.NURSE ---
Pt discharged to home and family care. Pt's instructed on how to do the dressing changes, S&S of infection. Home health will see pt next week. Pt instructed to make follow up appointment with surgeon and PCP. Medications reviewed with pt. Scripts sent to pt pharmacy. Discharge instructions sent in blue folder with pt.
--- NOTE | 2024-11-08 13:04 | PC.NURSE ---
discharge call back made, unable to leave message.
--- NOTE | 2024-11-09 09:48 | PC.NURSE ---
Second attempt for Discharge Call Back. Unable to leave message r/t no self identification on VM.
== END 2024-11-05 15:15 | disposition home health service (06) | DRG 948 ==
PROVIDERS: Nurse Practitioner Family; Admitting Provider Internal Medicine; PCP Family Medicine; Visit Provider Internal Medicine
DX: R53.1 Weakness (principal); Z68.42 Body mass index [BMI] 45.0-49.9, adult; Z48.01 Encounter for change or removal of surgical wound dressing; Z85.048 Personal history of other malignant neoplasm of rectum, rectosigmoid junction, and anus; Z15.09 Genetic susceptibility to other malignant neoplasm; D64.9 Anemia, unspecified; E66.01 Morbid (severe) obesity due to excess calories; G62.9 Polyneuropathy, unspecified; K21.9 Gastro-esophageal reflux disease without esophagitis; M79.7 Fibromyalgia; R33.9 Retention of urine, unspecified
CPT/HCPCS: 36415; 80053; 85025; 97110; 97112; 97116; 97161; 97165; 97530; 97535; A9270

== ENCOUNTER 2025-02-23 13:21 | Outpatient (CLI) | payer OTHER, SELFPAY ==
--- OUTSIDE RECORDS SUMMARY | 2012-01-21 06:29 | XMS_ITS | Continuity of Care Document ---
Author Organization [facility] Address [address] [id number][place] [address] Phone Care Team Providers Care Panel Saw Operator Name Role Phone Unavailable Unavailable Unavailable Allergies, [...] Diagnoses Date Provider Providers Copied on Encounter [facility], [id number]- [place], [place], [address], [place] tel:[phone] [place] [phone] No Information 2 No Information OFFICE/OUTPA TIENT VISIT, [facility], [id number] [place]17[place], [address], [place] tel:[phone] [place] [address] (chief complaint) Supervision of other normal pregnancyUTERINE SIZE STEFAN-ANTEPAROBESIT Y-ANTEPARTUM 2 Tay Matthews. [address], [place], [address], [place]. tel:[phone] [facility], [id number]- [place], [place], [address], [place] tel:[phone] [place] [address] Supervision of other normal 2 Tay Matthews. [address], [place], [address], [place]. tel:[phone] Referring Provider: Cassie Cross, [address] [place], [address] . tel:[phone] OFFICE/OUTPA TIENT VISIT, [facility], [id number] 68075[place], [place], [address], [place] tel:[phone] [place] [address] (chief complaint) Supervision of other normal pregnancyAntepart um edema or excessive weight gain 2 No Information [facility], [id number] 4779594XJ- [facility], [place], [place], [address], [place] tel:[phone] [place] [address] Supervision of other normal Nov- 2 No Information [facility], [id number]- [place], [place], [address], [place] tel:[phone] [place] [address] Supervision of other normal Nov- 2 No Information [facility], [id number]- [place], [place], [address], [place] tel:[phone] [place] [address] Supervision of other normal Nov- 2 No Information [facility], [id number] [id number]- [place], [place], [address], [place] tel:[phone] [place] [address] Absence of menstruationUnspe cified screeningOther specified viral diseasesSupervisi on of other normal Nov-0 2 Tay Matthews. [address], [place], [address], [place]. tel:[phone] [facility], [id number]- [place], [place], [address], [place] tel:[phone] [place] [address] Supervision of other normal pregnancyUnspecif ied screeningOther specified viral diseasesAbsence of menstruation Nov-0 2 Tay Matthews. [address], [place], [address], [place]. tel:[phone] Referring Provider: Cassie Cross, [address] [place], [address] . tel:[phone] Family History Family Member Type Diagnosis Age [...] Obesity Payers Payer name Insurance type Covered democrat ID Authoriza tion(s) No Information Social History [...]
--- NOTE | ~2025-02-23 | CT_ITS ---
EXAMINATION: CT chest abdomen pelvis w con DATE: 02/25/2025 9:47 CDT INDICATION: History of rectal cancer. Evaluate disease status TECHNIQUE: Computed tomography (CT) of the chest, abdomen, and pelvis was performed without intravenous contrast. The dose-length product was 2144.03 mGy-cm. COMPARISON: None available at this time FINDINGS: CHEST CT: No enlarged mediastinal or hilar lymph nodes. Heart is not enlarged. Thoracic aorta is not aneurysmal. Tracheobronchial tree is patent. No pneumothorax. No pleural effusion. No pulmonary mass. No pulmonary nodules. ABDOMEN/PELVIS CT: Fatty liver. Spleen is enlarged and measures 18.0 cm. Adrenal glands are unremarkable. Pancreas is unremarkable. Gallbladder is unremarkable. Kidneys unremarkable. Abdominal aorta is not aneurysmal. No enlarged lymph nodes in the abdomen. There is a probable ostomy along the left lower anterior abdominal wall with fat and bowel loops in the hernia sac. The opening to the ostomy measures 3.3 cm. The bowel loops appear to extend to the skin surface. Correlate clinically. No dilated bowel loops at this time. No enlarged lymph nodes in the pelvis. Bladder is unremarkable. CT appearance of the uterus is unremarkable. There is a 5.1 x 3.1 x 3.5 cm presacral soft tissue density. Mild multilevel degenerative changes visualized spine. Concentric thickening of the dickinson of bowel in the rectal region. IMPRESSION: 1. There is a 5.1 x 3.1 x 3.5 cm presacral soft tissue density. In addition, there is concentric thickening of the dickinson of bowel in the rectal region. No comparison studies are available. Differential includes postsurgical/treatment change versus malignancy. A PET/CT is recommended for further assessment. 2. Fatty liver. 3. Splenomegaly. 4. No CT evidence for metastatic disease in the chest. Reviewed, dictated and finalized at location Q. IMPRESSION: 1. There is a 5.1 x 3.1 x 3.5 cm presacral soft tissue density. In addition, th ere is concentric thickening of the dickinson of bowel in the rectal region. No com parison studies are available. Differential includes postsurgical/treatment james nge versus malignancy. A PET/CT is recommended for further assessment. 2. Fatty liver. 3. Splenomegaly. 4. No CT evidence for metastatic disease in the chest.
--- OUTSIDE RECORDS SUMMARY | 2025-02-23 13:34 | XMS_ITS | Clinical Summary ---
Author Organization [facility] Address [address] [place] [address] Phone Care Team Providers Care Production Line Name Role Phone Ayah Almodovar MD Primary Care Provider [phone] Allergies Active Allergy Reactions Criticality Noted Date Comments Sulfa Antibiotics Anaphylaxis 08/20/2024 Medications Cetirizine HCl (ZYRTEC ALLERGY PO)Indications: Allergy Take 10 mg by mouth if needed for Other. Indications: Allergy Active Cholecalciferol 37151 UNIT CapsuleIndicati ons:Vitamin D Deficiency Take 5,000 [...] related to causes of morbidity classified elsewhere Active PROBIOTIC, LACTOBACILLUS, POIndications:S tress Ulcer Prophylaxis Take 1 Capsule by mouth daily. Indications: Treatment to Prevent Stress Ulcers 5 Active Social History Tobacco Use Types Packs/Day Years Used Date Smoking Tobacco: Never Assessed Comments Unknown Sex and Gender Information Value Date Recorded Sex Assigned at Not on file Legal Sex Female 10:15 PM CDT Gender Identity Not on file Sexual Orientation Not on file Last Filed Vital Signs Vital Sign Reading Time Taken Comments Blood Pressure 110/70 08/25/2024 2:20 PM [employer] SWITCH[employer]ARD OPERATOR Pulse 94 08/25/2024 2:20 PM [employer] SWITCH[employer]ARD OPERATOR Temperature 36.3 C (97.3 F) 08/25/2024 2:20 PM [employer] SWITCHBOARD OPERATOR Respiratory Rate 18 08/25/2024 2:20 PM [employer] SWITCHBOARD OPERATOR Oxygen Saturation 94% 08/25/2024 2:20 PM [employer] SWITCHBOARD OPERATOR Inhaled Oxygen Concentration - - Weight 142.4 kg (314 lb) 08/20/2024 3:47 PM [employer] SWITCHBOARD OPERATOR Height 170.2 cm (5' 7) 08/20/2024 3:01 PM [employer] SWITCHBOARD OPERATOR Body Mass Index 49.18 08/20/2024 3:01 PM [employer] SWITCHBOARD OPERATOR Plan of Treatment Health Maintenance Due Date Last Done Comments Hepatitis C Virus (HCV) Screening 1985 Hepatitis B Immunization (1 of 3 - 19+ 3-dose series) 2004 Pap Smear 2006 Human Papillomavirus (HPV) Immunization (1 - 3-dose SCDM series) 2012 Cervical Cancer Screening (CCS) 2015 HPV/Cotest 2015 SARS-COV-2 Immunization ( season) 2024 02/27/2021 Influenza Immunization (#1) 2025 07/10/2012 Respiratory Syncytial Virus (RSV) Immunization [...] age to complete this topic Insurance [employer] [facility] Advance Directives * Full Code (Latest Code Status on File) Date Activated Date Inactivated Comments 09/17/2024 5:19 PM Care Teams Production Line Relationship Specialty Start Date End Date Ayah Almodovar MD [address] [place] [address] PCP - General Family Medicine 08/10/24
--- OUTSIDE RECORDS SUMMARY | 2025-02-23 13:34 | XMS_ITS | Encounter Summary ---
Author Organization [facility] Address [address] [place] [address] Phone Care Team Providers Care Drill Press Operator Numerical Control Name Role Phone Ayah Almodovar MD Primary Care Provider Maximiliano Arndt MD Unavailable [phone] Liliana Culver MD Unavailable Encounter Details Date Type Department Care Team (Late st Contact Info) Description 11/27/2023 Telephone [facility] Oncology [address] [facility] [address] [facility] [address]th [place] [address] [place] [address] Adelso Heard Social History Tobacco [...] on filedocumented in this encounter Care Teams Drill Press Operator Numerical Control Relationship Specialty Start Date End Date Ayah Almodovar MD [address] [place] [address] PCP - General Family Medicine 10/22/23 [place] [address] Referring Physician Gastroenterology 10/22/23 Liliana Culver MD [address] [place] [address] Consulting Physician Plastic Surgery 10/08/24 documented as of this encounter
--- OUTSIDE RECORDS SUMMARY | 2025-02-23 13:34 | XMS_ITS ---
Author Organization [facility] Address [address] [place] [address] Care Team Providers Care Tire Beader Maker Name Role Phone Ayah Almodovar MD Primary Care Provider [phone] Maximiliano Arndt MD Unavailable Liliana Culver MD [...] index (BMI) 45.0-49.9, adult;Recorded Elsewhere: No Location: [facility] Source: EHR Chronic: N Practice ID: [id number] Billable Time: 03:30:00 PM Pelvic and perineal pain 12/18/2016 Overview (09/13/2024): Pelvic and perineal pain;Practice ID: [id number] Hirsutism 03/20/2016 Overview (09/13/2024): Hirsutism;Practice ID: [id number] Current Treatment and Therapy Plans IV Maintenance Therapy Plan* Plan Start Date:02/17/2025 Plan Provider:Kimberly Velasquez MD Linked Problems Rectal cancer (HCC) Treatment Medications No medications scheduled. Past Treatment and Therapy Plans Line Care Plan Name Start Date Discontinue Date Treatment Medications Discontinue Reason Plan Provider IV Maintenance Therapy Plan 01/29/2024 02/11/2025 No medications scheduled. Orders Kimberly Velasquez MD Oncology Chemotherapy Treatment Plan Name Start Date Discontinue Date Treatment Medications Discontinue Reason Plan Provider Cycles [id number]: (Fluorouracil / Leucovorin / Oxaliplatin) 14 Day Cycles - GI 4 02/11/2025 dexAMETHasone (DECADRON)fluoro uracil (ADRUCIL)fluorou racil (ADRUCIL) infusion - for home infusion (ADRUCIL)leucovo rinleucovorin IVPB in 250 mLoxaliplatin (ELOXATIN)oxalip latin (ELOXATIN) IVPB Therapy Complete Kimberly Velasquez MD 8 of 12 cycles started Radiation Treatments * Course C1_Rectum_202312/22/2023 - 12/26/2023 [...]
--- OUTSIDE RECORDS SUMMARY | 2025-02-23 13:34 | XMS_ITS | Encounter Summary ---
Author Organization [facility] Address [address] [place] [address] Phone Care Team Providers Care Fermenter Operator Name Role Phone Ayah Almodovar MD Primary Care Provider Maximiliano Arndt MD Unavailable [phone] Liliana Culver MD Unavailable Encounter Details Date Type Department Care Team (Late st Contact Info) Description 11/12/2023 Telephone [facility] Oncology [address] [facility] [address], [place] [address] Do Chun Social History Tobacco [...] on filedocumented in this encounter Care Teams Fermenter Operator Relationship Specialty Start Date End Date Ayah Almodovar MD [address] [place] [address] PCP - General Family Medicine 10/22/23 Maximiliano Arndt MD [address] [place] [address] Referring Physician Gastroenterology 10/22/23 Liliana Culver MD [address] [place] [address] Consulting Physician Plastic Surgery 10/08/24 documented as of this encounter
--- OUTSIDE RECORDS SUMMARY | 2025-02-23 13:34 | XMS_ITS | Clinical Summary ---
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 progesterone (PROMETRIUM) 200 mg capsule Take 1 capsule (200 mg total) by mouth every evening 4 Active multivit-mineral -iron-lutein tablet Take 1 tablet/capsule by mouth every evening Active cholecalciferol (VITAMIN D-3) 5,000 unit tablet Take 1 tablet (5,000 Units total) by mouth every evening Active L. acidophilus-dig enz cmb 5 5-250 mg capsule Take 1 tablet/capsule by mouth every evening Active TRESIBA 100 unit/mL (3 mL) pen for injection Inject 0.4 mL (40 Units total) under the skin with evening meal 4 Active insulin lispro (HumaLOG, ADMELOG) 100 unit/mL vial for injection Inject under the skin 3 (three) times a day before meals Sliding scale 15 units base Active acetaminophen 500 mg capsuleIndicatio ns:Pain Take 2 capsules (1,000 mg total) by mouth every 6 (six) hours as needed for pain 5 Active tamsulosin (FLOMAX) 0.4 mg extended release capsule Take 1 capsule (0.4 mg total) by mouth daily for 14 days 14 capsule 5 Active Additional Information Patient not taking.Reported on 11/25/2024 oxyBUTYnin (DITROPAN) 5 mg tablet Take 1 tablet (5 mg total) by mouth 3 (three) times a day for 14 days Bladder spasm 42 tablet 5 Active Additional Information Patient not taking.Reported on 02/17/2025 aluminum-magnesi um hydroxide-simeth icone (MAALOX) suspension 200-200-20 mg/5 mL Take 30 mL by mouth 4 (four) times a day as needed for indigestion 5 Active benzocaine-menth oL (CHLORASEPTIC) 6-10 mg lozenge Take 1 lozenge by mouth every 3 (three) hours as needed for sore throat 5 Active Additional Information Patient not taking.Reported on 02/17/2025 calcium carbonate (TUMS) 500 mg (200 mg elemental calcium) chewable tablet Take 2 tablet/chew tab (1,000 mg total) by mouth 4 (four) times a day as needed for indigestion or heartburn 5 10/09/19 26 Active Additional Information Patient not taking.Reported on 02/17/2025 gabapentin (NEURONTIN) 300 mg capsuleIndicatio ns:Postoperative Acute Pain Take 1 capsule (300 mg total) by mouth 3 (three) times a day as needed (Pain) 5 10/09/19 26 Active Additional Information Patient not taking.Reported on 02/17/2025 ibuprofen (ADVIL,MOTRIN) 600 mg tablet Take 1 tablet (600 mg total) by mouth every 8 (eight) hours 5 Active loratadine (CLARITIN) 10 mg tablet Take 1 tablet (10 mg total) by mouth daily 5 10/10/19 26 Active methocarbamoL (ROBAXIN) 750 mg tablet Take 1 tablet (750 mg total) by mouth 3 (three) times a day as needed for muscle spasms 5 Active mirabegron ER (MYRBETRIQ) 25 mg tablet extended release 24 hr Take 1 tablet (25 mg total) by mouth nightly as needed (bladder spasms while having the monk) 5 Active Additional Information Patient not taking.Reported on 02/17/2025 ondansetron (ZOFRAN) 4 mg/2 mL injection Infuse 2 mL (4 mg total) into a venous catheter every 4 (four) hours as needed for vomiting or nausea for 2 minutes 5 Active Additional Information Patient not taking.Reported on 02/17/2025 oxyCODONE (ROXICODONE) 5 mg immediate release tabletIndication s:Pain Take 1 tablet (5 mg total) by mouth every 4 (four) hours as needed for pain Active pantoprazole DR (PROTONIX) 40 mg EC tabletIndication s:Treatment of Non-Bleeding Gastric Disorder Take 1 tablet (40 mg total) by mouth 2 (two) times a day 5 10/09/19 26 Active Additional Information Patient not taking.Reported on 02/17/2025 polyethylene glycol (MIRALAX) 17 gram packet Take 1 packet (17 g total) by mouth 2 (two) times a day 5 Active Additional Information Patient not taking.Reported on 02/17/2025 polyvinyl alcohol-povidone (REFRESH CLASSIC) 1.4-0.6 % dropperette Administer 2 drops into both eyes 4 (four) times a day as needed for dry eyes 5 Active Additional Information Patient not taking.Reported on 02/17/2025 pregabalin (LYRICA) 75 mg capsule Take 1 capsule (75 mg total) by mouth 2 (two) times a day 5 04/06/20 25 Active cetirizine (ZyrTEC) 10 mg tablet Take 1 tablet (10 mg total) by mouth daily Active ergocalciferol (VITAMIN D) 50,000 unit capsule Take by oral route. Active esomeprazole DR (NexIUM) 40 mg capsule TAKE 1 CAPSULE BY MOUTH DAILY ON AN EMPTY STOMACH Active valACYclovir (VALTREX) 1 gram tablet TAKE 1 TABLET BY MOUTH THREE TIMES DAILY FOR 7 DAYS OR UNTIL CLEAR 5 Active Active Problems Problem Noted Date Diagnosed [...] index (BMI) 45.0-49.9, adult;Recorded Elsewhere: No Location: [facility] Source: EHR Chronic: N Practice ID: [id number] Billable Time: 03:30:00 PM Pelvic and perineal pain 12/18/2016 Overview (09/13/2024): Pelvic and perineal pain;Practice ID: [id number] Hirsutism 03/20/2016 Overview (09/13/2024): Hirsutism;Practice ID: [id number] Encounters Date Type Department Care Team Description 02/17/2025 12:15 PM CDT Office Visit [facility] Medicine Oncology [address] [place] [address] Kimberly Velasquez MD Rectal cancer (HCC) (Primary Dx); Thrombocytopenia 02/17/2025 11:45 AM CDT Clinical Support [facility] Cancer [facility] [address] [place] [address] Rectal cancer (HCC) 02/17/2025 Orders Only [facility] Radiology at [facility] Medicine [address] [place] [address] Arabella Bauer, CHELSEA 02/17/2025 Telephone [facility] Medicine Obstetrics and Gynecology [address] [facility] 13th [place] [address] [place] [address] Karina Taylor 02/04/2025 10:00 AM CDT [facility] [address] [facility] 6th [place] [address] Ashish Max PA Dehiscence of wound of perineum (Primary Dx) 12/09/2024 11:30 AM CDT Office Visit [facility] Medicine Surgery [address] [facility] 6th [place] [address] Isabel Menchaca NP Dehiscence of wound of perineum (Primary Dx); Wound dehiscence, surgical, initial encounter 12/09/2024 Telephone [facility] Medicine Oncology [address] [place] [phone] Miller Thera AAisha 12/08/2024 Orders Only [facility] Oncology [address] [place] [phone] Paul Thera AAisha Low platelet count (Primary Dx); Rectal cancer (HCC) 12/07/2024 2:00 PM CDT Office Visit [facility] Radiation Oncology at [address] [phone] Dyana Goodson NP Rectal cancer (HCC) 12/07/2024 1:30 PM CDT Clinical Support [address] [address] Rectal cancer (HCC); Low platelet count 12/07/2024 Results Follow-Up [facility] Medicine Oncology [address] [place] [phone] Miller Thera A. CBC with auto differential, Differential, auto 12/01/2024 Orders Only [facility] Oncology [address] [place] [phone] Radha Noel, CHELSEA Rectal cancer (HCC) (Primary Dx); Low platelet count 11/29/2024 Telephone [facility] Cancer Genetics Department [address] [place] [phone] Katie Hammonds 11/26/2024 Telephone [facility] Medicine Oncology [address] [place] [phone] Kellee Sandoval RN 11/26/2024 Results Follow-Up [facility] Oncology [address] [place] [phone] Kellee perez RN Comprehensive metabolic panel, CBC with auto differential, Differential, auto, Additional followed-up results: 2 11/25/2024 10:30 AM CDT Office Visit [facility] Surgery [address] [place] [phone] Carmen Szymanski MD Rectal cancer (HCC) (Primary Dx) 11/25/2024 9:30 AM CDT Office Visit [facility] Oncology [address] [place] [phone] Kimberly Velasquez MD Rectal cancer (HCC) (Primary Dx); Low platelet count 11/25/2024 9:00 AM CDT Clinical Support [address] [address] Rectal cancer (HCC); Low platelet count from Last 3 Months Surgical History Surgery [...] DM II (diabetes mellitus, type II), controlled Family History Medical History Relation Name Comments [...] 0.6 oz pur e alcohol) [facility] Utilities Answer Date Recorded In the past 12 months has th e electric, gas, oil, or water company threatened to shut off services in your home? Yes 08/27/2024 Social Connection and Isolation Panel Answer Date Recorded In a typical week, how many times do you talk on the phone with family, friends, or neighbors? More than three times a week 08/27/2024 How often do you get togethe r with friends or relatives? Twice a week 08/27/2024 How often do you attend chur ch or religion services? More than 4 times per year 08/27/2024 Do you belong to any clubs o r organizations such as hoahaoism groups, unions, fraternal or athletic groups, or [...] any time in the past 12 m [facility], were you homeless or living in a senior care (including now)? No 08/27/2024 Personal Safety Answer [...] Sign Reading Time Taken Comments Blood Pressure 124/76 02/17/2025 12:42 PM CDT Pulse 84 02/17/2025 12:42 PM CDT Temperature 37.1 C (98.7 F) 02/17/2025 12:42 PM CDT Respiratory Rate 16 02/17/2025 12:4 2 PM CDT Oxygen Saturation 96% 02/17/2025 12: 42 PM CDT Inhaled Oxygen Concentration - - Weight 144.4 kg (318 lb 6.4 oz) 025 12:42 PM CDT Height 169 cm (5' 6.54) 02/17/2025 12: 42 PM CDT Body Mass Index 50.57 02/17/2025 12:42 PM CDT Plan of Treatment Health Maintenance Due Date Last Done Comments Cervical Cancer Screening 1985 Varicella Vaccines (1 of 2 - 13+ 2-dose series) 1998 Hepatitis B Screening 2003 Regular Well Visit/Exam 18-64 2003 Pneumococcal vaccine <65 (1 of 2 - PCV) 2004 Zoster Vaccine (1 of 2) 2004 HPV Vaccines (1 - 3-dose SCDM series) 2012 Covid-19 Vaccine (2 - Celeste risk series) 03/27/2021 02/27/2021 DTaP/Tdap/Td Vaccine (2 - Td or Tdap) 07/10/202204/2013 Influenza Vaccine (#1) 2025 07/10/2012 Depression Screening 08/26/2025 08/26/2024 Hepatitis C Screening Completed 09/24/2024 Procedures Procedure Name Priority Date/Time Associated Diagnosis Comments EGFR Routine 02/17/2025 12:20 PM CDT Rectal cancer (HCC) DIFFERENTIAL AUTO Routine 02/17/2025 12: 20 PM CDT Rectal cancer (HCC) CBC WITH AUTO DIFFERENTIAL Routine 02/17/2025 12:20 PM CDT Rectal cancer (HCC) CEA Routine 02/17/2025 12:20 PM CDT Rectal cancer (HCC) COMPREHENSIVE METABOLIC PANEL Routine 02/17/2025 12:20 PM CDT Rectal cancer (HCC) GUARDANT REVEAL Routine 02/17/2025 12:04 PM CDT Rectal cancer (HCC) DIFFERENTIAL AUTO Routine 12/07/2024 1:4 5 PM CDT Rectal cancer (HCC) Low platelet count CBC WITH AUTO DIFFERENTIAL Routine 12/07/2024 1:45 PM CDT Rectal cancer (HCC) Low platelet count HIT ANTIBODIES W/REFLEX TO SEROTONIN RELEASE ASSAY (DC) Routine 11/25/2024 11:56 AM CDT Rectal cancer (HCC) Low platelet count GUARDANT REVEAL Routine 11/25/2024 11:48 AM CDT Rectal cancer (HCC) EGFR STAT 11/25/2024 10:41 AM CDT Rectal cancer (HCC) DIFFERENTIAL AUTO STAT 11/25/2024 10: 41 AM CDT Rectal cancer (HCC) CBC WITH AUTO DIFFERENTIAL STAT 11/25/2024 10:41 AM CDT Rectal cancer (HCC) COMPREHENSIVE METABOLIC PANEL STAT 11/25/2024 10:41 AM CDT Rectal cancer (HCC) HEPATITIS C ANTIBODY Routine 09/24/2024 12:17 PM CDT from Last 3 Months or Most Recently Relevant to Health Maintenance Results * eGFR (02/17/2025 12:20 PM CDT) eGFR >90 >=60 mL/min/1. 73 [...] interpretive data was last reviewed 2021. Blood 02/17/2025 12:2 0 PM CDT 02/17/2025 12:20 PM CDT us Kimberly Velasquez MD LAB BLOOD ORDERABLES Final Resul t [facility]BAR[facility] [place], [place] [id number] * (ABNORMAL) Differential, auto (02/17/2025 12:20 PM CDT) Pathologist [facility] Neutrophil abs 2.36 1.50 - 6.50 K/cumm Comment:Testing performed by : [facility], [address] [place] [address] Imm gran abs 0.01 0.00 - 0.10 K/cumm [facility] Lymphocyte abs 0.52(L) 0.80 - 3.30 K/cumm [facility] Monocyte abs 0.26 0.20 - 0.80 K/cumm [facility] Eosinophil abs 0.06 0.00 - 0.50 K/cumm [facility] Basophil abs 0.00 0.00 - 0.10 K/cumm [facility] Neutrophil pct 73.5 % [facility] Comment: Interpretive Data Percent cell count reference ranges are not reported, since discordance with absolute values may lead to misinterpretation of CBC data. Current Interpretive Data was last revised on 2017. Imm gran pct 0.3 % [facility] Comment: Interpretive Data Percent cell count reference ranges are not reported, since discordance with absolute values may lead to misinterpretation of CBC data. Current Interpretive Data was last revised on 2017. Lymphocyte pct 16.2 % [facility] Comment: Interpretive Data Percent cell count reference ranges are not reported, since discordance with absolute values may lead to misinterpretation of CBC data. Current Interpretive Data was last revised on 2017. Monocyte pct 8.1 % [facility] Comment: Interpretive Data Percent cell count reference ranges are not reported, since discordance with absolute values may lead to misinterpretation of CBC data. Current Interpretive Data was last revised on 2017. Eosinophil pct 1.9 % [facility] Comment: Interpretive Data Percent cell count reference ranges are not reported, since discordance with absolute values may lead to misinterpretation of CBC data. Current Interpretive Data was last revised on 2017. Basophil pct 0.0 % [facility] Comment: Interpretive Data Percent cell count reference ranges are not reported, since discordance with absolute values may lead to misinterpretation of CBC data. Current Interpretive Data was last revised on 2017. Blood 02/17/2025 12:2 0 PM CDT 02/17/2025 12:20 PM CDT us Kimberly Velasquez MD LAB BLOOD ORDERABLES Final Resul t [facility] [place] [address] * (ABNORMAL) CBC with auto differential (02/17/2025 12:20 PM CDT) [facility] Signature WBC 3.21(L) 3.80 - 9.90 K/cumm Comment:Testing performed by : [address] [address] Hgb 10.1(L) 11.9 - 15.5 g/dL [facility] Comment:Testing performed by : [address] [address] Hct 33.2(L) 35.6 - 45.5 % [facility] Comment:Testing performed by : [address] [address] Plt 83(L) 150 - 400 K/cumm [facility] Comment:Testing performed by : [address] [address] MPV 10.1 9.1 - 12.3 fL [facility] RBC 4.18 3.90 - 5.20 M/cumm [facility] MCV 79.4(L) 81.3 - 96.4 fL [facility] MCH 24.2(L) 27.1 - 33.3 pg [facility] MCHC 30.4(L) 32.3 - 35.7 g/dL [facility] RDW CV 16.4(H) 11.1 - 14.9 % [facility] RDW SD 46.5 35.7 - 48.1 fL [facility] NRBC abs 0.00 0.00 - 0.01 K/cumm [facility] ANC Prelim 2.36 1.50 - 6.50 K/cumm [facility] Comment: Interpretive Data The rapid ANC is a preliminary automated count and may vary from the final ANC (Neut Abs) reported in the WBC differential that follows. Current interpretive data was last revised 2024. Blood 02/17/2025 12:2 0 PM CDT 02/17/2025 12:20 PM CDT Kimberly Velasquez MD LAB BLOOD ORDERABLES Final Resul t Performing Organization Address [facility] de Phone Number [facility] [place] [address] * CEA (02/17/2025 12:20 PM CDT) Pathologist [facility] CEA 0.6 <=5.0 ng/mL Comment: Interpretive Data: Reference Range: Non-Smokers: 0.0 5.0 ng/mL Smokers: 0.0 6.5 ng/mL The Justina CEA assay procedure was used. Results from different manufacturers or methods may not be comparable. Serial testing should be performed using the same method. Current interpretive data was last revised 2021. Blood 02/17/2025 12:2 0 PM CDT 02/17/2025 1:46 PM CDT Kimberly Velasquez MD LAB BLOOD ORDERABLES Final Resul t Performing Organization Address [facility] [place] [address] * Comprehensive metabolic panel (02/17/2025 12:20 PM CDT) Pathologist [facility] Sodium 140 135 - 145 mmol/L Comment:Testing performed by : [facility], [address] [place] [address] Potassium, pl 4.0 3.3 - 4.9 mmol/L [facility] Chloride 105 97 - 110 mmol/L [facility] CO2 27 22 - 32 mmol/L [facility] Anion gap 8 2 - 15 mmol/L [facility] BUN 15 6 - 25 mg/dL [facility] Creatinine 0.69 0.60 - 1.10 mg/dL [facility] Glucose 139 70 - 199 mg/dL [facility] Comment: Interpretive Data Fasting glucose [...] Calcium 8.9 8.5 - 10.3 mg/dL [facility] Bilirubin, total 0.5 0.1 - 1.2 mg/dL [facility] Protein, pl 6.7 6.5 - 8.5 g/dL [facility] Albumin 4.0 3.5 - 5.0 g/dL [facility] Alk phos 123 40 - 130 Units/L [facility] ALT 27 7 - 45 Units/L [facility] AST 26 10 - 45 Units/L [facility] Blood 02/17/2025 12:2 0 PM CDT 02/17/2025 12:20 PM CDT Kimberly Velasquez MD LAB BLOOD ORDERABLES Final Resul t [facility] [place] [address] * Guardant Reveal One-Time Order (02/17/2025 12:04 PM CDT) TUMOR FRACTION 0% 02/22/2025 5:18 PM CDT [facility] Blood specimen (specimen) Venous blood specimen / Unknown 02/17/2025 12:04 PM CDT 02/18/2025 2:21 PM CDT Kimberly Velasquez MD LAB GENETIC TESTING Final Result [facility] [address] [place], [place] [address] [phone] [facility] [address] [place] [address] * Differential, auto (12/07/2024 1:45 PM CDT) Neutrophil abs 3.11 1.50 - 6.50 K/cumm Comment:Testing performed by : [facility], [address] [place] [address] Imm gran abs 0.02 0.00 - 0.10 K/cumm [facility] Lymphocyte abs 0.81 0.80 - 3.30 K/cumm [facility] Monocyte abs 0.30 0.20 - 0.80 K/cumm [facility] Eosinophil abs 0.12 0.00 - 0.50 K/cumm [facility] Basophil abs 0.02 0.00 - 0.10 K/cumm [facility] Neutrophil pct 71.0 % [facility] Comment: Interpretive Data Percent cell count reference ranges are not reported, since discordance with absolute values may lead to misinterpretation of CBC data. Current Interpretive Data was last revised on 2017. Imm gran pct 0.5 % [facility] Comment: Interpretive Data Percent cell count reference ranges are not reported, since discordance with absolute values may lead to misinterpretation of CBC data. Current Interpretive Data was last revised on 2017. Lymphocyte pct 18.5 % [facility] Comment: Interpretive Data Percent cell count reference ranges are not reported, since discordance with absolute values may lead to misinterpretation of CBC data. Current Interpretive Data was last revised on 2017. Monocyte pct 6.8 % [facility] Comment: Interpretive Data Percent cell count reference ranges are not reported, since discordance with absolute values may lead to misinterpretation of CBC data. Current Interpretive Data was last revised on 2017. Eosinophil pct 2.7 % [facility] Comment: Interpretive Data Percent cell count reference ranges are not reported, since discordance with absolute values may lead to misinterpretation of CBC data. Current Interpretive Data was last revised on 2017. Basophil pct 0.5 % [facility] Comment: Interpretive Data Percent cell count reference ranges are not reported, since discordance with absolute values may lead to misinterpretation of CBC data. Current Interpretive Data was last revised on 2017. Blood 12/07/2024 1:45 PM CDT 12/07/2024 1:47 PM CDT Kimberly Velasquez MD LAB BLOOD ORDERABLES Final Resul t [facility] [place] [address] * (ABNORMAL) CBC with auto differential (12/07/2024 1:45 PM CDT) WBC 4.38 3.80 - 9.90 K/cumm Comment:Testing performed by : [address] [address] Hgb 9.4(L) 11.9 - 15.5 g/dL [facility] Comment:Testing performed by : [address] [address] Hct 32.2(L) 35.6 - 45.5 % [facility] Comment:Testing performed by : [address] [address] Plt 115(L) 150 - 400 K/cumm [facility] Comment:Testing performed by : [address] [address] MPV 9.8 9.1 - 12.3 fL [facility] RBC 3.99 3.90 - 5.20 M/cumm [facility] MCV 80.7(L) 81.3 - 96.4 fL [facility] MCH 23.6(L) 27.1 - 33.3 pg [facility] MCHC 29.2(L) 32.3 - 35.7 g/dL [facility] RDW CV 15.6(H) 11.1 - 14.9 % [facility] RDW SD 45.6 35.7 - 48.1 fL [facility] NRBC abs 0.00 0.00 - 0.01 K/cumm [facility] ANC Prelim 3.11 1.50 - 6.50 K/cumm [facility] Comment: Interpretive Data The rapid ANC is a preliminary automated count and may vary from the final ANC (Neut Abs) reported in the WBC differential that follows. Current interpretive data was last revised 2024. Blood 12/07/2024 1:45 PM CDT 12/07/2024 1:47 PM CDT Kimberly Velasquez MD LAB BLOOD ORDERABLES Final Resul t Performing Organization Address [facility] Co de Phone Number [facility] [place] [address] * HIT Antibodies with Reflex to Serotonin Release Assay (DC) (11/25/2024 11:56 AM CDT) HIT antibodies Negative Negative HIT Ab MARLENE Units 0.22 0.00 - 0.99 units/mL [facility] Comment: A positive HIT Ab (heparin PF4 antibody MARLENE test) is extremely sensitive for heparin-induced thrombocytopenia (HIT), but not specific, since many patients exposed to heparin have positive antibody tests without developing HIT. Higher HIT Ab MARLENE Units are associated with a higher likelihood of a positive serotonin release assay (DC) and a clinical course consistent with HIT. The 4T scoring system is a useful tool for pretest probability of HIT (Cuker et al, Blood 2012;120:4160). Both laboratory testing and clinical risk evaluation should be considered in determining an individual patient s risk of HIT. Blood 11/25/2024 11:5 6 AM CDT 11/25/2024 4:55 PM CDT Kimberly Velasquez MD LAB BLOOD ORDERABLES Final Resul t Performing Organization Address [facility] Co de Phone Number [facility] [place] [address] * Guardant Reveal One-Time Order (11/25/2024 11:48 AM CDT) TUMOR FRACTION 0% 11/30/2024 9:52 AM CDT [facility] Blood specimen (specimen) Venous blood specimen / Unknown 11/25/2024 11:48 AM CDT 11/26/2024 11:21 AM CDT Kimberly Velasquez MD LAB GENETIC TESTING Final Result Performing Organization Address City/[facility]/ZIP Co de Phone Number [facility] [address] [place], [place] [address] [phone] [facility] [address] [place] [address] * eGFR (11/25/2024 10:41 AM CDT) eGFR >90 >=60 mL/min/1. 73 [...] interpretive data was last reviewed 2021. Blood 11/25/2024 10:4 1 AM CDT 11/25/2024 10:41 AM CDT Kimberly Velasquez MD LAB BLOOD ORDERABLES Final Resul t BARBARA VARELA [facility] Department [place] [address] * (ABNORMAL) Differential, auto (11/25/2024 10:41 AM CDT) Neutrophil abs 3.54 1.50 - 6.50 K/cumm Comment:Testing performed by : [facility], [address] [place] [id number] Imm gran abs 0.01 0.00 - 0.10 K/cumm [facility] Lymphocyte abs 0.61(L) 0.80 - 3.30 K/cumm [facility] Monocyte abs 0.26 0.20 - 0.80 K/cumm [facility] Eosinophil abs 0.10 0.00 - 0.50 K/cumm [facility] Basophil abs 0.01 0.00 - 0.10 K/cumm [facility] Neutrophil pct 78.2 % [facility] Comment: Interpretive Data Percent cell count reference ranges are not reported, since discordance with absolute values may lead to misinterpretation of CBC data. Current Interpretive Data was last revised on 2017. Imm gran pct 0.2 % [facility] Comment: Interpretive Data Percent cell count reference ranges are not reported, since discordance with absolute values may lead to misinterpretation of CBC data. Current Interpretive Data was last revised on 2017. Lymphocyte pct 13.5 % [facility] Comment: Interpretive Data Percent cell count reference ranges are not reported, since discordance with absolute values may lead to misinterpretation of CBC data. Current Interpretive Data was last revised on 2017. Monocyte pct 5.7 % [facility] Comment: Interpretive Data Percent cell count reference ranges are not reported, since discordance with absolute values may lead to misinterpretation of CBC data. Current Interpretive Data was last revised on 2017. Eosinophil pct 2.2 % [facility] Comment: Interpretive Data Percent cell count reference ranges are not reported, since discordance with absolute values may lead to misinterpretation of CBC data. Current Interpretive Data was last revised on 2017. Basophil pct 0.2 % [facility] Comment: Interpretive Data Percent cell count reference ranges are not reported, since discordance with absolute values may lead to misinterpretation of CBC data. Current Interpretive Data was last revised on 2017. Blood 11/25/2024 10:4 1 AM CDT 11/25/2024 10:41 AM CDT Kimberly Velasquez MD LAB BLOOD ORDERABLES Final Resul t [facility] Department [place] [address] * (ABNORMAL) CBC with auto differential (11/25/2024 10:41 AM CDT) [facility] WBC 4.53 3.80 - 9.90 K/cumm Comment:Testing performed by : [address] [address] Hgb 9.4(L) 11.9 - 15.5 g/dL [facility] Comment:Testing performed by : [address] [address] Hct 32.1(L) 35.6 - 45.5 % [facility] Comment:Testing performed by : [address] [address] Plt 120(L) 150 - 400 K/cumm [facility] Comment:Testing performed by : [address] [address] MPV 10.0 9.1 - 12.3 fL [facility] RBC 3.91 3.90 - 5.20 M/cumm [facility] MCV 82.1 81.3 - 96.4 fL [facility] MCH 24.0(L) 27.1 - 33.3 pg [facility] MCHC 29.3(L) 32.3 - 35.7 g/dL [facility] RDW CV 16.3(H) 11.1 - 14.9 % [facility] RDW SD 49.1(H) 35.7 - 48.1 fL [facility] NRBC abs 0.00 0.00 - 0.01 K/cumm [facility] ANC Prelim 3.54 1.50 - 6.50 K/cumm [facility] Comment: Interpretive Data The rapid ANC is a preliminary automated count and may vary from the final ANC (Neut Abs) reported in the WBC differential that follows. Current interpretive data was last revised 2024. Blood 11/25/2024 10:4 1 AM CDT 11/25/2024 10:41 AM CDT us Kimberly Velasquez MD LAB BLOOD ORDERABLES Final Resul t [facility] Department [place] [address] * (ABNORMAL) Comprehensive metabolic panel (11/25/2024 10:41 AM CDT) Sodium 139 135 - 145 mmol/L Comment:Testing performed by : [facility], [address] [place] [id number] Potassium, pl 3.9 3.3 - 4.9 mmol/L [facility] Chloride 103 97 - 110 mmol/L [facility] CO2 27 22 - 32 mmol/L [facility] Anion gap 9 2 - 15 mmol/L [facility] BUN 12 6 - 25 mg/dL [facility] Creatinine 0.64 0.60 - 1.10 mg/dL [facility] Glucose 128 70 - 199 mg/dL [facility] Comment: Interpretive Data Fasting glucose [...] interpretive data was last revised 2022. Calcium 9.3 8.5 - 10.3 mg/dL [facility] Bilirubin, total 0.4 0.1 - 1.2 mg/dL [facility] Protein, pl 7.2 6.5 - 8.5 g/dL [facility] Albumin 4.1 3.5 - 5.0 g/dL [facility] Alk phos 145(H) 40 - 130 Units/L [facility] ALT 36 7 - 45 Units/L [facility] AST 37 10 - 45 Units/L [facility] Blood 11/25/2024 10:4 1 AM CDT 11/25/2024 10:41 AM CDT us Kimberly Velasquez MD LAB BLOOD ORDERABLES Final Resul t Performing Organization Address City/[facility]/ZIP Co de Phone Number [facility] Department [place] [address] * Hepatitis C antibody Blood (09/24/2024 12:17 PM CDT) Hep C Ab Nonreactive Nonreactive Comment:Antibodies to HCV no t detected. Does NOT exclude the possibility of recent exposure to HCV. Current interpretive data was last revised on 22 Blood 09/24/2024 12:1 7 PM CDT 09/24/2024 12:18 PM CDT us Ruddy Sheffield MD LAB MICROBIOLOGY - GE NERAL ORDERABLES Final Result Performing Organization Address City/[facility] Co de Phone Number [facility] Department [place] [address] from Last 3 Months or Most Recently Relevant to Health Maintenance Insurance [place] [id number] [place] [address] Advance Directives For more information, please contact: [phone] * Full Code (Latest Code Status on [...] 12:40 PM 11/13/2023 3:31 PM Care Teams Staying Machine Operator Relationship Specialty Start Date End Date Ayah [place] [address] PCP - General Family Medicine 10/22/23 Maximiliano Arndt MD [address] [place] [address] Referring Physician Gastroenterology 10/22/23 Liliana Culver MD [address] [place] [address] [address] Consulting Physician Plastic Surgery 10/08/24
== END 2025-02-23 13:22 | disposition home or self-care (01) ==
PROVIDERS: PCP Family Medicine
DX: C20 Malignant neoplasm of rectum (principal); K76.0 Fatty (change of) liver, not elsewhere classified; R16.1 Splenomegaly, not elsewhere classified
CPT/HCPCS: 71260; 74177; Q9967

== ENCOUNTER 2025-03-04 08:11 | Outpatient (CLI) | payer OTHER, SELFPAY ==
--- OUTSIDE RECORDS SUMMARY | 2012-01-21 06:29 | XMS_ITS | Continuity of Care Document ---
Author Organization [facility] Address [address] [id number][place] [address] Phone Care Team Providers Care Room Cooler Installer Name Role Phone Unavailable Unavailable Unavailable Allergies, [...] Diagnoses Date Provider Providers Copied on Encounter [facility], [id number]- [place], [place], [address], [place] tel:[phone] [place] [phone] No Information 2 No Information OFFICE/OUTPA TIENT VISIT, [facility], [id number] [place], [address], [place] tel:[phone] [place] [address] (chief complaint) Supervision of other normal pregnancyUTERINE SIZE STEFAN-ANTEPAROBESIT Y-ANTEPARTUM 2 Tay Matthews. [address], [place], [address], [place]. tel:[phone] [facility], [id number] 3329329YT- [place], [address], [place] tel:[phone] [place] [address] Supervision of other normal 2 Tay Matthews. [address] [place], [place], [address], [place]. tel:[phone] Referring Provider: Cassie Cross, [address] [place], [address] . tel:[phone] OFFICE/OUTPA TIENT VISIT, [facility], [id number] [place], [address], [place] tel:[phone] [place] [address] (chief complaint) Supervision of other normal pregnancyAntepart um edema or excessive weight gain 2 No Information [facility], [id number] 8961877RR- [facility], [place], [place], [address], [place] tel:[phone] [place] [address] Supervision of other normal Nov- 2 No Information [facility], [id number] 1166734ZU- [place], [address], [place] tel:[phone] [place] [address] Supervision of other normal Nov- 2 No Information [facility], [id number] [id number]- [place], [place], [address], [place] tel:[phone] [place] [address] Supervision of other normal Nov- 2 No Information [facility], [id number]- [place], [place], [address], [place] tel:[phone] [place] [address] Absence of menstruationUnspe cified screeningOther specified viral diseasesSupervisi on of other normal Nov-0 2 Tay Matthews. [address], [place], [address], [place]. tel:[phone] [facility], [id number] 4723252QO- [place], [address], [place] tel:[phone] [place] [address] Supervision of other normal pregnancyUnspecif ied screeningOther specified viral diseasesAbsence of menstruation Nov-0 2 Tay Matthews. [address], [place], [address], [place]. tel:[phone] Referring Provider: Cassie Cross, [address] [place], [address] . tel:[phone] Family History Family Member Type Diagnosis Age [...] Obesity Payers Payer name Insurance type Covered alliance party ID Authoriza tion(s) No Information Social [...]
--- NOTE | ~2025-03-04 | MM_ITS ---
EXAMINATION: MM screening carlos BI w aris HISTORY: Screening TECHNIQUE: Craniocaudal and mediolateral oblique 3-D tomosynthesis images were obtained and synthetic 2-D images were generated. CAD analysis was submitted and interpreted. COMPARISON: No prior mammogram is available for comparison at this institution. BREAST PARENCHYMAL COMPOSITION: There are scattered areas of fibroglandular density. FINDINGS: There is no evidence of suspicious calcification, or architectural distortion to suggest malignancy. There is a mass in the upper outer quadrant of the right breast IMPRESSION: 1. Mass in the upper outer quadrant of the right breast. The study is incomplete. A diagnostic right breast mammogram and a diagnostic right breast ultrasound is recommended. 2. No mammographic evidence for malignancy left breast. BI-RADS 0: Incomplete-Need additional imaging evaluation. Reviewed, dictated and finalized at location Q. IMPRESSION: 1. Mass in the upper outer quadrant of the right breast. The study is incomplet e. A diagnostic right breast mammogram and a diagnostic right breast ultrasound is recommended. 2. No mammographic evidence for malignancy left breast. BI-RADS 0: Incomplete-Need additional imaging evaluation.
--- OUTSIDE RECORDS SUMMARY | 2025-03-04 08:16 | XMS_ITS | Clinical Summary ---
Author Organization [facility] Address [address] [place] [address] Care Team Providers Care Certified Pedorthotist Name Role Phone Ayah Almodovar MD Primary Care Provider Maximiliano Arndt MD Unavailable [phone] Liliana Culver MD Unavailable Allergies Active Allergy [...] index (BMI) 45.0-49.9, adult;Recorded Elsewhere: No Location: [facility] Source: EHR Chronic: N Practice ID: [id number] Billable Time: 03:30:00 PM Pelvic and perineal pain 12/18/2016 Overview (09/13/2024): Pelvic and perineal pain;Practice ID: [id number] Hirsutism 03/20/2016 Overview (09/13/2024): Hirsutism;Practice ID: 0001 Encounters Date Type Department Care Team Description 03/01/2025 Results Follow-Up [facility] [address] [place] [phone] Body Outside Consult 02/24/2025 11:05 AM CDT - 02/24/2025 11:59 PM CDT Hospital Encounter [facility] [address] [place] [address] Diagnosis unknown Discharge Disposition: Discharge to home or self care 02/17/2025 12:15 PM CDT Office Visit [facility] [address] [place] [phone] Kimberly Velasquez MD Rectal cancer (HCC) (Primary Dx); Thrombocytopenia 02/17/2025 11:45 AM CDT Clinical Support [facility] [address] [place] [phone] Rectal cancer (HCC) 02/17/2025 Orders Only [facility] at [facility] [address] [place] [address] Arabella Bauer, RN 02/17/2025 Telephone [facility] [address] [facility] 13th [place] [address] [place] [address] Claudia Karinadenisse Beckett 02/04/2025 10:00 AM CDT Office Visit [facility] [address] [facility] 6th [place] [address] [place] [address] Ashish Max PA Dehiscence of wound of perineum (Primary Dx) 12/09/2024 11:30 AM CDT Office Visit [facility] [address] [facility] 6th [place] [address] Isabel Menchaca NP Dehiscence of wound of perineum (Primary Dx); Wound dehiscence, surgical, initial encounter 12/09/2024 Telephone [facility] [address] [place] [phone] Miller, Thera A. 12/08/2024 Orders Only [facility] [address] [place] [phone] Miller, Thera A. Low platelet count (Primary Dx); Rectal cancer (HCC) 12/07/2024 2:00 PM CDT Office Visit [facility] at [address] [phone] Dyana Goodson NP Rectal cancer (HCC) 12/07/2024 1:30 PM CDT Clinical Support [address] [address] Rectal cancer (HCC); Low platelet count 12/07/2024 Results Follow-Up [facility] [address] [place] [phone] Miller, Thera A. CBC with auto differential, Differential, auto from Last 3 Months Surgical History Surgery [...] drink = 0.6 oz pur e alcohol) [facility] Utilities Answer Date Recorded In the past 12 months has e electric, gas, oil, or water company [...] often do you attend chur ch or jehovah's witness services? More than 4 times per year 08/27/2024 Do you belong to any clubs o r organizations such as mu-ism groups, unions, fraternal or athletic groups, or [...] any time in the past 12 m [facility], were you homeless or living in a care home (including now)? No 08/27/2024 Personal Safety Answer [...] Procedure Name Priority Date/Time Associated Diagnosis Comments CT BODY OUTSIDE CONSULT Routine 02/24/2025 11:06 AM CDT Diagnosis unknown EGFR Routine 02/17/2025 12:20 PM CDT Rectal [...] CDT Rectal cancer (HCC) Low platelet count HEPATITIS C ANTIBODY Routine 09/24/2024 12:17 PM CDT from Last 3 Months or Most Recently Relevant to Health Maintenance Results * CT Body Outside Consult (02/24/2025 11:06 AM CDT) Anatomical Region Laterality Modality Body N/A Computed Tomogra phy 02/24/2025 11:5 6 AM CDT Impressions 02/24/2025 1:54 PM CDT Postsurgical changes of abdominoperineal resection without evidence of recurrent or metastatic disease in the chest, abdomen, or pelvis. The findings, conclusions and recommendations within this report do not replace the initial findings, conclusions and recommendations made at the facility where the study was performed based upon the imaging and clinical condition at that time. Comparison with the prior report and clinical history is necessary. The provided images may or may not represent the [place] source data set and thus may contain changes that may lower the accuracy of this second-opinion interpretation. Dictated by: Carlos Orozco MD The radiology attending physician has personally reviewed this study, and had reviewed and/or edited this written report and agrees with it. Electronically signed by: Lupe Triana M.D. Narrative 02/24/2025 1:54 PM CDT EXAMINATION: RADIOLOGY CONSULTATION ON OUTSIDE IMAGING STUDY STUDY INITIALLY PERFORMED: 02/23/2025 at [facility]. TYPE OF STUDY: Multiple CT images of the chest, abdomen, and pelvis with intravenous contrast are provided at the time of this interpretation. CONTRAST ROUTE: Contrast was administered via the intravenous route. The protocol was adequate to address the clinical question. The outside final report was not available at the time of this second opinion interpretation. TYPE OF CONSULTATION: Consult on outside imaging study with images submitted through Outside Image Sharing Service DATE OF CONSULTATION: 02/24/2025 11:13 AM HISTORY: Rectal adenocarcinoma status post abdominal perineal resection COMPARISON: Multiple prior studies most recently CT dated 10/11/2024 FINDINGS: CHEST: Clear lungs. No pleural effusion or pneumothorax. Right internal jugular approach chest port with tip in the right atrium. Heart size is normal without pericardial effusion. Normal caliber intrathoracic aorta and great vessels. Minimal residual thymic tissue in the anterior mediastinum. No subclavicular, axillary, or mediastinal lymphadenopathy. ABDOMEN/PELVIS: No suspicious hepatic mass. Patent portal venous vasculature. Normal gallbladder. No intrahepatic or extra hepatic biliary ductal dilation. Unchanged mild splenomegaly. Normal pancreas and adrenal glands. Kidneys enhancement without hydronephrosis. Postsurgical changes of abdominoperineal resection and left lower quadrant and colostomy. Stable soft tissue thickening in the resection bed which is likely postsurgical. Mild presacral edema. No organized fluid collection. Drains have been removed. Unchanged small parastomal hernia containing fat. Normal caliber small and large bowel without evidence of obstruction or bowel wall thickening. Normal appendix. Normal urinary bladder. Uterus is present without suspicious adnexal mass. No ascites or organized fluid collection. No intra-abdominal or pelvic lymphadenopathy. Tiny fat-containing umbilical hernia. Normal caliber intra-abdominal aorta. No suspicious osseous lesions. Procedure Note Lupe Triana MD - 02/24/2025 EXAMINATION: RADIOLOGY CONSULTATION ON OUTSIDE IMAGING STUDY STUDY INITIALLY PERFORMED: 02/23/2025 at [facility]. TYPE OF STUDY: Multiple CT images of the chest, abdomen, and pelvis with intravenous contrast are provided at the time of this interpretation. CONTRAST ROUTE: Contrast was administered via the intravenous route. The protocol was adequate to address the clinical question. The outside final report was not available at the time of this second opinion interpretation. TYPE OF CONSULTATION: Consult on outside imaging study with images submitted through Outside Image Sharing Service DATE OF CONSULTATION: 02/24/2025 11:13 AM HISTORY: Rectal adenocarcinoma status post abdominal perineal resection COMPARISON: Multiple prior studies most recently CT dated 10/11/2024 FINDINGS: CHEST: Clear lungs. No pleural effusion or pneumothorax. Right internal jugular approach chest port with tip in the right atrium. Heart size is normal without pericardial effusion. Normal caliber intrathoracic aorta and great vessels. Minimal residual thymic tissue in the anterior mediastinum. No subclavicular, axillary, or mediastinal lymphadenopathy. ABDOMEN/PELVIS: No suspicious hepatic mass. Patent portal venous vasculature. Normal gallbladder. No intrahepatic or extra hepatic biliary ductal dilation. Unchanged mild splenomegaly. Normal pancreas and adrenal glands. Kidneys enhancement without hydronephrosis. Postsurgical changes of abdominoperineal resection and left lower quadrant and colostomy. Stable soft tissue thickening in the resection bed which is likely postsurgical. Mild presacral edema. No organized fluid collection. Drains have been removed. Unchanged small parastomal hernia containing fat. Normal caliber small and large bowel without evidence of obstruction or bowel wall thickening. Normal appendix. Normal urinary bladder. Uterus is present without suspicious adnexal mass. No ascites or organized fluid collection. No intra-abdominal or pelvic lymphadenopathy. Tiny fat-containing umbilical hernia. Normal caliber intra-abdominal aorta. No suspicious osseous lesions. IMPRESSION: Postsurgical changes of abdominoperineal resection without evidence of recurrent or metastatic disease in the chest, abdomen, or pelvis. The findings, conclusions and recommendations within this report do not replace the initial findings, conclusions and recommendations made at the facility where the study was performed based upon the imaging and clinical condition at that time. Comparison with the prior report and clinical history is necessary. The provided images may or may not represent the [place] source data set and thus may contain changes that may lower the accuracy of this second-opinion interpretation. Dictated by: Carlos Orozco MD The radiology attending physician has personally reviewed this study, and had reviewed and/or edited this written report and agrees with it. Electronically signed by: Lupe Triana M.D. Kimberly Velasquez MD IM CT PROCEDURES Final Result * eGFR (02/17/2025 12:20 PM CDT) eGFR [...] MD LAB BLOOD ORDERABLES Final Resul t [facility] [place] [address] * (ABNORMAL) Differential, auto (02/17/2025 12:20 PM CDT) Neutrophil abs 2.36 1.50 - 6.50 K/cumm Comment:Testing performed by : [facility], [address] [place] [address] Imm gran abs 0.01 0.00 - 0.10 K/cumm [facility] Lymphocyte abs 0.52(L) 0.80 - 3.30 K/cumm [facility] Monocyte abs 0.26 0.20 - 0.80 K/cumm [facility] Eosinophil abs 0.06 0.00 - 0.50 K/cumm [facility] Basophil abs 0.00 0.00 - 0.10 K/cumm [facility] Neutrophil pct 73.5 % [facility] Comment: Interpretive Data Percent cell count reference ranges are not reported, since discordance with absolute values may lead to misinterpretation of CBC data. Current Interpretive Data was last revised on 2017. Imm gran pct 0.3 % [facility] Comment: Interpretive Data Percent cell count reference ranges are not reported, since discordance with absolute values may lead to misinterpretation of CBC data. Current Interpretive Data was last revised on 2017. Lymphocyte pct 16.2 % [facility] Comment: Interpretive Data Percent cell count reference ranges are not reported, since discordance with absolute values may lead to misinterpretation of CBC data. Current Interpretive Data was last revised on 2017. Monocyte pct 8.1 % [facility] Comment: Interpretive Data Percent cell count reference ranges are not reported, since discordance with absolute values may lead to misinterpretation of CBC data. Current Interpretive Data was last revised on 2017. Eosinophil pct 1.9 % [facility] Comment: Interpretive Data Percent cell count reference ranges are not reported, since discordance with absolute values may lead to misinterpretation of CBC data. Current Interpretive Data was last revised on 2017. Basophil pct 0.0 % [facility] Comment: Interpretive Data Percent cell count reference ranges are not reported, since discordance with absolute values may lead to misinterpretation of CBC data. Current Interpretive Data was last revised on 2017. Blood 02/17/2025 12:2 0 PM CDT 02/17/2025 12:20 PM CDT us Kimberly Velasquez MD LAB BLOOD ORDERABLES [facility]ul t [facility] [place] [address] * (ABNORMAL) CBC with auto differential (02/17/2025 12:20 PM CDT) WBC 3.21(L) 3.80 - 9.90 K/cumm Comment:Testing performed by : [address] [address] Hgb 10.1(L) 11.9 - 15.5 g/dL [facility] Comment:Testing performed by : [address] [address] Hct 33.2(L) 35.6 - 45.5 % [facility] Comment:Testing performed by : [facility], [address] [place] [address] Plt 83(L) 150 - 400 K/cumm [facility] Comment:Testing performed by : [facility], [address] [place] [address] MPV 10.1 9.1 - 12.3 fL [facility] RBC 4.18 3.90 - 5.20 M/cumm [facility] MCV 79.4(L) 81.3 - 96.4 fL [facility] MCH 24.2(L) 27.1 - 33.3 pg [facility] MCHC 30.4(L) 32.3 - 35.7 g/dL [facility] RDW CV 16.4(H) 11.1 - 14.9 % [facility] RDW SD 46.5 35.7 - 48.1 fL [facility] NRBC abs 0.00 0.00 - 0.01 K/cumm [facility] ANC Prelim 2.36 1.50 - 6.50 K/cumm [facility] Comment: Interpretive Data The rapid ANC is a preliminary automated count and may vary from the final ANC (Neut Abs) reported in the WBC differential that follows. Current interpretive data was last revised 2024. Blood 02/17/2025 12:2 0 PM CDT 02/17/2025 12:20 PM CDT us Kimberly Velasquez MD LAB BLOOD ORDERABLES Final Resul t [facility] [place] [address] * CEA (02/17/2025 12:20 PM CDT) Pathologist [facility] CEA 0.6 <=5.0 ng/mL Comment: Interpretive Data: [...] MD LAB BLOOD ORDERABLES Final Resul t [facility] [place] [address] * Comprehensive metabolic panel (02/17/2025 12:20 PM CDT) Sodium 140 135 - 145 mmol/L Comment:Testing performed by : [facility], [address] [place] [address] Potassium, pl 4.0 3.3 - 4.9 mmol/L [facility] Chloride 105 97 - 110 mmol/L [facility] CO2 27 22 - 32 mmol/L [facility] Anion gap 8 2 - 15 mmol/L [facility] BUN 15 6 - 25 mg/dL [facility] Creatinine 0.69 0.60 - 1.10 mg/dL [facility] Glucose 139 70 - 199 mg/dL [facility] Comment: Interpretive Data Fasting glucose >/= [...] 2022. Calcium 8.9 8.5 - 10.3 mg/dL [facility] Bilirubin, total 0.5 0.1 - 1.2 mg/dL [facility] Protein, pl 6.7 6.5 - 8.5 g/dL [facility] Albumin 4.0 3.5 - 5.0 g/dL [facility] Alk phos 123 40 - 130 Units/L [facility] ALT 27 7 - 45 Units/L [facility] AST 26 10 - 45 Units/L [facility] Blood 02/17/2025 12:2 0 PM CDT 02/17/2025 12:20 PM CDT Kimberly Velasquez MD LAB BLOOD ORDERABLES Final Resul t [facility] [place] [address] * Guardant Reveal One-Time Order (02/17/2025 12:04 PM CDT) Pathologist [facility] TUMOR FRACTION 0% 02/22/2025 5:18 PM CDT [facility] Blood specimen (specimen) Venous blood specimen / Unknown 02/17/2025 12:04 PM CDT 02/18/2025 2:21 PM CDT Kimberly Velasquez MD LAB GENETIC TESTING Final Result [facility] [address] [place] [id number] [place] [address] [facility] [address] [place] [address] * Differential, auto (12/07/2024 1:45 PM CDT) Neutrophil abs 3.11 1.50 - 6.50 K/cumm Comment:Testing performed by : [facility], [address] [place] [address] Imm gran abs 0.02 0.00 - 0.10 K/cumm [facility] Lymphocyte abs 0.81 0.80 - 3.30 K/cumm [facility] Monocyte abs 0.30 0.20 - 0.80 K/cumm [facility] Eosinophil abs 0.12 0.00 - 0.50 K/cumm [facility] Basophil abs 0.02 0.00 - 0.10 K/cumm [facility] Neutrophil pct 71.0 % [facility] Comment: Interpretive Data Percent cell count reference ranges are not reported, since discordance with absolute values may lead to misinterpretation of CBC data. Current Interpretive Data was last revised on 2017. Imm gran pct 0.5 % [facility] Comment: Interpretive Data Percent cell count reference ranges are not reported, since discordance with absolute values may lead to misinterpretation of CBC data. Current Interpretive Data was last revised on 2017. Lymphocyte pct 18.5 % [facility] Comment: Interpretive Data Percent cell count reference ranges are not reported, since discordance with absolute values may lead to misinterpretation of CBC data. Current Interpretive Data was last revised on 2017. Monocyte pct 6.8 % [facility] Comment: Interpretive Data Percent cell count reference ranges are not reported, since discordance with absolute values may lead to misinterpretation of CBC data. Current Interpretive Data was last revised on 2017. Eosinophil pct 2.7 % [facility] Comment: Interpretive Data Percent cell count reference ranges are not reported, since discordance with absolute values may lead to misinterpretation of CBC data. Current Interpretive Data was last revised on 2017. Basophil pct 0.5 % [facility] Comment: Interpretive Data Percent cell count reference ranges are not reported, since discordance with absolute values may lead to misinterpretation of CBC data. Current Interpretive Data was last revised on 2017. Blood 12/07/2024 1:45 PM CDT 12/07/2024 1:47 PM CDT us Kimberly Velasquez MD LAB BLOOD ORDERABLES Final Resul t [facility] Department [place] [address] * (ABNORMAL) CBC with auto differential (12/07/2024 1:45 PM CDT) WBC 4.38 3.80 - 9.90 K/cumm Comment:Testing performed by : [facility], [address] [place] [address] Hgb 9.4(L) 11.9 - 15.5 g/dL [facility] Comment:Testing performed by : [address] [address] Hct 32.2(L) 35.6 - 45.5 % [facility] Comment:Testing performed by : [address] [address] Plt 115(L) 150 - 400 K/cumm [facility] Comment:Testing performed by : [address] [address] MPV 9.8 9.1 - 12.3 fL [facility] RBC 3.99 3.90 - 5.20 M/cumm [facility] MCV 80.7(L) 81.3 - 96.4 fL [facility] MCH 23.6(L) 27.1 - 33.3 pg [facility] MCHC 29.2(L) 32.3 - 35.7 g/dL [facility] RDW CV 15.6(H) 11.1 - 14.9 % [facility] RDW SD 45.6 35.7 - 48.1 fL [facility] NRBC abs 0.00 0.00 - 0.01 K/cumm [facility] ANC Prelim 3.11 1.50 - 6.50 K/cumm [facility] Comment: Interpretive Data The rapid ANC is a preliminary automated count and may vary from the final ANC (Neut Abs) reported in the WBC differential that follows. Current interpretive data was last revised 2024. Blood 12/07/2024 1:45 PM CDT 12/07/2024 1:47 PM CDT us Kimberly Velasquez MD LAB BLOOD ORDERABLES Final Resul t [facility] [place] [address] * Hepatitis C antibody Blood (09/24/2024 12:17 PM CDT) Hep C Ab Nonreactive Nonreactive Comment:Antibodies to HCV no t detected. Does NOT exclude the possibility of recent exposure to HCV. Current interpretive data was last revised on 22 Blood 09/24/2024 12:1 7 PM CDT 09/24/2024 12:18 PM CDT us Ruddy Sheffield MD LAB MICROBIOLOGY - [facility] ORDERABLES Final Result [facility] [place] [address] from Last 3 Months or Most Recently Relevant to Health Maintenance Insurance [id number] [place] [address] [place] [address] Advance Directives For more information, please contact: [phone] * Full Code (Latest Code Status on [...] 12:40 PM 11/13/2023 3:31 PM Care Teams Certified Pedorthotist Relationship Specialty Start Date End Date Ayah Almodovar MD [address] [place] [address] PCP - General Family Medicine 10/22/23 Maximiliano Arndt MD [address] [place] [address] Referring Physician Gastroenterology 10/22/23 [place] [address] Consulting Physician Plastic Surgery 10/08/24
--- OUTSIDE RECORDS SUMMARY | 2025-03-04 08:16 | XMS_ITS | Clinical Summary ---
Author Organization [facility] Address [address] [place] [address] Phone Care Team Providers Care Kinder Teacher Name Role Phone Ayah Almodovar MD Primary Care Provider [phone] Allergies Active Allergy Reactions Criticality Noted Date Comments Sulfa Antibiotics Anaphylaxis 08/20/2024 Medications Cetirizine HCl (ZYRTEC ALLERGY PO)Indications: Allergy Take 10 mg by mouth if needed for Other. Indications: Allergy Active Cholecalciferol 92447 UNIT CapsuleIndicati ons:Vitamin D Deficiency Take 5,000 [...] Comments Blood Pressure 110/70 08/25/2024 2:20 PM [facility] Pulse 94 08/25/2024 2:20 PM [facility] Temperature 36.3 C (97.3 F) 08/25/2024 2:20 PM [facility] Respiratory Rate 18 08/25/2024 2:20 PM [facility] Oxygen Saturation 94% 08/25/2024 2:20 PM [facility] Inhaled Oxygen Concentration - - Weight 142.4 kg (314 lb) 08/20/2024 3:47 PM [facility] Height 170.2 cm (5' 7) 08/20/2024 3:01 PM [facility] Body Mass Index 49.18 08/20/2024 3:01 PM [facility] Plan of Treatment Health Maintenance Due Date Last Done Comments Hepatitis C Virus (HCV) Screening 1985 Hepatitis B Immunization (1 of 3 - 19+ 3-dose series) 2004 Pap Smear 2006 Human Papillomavirus (HPV) Immunization (1 - 3-dose SCDM series) 2012 Cervical Cancer Screening (CCS) 2015 HPV/Cotest 2015 Influenza Immunization (#1) 2025 07/10/2012 SARS-COV-2 Immunization (2 - season) 2025 02/27/2021 Respiratory Syncytial Virus (RSV) Immunization (Adult) [...] age to complete this topic Insurance [employer] [facility] Advance Directives * Full Code (Latest Code Status on File) Date Activated Date Inactivated Comments 09/17/2024 5:19 PM Care Teams Kinder Teacher Relationship Specialty Start Date End Date Ayah Almodovar MD [address] [place] [address] PCP - General Family Medicine 08/10/24
--- OUTSIDE RECORDS SUMMARY | 2025-03-04 08:16 | XMS_ITS ---
Author Organization [facility] Address [address] [place] [address] Care Team Providers Care Nurse Practitioner Physician Assistant Name Role Phone Ayah Almodovar MD Primary [...] index (BMI) 45.0-49.9, adult;Recorded Elsewhere: No Location: [facility] Source: EHR Chronic: N Practice ID: [id number] [...]
--- OUTSIDE RECORDS SUMMARY | 2025-03-04 08:16 | XMS_ITS | Encounter Summary ---
Author Organization [facility] Address [address] [place] [address] Phone Care Team Providers Care Physician Name Role Phone Ayah Almodovar MD Primary Care Provider [phone] Maximiliano Arndt MD Unavailable [phone] Liliana Culver MD Unavailable Encounter Details Date Type Department Care Team (Late st Contact Info) Description 11/12/2023 Telephone [facility] Oncology [address] [facility] [address]th [address], [place] [address] Do Chun Social History Tobacco [...] on filedocumented in this encounter Care Teams Physician Relationship Specialty Start Date End Date Ayah Almodovar MD [address] [place] [address] PCP - General Family Medicine 10/22/23 Maximiliano Arndt MD [address] [place] [address] Referring Physician Gastroenterology 10/22/23 Liliana Culver MD [address] [place] [address] Consulting Physician Plastic Surgery 10/08/24 documented as of this encounter
--- OUTSIDE RECORDS SUMMARY | 2025-03-04 08:16 | XMS_ITS | Encounter Summary ---
Author Organization [facility] Address [address] [place] [address] Phone Care Team Providers Care Mission Systems Engineer Name Role Phone Ayah Almodovar MD Primary Care Provider [phone] Maximiliano Arndt MD Unavailable [phone] Liliana Culver MD Unavailable Encounter Details Date Type Department Care Team (Late st Contact Info) Description 11/27/2023 Telephone [facility] Oncology [address] [facility] [address] 7th [place] [address] [place] [address] Adelso Heard Social History Tobacco [...] on filedocumented in this encounter Care Teams Mission Systems Engineer Relationship Specialty Start Date End Date Ayah Almodovar MD [address] [place] [address] PCP - General Family Medicine 10/22/23 [place] [address] Referring Physician Gastroenterology 10/22/23 Liliana Culver MD [address] [place] [address] Consulting Physician Plastic Surgery 10/08/24 documented as of this encounter
== END 2025-03-04 08:12 | disposition home or self-care (01) ==
LOC: CHSIMG 08:11
PROVIDERS: PCP Family Medicine; Visit Provider Nurse Practitioner
DX: Z12.31 Encounter for screening mammogram for malignant neoplasm of breast (principal); R92.8 Other abnormal and inconclusive findings on diagnostic imaging of breast
CPT/HCPCS: 77063; 77067

== ENCOUNTER 2025-03-24 08:43 | Outpatient (CLI) | payer OTHER, SELFPAY ==
--- OUTSIDE RECORDS SUMMARY | 2012-01-21 06:29 | XMS_ITS | Continuity of Care Document ---
Author Organization [facility] Address [id number] [address] Phone Care Team Providers Care Fur Sewer Name Role Phone Unavailable Unavailable Unavailable Allergies, Adverse Reactions, Alerts Substance Reaction Status Criticality sulfamethoxazole Active No Informat ion trimethoprim swelling Active No Information sulfamethoxazole swelling Active No Informat ion Medications Medication Instructions Dosage Effective Dates (start - stop) Status Comments 27 mg-0.8 mg Tab take 1 tablet by oral route every day - Active Procedures Procedure Date OB US < 14 WKS, SINGLE FETUS OFFICE/OUTPATIENT VISIT, EST URINALYSIS, AUTO, W/O SCOPE (PP $5) OFFICE/OUTPATIENT VISIT, NEW PAP IG (PP $35) ROUTINE VENIPUNCTURE CHYLMD TRACH, DNA, AMP PROBE N.GONORRHOEAE, DNA, AMP PROB URINALYSIS, AUTO, W/O SCOPE (PP $5) URINE CULTURE/COLONY COUNT (PP $10) ASSAY OF URINE CREATININE HEPATITIS B SURFACE AG, EIA HIV-1/HIV-2, SINGLE ASSAY (PP $20) COMPLETE CBC W/AUTO DIFF WBC (PP $10) Ju BLOOD SEROLOGY, QUALITATIVE (PP $20) Nov RUBELLA ANTIBODY ASSAY THYROID STIM HORMONE (PP $15) BLOOD TYPING, ABO (PP $20) BLOOD TYPING, RH (D) (PP $20) 2 URINALYSIS, AUTO, W/O SCOPE (PP $5) URINE TEST (PP $15) 2 ROUTINE VENIPUNCTURE DRUG SCREEN, SINGLE Advance Directives Directive Yes / No Effective Date File Name No Information Encounters Encounter Description Practice Location Reason(s) For Visit Diagnoses Date Provider Providers Copied on Encounter [facility], [id number]- [place], [place], [address], [place] tel:[phone] [place] [phone] No Information 2 No Information OFFICE/OUTPA TIENT VISIT, [facility], [id number], [address], [place] tel:[phone] [place] [address] (chief complaint) Supervision of other normal pregnancyUTERINE SIZE STEFAN-ANTEPAROBESIT Y-ANTEPARTUM 2 Tay Matthews. [address], [place], [address], [place]. tel:[phone] [facility], [id number]- [place], [place], [address], [place] tel:[phone] [place] [address] Supervision of other normal 2 Tay Matthews. [address], [place], [address], [place]. tel:[phone] Referring Provider: Cassie Cross, [address] [place], [address] . tel:[phone] OFFICE/OUTPA TIENT VISIT, [facility], [id number] [place], [place], [address], [place] tel:[phone] [place] [address] (chief complaint) Supervision of other normal pregnancyAntepart um edema or excessive weight gain 2 No Information [facility], [id number] [id number]- [facility], [place], [place], [address], [place] tel:[phone] [place] [address] Supervision of other normal Nov- 2 No Information [facility], [id number]- [place], [address], [place] tel:[phone] [place] [address] Supervision of other normal Nov- 2 No Information [facility], [id number]- [place], [address], [place] tel:[phone] [place] [address] Supervision of other normal Nov- 2 No Information [facility], [id number] [id number]- [place], [place], [address], [place] tel:[phone] [place] [address] Absence of menstruationUnspe cified screeningOther specified viral diseasesSupervisi on of other normal Nov-0 2 Tay Matthews. [address], [place], [address], [place]. tel:[phone] [facility], [id number] 7722041KP- [place], [place], [address], [place] tel:[phone] [place] [address] Supervision of other normal pregnancyUnspecif ied screeningOther specified viral diseasesAbsence of menstruation Nov-0 2 Tay Matthews. [address], [place], [address], [place]. tel:[phone] Referring Provider: Cassie Cross, [address] [place], [address] . tel:[phone] Family History Family Member Type Diagnosis Age At Onset Problem (finding) Family history of coronary arteriosclerosis Mother Problem (finding) Anxiety Brother Problem (finding) Allergies Brother Problem (finding) Obesity Mother Problem (finding) Obesity Problem (finding) Family history of Heari ng impairment Father Problem (finding) diabetes melli tus in first degree relative Mother Problem (finding) Allergies Problem (finding) Family history of Cance r Father Problem (finding) Obesity Payers Payer name Insurance type Covered green party ID Authoriza tion(s) No Information Social History Type Description Quantity Date Captured Comments Sex Female Yes - Patient is currently Smoking Status No Information Chief Complaint And Reason For Visit No Information Reason For Referral Reason For Referral No Information Plan Of Treatment Date Type Action Status Referral Ordered: OB US < 14 WKS, SINGLE FETUS ordered History Of Present Illness Encounter Date Complaint History Of Prese nt Illness No Information Functional Status Date Functional Assessmen t No Information Instructions Date Instruction Additional Infor mation indications for ultrasound influenza vaccine environmental / work hazards travel tobacco (ask, advise, assess, as sist and arrange) alcohol illicit / recreational drugs HIV and other routine t ests risk factors identified by feng martinez anticipated course of c are nutrition and weight gain counsalycia lou, special diet toxoplasmosis precautions (cats / raw meat) sexual activity smoking counseling domestic violence seat belt use childbirth classes / hospital fa cilities exercise use of any medicatio ns (including supplements, vitamins, herbs, OTC drugs) Assessments Type Assessment Date No Information Patient Care Teams Name Effective Dates (start - stop) Status Members No Information
--- NOTE | ~2025-03-24 | MMUS_ITS ---
EXAMINATION: MM diagnostic carlos RT w aris, US breast RT limited INDICATION: 39-year old female; BI-RADS 0, callback to evaluate right breast mass. COMPARISON: 03/04/2025 TECHNIQUE: Digital breast tomosynthesis True lateral and spot compression CC and MLO views of the RIGHT breast were obtained with computer-aided detection to assist in interpretation of the study. MAMMOGRAM FINDINGS: There are scattered areas of fibroglandular density. A circumscribed mass persists in the area of concern in the outer central at middle depth. RIGHT BREAST ULTRASOUND FINDINGS: Targeted evaluation of the area of concern was completed. There is a 0.8 cm Hypoechoic mass with echogenic center at 9:00 location 5 cm from the nipple in the RIGHT breast compatible with an intramammary lymph node that correlates to the area of Mammographic finding. IMPRESSION: FINDINGS COMPATIBLE WITH INTRAMAMMARY LYMPH NODE CORRELATES TO THE MAMMOGRAPHIC FINDING IN THE RIGHT BREAST AT 9:00 LOCATION. NO FURTHER INVESTIGATION NECESSARY. RECOMMENDATION: ANNUAL SCREENING BILATERAL MAMMOGRAPHY IN 12 MONTHS BI-RADS 2, BENIGN Reviewed, dictated and finalized at location B. IMPRESSION: FINDINGS COMPATIBLE WITH INTRAMAMMARY LYMPH NODE CORRELATES TO THE MAMMOGRAPHIC FINDING IN THE RIGHT BREAST AT 9:00 LOCATION. NO FURTHER INVESTIGATION NECESSA RY. RECOMMENDATION: ANNUAL SCREENING BILATERAL MAMMOGRAPHY IN 12 MONTHS BI-RADS 2, BENIGN
--- OUTSIDE RECORDS SUMMARY | 2025-03-24 08:57 | XMS_ITS | Clinical Summary ---
Author Organization [facility] Address [address] [place] [address] Phone Care Team Providers Care Striper Name Role Phone Ayah Almodovar MD Primary Care Provider [phone] Allergies Active Allergy Reactions Criticality Noted Date Comments Sulfa Antibiotics Anaphylaxis 08/20/2024 Medications Cetirizine HCl (ZYRTEC ALLERGY PO)Indications: Allergy Take 10 mg by mouth if needed for Other. Indications: Allergy Active Cholecalciferol 20603 UNIT CapsuleIndicati ons:Vitamin D Deficiency Take 5,000 [...] Comments Blood Pressure 110/70 08/25/2024 2:20 PM TRACTOR ENGINE MECHANIC Pulse 94 08/25/2024 2:20 PM TRACTOR ENGINE MECHANIC Temperature 36.3 C (97.3 F) 08/25/2024 2:20 PM TRACTOR ENGINE MECHANIC Respiratory Rate 18 08/25/2024 2:20 PM TRACTOR ENGINE MECHANIC Oxygen Saturation 94% 08/25/2024 2:20 PM TRACTOR ENGINE MECHANIC Inhaled Oxygen Concentration - - Weight 142.4 kg (314 lb) 08/20/2024 3:47 PM TRACTOR ENGINE MECHANIC Height 170.2 cm (5' 7) 08/20/2024 3:01 PM TRACTOR ENGINE MECHANIC Body Mass Index 49.18 08/20/2024 3:01 PM TRACTOR ENGINE MECHANIC Plan of Treatment Health Maintenance Due Date [...] age to complete this topic Insurance [employer] [facility] Advance Directives * Full Code (Latest Code Status on File) Date Activated Date Inactivated Comments 09/17/2024 5:19 PM Care Teams Striper Relationship Specialty Start Date End Date Ayah Almodovar MD [address] [place] [address] PCP - General Family Medicine 08/10/24
== END 2025-03-24 08:44 | disposition home or self-care (01) ==
PROVIDERS: Visit Provider Nurse Practitioner
DX: N63.10 Unspecified lump in the right breast, unspecified quadrant (principal)
CPT/HCPCS: 76642; 77061; 77065; G0279